=== PATIENT | female | born 1940 | race Caucasian/White ===

== ENCOUNTER 2017-03-04 21:58 | Inpatient (IN) ==
[2017-03-04] MEDS ORDERED: CIPROFLOXACIN INJ 400 MG in PREMIX 1 EACH IV STA (23:11)
[2017-03-04] MEDS ORDERED: ONDANSETRON 4 MG/2 ML VIAL IV STA (23:11)
[2017-03-04] MEDS ORDERED: PANTOPRAZOLE 40 MG VIAL IV STA (23:11)
[2017-03-04] MEDS ORDERED: HYDROmorphone 2 MG/1 ML VIAL IV STA (23:11)
[2017-03-04] MEDS ORDERED: SODIUM CHLORIDE 0.9% 1,000 ML IV STA (23:11)
[2017-03-04] MEDS ORDERED: metroNIDAZOLE INJ 500 MG in PREMIX 1 EACH IV STA (23:11)
--- NOTE | 2017-03-04 23:35 | Emergency Department Note ---
Merle Downey Kasabria, am scribing for, and in the presence of, Saji Daniels MD 23:17. Frances Downey Charles R, MD, personally performed the services described in this documentation, ascribed by Ciara Bloom in my presence, and it is both accurate and complete 335 . Arrival - Arrival Chief Complaint: Abdominal / Flank Pain Stated Complaint: STOMACH SWOLLEN/BURNING/THROWING UP/CANT DRINK/EAT ED Nursing Triage Note: C/O Generalized abd pain/nausea/vomiting/generalized weakness/dizziness. Onset Thursday night. Pt was seen by Dr. Jarrell earlier today and she was given cipro to possibly treat diverticulitis/gastritis until she can get a CT scan on Thursday. Pt states that she feels like she is very dehydrated and needs an IV. No active vomiting noted. Mode of Arrival: Wheelchair Limitations: No Limitations Source: Patient Time Seen by Provider: 03/04/17 22:54 - History of Present Illness HPI Narrative: This is a 76 y/o white female presenting to the ED with c/o generalized abdominal pain, weakness, nausea, vomiting, diarrhea, and vertigo that onset Thursday. Pt saw Dr. Jarrell earlier today and had labs drawn and kidney checked with culture due to dark urine and low back pain. She was given Cipro in an attempt to treat her diverticulitis and gastritis until she was able to get a CT scan on Thursday. Pt states she feel extremely weak and has had five to six episodes of emesis. She has had a low grade fever but has not taken any OTC medications. Pt states she has been drinking liquids and not eating solid meals. 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 Pt also c/ o pain behind her ears and down her neck. She denies chills, back pain, FINCH, vision change, chest pain, and dysuria. Her PMHx is consistent with HTN and MT x2. There is no active vomiting. Consistency: constant Severity: moderate Date of Last Menstrual Period: Hysterectomy Allergies/Adverse Reactions: Allergies Allergy/AdvReac Type Severity Reaction Status Date / Time Sulfa (Sulfonamide Allergy RASH Verified 08/30/15 18:33 Antibiotics) codeine AdvReac Nausea Verified 08/30/15 18:33 Home Medications: Home Medications Medication Instructions Recorded Confirmed Type Aspirin [Ecotrin] 162 mg PO DAILY 08/30/15 03/04/17 History Carvedilol [Carvedilol] 12.5 mg PO BID 08/30/15 03/04/17 History Clopidogrel Bisulfate [Clopidogrel] 75 mg PO DAILY 08/30/15 03/04/17 History NIFEdipine [Nifedipine ER] 30 mg PO BEDTIME 08/30/15 03/04/17 History Ondansetron HCl [Ondansetron HCl] 4 mg PO Q4-6H PRN 08/30/15 03/04/17 History Rosuvastatin [Crestor] 20 mg PO DAILY 08/30/15 03/04/17 History Ergocalciferol (Vitamin D2) 2,000 unit PO DAILY 09/21/16 03/04/17 History [Vitamin D2] Famotidine Tab [Pepcid Tab] 40 mg PO BID PRN 09/21/16 03/04/17 History Pantoprazole Tab [Protonix Tab] 40 mg PO DAILY #14 tablet 09/21/16 03/04/17 Rx cloNIDine TAB [Catapres Tab] 0.1 mg PO DAILY #10 tablet 09/21/16 03/04/17 Rx Ciprofloxacin Tab [Cipro Tab] 500 mg PO BID 03/04/17 03/04/17 History Review of System - Review of System 12 point system: reviewed and no additional remarkable complaints except as stated - Review of System Constitutional: Present: weakness. Absent: chills, fever Eyes: Absent: vision change Head/Ears/Nose/Throat: Present: other (pain behind ears bilaterally that extend down her neck). Absent: earache, nasal drainage Respiratory: Absent: cough, wheezing Cardiovascular: Absent: chest pain, dyspnea on exertion Gastrointestinal: Present: abdominal pain (generalized ), nausea, vomiting (x5-6 ), diarrhea. Absent: hematemesis, hematochezia Genitourinary female: Absent: dysuria Musculoskeletal: Absent: arm pain, back pain, leg pain, neck pain Skin: Absent: rash Neurological: Absent: headache, weakness, numbness, confusion, vertigo Psychiatric: Absent: anxiety Endocrine: Absent: fatigue Hematological/Lymphatic: Absent: easy bleeding Allergic/Immunologic: Absent: facial swelling Medical,Surgical,& Family Hx - Medical History Cardio: History of: Hypertension, MT (MT X 2) Endocrine: History of: Dyslipidemia - Surgical History Cardiac Surgeries: Sugical HX of: Cardiac Catheterization (3 HEART CATHS 4 STENTS) - Social History Smoking Status: Unknown if ever smoked Frequency of Alcohol Use: None Type of Drug Use: None Exam Vital Signs: Vital Signs Temperature 97.6 F 03/04/17 22:10 Pulse Rate 70 03/04/17 22:10 Respiratory Rate 16 03/04/17 22:10 Blood Pressure 164/104 03/04/17 22:10 O2 Sat by Pulse Oximetry 98 03/04/17 22:05 - General General appearance: alert, in no apparent distress - Head Head exam: Present: atraumatic, normocephalic, normal inspection - Eye Eye exam: Present: normal appearance, PERRL, EOMI - ENT ENT exam: Present: mucous membranes dry, TM's normal bilaterally. Absent: normal exam, normal oropharynx, mucous membranes moist, normal external ear exam - Expanded ENT Exam External ear exam: Present: other (reproducible pain behind ears bilaterally ) - Neck Neck exam: Present: normal inspection, full ROM, trachea midline. Absent: tenderness - Chest Chest inspection: Present: normal inspection, symmetric chest wall rise. Absent : tenderness - Respiratory Respiratory exam: Present: rhonchi (bilaterally ) - Cardiovascular Cardiovascular exam: Present: regular rate, normal rhythm, irregular rhythm, normal heart sounds - Abdominal Exam Abdominal exam: Present: soft, tenderness (LLQ tenderness ), diminished bowel sounds. Absent: distention - Extremities Exam Extremities exam: Present: normal inspection, full ROM, normal capillary refill. Absent: tenderness, pedal edema, calf tenderness - Back Exam Back exam: Present: normal inspection, full ROM. Absent: tenderness - Neurological Exam Neurological exam: Present: alert, oriented X3, CN II-XII intact, normal gait, reflexes normal - Psychiatric Psychiatric exam: Present: normal affect, normal mood - Skin Skin exam: Present: warm, dry, intact, pallor, other (poor skin turgor ). Absent: normal color, diaphoresis Course Course Narrative: Patient has a history of gallstones. On reexamination patient is not tender in the right upper quadrant negative Cowart sign patient is a exam shows tenderness in the mid abdomen and left lower quadrant - Reevaluation(s) Reevaluation #1: Patient's abdominal pain is better but she still having nausea and vomiting Time: 01:07 - Consultations Consultation #1: Dr. Preciado will admit patient Time: 01:07 Results - Labs CBC & BMP: 03/04/17 23:41 03/04/17 23:41 Lab Results: I have reviewed the patients labs - Diagnostic Findings Procedure: CT Abdomen and Pelvis: report reviewed by me (Small bowel diverticulitis without obstruction gallstones without obstruction and no gallbladder wall thickening) Disposition Clinical Impression: Abdominal pain, Diverticulitis, History of gallstones, Nausea & vomiting, Dehydration Case discussed with: patient, patient's family Disposition: Still a Patient Condition: Guarded Time of Disposition: 01:07
[2017-03-05] MEDS ORDERED: ONDANSETRON 4 MG/2 ML VIAL ONE (00:02)
[2017-03-05] MEDS ORDERED: HYDROmorphone 2 MG/1 ML VIAL ONE (00:02)
[2017-03-05] MEDS ORDERED: metroNIDAZOLE 500 MG/100 ML PREMIX IV ONE (00:02)
[2017-03-05] MEDS ORDERED: PANTOPRAZOLE 40 MG VIAL IV ONE (00:02)
[2017-03-05] MEDS ORDERED: CIPROFLOXACIN 400 MG/200 ML PREMIX IV ONE (00:02)
[2017-03-05 00:32] LABS: Basophils # 0.1 10*3/uL (0.0-0.2); Basophils % 0.5 % (0.0-0.8); Eosinophils # 0.2 10*3/uL (0.0-0.87); Eosinophils % 1.8 % (0.00-10.9); Hematocrit 38.4 VOL% (35.7-47.0); Hemoglobin 12.5 GM/DL (12.0-16.0); Immature Granulocytes % 0.5 %; Immature Granulocytes Absolute 0.05 #; Lymphocytes # 1.3 10*3/uL (1.4-4.0); Lymphocytes % 13.1 % (21.3-54.2); Mean Corpuscular HGB Conc 32.6 GM/DL (32-36); Mean Corpuscular Hemoglobin 31 PG (27-34); Mean Corpuscular Volume 95.5 FL (87-102); Mean Platelet Volume 10.6 FL (9.6-12.0); Monocytes # 0.6 10*3/uL (0.11-0.8); Monocytes % 6.1 % (1.7-12.7); Neutrophils # 7.9 10*3/uL (1.4-7.4); Platelet Count 204 T/CUMM (130-400); Red Blood Count 4.02 MC/CUMM (3.8-5.5); Red Cell Distribution Width 12.6 % (9.3-17.3); White Blood Count 10.1 T/CUMM (4-12)
[2017-03-05 00:47] LABS: Apearance,Urine CLEAR (Clear); Bilirubin,Urine Negative (Negative); Blood, Urine Negative (Negative); Glucose,Urine (UA) 150 mg/dL (Negative); Ketones,Urine 20 mg/dL (Negative); Mucus,Urine Occasional /LPF (Occasional); Nitrite,Urine Negative (Negative); Protein,Urine Negative; RBC,Urine 1 /HPF (0-4); Squamous Epithelial Cell,Urine Occasional /HPF (0-10); Urine Color Straw (Yellow); Urine Specific Gravity 1.019 (1.001-1.035); Urine Urobilinogen < 2.0 EU/DL (0.2-1.0); WBC,Urine <1 /HPF (0-6)
[2017-03-05 01:02] LABS: Lactic Acid 1.2 MMOL/L (0.4-2.0)
[2017-03-05 01:03] LABS: Alanine Aminotransferase 24 U/L (13-56); Albumin 3.8 G/DL (3.4-5.0); Alkaline Phosphatase 80 U/L (45-117); Amylase 39 U/L (25-115); Aspartate Amino Transferase 19 U/L (0-37); Blood Urea Nitrogen 16 MG/DL (7-18); Calcium 8.9 MG/DL (8.5-10.1); Glucose 162 MG/DL (74-106); Magnesium 2.2 MG/DL (1.8-2.4); Osmolality,Calculated 272.2 MOS/KG (273-304); Potassium 3.7 MMOL/L (3.5-5.1); Sodium 134 MMOL/L (136-145); Total Protein 7.2 G/DL (6.4-8.3); Troponin I Only < 0.015 NG/ML (0.00-0.045)
--- NOTE | 2017-03-05 01:14 | Hospitalist History & Physical ---
Assessment and Plan (1) Abdominal pain Status: Acute Assessment and plan: Start Cipro and Flagyl IV. Continue IV fluid hydration. Antiemetics and pain medications as needed. Consult Dr. Caraballo gastroenterology. Current Visit: Yes Qualifiers: Abdominal location: left lower quadrant Qualified Code(s): R10.32 - Left lower quadrant pain (2) Diverticulitis Status: Acute Current Visit: Yes Qualifiers: Diverticulitis site: large intestine Diverticulitis bleeding: without bleeding Diverticulitis complication: without perforation or abscess Qualified Code(s): K57.32 - Diverticulitis of large intestine without perforation or abscess without bleeding (3) Nausea & vomiting Status: Acute Assessment and plan: Zofran and Phenergan as needed Current Visit: Yes Qualifiers: Vomiting type: unspecified Vomiting Intractability: intractable Qualified Code(s): R11.2 - Nausea with vomiting, unspecified (4) Dehydration Status: Acute Assessment and plan: IV fluids and clear liquid diet Current Visit: Yes History of Present Illness Chief complaint: Nausea vomiting abdominal pain History of present illness: Ms. Caraballo is a 76 year old female presenting to the ED with c/o generalized abdominal pain, weakness, nausea, vomiting, diarrhea, and vertigo that onset Thursday. Pt saw Dr. Jarrell earlier today and had labs drawn and Urine checked with culture due to dark urine and low back pain. She was given Cipro in an attempt to treat her diverticulitis until she was able to get a CT scan on Thursday. Pt states she feel extremely weak and has had five to six episodes of emesis. She has had a low grade fever but has not taken any OTC medications. Pt states she has been drinking liquids and not eating solid meals. 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 She denies chills, back pain, FINCH, vision change, chest pain, and dysuria. Her PMHx is consistent with HTN and SC x2. There is no active vomiting. Consistency: constant Severity: moderate Home Medications Medication Instructions Recorded Confirmed Type Aspirin [Ecotrin] 162 mg PO DAILY 08/30/15 03/04/17 History Carvedilol [Carvedilol] 12.5 mg PO BID 08/30/15 03/04/17 History Clopidogrel Bisulfate [Clopidogrel] 75 mg PO DAILY 08/30/15 03/04/17 History NIFEdipine [Nifedipine ER] 30 mg PO BEDTIME 08/30/15 03/04/17 History Ondansetron HCl [Ondansetron HCl] 4 mg PO Q4-6H PRN 08/30/15 03/04/17 History Rosuvastatin [Crestor] 20 mg PO DAILY 08/30/15 03/04/17 History Ergocalciferol (Vitamin D2) 2,000 unit PO DAILY 09/21/16 03/04/17 History [Vitamin D2] Famotidine Tab [Pepcid Tab] 40 mg PO BID PRN 09/21/16 03/04/17 History Pantoprazole Tab [Protonix Tab] 40 mg PO DAILY #14 tablet 09/21/16 03/04/17 Rx cloNIDine TAB [Catapres Tab] 0.1 mg PO DAILY #10 tablet 09/21/16 03/04/17 Rx Ciprofloxacin Tab [Cipro Tab] 500 mg PO BID 03/04/17 03/04/17 History Allergies Allergy/AdvReac Type Severity Reaction Status Date / Time Sulfa (Sulfonamide Allergy RASH Verified 08/30/15 18:33 Antibiotics) codeine AdvReac Nausea Verified 08/30/15 18:33 Medical,Surgical,& Family Hx - Medical History Cardio: History of: Hypertension, SC (SC X 2) Endocrine: History of: Dyslipidemia Gastrointestinal: History of: Diverticulitis/ Diverticulosis - Surgical History Cardiac Surgeries: Sugical HX of: Cardiac Catheterization (3 HEART CATHS 4 STENTS) - Family History Family History: Reports;: Family Hypertension - Social History Smoking Status: Unknown if ever smoked Frequency of Alcohol Use: None Type of Drug Use: None Marital Status: Single Lives With:: Alone Functional capacity: independent ambulation 12 point system: reviewed and no additional remarkable complaints except as stated - Gastrointestinal Gastrointestinal: Present: as per HPI, abdominal pain, diarrhea, nausea, vomiting Exam - Constitutional Vitals: Period Temp Pulse Resp BP Sys/Velazco Pulse Ox Last 24 Hr 97.6 F-97.6 F 70-70 16-16 164-164/104-104 98 Exam: Constitutional System: Moderate distress. No tremulousness. Head: Normocephalic, atraumatic. Ears, Nose and Throat System: No pain or tenderness. No epistaxis or discharge. mucous membranes dry Eyes System: Pupils equal, round, and reactive. Extraocular muscles intact. Neck: Supple, without adenopathy, No jugular venous distention. No thyromegaly, neck mass, or prior surgery apparent. Respiratory System: Chest clear to auscultation. Cardiovascular System: Heart with regular rate and rhythm. No murmur. GI System: Abdomen soft, tender to palpation in the left lower quadrant. Normo active bowel sounds present. Musculoskeletal System: limbs with no pedal edema. Full distal pulses. Neurological System: No discernable sensory deficit. No aphasia Psychiatric System: Conversation is rational Results - Labs CBC & BMP: 03/04/17 23:41 03/04/17 23:41 Lab Results: I have reviewed the past 24 hour labs - Diagnostic Findings Procedure: CT Abdomen and Pelvis: image reviewed by me, report reviewed by me
[2017-03-05] MEDS ORDERED: MORPHINE 2 MG/1 ML SYRINGE IV PRN (01:20)
[2017-03-05] MEDS ORDERED: PROMETHAZINE 25 MG/1 ML VIAL IM PRN (01:20)
[2017-03-05] MEDS ORDERED: FAMOTIDINE 20 MG TABLET PO PRN (01:22)
[2017-03-05] MEDS ORDERED: ONDANSETRON 4 MG TABLET PO PRN (01:22)
[2017-03-05] MEDS: SODIUM CHLORIDE 0.9% 1,000 ML IV SCH ×3 (03:16→17:44)
[2017-03-05] MEDS: ONDANSETRON 4 MG/2 ML VIAL IV PRN (03:37)
[2017-03-05 04:10] LABS: Basophils % 0.4 % (0.0-0.8); Eosinophils % 0.4 % (0.00-10.9); Hematocrit 41.4 VOL% (35.7-47.0); Hemoglobin 13.2 GM/DL (12.0-16.0); Immature Granulocytes % 0.3 %; Immature Granulocytes Absolute 0.03 #; Lymphocytes # 1.1 10*3/uL (1.4-4.0); Lymphocytes % 12.1 % (21.3-54.2); Mean Corpuscular HGB Conc 31.9 GM/DL (32-36); Mean Corpuscular Hemoglobin 31 PG (27-34); Mean Corpuscular Volume 95.8 FL (87-102); Mean Platelet Volume 10.6 FL (9.6-12.0); Monocytes # 0.3 10*3/uL (0.11-0.8); Monocytes % 3.7 % (1.7-12.7); Neutrophils # 7.7 10*3/uL (1.4-7.4); Neutrophils % 83.1 % (38.7-73.9); Platelet Count 226 T/CUMM (130-400); Red Blood Count 4.32 MC/CUMM (3.8-5.5); Red Cell Distribution Width 12.5 % (9.3-17.3); White Blood Count 9.3 T/CUMM (4-12)
[2017-03-05 04:46] LABS: Albumin 3.8 G/DL (3.4-5.0); Bilirubin,Total 1.2 MG/DL (0.2-1.0); Calcium 8.6 MG/DL (8.5-10.1); Magnesium 2.2 MG/DL (1.8-2.4); Osmolality,Calculated 275.1 MOS/KG (273-304); Potassium 3.7 MMOL/L (3.5-5.1); Total Protein 7.7 G/DL (6.4-8.3)
[2017-03-05 05:32] LABS: Apearance,Urine CLEAR (Clear); Bilirubin,Urine Negative (Negative); Blood, Urine Negative (Negative); Glucose,Urine (UA) >=500 mg/dL (Negative); Ketones,Urine 20 mg/dL (Negative); Nitrite,Urine Negative (Negative); Protein,Urine Negative; RBC,Urine 1 /HPF (0-4); Urine Color Straw (Yellow); Urine Specific Gravity 1.015 (1.001-1.035); Urine Urobilinogen < 2.0 EU/DL (0.2-1.0); WBC,Urine <1 /HPF (0-6)
--- NOTE | 2017-03-05 08:05 | XRay Report ---
XR chest 1V portable Indication: Abdominal pain Comparison: 21 September 2016 Findings: The heart and mediastinum are stable in size and configuration. The pulmonary vascularity is slightly increased with bilateral increased interstitial lung density. No other lung infiltrates, effusions, pneumothorax or other abnormality is demonstrated. Impression: Findings suggest mild cardiac decompensation. PROCEDURE INTERPRETED AT [facility] DEPARTMENT OF RADIOLOGY Final Report Signed by: Dr. Tarun Cook
--- NOTE | 2017-03-05 08:06 | XRay Report ---
XR abdomen 2V Indication: Abdominal pain Comparison: One March 2014 Findings: No free fluid or free air seen. Increased stool volume is seen in the colon. The bowel gas pattern otherwise appears within normal limits. No abnormal calcifications are present. No other abnormality is identified. Impression: Increased stool volume in the colon, may indicate constipation. PROCEDURE INTERPRETED AT [facility] DEPARTMENT OF RADIOLOGY Final Report Signed by: Dr. Tarun Cook
--- NOTE | 2017-03-05 08:14 | CT Report ---
CT abdomen pelvis Indication: Abdominal, pelvic pain Comparison: 21 September 2013 Technique: Axial CT imaging of the abdomen and pelvis is performed with intravenous and oral contrast. Contrast dose is 100 cc of Omnipaque 350. Findings: Cardiac and lung bases are within normal limits CT abdomen: Calculus is seen in the gallbladder neck area. Diverticula is present in the head of the pancreas likely duodenal, similar finding was present on previous exam. The liver spleen and adrenal glands are normal in size and enhancement. No evidence of focal lesion is demonstrated in these solid organs. Kidneys are normal in size and enhancement. No evidence of hydronephrosis or nephrolithiasis is seen. Multiple diverticula are present in the colon without evidence of diverticulitis. Multiple diverticula are also seen in areas of the small bowel more prominent on the left side of the abdomen. One diverticula in the left mid abdomen appears enlarged with adjacent stranding.. No evidence of free fluid or free air is present. CT pelvis: Large amount of diverticular single sigmoid colon without evidence of diverticulitis. Remaining pelvic bowel appears within normal limits. Bladder shows no evidence of abnormality. The pelvic organs show no evidence of abnormality Impression: Suggestion of small bowel diverticulitis in the left mid abdomen. Cholelithiasis. This CT exam was performed using one or more the following dose reduction techniques: Automated exposure control, adjustment of the MA and/or KV according to patient size, or use of iterative reconstruction technique. PROCEDURE INTERPRETED AT [facility] DEPARTMENT OF RADIOLOGY Final Report Signed by: Dr. Tarun Cook
--- NOTE | 2017-03-05 08:17 | EKG Report ---
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
[2017-03-05] MEDS ORDERED: PANTOPRAZOLE 40 MG TABLET PO SCH (09:00)
[2017-03-05] MEDS: CLOPIDOGREL 75 MG TABLET PO SCH (10:14)
[2017-03-05] MEDS: ENOXAPARIN 40 MG/0.4 ML SYRINGE SUBCUT SCH (10:14)
[2017-03-05] MEDS: PANTOPRAZOLE 40 MG TABLET PO SCH (10:14)
[2017-03-05] MEDS: ROSUVASTATIN 20 MG TABLET PO SCH (10:15)
[2017-03-05] MEDS: metroNIDAZOLE INJ 500 MG in PREMIX 1 EACH IV SCH ×2 (10:15→16:18)
[2017-03-05] MEDS: CARVEDILOL 12.5 MG TABLET PO SCH ×2 (10:15→20:40)
[2017-03-05] MEDS: CHOLECALCIFEROL 1,000 UNIT TABLET PO SCH (10:15)
[2017-03-05] MEDS: ASPIRIN EC 81 MG TABLET PO SCH (10:15)
[2017-03-05] MEDS: cloNIDine 0.1 MG TABLET PO SCH (10:15)
--- NOTE | 2017-03-05 10:45 | Gastrointestinal Consult Note ---
<DavidKarmen Miranda - Last Filed: 03/05/17 10:38> Assessment and Plan (1) Diverticulitis Status: Acute Assessment and plan: 03/05-sudden onset of generalized abdominal pain 5 days with associated nausea, vomiting and couple episodes of diarrhea. Prior history of diverticulitis in the past. CT findings noted below. Currently on Plavix. IV Cipro and Flagyl have been initiated. Continue to monitor. Plan an addendum to follow by Dr. Caraballo. Current Visit: Yes Qualifiers: Diverticulitis site: large intestine Diverticulitis bleeding: without bleeding Diverticulitis complication: without perforation or abscess Qualified Code(s): K57.32 - Diverticulitis of large intestine without perforation or abscess without bleeding History of Present Illness Chief complaint: Abdominal pain History of present illness: Ms. Caraballo is a 76 year old female who was admitted to the hospital with 5 day history of nausea, vomiting, and abdominal pain. Patient states that last Thursday she had a rather sudden onset of generalized abdominal pain. She states the pain was severe in nature and was associated with the onset of nausea and vomiting shortly after. She also reports some associated dizziness with no prior history of vertigo to her knowledge. Patient states that she did run a low-grade fever initially but it resolved shortly after onset. She presented to the clinic this week to see Dr. Jarrell due to the abdominal pain. She was given oral Cipro and scheduled for a CT scan as an outpatient tomorrow. Patient states that the pain continued and she presented to the hospital for further evaluation last night. She states that she has not been up to eat or drink very much since the pain began. She she has had initially episodes of diarrhea at onset but states she has not had a bowel movement in 2 days. Denies any melena or hematochezia. On admission she had a CT of the abdomen which showed a large amount of diverticulae of the sigmoid colon without diverticulitis however findings of small bowel diverticulitis in the left mid abdomen. Also noted findings of cholelithiasis. LFTs are unremarkable. Noted calculus seen in the neck of the gallbladder is well. She is afebrile since admission. 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 Findings noted showed no ulcerations or malignancies at that time. Facility records show last complete colonoscopy in 1999 with findings of colon polyps and diverticula of the colon with significant diverticular scarring in the pelvic colon done by Dr. Mckeon. She continues on Plavix at this time with a history of cardiac stents in the past with last known stenting in [address] Dahl. Home Medications Medication Instructions Recorded Confirmed Type Aspirin [Ecotrin] 162 mg PO DAILY 08/30/15 03/04/17 History Carvedilol [Carvedilol] 12.5 mg PO BID 08/30/15 03/04/17 History Clopidogrel Bisulfate [Clopidogrel] 75 mg PO DAILY 08/30/15 03/04/17 History NIFEdipine [Nifedipine ER] 30 mg PO BEDTIME 08/30/15 03/04/17 History Ondansetron HCl [Ondansetron HCl] 4 mg PO Q4-6H PRN 08/30/15 03/04/17 History Rosuvastatin [Crestor] 20 mg PO DAILY 08/30/15 03/04/17 History Ergocalciferol (Vitamin D2) 2,000 unit PO DAILY 09/21/16 03/04/17 History [Vitamin D2] Famotidine Tab [Pepcid Tab] 40 mg PO BID PRN 09/21/16 03/04/17 History Pantoprazole Tab [Protonix Tab] 40 mg PO DAILY #14 tablet 09/21/16 03/04/17 Rx cloNIDine TAB [Catapres Tab] 0.1 mg PO DAILY #10 tablet 09/21/16 03/04/17 Rx Ciprofloxacin Tab [Cipro Tab] 500 mg PO BID 03/04/17 03/04/17 History Allergies Allergy/AdvReac Type Severity Reaction Status Date / Time Sulfa (Sulfonamide Allergy RASH Verified 08/30/15 18:33 Antibiotics) codeine AdvReac Nausea Verified 08/30/15 18:33 Medical,Surgical,& Family Hx - Medical History Cardio: History of: Hypertension, ND (ND X 2) Endocrine: History of: Dyslipidemia Gastrointestinal: History of: Diverticulitis/ Diverticulosis - Surgical History Cardiac Surgeries: Sugical HX of: Cardiac Catheterization (3 HEART CATHS 4 STENTS) Reproductive Surgeries: Surgical HX of;: Breast Surgery, Hysterectomy - Family History Family History: Reports;: Family Hypertension - Social History Smoking Status: Unknown if ever smoked Frequency of Alcohol Use: None Type of Drug Use: None 12 point system: reviewed and no additional remarkable complaints except as stated - Constitutional Constitutional: Present: as per HPI, fever(s) - EENT Eyes: Present: as per HPI Ears: Present: as per HPI Nose, mouth and throat: Present: as per HPI - Cardiovascular Cardiovascular: Present: as per HPI - Respiratory Respiratory: Present: as per HPI - Gastrointestinal Gastrointestinal: Present: as per HPI, abdominal pain, diarrhea, nausea, vomiting - Genitourinary Genitourinary: Present: as per HPI - Musculoskeletal Musculoskeletal: Present: as per HPI - Neurological Neurological: Present: as per HPI - Psychiatric Psychiatric: Present: as per HPI - Endocrine Endocrine: Present: as per HPI - Hematologic/Lymphatic Hematologic/Lymphatic: Present: as per HPI Exam - Constitutional Vitals: Period Temp Pulse Resp BP Sys/Velazco Pulse Ox Last 24 Hr 96.3 F-96.4 F 70-84 16-18 162-168/88-94 97-98 General appearance: normal weight, no acute distress - Head Head exam: Present: normal inspection, normocephalic - Eye Eye exam: Present: other (Lids and conjunctive are unremarkable). Absent: scleral icterus - ENT ENT exam: Present: normal exam, normal oropharynx - Neck Neck exam: Present: normal inspection - Respiratory Respiratory exam: Present: clear to auscultation bilaterally. Absent: rales, rhonchi, wheezes - Cardiovascular Cardiovascular exam: Present: regular rate and rhythm. Absent: diastolic murmur , JVD, systolic murmur - GI/Abdominal GI/Abdominal exam: Present: normal bowel sounds, tenderness (Generalized), soft. Absent: ascites, distended, mass, organomegaly - Extremities Exam Extremities exam: Present: normal inspection, full ROM - Back Exam Back exam: Present: normal inspection - Neurological Exam Neurological exam: Present: alert, oriented X3 - Psychiatric Psychiatric exam: Present: normal affect, normal mood - Skin Skin exam: Present: normal color, warm, dry Results - Labs CBC & BMP: 03/05/17 03:31 03/05/17 03:31 Lab Results: I have reviewed the past 24 hour labs - Diagnostic Findings Procedure: CT Abdomen and Pelvis: report reviewed by me <Flynn Caraballoyolanda Kraft - Last Filed: 03/05/17 18:30> History of Present Illness History of present illness: Ms. Caraballo is a 76 year old female Exam - Constitutional Vitals: Period Temp Pulse Resp BP Sys/Velazco Pulse Ox Last 24 Hr 96.3 F-99.0 F 70-84 16-20 162-189/88-99 97-100 Results - Labs CBC & BMP: 03/05/17 03:31 03/05/17 03:31
--- NOTE | 2017-03-05 12:36 | CT Report ---
CT brain Indication: Vertigo Comparison: None available Technique: Axial CT imaging of the brain is performed without contrast with 3 mm increments. Findings: No evidence of hemorrhage, mass mass effect midline shift or acute infarct seen. There is moderate diffuse cerebral atrophy. There are areas of decreased density seen within the white matter likely related to chronic microvascular changes. More focal decreased density seen in the right anterior basal ganglia, likely previous lacunar infarct. Otherwise the brain parenchyma attenuation and differentiation appears within normal limits. The ventricles and cisterns are normal in caliber. No cranial or skull base abnormality is identified. Impression: No evidence of acute process or acute infarct. This CT exam was performed using one or more the following dose reduction techniques: Automated exposure control, adjustment of the MA and/or KV according to patient size, or use of iterative reconstruction technique. PROCEDURE INTERPRETED AT [facility] DEPARTMENT OF RADIOLOGY Final Report Signed by: Dr. Tarun Cook
[2017-03-05] MEDS: CIPROFLOXACIN INJ 400 MG in PREMIX 1 EACH IV SCH ×3 (13:29→23:38)
[2017-03-05] MEDS: PROMETHAZINE 25 MG TABLET PO PRN (16:18)
[2017-03-05] MEDS: ACETAMINOPHEN 325 MG TABLET PO PRN (16:47)
[2017-03-06] MEDS: metroNIDAZOLE INJ 500 MG in PREMIX 1 EACH IV SCH ×3 (01:49→15:55)
[2017-03-06 02:18] LABS: Basophils % 0.2 % (0.0-0.8); Eosinophils # 0.1 10*3/uL (0.0-0.87); Eosinophils % 0.9 % (0.00-10.9); Hematocrit 38.5 VOL% (35.7-47.0); Hemoglobin 12.8 GM/DL (12.0-16.0); Immature Granulocytes % 0.5 %; Immature Granulocytes Absolute 0.06 #; Lymphocytes # 1.4 10*3/uL (1.4-4.0); Lymphocytes % 11.8 % (21.3-54.2); Mean Corpuscular HGB Conc 33.2 GM/DL (32-36); Mean Corpuscular Hemoglobin 31 PG (27-34); Mean Corpuscular Volume 92.3 FL (87-102); Mean Platelet Volume 10.3 FL (9.6-12.0); Monocytes # 1.1 10*3/uL (0.11-0.8); Monocytes % 9.1 % (1.7-12.7); Neutrophils % 77.5 % (38.7-73.9); Platelet Count 230 T/CUMM (130-400); Red Blood Count 4.17 MC/CUMM (3.8-5.5); Red Cell Distribution Width 12.2 % (9.3-17.3); White Blood Count 11.6 T/CUMM (4-12)
[2017-03-06 02:42] LABS: Calcium 8.3 MG/DL (8.5-10.1); Magnesium 1.7 MG/DL (1.8-2.4); Osmolality,Calculated 265.5 MOS/KG (273-304); Potassium 3.2 MMOL/L (3.5-5.1)
[2017-03-06] MEDS: SODIUM CHLORIDE 0.9% 1,000 ML IV SCH ×4 (06:25→21:41)
--- NOTE | 2017-03-06 08:46 | Gastrointestinal Progress Note ---
<FernandoelidiaKarmen Miranda - Last Filed: 03/06/17 08:43> Assessment and Plan (1) Diverticulitis Status: Acute Assessment and plan: 03/06-Abd pain improved slightly. Afebrile at present. WBC 11. Continue with IV antibiotics and monitor. Plan and addendum to follow by Dr Caraballo. 03/05-sudden onset of generalized abdominal pain 5 days with associated nausea, vomiting and couple episodes of diarrhea. Prior history of diverticulitis in the past. CT findings noted below. Currently on Plavix. IV Cipro and Flagyl have been initiated. Continue to monitor. Plan an addendum to follow by Dr. Caraballo. Current Visit: Yes Qualifiers: Diverticulitis site: large intestine Diverticulitis bleeding: without bleeding Diverticulitis complication: without perforation or abscess Qualified Code(s): K57.32 - Diverticulitis of large intestine without perforation or abscess without bleeding Gastroenterology - PN: Subj Interval history: CC: Diverticulitis Patient is seen lying in bed awake, alert. She states that she is having continued dizziness with nausea at this time but it is slightly improved. She states her abdominal pain is slightly improved as well however she has a poor appetite. She is taking very small amounts of clear liquid diet. Abdomen is soft, mild tenderness with palpation. She is for an MRI of the brain this morning due to negative CT findings and for further workup of her vertigo symptoms. She is afebrile, no leukocytosis noted. ROS: Denies shortness of breath or chest Exam (Progress Note) - Constitutional Vitals: Period Temp Pulse Resp BP Sys/Velazco Pulse Ox Last 24 Hr 96.4 F-99.2 F 72-86 16-20 157-189/77-99 93-100 General appearance: normal weight, no acute distress - Head Head exam: Present: normal inspection, normocephalic - Eye Eye exam: Present: other (Lids and conjunctive are unremarkable). Absent: scleral icterus - ENT ENT exam: Present: normal exam, normal oropharynx - Neck Neck exam: Present: normal inspection - Respiratory Respiratory exam: Present: clear to auscultation bilaterally. Absent: rales, rhonchi, wheezes - Cardiovascular Cardiovascular exam: Present: regular rate and rhythm. Absent: diastolic murmur , JVD, systolic murmur - GI/Abdominal GI/Abdominal exam: Present: normal bowel sounds, tenderness, soft. Absent: ascites, distended, mass, organomegaly - Extremities Exam Extremities exam: Present: normal inspection, full ROM - Back Exam Back exam: Present: normal inspection - Neurological Exam Neurological exam: Present: alert, oriented X3 - Psychiatric Psychiatric exam: Present: normal affect, normal mood - Skin Skin exam: Present: normal color, warm, dry Results - Labs CBC & BMP: 03/06/17 01:43 03/06/17 01:43 Lab Results: I have reviewed the past 24 hour labs <Torsten Caraballo - Last Filed: 03/06/17 13:09> Exam (Progress Note) - Constitutional Vitals: Period Temp Pulse Resp BP Sys/Velazco Pulse Ox Last 24 Hr 97.6 F-99.2 F 72-86 16-20 157-189/77-99 93-100 Results - Labs CBC & BMP: 03/06/17 01:43 03/06/17 01:43
[2017-03-06] MEDS: ONDANSETRON 4 MG/2 ML VIAL IV PRN (10:12)
[2017-03-06] MEDS: CARVEDILOL 12.5 MG TABLET PO SCH ×2 (10:15→21:21)
[2017-03-06] MEDS: ASPIRIN EC 81 MG TABLET PO SCH (10:15)
[2017-03-06] MEDS: ENOXAPARIN 40 MG/0.4 ML SYRINGE SUBCUT SCH (10:16)
[2017-03-06] MEDS: ROSUVASTATIN 20 MG TABLET PO SCH (10:16)
[2017-03-06] MEDS: CHOLECALCIFEROL 1,000 UNIT TABLET PO SCH (10:17)
[2017-03-06] MEDS: PANTOPRAZOLE 40 MG TABLET PO SCH (10:17)
[2017-03-06] MEDS: CLOPIDOGREL 75 MG TABLET PO SCH (10:17)
[2017-03-06] MEDS: cloNIDine 0.1 MG TABLET PO SCH (10:20)
--- NOTE | 2017-03-06 12:17 | Magnetic Resonance Report ---
MRI brain without contrast Indication: Slurred speech, blurred vision, vertigo Comparison: None available Technique: Axial sagittal and coronal imaging of the brain is performed without contrast. T1, T2, FLAIR and diffusion weighted sequences are performed. Findings: Multiple areas of restricted diffusion are present in the inferior medial right cerebellar hemisphere and right posterior medulla oblongata. These areas have T2 signal hyperintensity. No other evidence of restricted diffusion seen. No evidence of intracranial hemorrhage, mass, mass effect or midline shift is seen. There is moderate diffuse cerebral volume loss. There are areas of white matter T2 signal hyperintensity in both cerebral hemispheres, periventricular and subcortical location. Focal lacunar infarct is seen in the right basal ganglia. Remaining brain parenchyma has normal signal and differentiation. The ventricles and cisterns are appropriate in caliber. Posterior fossa, mid brain and pituitary gland appear within normal limits. No evidence of cranial or skull base abnormality seen. Impression: Focal areas of restricted diffusion in the inferior medial right cerebellar hemisphere and right posterior medulla oblongata consistent with infarcts, likely greater than 8 hours age. No other acute process seen. PROCEDURE INTERPRETED AT [facility] DEPARTMENT OF RADIOLOGY Final Report Signed by: Dr. Tarun Cook
[2017-03-06] MEDS: ACETAMINOPHEN 325 MG TABLET PO PRN (13:06)
[2017-03-06] MEDS: CIPROFLOXACIN INJ 400 MG in PREMIX 1 EACH IV SCH (13:08)
[2017-03-06] MEDS: PROMETHAZINE 25 MG TABLET PO PRN (13:39)
--- NOTE | 2017-03-06 16:11 | Hospitalist Progress Note ---
Assessment and Plan - Time spent with patient Time spent with patient: Greater than 30 minutes (1) Stroke Status: Acute Current Visit: Yes (2) Atrial fibrillation Status: Acute Current Visit: Yes (3) Abdominal pain Status: Acute Current Visit: Yes Qualifiers: Abdominal location: left lower quadrant Qualified Code(s): R10.32 - Left lower quadrant pain (4) Diverticulitis Status: Acute Current Visit: Yes Qualifiers: Diverticulitis site: large intestine Diverticulitis bleeding: without bleeding Diverticulitis complication: without perforation or abscess Qualified Code(s): K57.32 - Diverticulitis of large intestine without perforation or abscess without bleeding (5) History of gallstones Status: Acute Current Visit: Yes (6) Nausea & vomiting Status: Acute Current Visit: Yes Qualifiers: Vomiting type: unspecified Vomiting Intractability: intractable Qualified Code(s): R11.2 - Nausea with vomiting, unspecified (7) Dehydration Status: Acute Assessment and plan: Obtain echocardiogram Lipid profile, A1c, B12. She is already on aspirin and Plavix Allow permissive hypertension, IV hydralazine only for systolic blood pressure greater than 220/110 Consult neurology Will need cardiology consult in the morning after echocardiogram, she will probably need prolonged anticoagulation. Physical and Occupational Therapy consult. DVT prophylaxis Continue on antibiotics, discontinue Zosyn in the morning. Current Visit: Yes Hospitalist: Subjective Interval history: 76-year-old lady was admitted acute diverticulitis, she had continued to complain of dizziness, vertigo and so a CT scan was done initially which was negative. Symptoms persisted also on MRI was done. MRI reported as areas of restricted diffusion in the inferior medial right cerebellar hemisphere and medulla consistent with infarct. She is already on aspirin and Plavix. She continues complaining of dizziness, unable to ambulate because of it. No fever, no chest pain, no palpitation. I reviewed the EKG, shows atrial fibrillation but with normal heart rate. Blood pressure is uncontrolled but we will allow permissive hypertension for now and adjust blood pressure medication tomorrow. Exam - Constitutional Vitals: Period Temp Pulse Resp BP Sys/Velazco Pulse Ox Last 24 Hr 97.6 F-99.2 F 72-91 16-18 157-177/77-97 93-99 Exam: Constitutional System: Moderate distress. No tremulousness. Head: Normocephalic, atraumatic. Ears, Nose and Throat System: No pain or tenderness. No epistaxis or discharge. mucous membranes dry Eyes System: Pupils equal, round, and reactive. Extraocular muscles intact. Neck: Supple, without adenopathy, No jugular venous distention. No thyromegaly, neck mass, or prior surgery apparent. Respiratory System: Chest clear to auscultation. Cardiovascular System: Heart with regular rate and rhythm. No murmur. GI System: Abdomen soft, tender to palpation in the left lower quadrant. Normo active bowel sounds present. Musculoskeletal System: limbs with no pedal edema. Full distal pulses. Neurological System: Unable to assess gait because of her dizziness and instability. No aphasia Psychiatric System: Conversation is rational Results - Labs CBC & BMP: 03/06/17 01:43 03/06/17 01:43 Lab Results: I have reviewed the past 24 hour labs - EKG EKG shows: atrial fibrillation - Diagnostic Findings Procedure: MRI: report reviewed by me
[2017-03-06] MEDS: PIPERACILLIN/TAZOBACTAM 3,375 MG in SODIUM CHLORIDE 0.9% 100 ML IV SCH (17:09)
[2017-03-07] MEDS: PIPERACILLIN/TAZOBACTAM 3,375 MG in SODIUM CHLORIDE 0.9% 100 ML IV SCH ×2 (01:00→09:20)
[2017-03-07 03:15] LABS: Risk Ratio 2.55; VLDL CHOLESTEROL 15.6 MG/DL
[2017-03-07] MEDS: ONDANSETRON 4 MG/2 ML VIAL IV PRN (09:18)
[2017-03-07] MEDS: ENOXAPARIN 40 MG/0.4 ML SYRINGE SUBCUT SCH (09:23)
[2017-03-07] MEDS: ROSUVASTATIN 20 MG TABLET PO SCH (09:24)
[2017-03-07] MEDS: CARVEDILOL 12.5 MG TABLET PO SCH ×2 (09:24→21:01)
[2017-03-07] MEDS: ASPIRIN EC 81 MG TABLET PO SCH (09:24)
[2017-03-07] MEDS: CHOLECALCIFEROL 1,000 UNIT TABLET PO SCH (09:25)
[2017-03-07] MEDS: CLOPIDOGREL 75 MG TABLET PO SCH (09:25)
[2017-03-07] MEDS: PANTOPRAZOLE 40 MG TABLET PO SCH (09:25)
[2017-03-07] MEDS: SODIUM CHLORIDE 0.9% 1,000 ML IV SCH ×4 (09:30→21:56)
[2017-03-07] MEDS: cloNIDine 0.1 MG TABLET PO SCH (09:31)
--- NOTE | 2017-03-07 11:44 | Hospitalist Progress Note ---
Assessment and Plan - Time spent with patient Time spent with patient: Greater than 30 minutes (1) Stroke Status: Acute Current Visit: Yes (2) Atrial fibrillation Status: Acute Current Visit: Yes (3) Abdominal pain Status: Acute Current Visit: Yes Qualifiers: Abdominal location: left lower quadrant Qualified Code(s): R10.32 - Left lower quadrant pain (4) Diverticulitis Status: Acute Current Visit: Yes Qualifiers: Diverticulitis site: large intestine Diverticulitis bleeding: without bleeding Diverticulitis complication: without perforation or abscess Qualified Code(s): K57.32 - Diverticulitis of large intestine without perforation or abscess without bleeding (5) History of gallstones Status: Acute Current Visit: Yes (6) Nausea & vomiting Status: Acute Current Visit: Yes Qualifiers: Vomiting type: unspecified Vomiting Intractability: intractable Qualified Code(s): R11.2 - Nausea with vomiting, unspecified (7) Dehydration Status: Acute Assessment and plan: Obtain echocardiogram and follow reports. Start her on intensive statin therapy since her LDL is above target range She is already on aspirin and Plavix, but may require oral anticoagulation long- term after cardiology evaluation. Control her blood pressure Neurology has been consulted. Will consult cardiology to see today. Physical and Occupational Therapy follow-up. He gait is still a stable, may need rehab placement on discharge DVT prophylaxis Discussed with patient's family and update them Current Visit: Yes Hospitalist: Subjective Interval history: She still complains of significant dizziness affecting her gait and mobility though slightly improved since I last saw her yesterday. She denies any chest pain or palpitation, however during evaluation yesterday or so that she has persistent atrial fibrillation on 2 EKGs. Never been diagnosed with atrial fibrillation. Echocardiogram, carotid Doppler still pending. Neurology is yet to see her as well. Blood cultures have been negative, I agree with discontinuing any antibiotics. Urinalysis is not suggestive of any urinary source of her current illness. Exam - Constitutional Vitals: Period Temp Pulse Resp BP Sys/Velazco Pulse Ox Last 24 Hr 97 F-98.3 F 76-91 18-20 138-177/78-97 97-99 Exam: Constitutional System: Moderate distress. No tremulousness. Head: Normocephalic, atraumatic. Ears, Nose and Throat System: No pain or tenderness. No epistaxis or discharge. mucous membranes dry Eyes System: Pupils equal, round, and reactive. Extraocular muscles intact. Neck: Supple, without adenopathy, No jugular venous distention. No thyromegaly, neck mass, or prior surgery apparent. Respiratory System: Chest clear to auscultation. Cardiovascular System: Heart with regular rate and rhythm. No murmur. GI System: Abdomen soft, tender to palpation in the left lower quadrant. Normo active bowel sounds present. Musculoskeletal System: limbs with no pedal edema. Full distal pulses. Neurological System: Unable to assess gait because of her dizziness and instability. No aphasia Psychiatric System: Conversation is rational Results - Labs CBC & BMP: 03/06/17 01:43 03/06/17 01:43 Lab Results: I have reviewed the past 24 hour labs
--- NOTE | 2017-03-07 12:43 | Neurology Consult Note ---
History of Present Illness History of present illness: Ms. Caraballo is a 76 year old right-handed white lady admitted to the hospital with generalized abdominal pain, weakness, nausea vomiting diarrhea and vertigo with the onset this past Thursday. She had a workup done as an outpatient and diagnosed diverticulitis and started on antibiotic treatment. She did not respond to the medication/treatment. She was brought into the hospital and underwent MRI of the brain along with GI workup. MRI of the brain revealed acute infarct in the right cerebellum and right posterior medulla suggestive of embolic event. Patient is quite ataxic when she tried to walk. Her swallowing is okay. Carotid ultrasound is unremarkable. Echocardiogram is not performed. Home Medications Medication Instructions Recorded Confirmed Type Aspirin [Ecotrin] 162 mg PO DAILY 08/30/15 03/04/17 History Carvedilol [Carvedilol] 12.5 mg PO BID 08/30/15 03/04/17 History Clopidogrel Bisulfate [Clopidogrel] 75 mg PO DAILY 08/30/15 03/04/17 History NIFEdipine [Nifedipine ER] 30 mg PO BEDTIME 08/30/15 03/04/17 History Ondansetron HCl [Ondansetron HCl] 4 mg PO Q4-6H PRN 08/30/15 03/04/17 History Rosuvastatin [Crestor] 20 mg PO DAILY 08/30/15 03/04/17 History Ergocalciferol (Vitamin D2) 2,000 unit PO DAILY 09/21/16 03/04/17 History [Vitamin D2] Famotidine Tab [Pepcid Tab] 40 mg PO BID PRN 09/21/16 03/04/17 History Pantoprazole Tab [Protonix Tab] 40 mg PO DAILY #14 tablet 09/21/16 03/04/17 Rx cloNIDine TAB [Catapres Tab] 0.1 mg PO DAILY #10 tablet 09/21/16 03/04/17 Rx Ciprofloxacin Tab [Cipro Tab] 500 mg PO BID 03/04/17 03/04/17 History Allergies Allergy/AdvReac Type Severity Reaction Status Date / Time Sulfa (Sulfonamide Allergy RASH Verified 08/30/15 18:33 Antibiotics) codeine AdvReac Nausea Verified 08/30/15 18:33 12 point system: reviewed and no additional remarkable complaints except as stated Medical,Surgical,& Family Hx - Medical History Cardio: History of: Hypertension, IL (IL X 2) Endocrine: History of: Dyslipidemia Gastrointestinal: History of: Diverticulitis/ Diverticulosis - Surgical History Cardiac Surgeries: Sugical HX of: Cardiac Catheterization (3 HEART CATHS 4 STENTS) Reproductive Surgeries: Surgical HX of;: Breast Surgery, Hysterectomy - Family History Family History: Reports;: Family Hypertension - Social History Smoking Status: Unknown if ever smoked Frequency of Alcohol Use: None Type of Drug Use: None Exam - Constitutional Vitals: Period Temp Pulse Resp BP Sys/Velazco Pulse Ox Last 24 Hr 97 F-98 F 76-85 18-20 138-167/78-97 97-99 Exam: GENERAL: Patient is in no acute distress. NECK: Neck is supple. There is no JVD. No carotid bruits present. No thyroid masses. CVS: First and second heart sounds are normal. There is no S3 present. Regular rate and rhythm. RESPIRATORY: Lungs are clear to auscultation without any rales or rhonchi. ABDOMEN: Soft and non-tender. Bowel sounds are present. There is no hepatosplenomegaly. EXT: There is no palpable edema. Peripheral pulses are present. Skin: No rashes Central Nervous system: General: Alert, awake and Oriented x 3 Speech: Fluent Comprehension: Intact and normal Facial expressions: Normal Cranial Nerves: CN1/Olfactory: Normal CN II/ Optic: Normal, Visual Bloom unreliable CN III, and : SHEILA & EOMI CN V: Normal & intact CN VII: face is symmetric CNVIII: Normal CN XI/X/XI/XII: Intact and Normal Motor: Bulk and Tone is normal. Strength in the right 5/5 Strength in the left 3/5 Sensory: Grossly intact for all the modalities of PP, LT and temp sense Reflexes: 1+ and symmetrical Cerebellar function: Normal finger to nose and heel to cruz testing. Toes: Equivocal Gait: Ataxic gait requiring moderate assist Results - Labs CBC & BMP: 03/06/17 01:43 03/06/17 01:43 Assessment and Plan (1) Acute CVA (cerebrovascular accident) Status: Acute Assessment and plan: Continue aspirin a day Stop Plavix Start Eliquis 5 mg. Twice daily We will transfer her to [facility] once cleared from GI standpoint Continue rest of the treatment same Thank you for the consult Current Visit: Yes
--- NOTE | 2017-03-07 12:46 | EKG Report ---
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
[2017-03-07] MEDS: PROMETHAZINE 25 MG TABLET PO PRN (13:46)
--- NOTE | 2017-03-07 16:24 | ECHO Report ---
Alona Caraballo Exam Date: 03/07/2017 11:56 Referring Physician: Technologist: Caryn Guillermo SANDEEP Age: 76 Ht (in): 67 Wt (lb): 145 Gender: F Exam Location: [facility] Echo Indications: Stroke, Abdominal pain, Diverticulitis, Gall stones, Weakness, Dizziness and giddiness, Essential (primary) hypertension, Atrial fibrillation BP: 159 / 91 HR: 92 Rhythm: Atrial fibrillation Technical Quality: IMPRESSIONS 1+ left atrial enlargement Normal LV systolic function with ejection fraction estimate is 65% without segmental wall motion normality 2-3+ aortic stenosis (mean and peak gradients of only 13/24 mmHg, but appears somewhat worse on short axis visualization) 1+ mitral regurgitation 3-4+ tricuspid regurgitation with RVSP 42 mmHg plus RAP (suggests at least moderate pulmonary hypertension) MEASUREMENTS (Male / Female) Normal Values 2D ECHO LV Diastolic Diameter PLAX 4.3 cm 4.2 - 5.9 / 3.9 - 5.3 cm LV Systolic Diameter PLAX 2.5 cm LV Fractional Shortening PLAX 41.4 % IVS Diastolic Thickness 0.9 cm 0.6 - 1.0 / 0.6 - 0.9 cm LVPW Diastolic Thickness 1.0 cm 0.6 - 1.0 / 0.6 - 0.9 cm RV Internal Dim ED PLAX 2.5 cm Aortic Root Diameter 3.3 cm LA Systolic Diameter LX 4.0 cm 3.0 - 4.0 / 2.7 - 3.8 cm DOPPLER TR Peak Velocity 324.0 cm/s TR Peak Gradient 42.0 mmHg FINDINGS Left Ventricle Normal left ventricular cavity size. Normal left ventricular wall thickness. Left ventricular ejection fraction is estimat Right Ventricle Mildly increased right ventricular size. Right Atrium Mild atrial enlargement in apical view (elongated RA). Left Atrium Mild atrial enlargement in apical view (elongated LA). Mitral Valve Morphologically normal mitral valve. Mild mitral valve regurgitation. Aortic Valve Moderate aortic valve calcification. Mean gradient 13 mmHg, MENG 0.89 cm. No aortic valve regurgitation. Tricuspid Valve Morphologically normal tricuspid valve. [id number] tricuspid valve regurgitation. Tricuspid regurgitation velocities suggest a PAP of 52 mmHg. Pulmonic Valve Morphologically normal pulmonic valve. [id number] pulmonary valve regurgitation. Pericardium Normal pericardium without effusion. Aorta Normal ascending aorta dimension. Luis Manuel Brothers (Electronically Signed) Final Date: 07 March 2017 16:23
--- NOTE | 2017-03-07 19:57 | Ultrasound Report ---
History: CVA Date: 03/07/2017 Study: Carotid duplex ultrasound Comparison exam: March 17, 2014 Color Doppler, wave form analysis, and grayscale analysis of the cervical carotid arteries was performed. There is mild partially calcified plaque in either carotid bulb. Waveform analysis shows proper directional flow of the cervical carotid arteries. There is antegrade flow in either vertebral artery. The distal right ICA measures 3.7 mm diameter; the left measures 4.0 mm diameter. Peak systolic velocities are as follows: Right CCA 36 cm/s Right ICA 55 cm/s Right ECA 123 cm/s Right vertebral 25 cm/s Right IC/CC ratio 1.5 Left CCA 45 cm/s Left ICA 65 cm/s Left ECA 110 cm/s Left vertebral 82 cm/s Left IC/CC ratio 1.4 There is 0-15% diameter reduction narrowing of either internal carotid artery using indirect NASCET criteria. Ultrasound images were captured and archived. Impression: No hemodynamically significant internal carotid artery stenosis PROCEDURE INTERPRETED AT [facility] DEPARTMENT OF RADIOLOGY Final Report Signed by: Dr. Cheri Dupree
[2017-03-07] MEDS: APIXABAN 5 MG TABLET PO SCH (21:01)
[2017-03-07] MEDS: ZALEPLON 5 MG CAPSULE PO PRN (21:01)
[2017-03-08] MEDS: PROMETHAZINE 25 MG TABLET PO PRN (03:38)
[2017-03-08 04:37] LABS: Basophils # 0.1 10*3/uL (0.0-0.2); Basophils % 0.4 % (0.0-0.8); Eosinophils # 0.1 10*3/uL (0.0-0.87); Eosinophils % 1.1 % (0.00-10.9); Hematocrit 39.6 VOL% (35.7-47.0); Immature Granulocytes % 0.4 %; Immature Granulocytes Absolute 0.05 #; Lymphocytes # 1.3 10*3/uL (1.4-4.0); Lymphocytes % 10.9 % (21.3-54.2); Mean Corpuscular HGB Conc 32.8 GM/DL (32-36); Mean Corpuscular Hemoglobin 30 PG (27-34); Mean Corpuscular Volume 92.5 FL (87-102); Mean Platelet Volume 10.1 FL (9.6-12.0); Monocytes # 1.4 10*3/uL (0.11-0.8); Monocytes % 11.7 % (1.7-12.7); Neutrophils # 9.1 10*3/uL (1.4-7.4); Neutrophils % 75.5 % (38.7-73.9); Platelet Count 234 T/CUMM (130-400); Red Blood Count 4.28 MC/CUMM (3.8-5.5); Red Cell Distribution Width 12.1 % (9.3-17.3); White Blood Count 12.1 T/CUMM (4-12)
[2017-03-08] MEDS: SODIUM CHLORIDE 0.9% 1,000 ML IV SCH ×3 (05:20→18:48)
[2017-03-08 05:25] LABS: Albumin 2.9 G/DL (3.4-5.0); Bilirubin,Total 1.1 MG/DL (0.2-1.0); Calcium 8.2 MG/DL (8.5-10.1); Osmolality,Calculated 271.7 MOS/KG (273-304); Potassium 2.9 MMOL/L (3.5-5.1); Total Protein 6.1 G/DL (6.4-8.3)
[2017-03-08] MEDS: CARVEDILOL 12.5 MG TABLET PO SCH ×2 (09:43→21:06)
[2017-03-08] MEDS: ASPIRIN EC 81 MG TABLET PO SCH (09:43)
[2017-03-08] MEDS: PANTOPRAZOLE 40 MG TABLET PO SCH (09:44)
[2017-03-08] MEDS: ROSUVASTATIN 20 MG TABLET PO SCH (09:44)
[2017-03-08] MEDS: APIXABAN 5 MG TABLET PO SCH ×2 (09:44→21:00)
[2017-03-08] MEDS: CHOLECALCIFEROL 1,000 UNIT TABLET PO SCH (09:45)
[2017-03-08] MEDS: cloNIDine 0.1 MG TABLET PO SCH (09:50)
[2017-03-08] MEDS: POTASSIUM CHLORIDE RIDER 10 MEQ in PREMIX 1 EACH IV PRN ×5 (10:29→18:52)
--- NOTE | 2017-03-08 11:38 | Hospitalist Progress Note ---
Assessment and Plan - Time spent with patient Time spent with patient: Greater than 30 minutes (1) Stroke Status: Acute Current Visit: Yes (2) Atrial fibrillation Status: Acute Current Visit: Yes (3) Abdominal pain Status: Acute Current Visit: Yes Qualifiers: Abdominal location: left lower quadrant Qualified Code(s): R10.32 - Left lower quadrant pain (4) Diverticulitis Status: Acute Current Visit: Yes Qualifiers: Diverticulitis site: large intestine Diverticulitis bleeding: without bleeding Diverticulitis complication: without perforation or abscess Qualified Code(s): K57.32 - Diverticulitis of large intestine without perforation or abscess without bleeding (5) History of gallstones Status: Acute Current Visit: Yes (6) Nausea & vomiting Status: Acute Current Visit: Yes Qualifiers: Vomiting type: unspecified Vomiting Intractability: intractable Qualified Code(s): R11.2 - Nausea with vomiting, unspecified (7) Dehydration Status: Acute Assessment and plan: Cardiology to see further determine if she is a candidate for aortic valve repair/replacement. Possible CV surgery consult for cardiology evaluation. Continue on intensive statin therapy. Blood pressure is better today, target BP is 130/80 for this patient. Continue current regimen, recommend gradual decrease in BP. Continue on aspirin and Plavix continue further cardiology evaluation. Neurology follow-up. Supplemental magnesium and potassium Physical and Occupational Therapy follow-up. may need rehab placement on discharge DVT prophylaxis Current Visit: Yes Hospitalist: Subjective Interval history: She is still in atrial fibrillation, I see that neurology has started on anticoagulation and discontinued plavix, will have to confirm when her last stent was placed and then decide whether it is appropriate to continue to hold Plavix. Echocardiogram does show LVH and aortic stenosis, I am unable to make out the aortic root diameter. We had consulted cardiology, awaiting their evaluation. She has not developed any new focal deficit. Gait is still unsteady, will probably end up with rehabilitation on discharge. Exam - Constitutional Vitals: Period Temp Pulse Resp BP Sys/Velazco Pulse Ox Last 24 Hr 97.0 F-97.7 F 69-89 17-20 139-162/73-93 93-100 Exam: Constitutional System: Moderate distress. No tremulousness. Head: Normocephalic, atraumatic. Ears, Nose and Throat System: No pain or tenderness. No epistaxis or discharge. mucous membranes dry Eyes System: Pupils equal, round, and reactive. Extraocular muscles intact. Neck: Supple, without adenopathy, No jugular venous distention. No thyromegaly, neck mass, or prior surgery apparent. Respiratory System: Chest clear to auscultation. Cardiovascular System: Heart with regular rate and rhythm. No murmur. GI System: Abdomen soft, tender to palpation in the left lower quadrant. Normo active bowel sounds present. Musculoskeletal System: limbs with no pedal edema. Full distal pulses. Neurological System: Ataxic gait. No aphasia Psychiatric System: Conversation is rational Results - Labs CBC & BMP: 03/08/17 03:49 03/08/17 03:49 Lab Results: I have reviewed the past 24 hour labs
[2017-03-08] MEDS: ZALEPLON 5 MG CAPSULE PO PRN (21:00)
[2017-03-09] MEDS: MAGNESIUM SULF RIDER 1 GM in PREMIX 1 EACH IV PRN ×4 (00:22→05:21)
[2017-03-09] MEDS: SODIUM CHLORIDE 0.9% 1,000 ML IV SCH ×4 (09:09→18:58)
[2017-03-09 09:39] LABS: Calcium 7.9 MG/DL (8.5-10.1); Osmolality,Calculated 268.1 MOS/KG (273-304); Potassium 3.2 MMOL/L (3.5-5.1)
[2017-03-09] MEDS: APIXABAN 5 MG TABLET PO SCH ×2 (10:04→20:40)
[2017-03-09] MEDS: cloNIDine 0.1 MG TABLET PO SCH (10:05)
[2017-03-09] MEDS: CHOLECALCIFEROL 1,000 UNIT TABLET PO SCH (10:06)
[2017-03-09] MEDS: ROSUVASTATIN 20 MG TABLET PO SCH (10:06)
[2017-03-09] MEDS: CARVEDILOL 12.5 MG TABLET PO SCH ×2 (10:06→20:40)
[2017-03-09] MEDS: ASPIRIN EC 81 MG TABLET PO SCH (10:06)
[2017-03-09] MEDS: PANTOPRAZOLE 40 MG TABLET PO SCH (10:06)
[2017-03-09] MEDS: POTASSIUM CHLORIDE RIDER 10 MEQ in PREMIX 1 EACH IV PRN ×4 (10:51→16:59)
--- NOTE | 2017-03-09 11:25 | Gastrointestinal Progress Note ---
<Karmen Hernandez Miranda - Last Filed: 03/09/17 11:22> Assessment and Plan (1) Diverticulitis Status: Acute Assessment and plan: 03/09-abdominal pain improved, no further nausea or vomiting. Dizziness improved. Afebrile. Tolerating soft diet at present time. Plan an addendum to followed by Dr. Caraballo. 03/06-Abd pain improved slightly. Afebrile at present. WBC 11. Continue with IV antibiotics and monitor. Plan and addendum to follow by Dr Caraballo. 03/05-sudden onset of generalized abdominal pain 5 days with associated nausea, vomiting and couple episodes of diarrhea. Prior history of diverticulitis in the past. CT findings noted below. Currently on Plavix. IV Cipro and Flagyl have been initiated. Continue to monitor. Plan an addendum to follow by Dr. Caraballo. Current Visit: Yes Qualifiers: Diverticulitis site: large intestine Diverticulitis bleeding: without bleeding Diverticulitis complication: without perforation or abscess Qualified Code(s): K57.32 - Diverticulitis of large intestine without perforation or abscess without bleeding Gastroenterology - PN: Subj Interval history: CC: Diverticulitis Patient is seen lying in bed awake and alert with son at side. States that she is feeling better at this time. Abdominal pain is improved over the weekend. She is having no further nausea and vomiting. She is tolerating soft diet as well. She is noted to have had her Plavix stopped and placed on Eliquis due to findings on the MRI of an acute infarct in the right cerebellum and right posterior medulla. Patient is noted to have had her antibiotics discontinued over the weekend and not restarted. Abdomen is soft, nontender. Her dizziness is improved as well. ROS: Denies shortness of breath or chest pain Exam (Progress Note) - Constitutional Vitals: Period Temp Pulse Resp BP Sys/Velazco Pulse Ox Last 24 Hr 97.1 F-98.8 F 73-87 16-20 136-167/75-105 94-98 General appearance: normal weight, no acute distress - Head Head exam: Present: normal inspection, normocephalic - Eye Eye exam: Present: other (Lids and conjunctive are unremarkable). Absent: scleral icterus - ENT ENT exam: Present: normal exam, normal oropharynx - Neck Neck exam: Present: normal inspection - Respiratory Respiratory exam: Present: clear to auscultation bilaterally. Absent: rales, rhonchi, wheezes - Cardiovascular Cardiovascular exam: Present: regular rate and rhythm. Absent: diastolic murmur , JVD, systolic murmur - GI/Abdominal GI/Abdominal exam: Present: normal bowel sounds, soft. Absent: ascites, distended, mass, organomegaly, tenderness - Extremities Exam Extremities exam: Present: normal inspection, full ROM - Back Exam Back exam: Present: normal inspection - Neurological Exam Neurological exam: Present: alert, oriented X3 - Psychiatric Psychiatric exam: Present: normal affect, normal mood - Skin Skin exam: Present: normal color, warm, dry Results - Labs CBC & BMP: 03/08/17 03:49 03/09/17 06:53 Lab Results: I have reviewed the past 24 hour labs <Torsten Caraballo - Last Filed: 03/09/17 20:37> Exam (Progress Note) - Constitutional Vitals: Period Temp Pulse Resp BP Sys/Velazco Pulse Ox Last 24 Hr 97.2 F-98.8 F 73-85 16-20 136-159/78-96 94-98 Results - Labs CBC & BMP: 03/08/17 03:49 03/09/17 06:53
--- NOTE | 2017-03-09 17:17 | Neurology Progress Note ---
Neurology - PN : Subjective Interval history: Patient seems to be doing better. No new problems reported. Participating well in therapy. Walking some with the help of a rolling walker. Exam (Progress Note) - Constitutional Vitals: Period Temp Pulse Resp BP Sys/Velazco Pulse Ox Last 24 Hr 97.2 F-98.8 F 73-85 16-20 136-159/78-96 94-98 Exam: GENERAL: Patient is in no acute distress. NECK: Neck is supple. There is no JVD. No carotid bruits present. No thyroid masses. CVS: First and second heart sounds are normal. There is no S3 present. Regular rate and rhythm. RESPIRATORY: Lungs are clear to auscultation without any rales or rhonchi. ABDOMEN: Soft and non-tender. Bowel sounds are present. There is no hepatosplenomegaly. EXT: There is no palpable edema. Peripheral pulses are present. Skin: No rashes Central Nervous system: General: Alert, awake and Oriented x 3 Speech: Fluent Comprehension: Intact and normal Facial expressions: Normal Cranial Nerves: CN1/Olfactory: Normal CN II/ Optic: Normal, Visual Bloom unreliable CN III, and : SHEILA & EOMI CN V: Normal & intact CN VII: face is symmetric CNVIII: Normal CN XI/X/XI/XII: Intact and Normal Motor: Bulk and Tone is normal. Strength in the right 5/5 Strength in the left 3/5 Sensory: Grossly intact for all the modalities of PP, LT and temp sense Reflexes: 1+ and symmetrical Cerebellar function: Normal finger to nose and heel to cruz testing. Toes: Equivocal Gait: Ataxic gait requiring moderate assist Results - Labs CBC & BMP: 03/08/17 03:49 03/09/17 06:53 Assessment and Plan (1) Acute CVA (cerebrovascular accident) Status: Acute Assessment and plan: Continue aspirin a day Continue Eliquis 5 mg. Twice daily We will transfer her to [facility] once cleared from GI standpoint Continue rest of the treatment same Sign off Current Visit: Yes
--- NOTE | 2017-03-09 17:51 | Hospitalist Progress Note ---
Assessment and Plan (1) Abdominal pain Status: Acute Assessment and plan: Abdominal pain improved. Soft stool today. WBC trending upwards. Cipro/Flagyl held due to N/V. Therefore, will resume Pip/Manoj which was previously administered. Awaiting dispo from GI. Appreciate their assistance. Remains AF. Current Visit: Yes Qualifiers: Abdominal location: left lower quadrant Qualified Code(s): R10.32 - Left lower quadrant pain (2) Diverticulitis Status: Acute Assessment and plan: See #1. 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 Unclear. Continue Zofran prn. Current Visit: Yes Qualifiers: Vomiting type: unspecified Vomiting Intractability: intractable Qualified Code(s): R11.2 - Nausea with vomiting, unspecified (4) Stroke Status: Acute Assessment and plan: Doing well. Continue ASA and Eliquis. To R for rehab at discharge. Current Visit: Yes (5) Atrial fibrillation Status: Acute Assessment and plan: Continue Eliquis Current Visit: Yes Hospitalist: Subjective Interval history: Patient seen and appeared to be doing well. Abdominal pain improved. Cipro/ Flagyl discontinued as it was thought that theses may be contributing to GI symptoms of nausea and vomiting. Symptoms have resolved. However, WBC count is trending upwards. Will resume Pip/Manoj and await guidance from GI. Exam - Constitutional Vitals: Period Temp Pulse Resp BP Sys/Velazco Pulse Ox Last 24 Hr 97.2 F-98.8 F 73-85 16-20 136-159/78-96 94-98 General appearance: normal weight, no acute distress - Head Head exam: Present: normal inspection, normocephalic, atraumatic - Eye Eye exam: Present: EOMI - Respiratory Respiratory exam: Present: clear to auscultation bilaterally. Absent: rales, rhonchi, wheezes - Cardiovascular Cardiovascular exam: Present: irregular rhythm. Absent: gallop, rubs - GI/Abdominal GI/Abdominal exam: Present: hypoactive bowel sounds, soft. Absent: tenderness - Neurological Exam Neurological exam: Present: alert, oriented X3, CN II-XII intact - Psychiatric Psychiatric exam: Present: normal affect, normal mood - Skin Skin exam: Present: normal color, warm, dry Results - Labs CBC & BMP: 03/08/17 03:49 03/09/17 06:53
--- NOTE | 2017-03-09 17:52 | Cardiology Consult Note ---
I, Dasia Correa RN, am scribing for, and in the presence of, Rafiq Lynn MD 17:52. Assessment and Plan - Time spent with patient Time spent with patient: Greater than 30 minutes (Due to assessment, planning, documentation, medication review) (1) Atrial fibrillation Status: Acute Assessment and plan: Her atrial fibrillation has not been noted before. 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 She has had decreased energy and exertional fatigue for the last 6 months. She was seen by Dr. Ronquillo in November 17, 2000 7 and he did not notice an irregular heart rate, sublimate atrial fib may have occurred since that time. Her echo was done the . There is no thrombus. However there is mild to moderate valvular heart disease. Plan/recommendations: I agree with her being on anticoagulant, Eliquis 5 mg p.o. twice daily. #2 agree with being off the Plavix No. 3 continue aspirin 81 mg daily 4. Okay with me to move to [facility] re[facility] when you say so We will have her use a walker . We will encourage her to prevent falls We will recheck potassium to make sure it is a good level. If not we will replete. I would favor being on anticoagulant for about 4 weeks prior to considering electrical cardioversion. It can be done by Dr. Ronquillo outpatient. Currently her rate is controlled and she is on anticoagulation so that his "best we can do." Thank you for allowing me to participate in this patient's care Current Visit: Yes (2) Nausea & vomiting Status: Acute Current Visit: Yes Qualifiers: Qualified Code(s): R11.2 - Nausea with vomiting, unspecified (3) Stroke Status: Acute Current Visit: Yes History of Present Illness - Data of Consult Patient: known to practice within the last 3 years Consult date: 03/07/17 Requesting Physician: Kenneth Carter - Consult Narrative Reason for consult: New A. 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 Ronquillo Ms. Caraballo is a 76 year old female who is routinely followed by Dr. Ronquillo with a history of hypertension, CAD, dyslipidemia, diverticulosis, gallstones, and history of breast cancer. She had a heart cath August 2012 with PCI to the first diagonal branch with drug-eluting stent and PCI to the side branch of the first diagonal with sprinter angioplasty balloon. Heart cath done in March 2014 with drug-eluting stents to the mid LAD and mid RCA. Her most recent heart cath was June 2014. She received a drug-eluting stent to the distal RCA. At that time all other stents appear to be patent, there was some mild in-stent restenosis in the diagonal branch stent but did not appear to be flow-limiting at that time. There was mild nonobstructive disease in other areas. Her coronary arteries, which would be managed medically. Other surgical history includes appendectomy, hysterectomy, bilateral cataract, and surgery for breast cancer. Family history includes sister with heart disease, father with cancer, mother with hypertension. She reports she is no longer a smoker, stating she quit 30-40 years ago. She tells me she was admitted to the hospital last week with dizziness, nausea, and vomiting that began Thursday. She also tells me prior to that she was having some abdominal swelling and pain which she saw Dr. Jarrell for. She is continued to be dizzy and has bouts of nausea vomiting as well as blurred vision. MRI of the brain revealed acute infarct in the right cerebellum and right posterior medulla suggestive of embolic event. Her Plavix has been stopped and Eliquis 5 mg p.o. twice daily was started. Carotid ultrasound was not hemodynamically significant internal carotid artery stenosis. EKG done on day of admission showed atrial fibrillation with heart rate of 81, EKG done on the showed atrial fibrillation with heart rate 78. She denies having any known history of atrial fibrillation. She denies having any palpitations. She does tell me her blood pressure machine appears to have been "skipping some beats" for the last 2-3 weeks. Echo done on the with ejection fraction of 65%, 2-3+ aortic stenosis, 1+ mitral regurgitation, and 3-4+ tricuspid regurgitation. Currently patient is resting in bed in no acute distress. She says she is diabetic of the bed without assistance because she is so unsteady on her feet and dizzy. She denies any chest pain, shortness of breath, or palpitations. Her pressures been elevated since on this admission, but her current blood pressure is 136/78. Potassium yesterday was 2.9 and magnesium is 1.1. These were both been replaced intravenously yesterday. Magnesium today was 3.0. Potassium today was 3.2, it has been replaced intravenously. We will recheck in a.m. CC: Arlin Conteh MD - Home Medications and Allergies Home Medications: Home Medications Medication Instructions Recorded Confirmed Type Aspirin [Ecotrin] 162 mg PO DAILY 08/30/15 03/04/17 History Carvedilol [Carvedilol] 12.5 mg PO BID 08/30/15 03/04/17 History Clopidogrel Bisulfate [Clopidogrel] 75 mg PO DAILY 08/30/15 03/04/17 History NIFEdipine [Nifedipine ER] 30 mg PO BEDTIME 08/30/15 03/04/17 History Ondansetron HCl [Ondansetron HCl] 4 mg PO Q4-6H PRN 08/30/15 03/04/17 History Rosuvastatin [Crestor] 20 mg PO DAILY 08/30/15 03/04/17 History Ergocalciferol (Vitamin D2) 2,000 unit PO DAILY 09/21/16 03/04/17 History [Vitamin D2] Famotidine Tab [Pepcid Tab] 40 mg PO BID PRN 09/21/16 03/04/17 History Pantoprazole Tab [Protonix Tab] 40 mg PO DAILY #14 tablet 09/21/16 03/04/17 Rx cloNIDine TAB [Catapres Tab] 0.1 mg PO DAILY #10 tablet 09/21/16 03/04/17 Rx Ciprofloxacin Tab [Cipro Tab] 500 mg PO BID 03/04/17 03/04/17 History Allergies/Adverse Reactions: Allergies Allergy/AdvReac Type Severity Reaction Status Date / Time Sulfa (Sulfonamide Allergy RASH Verified 08/30/15 18:33 Antibiotics) codeine AdvReac Nausea Verified 08/30/15 18:33 - Constitutional Constitutional: Present: as per HPI - EENT Eyes: Present: blurry vision, requires corrective lense Ears: Present: decreased hearing. Absent: ear pain, tinnitus Nose, mouth and throat: Present: headache(s), neck pain. Absent: epistaxis, sore throat - Cardiovascular Cardiovascular: Present: dyspnea on exertion, lightheadedness. Absent: chest pain at rest, chest pain with activity, diaphoresis, dyspnea, edema, radiating jaw, neck or arm pain, orthopnea, palpitations - Respiratory Respiratory: Present: dyspnea on exertion. Absent: cough, dyspnea, hemoptysis, wheezing - Gastrointestinal Gastrointestinal: Present: abdominal pain, nausea, vomiting. Absent: constipation, diarrhea, hematemesis, hematochezia, melena - Genitourinary Genitourinary: Absent: dysuria, hematuria - Musculoskeletal Musculoskeletal: Present: limited range of motion, muscle weakness - Neurological Neurological: Present: abnormal gait, dizziness. Absent: abnormal speech, confusion, frequent falls, syncope - Psychiatric Psychiatric: Absent: anxiety, depression - Endocrine Endocrine: Present: fatigue - Hematologic/Lymphatic Hematologic/Lymphatic: Present: easy bruising. Absent: easy bleeding Medical,Surgical,& Family Hx - Medical History Cardio: History of: Hypertension, NH (NH X 2) Endocrine: History of: Dyslipidemia Gastrointestinal: History of: Diverticulitis/ Diverticulosis - Surgical History Cardiac Surgeries: Sugical HX of: Cardiac Catheterization (3 HEART CATHS 4 STENTS, most recent 2013) Abdominal Surgeries: Surgical HX of: Appendectomy Reproductive Surgeries: Surgical HX of;: Breast Surgery (For breast cancer), Hysterectomy - Family History Family History: Reports;: Family Cancer (Father), Family Heart Disease (Sister) , Family Hypertension (Mother) - Social History Smoking Status: Former smoker (Reported she quit 30-40 years ago) Frequency of Alcohol Use: Rarely Type of Drug Use: None Lives With:: Alone Functional capacity: independent ambulation Physical Examination Vital Signs Temp Pulse Resp BP Pulse Ox 97.6 F 70 16 164/104 98 03/04/17 22:05 03/04/17 22:05 03/04/17 22:05 03/04/17 22:05 03/04/17 22:05 General: Present: Appears Well, No Apparent Distress HEENT: Present: PERRL, Mucus Membranes Dry Neck: Present: Supple Neck, Midline Trachea, No Bruit Cardiac: Present: Irregularly Regular, No Murmur Lungs: Present: Normal Breath Sounds, No Wheeze, Rales, Rhonchi. Absent: Oxygen Neuro: Absent: Resting Tremor, Essential Tremor Abdomen: Present: Soft, Active Bowel Sounds, Tender. Absent: Distended Skin: Present: Clear Musculoskeletal: Present: Decreased Range of Motion Gait: Present: Poor Gait Extremities: Present: No Edema, Normal Upper Extr. Pulses, Normal Lower Extr. Pulses. Absent: Normal Gait Result/EKG - Labs CBC & BMP: 03/08/17 03:49 03/09/17 06:53 Lab Results: I have reviewed the past 24 hour labs Labs: Laboratory Results - last 24 hr 03/08/17 03/09/17 08:42 06:53 Magnesium 1.1 L 3.0 H - EKG EKG results: interpreted by me EKG shows: atrial fibrillation IShane Dale, MD, personally performed the services described in this documentation, ascribed by Dasia Correa RN in my presence, and it is both accurate and complete 752 .
[2017-03-09] MEDS ORDERED: POLYETHYLENE GLYCOL POWDER 17 GM PACK PO PRN (17:58)
[2017-03-09] MEDS: PIPERACILLIN/TAZOBACTAM 3,375 MG in SODIUM CHLORIDE 0.9% 100 ML IV SCH ×2 (18:35→22:40)
[2017-03-09] MEDS: ZALEPLON 5 MG CAPSULE PO PRN (20:40)
[2017-03-10 04:59] LABS: Calcium 8.2 MG/DL (8.5-10.1); Magnesium 2.2 MG/DL (1.8-2.4); Osmolality,Calculated 271.8 MOS/KG (273-304); Potassium 3.7 MMOL/L (3.5-5.1)
[2017-03-10] MEDS: PIPERACILLIN/TAZOBACTAM 3,375 MG in SODIUM CHLORIDE 0.9% 100 ML IV SCH ×2 (06:12→18:01)
[2017-03-10] MEDS: SODIUM CHLORIDE 0.9% 1,000 ML IV SCH ×3 (08:14→17:54)
--- NOTE | 2017-03-10 08:16 | EKG Report ---
Stationary ECG Study [facility] Test Date: 03/10/2017 7:45:26 AM Pat Name: GREGG GODFREY Department: Room: 327 Gender: F [place] Worker: GEORGE : 1940 Requested by: Rafiq Lynn Order Number: [id number] Reading MD: LINDA BLACKMAN Intervals [place] Rate: 73 P: 999 TX: 0 QRS: 39 QRSD: 87 T: 63 QT: 394 QTc: 419 Interpretive Statements ATRIAL FIBRILLATION POSSIBLE ANTERIOR MYOCARDIAL INFARCTION, OF INDETERMINATE AGEIF PRESENT Electronically Signed On 03-12-17 11:21:07 CDT by LINDA BLACKMAN [email or web address]
--- NOTE | 2017-03-10 09:48 | Gastrointestinal Progress Note ---
<FernandoelidiaKarmen Miranda - Last Filed: 03/10/17 09:46> Assessment and Plan (1) Diverticulitis Status: Acute Assessment and plan: 03/10-abdominal pain continues to improve. No nausea vomiting. Tolerating soft diet. Afebrile. [facility] upon discharge for continued therapy. Plan an addendum to followed by Dr. Caraballo. 03/09-abdominal pain improved, no further nausea or vomiting. Dizziness improved. Afebrile. Tolerating soft diet at present time. Plan an addendum to followed by Dr. Caraballo. 03/06-Abd pain improved slightly. Afebrile at present. WBC 11. Continue with IV antibiotics and monitor. Plan and addendum to follow by Dr Caraballo. 03/05-sudden onset of generalized abdominal pain 5 days with associated nausea, vomiting and couple episodes of diarrhea. Prior history of diverticulitis in the past. CT findings noted below. Currently on Plavix. IV Cipro and Flagyl have been initiated. Continue to monitor. Plan an addendum to follow by Dr. Caraballo. Current Visit: Yes Qualifiers: Diverticulitis site: large intestine Diverticulitis bleeding: without bleeding Diverticulitis complication: without perforation or abscess Qualified Code(s): K57.32 - Diverticulitis of large intestine without perforation or abscess without bleeding Gastroenterology - PN: Subj Interval history: CC: Diverticulitis Patient is seen awake and alert finishing up her physical therapy this morning. States she is feeling better today. She denies any abdominal pain other than some mild soreness. Her bowels have not moved at this time. Denies any nausea or vomiting. Her IV antibiotics were restarted on yesterday she is tolerating this well. She states that she is to go to inpatient rehab therapy following discharge. She states this was slated to be done today however she feels like she needs 1 more day at our facility to ensure she is ready for discharge and her therapy regimen. Abdomen is soft, nontender. She is afebrile. ROS: Denies shortness of breath or chest pain Exam (Progress Note) - Constitutional Vitals: Period Temp Pulse Resp BP Sys/Velazco Pulse Ox Last 24 Hr 96.4 F-97.8 F 70-85 17-20 138-157/74-96 94-98 General appearance: normal weight, no acute distress - Head Head exam: Present: normal inspection, normocephalic - Eye Eye exam: Present: other (Lids and conjunctive are unremarkable). Absent: scleral icterus - ENT ENT exam: Present: normal exam, normal oropharynx - Neck Neck exam: Present: normal inspection - Respiratory Respiratory exam: Present: clear to auscultation bilaterally. Absent: rales, rhonchi, wheezes - Cardiovascular Cardiovascular exam: Present: regular rate and rhythm. Absent: diastolic murmur , JVD, systolic murmur - GI/Abdominal GI/Abdominal exam: Present: normal bowel sounds, tenderness, soft. Absent: ascites, distended, mass, organomegaly - Extremities Exam Extremities exam: Present: normal inspection, full ROM - Back Exam Back exam: Present: normal inspection - Neurological Exam Neurological exam: Present: alert, oriented X3 - Psychiatric Psychiatric exam: Present: normal affect, normal mood - Skin Skin exam: Present: normal color, warm, dry Results - Labs CBC & BMP: 03/08/17 03:49 03/10/17 03:47 Lab Results: I have reviewed the past 24 hour labs <Torsten Caraballo - Last Filed: 03/10/17 11:02> Exam (Progress Note) - Constitutional Vitals: Period Temp Pulse Resp BP Sys/Velazco Pulse Ox Last 24 Hr 96.4 F-97.8 F 70-85 17-20 138-157/74-96 94-98 Results - Labs CBC & BMP: 03/08/17 03:49 03/10/17 03:47
[2017-03-10] MEDS: ROSUVASTATIN 20 MG TABLET PO SCH (09:50)
[2017-03-10] MEDS: CHOLECALCIFEROL 1,000 UNIT TABLET PO SCH (09:50)
[2017-03-10] MEDS: ASPIRIN EC 81 MG TABLET PO SCH (09:50)
[2017-03-10] MEDS: CARVEDILOL 12.5 MG TABLET PO SCH ×2 (09:51→21:06)
[2017-03-10] MEDS: APIXABAN 5 MG TABLET PO SCH ×2 (09:51→21:06)
[2017-03-10] MEDS: PANTOPRAZOLE 40 MG TABLET PO SCH (09:51)
[2017-03-10] MEDS: cloNIDine 0.1 MG TABLET PO SCH (09:51)
--- NOTE | 2017-03-10 10:39 | Discharge Summary ---
<Nathan Hopson - Last Filed: 03/10/17 10:33> Hospital Course - Hospital Course Hospital Course: This patient is a 76-year-old female who was admitted to the [facility] ED with complaints of abdominal pain. Prior abdominal CT on admission patient was found to have recurrent diverticulitis. Chest x-ray showed mild cardiac decompensation. Patient was admitted and started on IV antibiotics to include Cipro and Flagyl. Patient did complain of blurry/double vision and slurred speech. MRI was ordered and revealed focal areas of restricted diffusion in the inferior medial right cerebellar hemisphere and right posterior medulla oblongata consistent with infarcts. Neurology was consulted. 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 Patient was started on anticoagulation. She was found to have new onset atrial fibrillation. Echocardiogram revealed moderate aortic valve calcification. Cardiology was consulted and agreed with anticoagulation with Eliquis 5 mg twice daily, DC Plavix, and aspirin 81 mg daily. Upon discharge patient, should follow-up as an outpatient with Dr. Ronquillo for electrical cardioversion after rehab. Per GI, patient will need a 10 day course of antibiotics outpatient for diverticulitis. The remainder of her hospital course was relatively uncomplicated, and the patient is stable for discharge at this time. It is agreed with that she should be discharged to swing bed facility for further rehab with walker for assistance. Appropriate discharge instructions to follow in discharge orders and addendum per Dr. Davis. - Time spent with patient Time with patient DS: Greater than 30 minutes Specialty Discharge - Follow Up or Referrals Follow up with: Jose Daniel Ronquillo MD [Physician] - 1 Month (for cardioversion for afib. Recent CVA ) , pcp [Other] - 2 Weeks Discharge Plan - Discharge Data Disposition: Disch/Xfer-Ip Rehab Fac - Discharge Medications New Acetaminophen Tab [Tylenol Tab] 325 mg PO Q4H PRN #0 tablet PRN Reason: fever, headache/body aches Amoxicillin/Clav Tab [Augmentin Tab] 875 mg PO Q12H #10 tablet Apixaban [Eliquis] 5 mg PO BID tablet Polyethylene Glycol Powder [Miralax] 17 gm PO DAILY PRN #0 PRN Reason: Constipation Rosuvastatin [Crestor] 40 mg PO DAILY tablet Continue Ondansetron HCl 4 mg PO Q4-6H PRN PRN Reason: Nausea NIFEdipine [Nifedipine ER] 30 mg PO BEDTIME Carvedilol 12.5 mg PO BID Aspirin [Ecotrin] 162 mg PO DAILY Ergocalciferol (Vitamin D2) [Vitamin D2] 2,000 unit PO DAILY Famotidine Tab [Pepcid Tab] 40 mg PO BID PRN PRN Reason: Indigestion Pantoprazole Tab [Protonix Tab] 40 mg PO DAILY #14 tablet cloNIDine TAB [Catapres Tab] 0.1 mg PO DAILY #10 tablet Discontinued Rosuvastatin [Crestor] 20 mg PO DAILY Clopidogrel Bisulfate [Clopidogrel] 75 mg PO DAILY Ciprofloxacin Tab [Cipro Tab] 500 mg PO BID - Follow Up or Referral Follow Up: , pcp [Other] - 2 Weeks Jose Daniel Ronquillo MD [Physician] - 1 Month (for cardioversion for afib. Recent CVA ) - Forms/Instructions Instructions: Right Hemispheric Stroke (DC), Self Care Measures After a Stroke (DC), Right Hemispheric Stroke, Back Tufter (GEN) Exam - Constitutional Vitals: Period Temp Pulse Resp BP Sys/Velazco Pulse Ox Last 24 Hr 96.4 F-97.8 F 70-85 17-20 138-161/74-98 98-98 Discharge Results Procedures and tests throughout hospitalization: Pending Orders 03/11/17 04:00 BMP w/ Mg [Basic Metabolic Panel w/Mg] IN AM Labs on day of discharge: Labs from last 24 hours 03/10/17 03/09/17 03:47 21:51 Sodium 137 Potassium 3.7 3.8 Chloride 103 Carbon Dioxide 25 Anion Gap 12.7 BUN 6 L Creatinine 0.90 GFR Calculation 62 BUN/Creatinine Ratio 6.00 Glucose 111 H Calculated Osmolality 271.8 L Calcium 8.2 L Magnesium 2.2 DS: Provider Date of admission: 03/05/17 01:20 Primary care physician: Emmanuel Jarrell DO Attending physician on admission: Светлана Barragan MD Consults: 03/05/17 02:51 Consult to Physician [CONS] Routine Comment: Consulting Provider: Torsten Caraballo Consulting Provider Notified: Yes When should Consulting Provider be notified: Now Person Notified: chan juana Date Notified: 03/05/17 Time Notified: 08:15 03/06/17 16:03 Consult to Physician [CONS] Routine Comment: cva Consulting Provider: Sergio Scott Consulting Provider Notified: Yes When should Consulting Provider be notified: Now Person Notified: santino called with room number Date Notified: 03/09/17 Time Notified: 10:00 03/06/17 16:04 Consult to Occupational Therapy [CONS] Routine Reason for Occupational Therapy: Weakness Consult Comment: new CVA w gait instability Consult to Physical Therapy [CONS] Routine Reason for Physical Therapy: Weakness Consult Comment: new CVA w gait instability 03/07/17 11:35 Consult to Physician [CONS] Routine Comment: New A. fib and CVA Consulting Provider: Jose Daniel Ronquillo Consulting Provider Notified: Yes When should Consulting Provider be notified: Now Person Notified: lidia called Date Notified: 03/09/17 Time Notified: 08:08 03/07/17 12:46 Consult to Case Mgmt/Social Srvs [CONS] Routine Reason for Case Mgmt/Social Srvs: Rehab Discharging clinician: Nathan FARIA Expected date of discharge: 03/10/17 <Chirstina Davis - Last Filed: 03/10/17 14:37> Hospital Course - Hospital Course Hospital Course: Pt seen and examined. Agree with above. No BM per pt but has received Miralax this am. - Time spent with patient Time with patient DS: Greater than 30 minutes (42 minutes to arrange this discharge.) Diagnosis - Discharge Diagnosis (1) Acute CVA (cerebrovascular accident) Status: Acute (2) Atrial fibrillation Status: Acute (3) Dehydration Status: Acute (4) Diverticulitis Status: Acute Discharge Plan - Discharge Data Condition at Discharge: Stable Discharge Diet: other (Soft low residue diet) Activity: ambulate only with your walker, as per physical therapy Hygiene: no restrictions Contact your physician if you experience:: fever over 101, Nausea/Vomiting, Shortness of breath, Bleeding Exam - Constitutional Exam: GEN: Awake alert and oriented 3 sitting in a chair in no acute distress CV: Irregularly irregular rate and rhythm normal S1-S2 with a 2/6 systolic ejection murmur heard best along the right sternal border Lungs: clear to auscultation bilaterally. Good aeration. Nonlabored breathing noted. Abdomen: Soft, nontender, nondistended, positive bowel sounds. No organomegaly or masses appreciated. Extremities: Warm and well-perfused without clubbing cyanosis or edema.
[2017-03-10] MEDS: ZALEPLON 5 MG CAPSULE PO PRN (21:06)
[2017-03-10] MEDS: PROMETHAZINE 25 MG TABLET PO PRN (21:08)
--- NOTE | 2017-03-10 21:56 | Cardiology Progress Note ---
I, Dasia Correa RN, am scribing for, and in the presence of, Rafiq Lynn MD 21:54. Assessment and Plan (1) Atrial fibrillation Status: Acute Assessment and plan: Initial assessment and plan 03/09/2017: Her atrial fibrillation has not been noted before. 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 She has had decreased energy and exertional fatigue for the last 6 months. She was seen by Dr. Ronquillo in November 17, 2000 7 and he did not notice an irregular heart rate, sublimate atrial fib may have occurred since that time. Her echo was done the . There is no thrombus. However there is mild to moderate valvular heart disease. Plan/recommendations: I agree with her being on anticoagulant, Eliquis 5 mg p.o. twice daily. 2. agree with being off the Plavix 3. continue aspirin 81 mg daily 4. Okay with me to move to [facility] rehab when you say so We will have her use a walker . We will encourage her to prevent falls We will recheck potassium to make sure it is a good level. If not we will replete. I would favor being on anticoagulant for about 4 weeks prior to considering electrical cardioversion. It can be done by Dr. Ronquillo outpatient. Currently her rate is controlled and she is on anticoagulation so that his "best we can do." Assessment and plan 03/10/2017: No angina. Heart rate is controlled with atrial fibrillation. On anticoagulation. Okay with me to go to [facility] rehab. Current Visit: Yes (2) Nausea & vomiting Status: Acute Current Visit: Yes Qualifiers: Vomiting type: unspecified Vomiting Intractability: intractable Qualified Code(s): R11.2 - Nausea with vomiting, unspecified (3) Stroke Status: Acute Current Visit: Yes Cardiology - PN: Subj Interval history: Engraver Seals: Dr. Ronquillo Ms. Caraballo is resting in bed in no acute distress. She denies chest pain, shortness of breath, or palpitations. She tells me she continues to have the blurred vision, but that her dizziness and nausea has improved. Potassium was repleted yesterday intravenously, today it is 3.7. Magnesium is normal today at 2.2. She is able to be going to rehab so that she can prepare herself to be home to take care of herself. Exam (Progress Note) - Constitutional Vitals: Period Temp Pulse Resp BP Sys/Velazco Pulse Ox Last 24 Hr 96.4 F-97.8 F 70-85 17-20 138-157/74-96 94-98 General appearance: normal weight, no acute distress - Head Head exam: Absent: abrasion, hematoma - Eye Eye exam: Absent: periorbital swelling, laceration to eyelids - Respiratory Respiratory exam: Present: clear to auscultation bilaterally. Absent: accessory muscle use, chest wall tenderness - Cardiovascular Cardiovascular exam: Present: irregular rhythm, systolic murmur (2/6 systolic ejection murmur along the right upper sternal border.). Absent: rubs - GI/Abdominal GI/Abdominal exam: Present: normal bowel sounds, soft. Absent: distended, tenderness - Extremities Exam Extremities exam: Absent: edema - Neurological Exam Neurological exam: Present: alert, oriented X3 - Psychiatric Psychiatric exam: Present: normal affect, normal mood - Skin Skin exam: Present: warm, dry Result/EKG - Labs CBC & BMP: 03/08/17 03:49 03/10/17 03:47 Lab Results: I have reviewed the past 24 hour labs Labs: Laboratory Results - last 24 hr 03/09/17 03/09/17 03/10/17 06:53 21:51 03:47 Sodium 135 L 137 Potassium 3.2 L 3.8 3.7 Chloride 101 103 Carbon Dioxide 25 25 Anion Gap 12.2 12.7 BUN 5 L 6 L Creatinine 0.90 0.90 GFR Calculation 62 62 BUN/Creatinine Ratio 5.00 L 6.00 Glucose 136 H 111 H Calculated Osmolality 268.1 L 271.8 L Calcium 7.9 L 8.2 L Magnesium 2.2 - EKG EKG results: interpreted by me EKG shows: atrial fibrillation Specialty Discharge - Follow Up or Referrals Follow up with: md, pcp [Other] - 2 Weeks Jose Daniel Ronquillo MD [Physician] - 1 Month (for cardioversion for afib. Recent CVA ) Shane Downey Dale, MD, personally performed the services described in this documentation, ascribed by Dasia Correa RN in my presence, and it is both accurate and complete .
[2017-03-11] MEDS: PIPERACILLIN/TAZOBACTAM 3,375 MG in SODIUM CHLORIDE 0.9% 100 ML IV SCH ×2 (02:22→10:00)
[2017-03-11] MEDS: SODIUM CHLORIDE 0.9% 1,000 ML IV SCH (02:24)
[2017-03-11 04:46] LABS: Calcium 8.5 MG/DL (8.5-10.1); Potassium 3.4 MMOL/L (3.5-5.1)
[2017-03-11] MEDS: POTASSIUM CHLORIDE RIDER 10 MEQ in PREMIX 1 EACH IV PRN ×3 (07:06→11:31)
--- NOTE | 2017-03-11 09:20 | Gastrointestinal Progress Note ---
<DavidKarmen Miranda - Last Filed: 03/11/17 09:18> Assessment and Plan (1) Diverticulitis Status: Acute Assessment and plan: 03/11-Pain improved, No N/V. Tolerating diet. For transfer to [facility] today. Discharge on po Ceftin 500mg po BID x 10 days. Plan and addendum to follow by Dr Caraballo. 03/10-abdominal pain continues to improve. No nausea vomiting. Tolerating soft diet. Afebrile. For transfer to [facility] rehab upon discharge for continued therapy. Plan an addendum to followed by Dr. Caraballo. 03/09-abdominal pain improved, no further nausea or vomiting. Dizziness improved. Afebrile. Tolerating soft diet at present time. Plan an addendum to followed by Dr. Caraballo. 03/06-Abd pain improved slightly. Afebrile at present. WBC 11. Continue with IV antibiotics and monitor. Plan and addendum to follow by Dr Caraballo. 03/05-sudden onset of generalized abdominal pain 5 days with associated nausea, vomiting and couple episodes of diarrhea. Prior history of diverticulitis in the past. CT findings noted below. Currently on Plavix. IV Cipro and Flagyl have been initiated. Continue to monitor. Plan an addendum to follow by Dr. Caraballo. Current Visit: Yes Qualifiers: Diverticulitis site: large intestine Diverticulitis bleeding: without bleeding Diverticulitis complication: without perforation or abscess Qualified Code(s): K57.32 - Diverticulitis of large intestine without perforation or abscess without bleeding Gastroenterology - PN: Subj Interval history: CC: Diverticulitis Pt is seen, awake and alert sitting up in bed. States her pain is improved at this time and she is feeling some better. Her main complaint is her vision is making her feel somewhat off balance at present time. She is to be transferred to [facility] later today following repletion of her potassium. She is tolerating her diet with mild appetite. She has not had a bowel movement in a week now however has only had one dose of Mirilax. Abdomen is soft, nontender. ROS: Denies SOB or chest pain Exam (Progress Note) - Constitutional Vitals: Period Temp Pulse Resp BP Sys/Velazco Pulse Ox Last 24 Hr 96.8 F-97.7 F 65-84 18-20 138-179/82-98 91-100 General appearance: normal weight, no acute distress - Head Head exam: Present: normal inspection, normocephalic - Eye Eye exam: Present: other (lids and conjunctiva unremarkable). Absent: scleral icterus - ENT ENT exam: Present: normal exam, normal oropharynx - Neck Neck exam: Present: normal inspection - Respiratory Respiratory exam: Present: clear to auscultation bilaterally. Absent: rales, rhonchi, wheezes - Cardiovascular Cardiovascular exam: Present: regular rate and rhythm. Absent: diastolic murmur , JVD, systolic murmur - GI/Abdominal GI/Abdominal exam: Present: normal bowel sounds, soft. Absent: ascites, distended, mass, organomegaly, tenderness - Extremities Exam Extremities exam: Present: normal inspection, full ROM - Back Exam Back exam: Present: normal inspection - Neurological Exam Neurological exam: Present: alert, oriented X3 - Psychiatric Psychiatric exam: Present: normal affect, normal mood - Skin Skin exam: Present: normal color, warm, dry Results - Labs CBC & BMP: 03/08/17 03:49 03/11/17 04:08 Lab Results: I have reviewed the past 24 hour labs Specialty Discharge - Follow Up or Referrals Follow up with: Emmanuel Jarrell DO [Primary Care Provider] - 03/25/17 10:45 am Jose Daniel Ronquillo MD [Physician] - 04/10/17 10:00 am (for cardioversion for afib. Recent CVA) <Torsten Caraballo - Last Filed: 03/11/17 11:21> Exam (Progress Note) - Constitutional Vitals: Period Temp Pulse Resp BP Sys/Velazco Pulse Ox Last 24 Hr 96.8 F-97.7 F 65-84 18-20 138-179/82-98 91-100 Results - Labs CBC & BMP: 03/08/17 03:49 03/11/17 04:08
[2017-03-11] MEDS ORDERED: BISACODYL 10 MG SUPP RECTAL PRN (09:34)
[2017-03-11] MEDS: ROSUVASTATIN 20 MG TABLET PO SCH (09:51)
[2017-03-11] MEDS: CARVEDILOL 12.5 MG TABLET PO SCH (09:51)
[2017-03-11] MEDS: ASPIRIN EC 81 MG TABLET PO SCH (09:51)
--- NOTE | 2017-03-11 09:51 | Hospitalist Progress Note ---
Assessment and Plan (1) Acute CVA (cerebrovascular accident) Status: Acute Current Visit: Yes (2) Atrial fibrillation Status: Acute Current Visit: Yes (3) Dehydration Status: Acute Current Visit: Yes (4) Diverticulitis Status: Acute Current Visit: Yes Qualifiers: Diverticulitis site: large intestine Diverticulitis bleeding: without bleeding Diverticulitis complication: without perforation or abscess Qualified Code(s): K57.32 - Diverticulitis of large intestine without perforation or abscess without bleeding Hospitalist: Subjective Interval history: Still no BM. Receiving K rider this am. Eating at least 50% of meals. No abd pain. No cp or SOB. Exam - Constitutional Vitals: Period Temp Pulse Resp BP Sys/Velazco Pulse Ox Last 24 Hr 96.8 F-97.7 F 65-84 18-20 138-179/82-98 91-100 Exam: GEN: Awake alert and oriented 3 sitting in the hospital bed in no acute distress CV: Irregularly irregular rate and rhythm normal S1-S2 with a 2/6 systolic ejection murmur heard best along the right sternal border Lungs: clear to auscultation bilaterally. Good aeration. Nonlabored breathing noted. Abdomen: Soft, nontender, slightly distended, positive bowel sounds. No organomegaly or masses appreciated. Extremities: Warm and well-perfused without clubbing cyanosis or edema. Results - Labs CBC & BMP: 03/08/17 03:49 03/11/17 04:08 - Impressions to rehab today after bowel movement. Dulcolax suppository of soap suds enema ordered. Receiving K replacement now. See dc summary 03/10. Specialty Discharge - Follow Up or Referrals Follow up with: , pcp [Other] - 2 Weeks Jose Daniel Ronquillo MD [Physician] - 04/10/17 10:00 am (for cardioversion for afib. Recent CVA)
[2017-03-11] MEDS: PANTOPRAZOLE 40 MG TABLET PO SCH (09:52)
[2017-03-11] MEDS: APIXABAN 5 MG TABLET PO SCH (09:52)
[2017-03-11] MEDS: CHOLECALCIFEROL 1,000 UNIT TABLET PO SCH (09:52)
[2017-03-11] MEDS: cloNIDine 0.1 MG TABLET PO SCH (09:56)
[2017-03-11 11:42] VITALS: BP 155/74
== END 2017-03-11 14:35 | DRG 391 ==
LOC: N.ED 21:58 → SUATTDRO 03-05 01:20 → N.EDINP 03-05 01:20 → N.3E 03-05 02:15
PROVIDERS: ADMIT Internal Medicine; ATTEND Pediatrics

== ENCOUNTER 2017-03-24 11:07 | Inpatient (IN) ==
[2017-03-24 11:59] LABS: Basophils # 0.1 10*3/uL (0.0-0.2); Basophils % 0.9 % (0.0-0.8); Eosinophils # 0.4 10*3/uL (0.0-0.87); Eosinophils % 3.7 % (0.00-10.9); Hematocrit 43.7 VOL% (35.7-47.0); Hemoglobin 14.2 GM/DL (12.0-16.0); Immature Granulocytes % 0.4 %; Immature Granulocytes Absolute 0.04 #; Mean Corpuscular HGB Conc 32.5 GM/DL (32-36); Mean Corpuscular Hemoglobin 30 PG (27-34); Mean Corpuscular Volume 92.2 FL (87-102); Mean Platelet Volume 10.5 FL (9.6-12.0); Monocytes # 1.1 10*3/uL (0.11-0.8); Monocytes % 10.1 % (1.7-12.7); Neutrophils # 7.3 10*3/uL (1.4-7.4); Neutrophils % 66.9 % (38.7-73.9); Platelet Count 251 T/CUMM (130-400); Red Blood Count 4.74 MC/CUMM (3.8-5.5); Red Cell Distribution Width 12.1 % (9.3-17.3); White Blood Count 10.8 T/CUMM (4-12)
[2017-03-24 12:23] LABS: Albumin 3.4 G/DL (3.4-5.0); Bilirubin,Total 0.7 MG/DL (0.2-1.0); Calcium 9.6 MG/DL (8.5-10.1); Magnesium 2.4 MG/DL (1.8-2.4); Osmolality,Calculated 269.2 MOS/KG (273-304); Total Protein 7.1 G/DL (6.4-8.3)
--- NOTE | 2017-03-24 12:47 | XRay Report ---
Exam: XR abdomen 2V Date: 03/24/2017 11:41 AM Comparison: 03/04/2017 Indication: Generalized abdominal pain Technique:[Supine and erect abdomen] Findings: Nonobstructed bowel gas pattern with no free air. Increased fecal material in the colon. Degenerative changes are noted with vascular calcifications. Impression: Nonobstructive bowel gas pattern. Increased fecal material in the colon consistent with constipation. PROCEDURE INTERPRETED AT [facility] DEPARTMENT OF RADIOLOGY Final Report Signed by: Dr. Shahla Diaz
--- NOTE | 2017-03-24 12:54 | Emergency Department Note ---
ICarroll Mantricia, am scribing for, and in the presence of, Wali Bradshaw MD 11:53. ILeeann Phillip K, MD, personally performed the services described in this documentation, ascribed by Sergio Hodges in my presence, and it is both accurate and complete 254 . Arrival - Arrival Chief Complaint: Abdominal / Flank Pain Stated Complaint: abd pain ED Nursing Triage Note: Abd pain with nausea and vomiting onset since admit to [facility] on March 11 - pt has gallbladder US done yesterday Mode of Arrival: Stretcher Limitations: No Limitations Source: Patient, Family Time Seen by Provider: 03/24/17 11:28 - History of Present Illness HPI Narrative: Pt is a 76 y/o white female arriving to ED by EMS with c/o N/V that onset since February. Family states that the pt has been ill and running back and forth to the hospital for about 3 weeks now. On March 04, 2017, pt was Dx with diverticulitis and it was discovered that pt had also had a CVA that night. Pt reports getting really dizzy and vomiting bowel the reason she went to the hospital. Family also reports finding pt at home the next morning, after her CVA , ''droopy and tired-looking." Due to pt's CVA, she now have an affected cerebellum and blurry eyesight. Pt reports having an US of her gallbladder done yesterday and stones were shown. Pt sadly states that her health started to go downhill after the of her in December. She is now taking Zofran and reports no other symptoms. Onset (ago): week(s) Consistency: constant Severity: mild Severity scale (1-10): 3 Date of Last Menstrual Period: hyster Allergies/Adverse Reactions: Allergies Allergy/AdvReac Type Severity Reaction Status Date / Time Sulfa (Sulfonamide Allergy RASH Verified 08/30/15 18:33 Antibiotics) codeine AdvReac Nausea Verified 08/30/15 18:33 Home Medications: Home Medications Medication Instructions Recorded Confirmed Type Ondansetron HCl 4 mg PO Q4-6H PRN 08/30/15 03/11/17 History Ergocalciferol (Vitamin D2) 2,000 unit PO DAILY 09/21/16 03/11/17 History [Vitamin D2] Pantoprazole Tab [Protonix Tab] 40 mg PO DAILY #14 tablet 09/21/16 03/11/17 Rx Acetaminophen Tab [Tylenol Tab] 325 mg PO Q4H PRN #0 tablet 03/10/17 03/11/17 Rx Apixaban [Eliquis] 5 mg PO BID tablet 03/10/17 03/11/17 Rx Polyethylene Glycol Powder 17 gm PO DAILY PRN #0 03/10/17 03/11/17 Rx [Miralax] Rosuvastatin [Crestor] 40 mg PO DAILY tablet 03/10/17 03/11/17 Rx Bisacodyl Supp [Dulcolax Supp] 10 mg RECTAL DAILY PRN #0 supp 03/11/17 03/11/17 Rx Carvedilol [Coreg] 6.25 mg PO BID tablet 03/24/17 Rx Ondansetron Inj [Zofran Inj] 4 mg IM Q6H PRN #0 vial 03/24/17 Rx Ursodiol [Actigall] 300 mg PO BID capsule 03/24/17 Rx Review of System - Review of System 12 point system: reviewed and no additional remarkable complaints except as stated - Review of System Constitutional: Absent: chills, diaphoresis, fever Eyes: Absent: discharge, pain Head/Ears/Nose/Throat: Absent: earache, epistaxis Respiratory: Absent: cough, respiratory distress, wheezing Cardiovascular: Absent: chest pain, palpitations, dyspnea on exertion Gastrointestinal: Present: abdominal pain, nausea, vomiting. Absent: diarrhea Genitourinary female: Absent: abnormal menses, dysuria Musculoskeletal: Absent: arm pain, back pain, leg pain, neck pain Skin: Absent: rash, lesions Neurological: Absent: headache, weakness Psychiatric: Absent: anxiety, depression Medical,Surgical,& Family Hx - Medical History Cardio: History of: Cardiac Dysrhythmia (RECENTALLY DX WITH AFIB FEBRUARY 2017), CAD, Hypertension, CO (CO X 2,) Neurology: History of: Cerebrovascular Accident HEENT: History of: Eye Problem (BLURRED VISION R/T STROKE FEBRUARY 2017) Endocrine: History of: Dyslipidemia Gastrointestinal: History of: Diverticulitis/ Diverticulosis, GERD, Polyps, GI Problems (HAS GALLSTONES) Musculoskeletal: History of: Back/Neck Problems (LOWER PART OF BACK) Reproductive: History of: Breast Cancer (1979 RIGHT MASECTOMY-LYMPH NODES REMOVED) - Surgical History Cardiac Surgeries: Sugical HX of: Cardiac Catheterization (3 HEART CATHS 4 STENTS, most recent 2013) Abdominal Surgeries: Surgical HX of: Abdominal Surgery, Appendectomy Reproductive Surgeries: Surgical HX of;: Breast Surgery (For breast cancer), Hysterectomy - Family History Family History: Reports;: Family Cancer (Father), Family Heart Disease (Sister) , Family Hypertension (Mother), Family Stroke (MOTHER AND FATHER) - Social History Smoking Status: Never smoker Frequency of Alcohol Use: None Type of Drug Use: None Exam Vital Signs: Vital Signs Temperature 96.8 F L 03/24/17 11:15 Pulse Rate 62 03/24/17 11:15 Respiratory Rate 20 03/24/17 11:15 Blood Pressure 171/91 03/24/17 11:15 O2 Sat by Pulse Oximetry 97 03/24/17 11:09 - General General appearance: alert, in no apparent distress - Head Head exam: Present: atraumatic, normocephalic, normal inspection - Eye Eye exam: Present: PERRL, EOMI, nystagmus (right eye) - ENT ENT exam: Present: normal exam, normal oropharynx, mucous membranes moist, TM's normal bilaterally, normal external ear exam - Neck Neck exam: Present: normal inspection, full ROM, trachea midline. Absent: tenderness - Chest Chest inspection: Present: normal inspection, symmetric chest wall rise. Absent : tenderness - Respiratory Respiratory exam: Present: normal lung sounds bilaterally - Cardiovascular Cardiovascular exam: Present: regular rate, normal heart sounds. Absent: normal rhythm (irregular) - Abdominal Exam Abdominal exam: Present: soft, distention, tenderness (LLQ; no RLQ tenderness), normal bowel sounds - Extremities Exam Extremities exam: Present: normal inspection, full ROM, normal capillary refill. Absent: tenderness, pedal edema - Back Exam Back exam: Present: normal inspection, full ROM. Absent: tenderness - Neurological Exam Neurological exam: Present: alert, oriented X3, CN II-XII intact, reflexes normal - Psychiatric Psychiatric exam: Present: normal affect, normal mood - Skin Skin exam: Present: warm, dry, intact, normal color Results - Labs CBC & BMP: 03/24/17 11:47 03/24/17 11:47 Lab Results: I have reviewed the patients labs Labs: Laboratory Tests 03/24/17 03/24/17 11:47 11:47 Lymph % (Auto) 18.0 L Baso % (Auto) 0.9 H [place] # (Auto) 1.1 H Sodium 134 L Chloride 95 L Creatinine 1.30 H Glucose 108 H Calculated Osmolality 269.2 L Globulin 3.7 H Albumin/Globulin Ratio 0.9 L - Diagnostic Findings Procedure: Abdominal x-ray: report reviewed by me (Nonobstructive bowel gas pattern. Increased fecal material in the colon consistent with constipation. ) Disposition Clinical Impression: Nausea and vomiting, History of cerebrovascular accident (CVA) involving cerebellum, Possible cholecystitis with cholelithias, History of diverticulitis Case discussed with: patient, patient's family Disposition: Still a Patient Additional Instructions: Admit to the hospitalist.
--- NOTE | 2017-03-24 13:28 | CT Report ---
CT abdomen pelvis wo con Indication: Abdominal pain, nausea/vomiting Comparison: CT abdomen pelvis dated March 04, 2017 Technique: Multiple axial tomographic images of the abdomen and pelvis were obtained without the use of intravenous contrast. Findings: Mild dependent change/scarring of the lung bases present. Occasional subcentimeter nodular densities demonstrated within the lung bases which measure 2 mm or less. These appear similar dating back to study September 01, 2012. No worrisome focal hepatic abnormality. Small-volume cholelithiasis. Gallbladder wall thickening suggested. Gallbladder size is upper limits of normal. Small stones are suggested within the distal aspect of the common bile duct with mild intrahepatic and extra hepatic ductal dilatation. Pancreas and spleen appear grossly unchanged. Bilateral adrenal glands and kidneys appear grossly unchanged. Urinary bladder incompletely distended. Status post hysterectomy. Colonic diverticulosis. No evidence of gastrointestinal obstruction. Atherosclerotic calcifications present. Osseous and surrounding soft tissue structures appear grossly unchanged. Degenerative change of the spine present, most significant at L4-5. IMPRESSION: Choledocholithiasis noted with mild intrahepatic and extrahepatic ductal dilatation. Cholelithiasis is also noted. Gallbladder size is upper limits of normal with suggestion of wall thickening. Findings are concerning for cholecystitis. Status post hysterectomy, colonic diverticulosis, and other detailed findings as above. The CT exam was performed using one or more of the following dose reduction techniques: Automated exposure control, adjustment of the mA and/or kV according to patient size, or use of iterative reconstruction technique. PROCEDURE INTERPRETED AT [facility] DEPARTMENT OF RADIOLOGY Final Report Signed by: Dr Mack Maddox
[2017-03-24] MEDS ORDERED: ONDANSETRON 4 MG/2 ML VIAL ONE (13:56)
--- NOTE | 2017-03-24 15:39 | Gastrointestinal Consult Note ---
<ErnestotrishKarmen brenner Miranda - Last Filed: 03/24/17 15:36> Assessment and Plan (1) Abdominal pain Status: Acute Assessment and plan: 03/24-Worsening abdominal pain, nausea and vomiting with recent episode of diverticulitus as well as CVA. Recent US also reported to find gallstones. LFTs unremarkable. Ct of abdomen findings noted below. HIDA scan pending at present time. Dr Doty has been consulted. Plan and addendum to follow by Dr Caraballo. Current Visit: No History of Present Illness Chief complaint: Abd pain, nausea, vomiting History of present illness: Ms. Caraballo is a 76 year old female who presented to the hospital with complaints of abd pain, nausea and vomiting. Pt was discharged from [facility] today following several days of rehabilitation due to a CVA. Pt was discharged from our facility on 03/10 following an inpatient stay for diverticulitis. 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 She also experienced a new onset of atrial fibrillation during this hospital stay. She was discharged to rehab on oral antibiotics x 10 days as well as Eliquis and aspirin. She states she did complete her antibiotic therapy for her diverticulitis however the pain did not seem to improve very much despite this. She is now complaining of pain in her RUQ that radiates to her back at times and began having nausea and vomiting of bile this morning. She is reported to have had an ultrasound ordered by Dr Doty on yesterday that showed gallstones however do not see a report for this. She did have CT of abdomen in ER and was noted to show choledocholithiasis with mild intrahepatic and extrahepatic ductal dilation with cholelithiasis with gallbladder at upper limits of normal as well as mention of colonic diverticulosis without mention of diverticulitis however this is noted to be a noncontrasted CT. HIDA scan is pending at this time. She denies any fever, chills or night sweats. Denies any diarrhea associated with this. Reports normal bowel movement on yesterday. LFTs are unremarkable. WBC [id number]. Home Medications Medication Instructions Recorded Confirmed Type Ondansetron HCl 4 mg PO Q4-6H PRN 08/30/15 03/11/17 History Ergocalciferol (Vitamin D2) 2,000 unit PO DAILY 09/21/16 03/11/17 History [Vitamin D2] Pantoprazole Tab [Protonix Tab] 40 mg PO DAILY #14 tablet 09/21/16 03/11/17 Rx Acetaminophen Tab [Tylenol Tab] 325 mg PO Q4H PRN #0 tablet 03/10/17 03/11/17 Rx Apixaban [Eliquis] 5 mg PO BID tablet 03/10/17 03/11/17 Rx Polyethylene Glycol Powder 17 gm PO DAILY PRN #0 03/10/17 03/11/17 Rx [Miralax] Rosuvastatin [Crestor] 40 mg PO DAILY tablet 03/10/17 03/11/17 Rx Bisacodyl Supp [Dulcolax Supp] 10 mg RECTAL DAILY PRN #0 supp 03/11/17 03/11/17 Rx Carvedilol [Coreg] 6.25 mg PO BID tablet 03/24/17 Rx Ondansetron Inj [Zofran Inj] 4 mg IM Q6H PRN #0 vial 03/24/17 Rx Ursodiol [Actigall] 300 mg PO BID capsule 03/24/17 Rx Allergies Allergy/AdvReac Type Severity Reaction Status Date / Time Sulfa (Sulfonamide Allergy RASH Verified 08/30/15 18:33 Antibiotics) codeine AdvReac Nausea Verified 08/30/15 18:33 Medical,Surgical,& Family Hx - Medical History Cardio: History of: Cardiac Dysrhythmia (RECENTALLY DX WITH AFIB FEBRUARY 2017), CAD, Hypertension, TX (TX X 2,), Valvular Heart Disease (Mild to moderate aortic stenosis, senescent) Neurology: History of: Cerebrovascular Accident HEENT: History of: Eye Problem (BLURRED VISION R/T STROKE FEBRUARY 2017) Endocrine: History of: Dyslipidemia Gastrointestinal: History of: Diverticulitis/ Diverticulosis, GERD, Polyps, GI Problems (HAS GALLSTONES) Musculoskeletal: History of: Back/Neck Problems (LOWER PART OF BACK) Reproductive: History of: Breast Cancer (1979 RIGHT MASECTOMY-LYMPH NODES REMOVED) - Surgical History Cardiac Surgeries: Sugical HX of: Cardiac Catheterization (3 HEART CATHS 4 STENTS, most recent 2013) Abdominal Surgeries: Surgical HX of: Abdominal Surgery, Appendectomy Reproductive Surgeries: Surgical HX of;: Breast Surgery (For breast cancer), Hysterectomy - Family History Family History: Reports;: Family Cancer (Father), Family Heart Disease (Sister) , Family Hypertension (Mother), Family Stroke (MOTHER AND FATHER) - Social History Smoking Status: Never smoker Frequency of Alcohol Use: None Type of Drug Use: None 12 point system: reviewed and no additional remarkable complaints except as stated - Constitutional Constitutional: Present: as per HPI - EENT Eyes: Present: as per HPI Ears: Present: as per HPI Nose, mouth and throat: Present: as per HPI - Cardiovascular Cardiovascular: Present: as per HPI - Respiratory Respiratory: Present: as per HPI - Gastrointestinal Gastrointestinal: Present: as per HPI, abdominal pain, cramping, nausea, vomiting - Genitourinary Genitourinary: Present: as per HPI - Musculoskeletal Musculoskeletal: Present: as per HPI - Neurological Neurological: Present: as per HPI - Psychiatric Psychiatric: Present: as per HPI - Endocrine Endocrine: Present: as per HPI - Hematologic/Lymphatic Hematologic/Lymphatic: Present: as per HPI Exam - Constitutional Vitals: Period Temp Pulse Resp BP Sys/Velazco Pulse Ox Last 24 Hr 98.8 F 78 20 156/95 99 General appearance: normal weight, no acute distress - Head Head exam: Present: normal inspection, normocephalic - Eye Eye exam: Present: other (lids and conjunctiva unremarakble). Absent: scleral icterus - ENT ENT exam: Present: normal exam, normal oropharynx - Neck Neck exam: Present: normal inspection - Respiratory Respiratory exam: Present: clear to auscultation bilaterally. Absent: rales, rhonchi, wheezes - Cardiovascular Cardiovascular exam: Present: regular rate and rhythm. Absent: diastolic murmur , JVD, systolic murmur - GI/Abdominal GI/Abdominal exam: Present: normal bowel sounds, tenderness, soft. Absent: ascites, distended, mass, organomegaly - Extremities Exam Extremities exam: Present: normal inspection, full ROM - Back Exam Back exam: Present: normal inspection - Neurological Exam Neurological exam: Present: alert, oriented X3 - Psychiatric Psychiatric exam: Present: normal affect, normal mood - Skin Skin exam: Present: normal color, warm, dry Results - Labs CBC & BMP: 03/24/17 11:47 03/24/17 11:47 Lab Results: I have reviewed the past 24 hour labs - Diagnostic Findings Procedure: CT Abdomen and Pelvis: report reviewed by me <Torsten Caraballo - Last Filed: 03/24/17 18:42> History of Present Illness Chief complaint: 3030 History of present illness: Ms. Caraballo is a 76 year old female Exam - Constitutional Vitals: Period Temp Pulse Resp BP Sys/Velazco Pulse Ox Last 24 Hr 97.6 F-98.8 F 72-78 19-20 135-172/80-95 97-99 Results - Labs CBC & BMP: 03/24/17 11:47 03/24/17 11:47
--- NOTE | 2017-03-24 15:42 | Hospitalist History & Physical ---
Assessment and Plan (1) History of cerebrovascular accident (CVA) involving cerebellum Status: Acute Assessment and plan: Recently discharged from rehab center. Pt. on blood thinner. PT/OT eval. Current Visit: Yes (2) History of diverticulitis Status: Acute Current Visit: Yes (3) Nausea and vomiting Status: Acute Assessment and plan: Monitored bed. PRN zofran. IVF. Monitor for electrolyte imbalance. Current Visit: Yes (4) Abdominal pain Status: Acute Assessment and plan: Monitored bed. IVF. Consult GI to evaluate. CT showed cholecystitis. Consult surgery. Current Visit: No Qualifiers: (5) Atrial fibrillation Status: Chronic Assessment and plan: Chronic. Patient will be placed on monitored bed. Pt. on blood thinner. Current Visit: No History of Present Illness Chief complaint: nausea and vomiting History of present illness: Ms. Caraballo is a 76 year old female with a hx of recent CVA, NH with stents, gallstones, diverticulitis, and htn that presented to the ED with reports of dizziness, nausea and vomiting. Pt. was recently seen on 03/04 and diagnosed with diverticulitis. It was also discovered that the patient had a CVA that night. As a result of the stroke which affected the patient's cerebellum, she was noted to have some blurry eyesight and intermittent n/v. The patient was discharged from the hospital after a stay and went to rehab center. She was discharged today and came over for further evaluation of the n/v. Family was apprehensive of pt. going home because she lives alone. Pt. reports an US performed yesterday where gall stones was noted. Pt. denies fever or chills but reports abdominal pain. The pain is "all over" her stomach according to the patient but on exam is greater to left lower quadrant area. Pt. will be admitted to the hospitalist service. Home Medications Medication Instructions Recorded Confirmed Type Ondansetron HCl 4 mg PO Q4-6H PRN 08/30/15 03/11/17 History Ergocalciferol (Vitamin D2) 2,000 unit PO DAILY 09/21/16 03/11/17 History [Vitamin D2] Pantoprazole Tab [Protonix Tab] 40 mg PO DAILY #14 tablet 09/21/16 03/11/17 Rx Acetaminophen Tab [Tylenol Tab] 325 mg PO Q4H PRN #0 tablet 03/10/17 03/11/17 Rx Apixaban [Eliquis] 5 mg PO BID tablet 03/10/17 03/11/17 Rx Polyethylene Glycol Powder 17 gm PO DAILY PRN #0 03/10/17 03/11/17 Rx [Miralax] Rosuvastatin [Crestor] 40 mg PO DAILY tablet 03/10/17 03/11/17 Rx Bisacodyl Supp [Dulcolax Supp] 10 mg RECTAL DAILY PRN #0 supp 03/11/17 03/11/17 Rx Carvedilol [Coreg] 6.25 mg PO BID tablet 03/24/17 Rx Ondansetron Inj [Zofran Inj] 4 mg IM Q6H PRN #0 vial 03/24/17 Rx Ursodiol [Actigall] 300 mg PO BID capsule 03/24/17 Rx Allergies Allergy/AdvReac Type Severity Reaction Status Date / Time Sulfa (Sulfonamide Allergy RASH Verified 08/30/15 18:33 Antibiotics) codeine AdvReac Nausea Verified 08/30/15 18:33 Medical,Surgical,& Family Hx - Medical History Cardio: History of: Cardiac Dysrhythmia (RECENTALLY DX WITH AFIB FEBRUARY 2017), CAD, Hypertension, NH (NH X 2,), Valvular Heart Disease (Mild to moderate aortic stenosis, senescent) Neurology: History of: Cerebrovascular Accident HEENT: History of: Eye Problem (BLURRED VISION R/T STROKE FEBRUARY 2017) Endocrine: History of: Dyslipidemia Gastrointestinal: History of: Diverticulitis/ Diverticulosis, GERD, Polyps, GI Problems (HAS GALLSTONES) Musculoskeletal: History of: Back/Neck Problems (LOWER PART OF BACK) Reproductive: History of: Breast Cancer (1979 RIGHT MASECTOMY-LYMPH NODES REMOVED) - Surgical History Cardiac Surgeries: Sugical HX of: Cardiac Catheterization (3 HEART CATHS 4 STENTS, most recent 2013) Abdominal Surgeries: Surgical HX of: Abdominal Surgery, Appendectomy Reproductive Surgeries: Surgical HX of;: Breast Surgery (For breast cancer), Hysterectomy - Family History Family History: Reports;: Family Cancer (Father), Family Heart Disease (Sister) , Family Hypertension (Mother), Family Stroke (MOTHER AND FATHER) - Social History Smoking Status: Never smoker Frequency of Alcohol Use: None Type of Drug Use: None - Constitutional Constitutional: Present: weakness. Absent: chills, fever(s) - EENT Eyes: Present: blurry vision Nose, mouth and throat: Absent: dysphagia, sore throat - Cardiovascular Cardiovascular: Present: lightheadedness. Absent: dyspnea, edema - Respiratory Respiratory: Absent: cough, dyspnea - Gastrointestinal Gastrointestinal: Present: abdominal pain, nausea, vomiting - Genitourinary Genitourinary: Absent: difficulty urinating - Musculoskeletal Musculoskeletal: Absent: limited range of motion - Neurological Neurological: Present: dizziness. Absent: paresthesias - Psychiatric Psychiatric: Absent: anxiety, confusion Exam - Constitutional Vitals: Period Temp Pulse Resp BP Sys/Velazco Pulse Ox Last 24 Hr 97.8 F-98.8 F 76-78 20-20 156-172/89-95 98-99 General appearance: normal weight, no acute distress - Head Head exam: Present: normal inspection, normocephalic - Eye Eye exam: Present: EOMI. Absent: scleral icterus Pupils: Present: SHEILA. Absent: dilated - Respiratory Respiratory exam: Present: clear to auscultation bilaterally. Absent: wheezes - Cardiovascular Cardiovascular exam: Present: regular rate and rhythm - GI/Abdominal GI/Abdominal exam: Present: normal bowel sounds, soft. Absent: tenderness - Extremities Exam Extremities exam: Present: normal capillary refill, full ROM, edema - Neurological Exam Neurological exam: Present: alert, oriented X3, normal gait - Psychiatric Psychiatric exam: Present: normal affect, normal mood - Skin Skin exam: Present: normal color, warm, dry Results - Labs CBC & BMP: 03/24/17 11:47 03/24/17 11:47 Lab Results: I have reviewed the past 24 hour labs
--- NOTE | 2017-03-24 15:55 | General Surgery Progress Note ---
Assessment and Plan (1) Abdominal pain Status: Acute Assessment and plan: Patient with cholelithiasis and suspected cholecystitis. Patient is a high risk surgical candidate as discussed by Dr. Doty yesterday. Will obtain HIDA scan and confer with the medical team and gastroenterology for further recommendations. Recommend continuing with IV abx and actigall in the interim. We will follow up on HIDA scan results in am. Current Visit: No Qualifiers: Subjective Patient reports: Present: no new complaints (Patient is a 76-year-old female status post recent CVA with rate controlled A. fib as of March 04, 2017. She is currently on anticoagulation for this recent stroke. She has also been recently treated for diverticulitis which was noted on the same admission as the stroke. She has recently developed right upper quadrant pain associated with postprandial nausea. Gallbladder ultrasound CT have demonstrated evidence of cholelithiasis and possible cholecystitis with gallbladder wall thickening. Dr. Doty saw the patient in consultation yesterday at [facility]. She has been placed on IV antibiotics and Actigall in the interim based on Dr. Doty 's recommendations. The patient has been admitted today for further evaluation and treatment. Patient reports her symptoms are unchanged. ) Exam - Constitutional Vitals: Period Temp Pulse Resp BP Sys/Velazco Pulse Ox Last 24 Hr 97.8 F-98.8 F 76-78 20-20 156-172/89-95 98-99 General appearance: no acute distress - Head Head exam: Present: normal inspection, normocephalic, atraumatic - Respiratory Respiratory exam: Present: clear to auscultation bilaterally - Cardiovascular Cardiovascular exam: Present: irregular rhythm - GI/Abdominal GI/Abdominal exam: Present: Cowart's sign, tenderness (RUQ - mild), soft. Absent: distended, firm, guarding, rebound - Extremities Exam Extremities exam: Absent: calf tenderness, edema - Neurological Exam Neurological exam: Present: alert, oriented X3 - Skin Skin exam: Present: normal color, warm Results - Labs CBC & BMP: 03/24/17 11:47 03/24/17 11:47 - Diagnostic Findings Procedure: CT Abdomen and Pelvis: image reviewed by me, report reviewed by me, Ultrasound: image reviewed by me, report reviewed by me
[2017-03-24 16:15] LABS: Albumin 3.4 G/DL (3.4-5.0); Bilirubin,Direct 0.2 MG/DL (0.0-0.20); Bilirubin,Indirect 0.5 MG/DL (0.0-1.0); Bilirubin,Total 0.7 MG/DL (0.2-1.0); Total Protein 7.1 G/DL (6.4-8.3)
[2017-03-24] MEDS: PIPERACILLIN/TAZOBACTAM 3,375 MG in SODIUM CHLORIDE 0.9% 100 ML IV SCH (19:00)
--- NOTE | 2017-03-24 20:22 | Nuclear Medicine Report ---
Referring physician: Sara Preciado Exam: Nuclear medicine hepatobiliary scan Date: March 24, 2017 Comparison: Abdominal ultrasound March 23, 2017 Reason: Evaluate for cholecystitis Technique: The patient was administered 5 mCi of technetium 99m Choletec IV. Images of the right upper quadrant were then acquired over 60 minutes. The patient was then administered orally administered 8 ounces of Ensure. Gallbladder ejection fraction was calculated. Findings: Normal hepatic uptake and excretion of radiotracer are observed. Radiotracer accumulation is seen within the gallbladder at 30 minutes, and radiotracer activity is seen within the bowel at 10 minutes. The patient denied symptoms with ingestion of Ensure. The gallbladder ejection fraction at 20 minutes is 10%, at 40 minutes is 9% and at 60 minutes is 15%. Impression: 1. Radiotracer accumulation is seen within the gallbladder, suggesting patency of the cystic duct. 2. The gallbladder ejection fraction is low. This can be seen in chronic cholecystitis/gallbladder dysfunction. PROCEDURE INTERPRETED AT [facility] DEPARTMENT OF RADIOLOGY Final Report Signed by: Dr. Jose Simons
[2017-03-24] MEDS: SODIUM CHLORIDE 0.9% 1,000 ML IV SCH (20:25)
[2017-03-24] MEDS: APIXABAN 5 MG TABLET PO SCH (20:52)
[2017-03-24] MEDS: ZALEPLON 5 MG CAPSULE PO PRN (20:53)
[2017-03-24] MEDS: traMADol 50 MG TABLET PO PRN (20:53)
[2017-03-24] MEDS: CARVEDILOL 6.25 MG TABLET PO SCH (20:53)
[2017-03-24 21:18] LABS: Apearance,Urine CLEAR (Clear); Bilirubin,Urine Negative (Negative); Blood, Urine Negative (Negative); Glucose,Urine (UA) Negative (Negative); Hyaline Casts,Urine 1 /LPF (0-3); Ketones,Urine Negative (Negative); Nitrite,Urine Negative (Negative); Protein,Urine Negative; RBC,Urine 1 /HPF (0-4); Squamous Epithelial Cell,Urine Occasional /HPF (0-10); Urine Color Yellow (Yellow); Urine Specific Gravity 1.004 (1.001-1.035); Urine Urobilinogen < 2.0 EU/DL (0.2-1.0); WBC,Urine 1 /HPF (0-6)
[2017-03-25] MEDS: PIPERACILLIN/TAZOBACTAM 3,375 MG in SODIUM CHLORIDE 0.9% 100 ML IV SCH ×3 (03:10→20:45)
[2017-03-25 04:38] LABS: Basophils # 0.1 10*3/uL (0.0-0.2); Eosinophils # 0.4 10*3/uL (0.0-0.87); Eosinophils % 4.6 % (0.00-10.9); Hematocrit 38.4 VOL% (35.7-47.0); Hemoglobin 12.6 GM/DL (12.0-16.0); Immature Granulocytes % 0.3 %; Immature Granulocytes Absolute 0.03 #; Lymphocytes % 22.5 % (21.3-54.2); Mean Corpuscular HGB Conc 32.8 GM/DL (32-36); Mean Corpuscular Hemoglobin 30 PG (27-34); Mean Corpuscular Volume 90.4 FL (87-102); Mean Platelet Volume 10.7 FL (9.6-12.0); Monocytes % 10.6 % (1.7-12.7); Neutrophils # 5.5 10*3/uL (1.4-7.4); Platelet Count 240 T/CUMM (130-400); Red Blood Count 4.25 MC/CUMM (3.8-5.5); Red Cell Distribution Width 12.2 % (9.3-17.3)
[2017-03-25 04:45] LABS: INR 1.2; PT Patient Result 12.3 SECS
[2017-03-25 05:21] LABS: Calcium 9.1 MG/DL (8.5-10.1); Potassium 4.1 MMOL/L (3.5-5.1); Risk Ratio 1.71; Thyroid Stimulating Hormone 3.59 uIU/ml (0.358-3.74); VLDL CHOLESTEROL 14.4 MG/DL
--- NOTE | 2017-03-25 08:15 | General Surgery Progress Note ---
Assessment and Plan (1) Abdominal pain Status: Acute Assessment and plan: This patient appears to have cholelithiasis and choledocholithiasis. Her LFTs are normal. She seems a little bit better today with Actigall and antibiotics. I have discussed cholecystostomy tube drainage with her but she would like to try the antibiotics for now. Dr. Caraballo feels more strongly about a tube and we can go ahead and push for it but we will see what how the patient does with this medical management for now. 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 If it is okay to stop this that would be preferable in case he needs a procedure. Current Visit: No Qualifiers: Subjective Patient reports: Present: no new complaints, feels better, pain is less, nausea , afebrile. Absent: vomiting Narrative: The patient states that overall she feels about the same. She does feel hungry today with improvement from yesterday. Exam - Constitutional Vitals: Period Temp Pulse Resp BP Sys/Velazco Pulse Ox Last 24 Hr 97.1 F-98.8 F 65-83 18-20 116-172/63-95 97-100 General appearance: normal weight, no acute distress - Head Head exam: Present: normal inspection, normocephalic - Eye Eye exam: Present: EOMI Pupils: Present: SHEILA - ENT ENT exam: Present: normal exam Mouth exam: Present: normal external inspection, normal voice - Neck Neck exam: Present: normal inspection, trachea midline - Respiratory Respiratory exam: Present: clear to auscultation bilaterally. Absent: accessory muscle use, chest wall tenderness - Cardiovascular Cardiovascular exam: Present: RRR. Absent: systolic murmur, tachycardia - GI/Abdominal GI/Abdominal exam: Present: normal bowel sounds, soft. Absent: tenderness, rebound - Extremities Exam Extremities exam: Present: normal inspection, normal capillary refill - Back Exam Back exam: Present: normal inspection - Neurological Exam Neurological exam: Present: alert, oriented X3 Speech: Present: normal - Skin Skin exam: Present: normal color, warm Results - Labs CBC & BMP: 03/25/17 03:44 03/25/17 03:44
[2017-03-25] MEDS: PANTOPRAZOLE 40 MG TABLET PO SCH (08:29)
[2017-03-25] MEDS: APIXABAN 5 MG TABLET PO SCH ×2 (08:29→20:50)
[2017-03-25] MEDS: CARVEDILOL 6.25 MG TABLET PO SCH ×2 (08:29→20:50)
[2017-03-25] MEDS: ROSUVASTATIN 20 MG TABLET PO SCH (08:29)
--- NOTE | 2017-03-25 10:28 | Gastrointestinal Progress Note ---
<Nikki Hernandezher Miranda - Last Filed: 03/25/17 10:23> Assessment and Plan (1) Abdominal pain Status: Acute Assessment and plan: 03/25-HIDA scan results noted. Zosyn/Actigall have been initiated. Plan and addendum to follow by Dr Caraballo. 03/24-Worsening abdominal pain, nausea and vomiting with recent episode of diverticulitus as well as CVA. Recent US also reported to find gallstones. LFTs unremarkable. Ct of abdomen findings noted below. HIDA scan pending at present time. Dr Doty has been consulted. Plan and addendum to follow by Dr Caraballo. Current Visit: No Gastroenterology - PN: Subj Interval history: CC: Abd pain Pt is seen awake and alert lying in bed with son at side. States that she is feeling a little better at this time. She has had no nausea or vomiting overnight. States her abdominal pain is a little better controlled. She had a HIDA scan done on yesterday with findings of patent cystic duct with low EF at 15%. She has been started on IV antibiotics at this time as well as Actigall. She is still on her Eliquis however discussion has been initiated with neurology regarding holding this at present time in case the need to proceed with percutaneous cholecystostomy tube is needed. Abdomen is soft, nontender. ROS: Denies SOB or chest pain Exam (Progress Note) - Constitutional Vitals: Period Temp Pulse Resp BP Sys/Velazco Pulse Ox Last 24 Hr 97.1 F-98.8 F 65-83 18-20 116-172/63-95 97-100 General appearance: normal weight, no acute distress - Head Head exam: Present: normal inspection, normocephalic - Eye Eye exam: Present: other (lids and conjunctiva unremarkable). Absent: scleral icterus - ENT ENT exam: Present: normal exam, normal oropharynx - Neck Neck exam: Present: normal inspection - Respiratory Respiratory exam: Present: clear to auscultation bilaterally. Absent: rales, rhonchi, wheezes - Cardiovascular Cardiovascular exam: Present: regular rate and rhythm. Absent: diastolic murmur , JVD, systolic murmur - GI/Abdominal GI/Abdominal exam: Present: normal bowel sounds, soft. Absent: ascites, distended, mass, organomegaly, tenderness - Extremities Exam Extremities exam: Present: normal inspection, full ROM - Back Exam Back exam: Present: normal inspection - Neurological Exam Neurological exam: Present: alert, oriented X3 - Psychiatric Psychiatric exam: Present: normal affect, normal mood - Skin Skin exam: Present: normal color, warm, dry Results - Labs CBC & BMP: 03/25/17 03:44 03/25/17 03:44 Lab Results: I have reviewed the past 24 hour labs <Torsten Caraballo - Last Filed: 03/25/17 17:50> Exam (Progress Note) - Constitutional Vitals: Period Temp Pulse Resp BP Sys/Velazco Pulse Ox Last 24 Hr 97.1 F-98.0 F 65-83 18-20 116-154/63-86 96-100 Results - Labs CBC & BMP: 03/25/17 03:44 03/25/17 03:44
--- NOTE | 2017-03-25 13:48 | Hospitalist Progress Note ---
Assessment and Plan - Time spent with patient Time spent with patient: Greater than 30 minutes (1) Cholecystitis Status: Acute Assessment and plan: Continue antibiotics. Current Visit: Yes (2) Choledocholithiasis Status: Acute Assessment and plan: Defer to GI and surgery. Current Visit: Yes (3) History of cerebrovascular accident (CVA) involving cerebellum Status: Acute Assessment and plan: Continue Eliquis. Current Visit: Yes Hospitalist: Subjective Interval history: Admitted overnight with nausea abdominal pain. Still has abdominal pain. Diffuse. Exam - Constitutional Vitals: Period Temp Pulse Resp BP Sys/Velazco Pulse Ox Last 24 Hr 97.1 F-98.8 F 65-83 18-20 116-172/63-95 96-100 General appearance: no acute distress - Head Head exam: Present: normocephalic, atraumatic - Eye Eye exam: Present: EOMI Pupils: Present: SHEILA - ENT ENT exam: Present: normal exam - Neck Neck exam: Present: normal inspection - Respiratory Respiratory exam: Present: clear to auscultation bilaterally. Absent: rhonchi, wheezes - Cardiovascular Cardiovascular exam: Present: regular rate and rhythm. Absent: gallop, rubs, systolic murmur - GI/Abdominal GI/Abdominal exam: Present: normal bowel sounds, tenderness, soft. Absent: distended, firm, guarding, rebound - Extremities Exam Extremities exam: Present: normal inspection. Absent: calf tenderness, edema Results - Labs CBC & BMP: 03/25/17 03:44 03/25/17 03:44 Lab Results: I have reviewed the past 24 hour labs
[2017-03-25] MEDS: SODIUM CHLORIDE 0.9% 1,000 ML IV SCH (17:05)
[2017-03-25] MEDS: ACETAMINOPHEN 325 MG TABLET PO PRN (18:13)
[2017-03-25] MEDS: traMADol 50 MG TABLET PO PRN (20:50)
[2017-03-25] MEDS: ZALEPLON 5 MG CAPSULE PO PRN (20:50)
[2017-03-26] MEDS: PIPERACILLIN/TAZOBACTAM 3,375 MG in SODIUM CHLORIDE 0.9% 100 ML IV SCH ×3 (06:15→20:57)
[2017-03-26 06:35] LABS: Basophils # 0.1 10*3/uL (0.0-0.2); Basophils % 1.3 % (0.0-0.8); Eosinophils # 0.5 10*3/uL (0.0-0.87); Eosinophils % 6.3 % (0.00-10.9); Hematocrit 38.7 VOL% (35.7-47.0); Hemoglobin 12.8 GM/DL (12.0-16.0); Immature Granulocytes % 0.3 %; Immature Granulocytes Absolute 0.02 #; Lymphocytes # 1.9 10*3/uL (1.4-4.0); Lymphocytes % 24.8 % (21.3-54.2); Mean Corpuscular HGB Conc 33.1 GM/DL (32-36); Mean Corpuscular Hemoglobin 30 PG (27-34); Mean Corpuscular Volume 90.8 FL (87-102); Mean Platelet Volume 10.7 FL (9.6-12.0); Monocytes # 0.8 10*3/uL (0.11-0.8); Monocytes % 10.3 % (1.7-12.7); Neutrophils # 4.3 10*3/uL (1.4-7.4); Platelet Count 229 T/CUMM (130-400); Red Blood Count 4.26 MC/CUMM (3.8-5.5); Red Cell Distribution Width 12.5 % (9.3-17.3); White Blood Count 7.5 T/CUMM (4-12)
[2017-03-26 07:03] LABS: Calcium 8.8 MG/DL (8.5-10.1); Osmolality,Calculated 277.4 MOS/KG (273-304)
--- NOTE | 2017-03-26 07:13 | General Surgery Progress Note ---
Assessment and Plan (1) Abdominal pain Status: Acute Assessment and plan: The patient appears to be responding to antibiotics and Actigall. We will continue this current treatment. I have placed her on a heparin drip and stopped her other oral blood thinners so the procedures can be done with relative ease by turning off the heparin temporarily. However, for now she would like to continue with her medical management and she does not want to proceed with a drain at this time. We will see how she is doing tomorrow in this regard. I will also repeat some LFTs and a CBC tomorrow. Current Visit: No Qualifiers: Subjective Patient reports: Present: no new complaints, feels better, still having pain, pain is less, afebrile. Absent: nausea, vomiting Narrative: The patient tolerated half of the burger last night with no nausea. Her pain is slowly improving. I did discuss her care with her pediatric cns and her neurologist. Her neurologist feels that with the embolic stroke that she had minimizing time off of anticoagulation is ideal so he recommended switching her to a heparin drip in case she needs procedure so that it can be turned on and off quickly. Exam - Constitutional Vitals: Period Temp Pulse Resp BP Sys/Velazco Pulse Ox Last 24 Hr 96.7 F-98.0 F 64-80 18-20 119-154/66-87 93-98 General appearance: normal weight, no acute distress - Head Head exam: Present: normal inspection, normocephalic - Eye Eye exam: Present: EOMI Pupils: Present: SHEILA - ENT ENT exam: Present: normal exam Mouth exam: Present: normal external inspection - Neck Neck exam: Present: normal inspection, trachea midline - Respiratory Respiratory exam: Present: clear to auscultation bilaterally. Absent: accessory muscle use, chest wall tenderness - Cardiovascular Cardiovascular exam: Present: RRR. Absent: systolic murmur, tachycardia - GI/Abdominal GI/Abdominal exam: Present: normal bowel sounds, tenderness (Minimal tenderness right upper quadrant), soft. Absent: ascites, distended, guarding, rebound - Extremities Exam Extremities exam: Present: normal inspection, normal capillary refill - Back Exam Back exam: Present: normal inspection - Neurological Exam Neurological exam: Present: alert, oriented X3 Speech: Present: normal - Skin Skin exam: Present: normal color, warm Results - Labs CBC & BMP: 03/26/17 06:16 03/25/17 03:44
[2017-03-26] MEDS: HEPARIN DRIP 25,000 UNITS/500 ML PREMIX IV SCH (08:02)
[2017-03-26] MEDS: ACETAMINOPHEN 325 MG TABLET PO PRN (08:54)
[2017-03-26] MEDS: PANTOPRAZOLE 40 MG TABLET PO SCH (08:54)
[2017-03-26] MEDS: ROSUVASTATIN 20 MG TABLET PO SCH (08:54)
[2017-03-26] MEDS: CARVEDILOL 6.25 MG TABLET PO SCH ×2 (08:54→20:57)
[2017-03-26] MEDS: SODIUM CHLORIDE 0.9% 1,000 ML IV SCH (09:01)
--- NOTE | 2017-03-26 10:33 | Gastrointestinal Progress Note ---
<DavidKarmen Miranda - Last Filed: 03/26/17 10:31> Assessment and Plan (1) Abdominal pain Status: Acute Assessment and plan: 03/26-afebrile, WBC 7.5. Mild abdominal pain and nausea at times. Tolerating small amounts of diet. Plan an addendum to follow by Dr. Caraballo. 03/25-HIDA scan results noted. Zosyn/Actigall have been initiated. Plan and addendum to follow by Dr Caraballo. 03/24-Worsening abdominal pain, nausea and vomiting with recent episode of diverticulitus as well as CVA. Recent US also reported to find gallstones. LFTs unremarkable. Ct of abdomen findings noted below. HIDA scan pending at present time. Dr Doty has been consulted. Plan and addendum to follow by Dr Caraballo. Current Visit: No Gastroenterology - PN: Subj Interval history: CC: Abdominal pain Patient is seen awake and alert sitting up in bed. She states she rested well last night. She denies any vomiting however has had some spells of nausea. States she had some right upper quadrant pain this morning prior to eating but she was able to tolerate her breakfast in small amounts. Patient is afebrile. Her Eliquis is on hold at this time and she has had a heparin drip started in case any invasive intervention becomes necessary. WBC 7.5, she is afebrile. Abdomen is soft, mild tenderness. ROS: Denies shortness of breath or chest pain Exam (Progress Note) - Constitutional Vitals: Period Temp Pulse Resp BP Sys/Velazco Pulse Ox Last 24 Hr 96.7 F-98.0 F 64-81 18-20 124-157/66-97 93-98 General appearance: normal weight, no acute distress - Head Head exam: Present: normal inspection, normocephalic - Eye Eye exam: Present: other (Lids and conjunctive are unremarkable). Absent: scleral icterus - ENT ENT exam: Present: normal exam, normal oropharynx - Neck Neck exam: Present: normal inspection - Respiratory Respiratory exam: Present: clear to auscultation bilaterally. Absent: rales, rhonchi, wheezes - Cardiovascular Cardiovascular exam: Present: regular rate and rhythm. Absent: diastolic murmur , JVD, systolic murmur - GI/Abdominal GI/Abdominal exam: Present: normal bowel sounds, tenderness, soft. Absent: ascites, distended, mass, organomegaly - Extremities Exam Extremities exam: Present: normal inspection, full ROM - Back Exam Back exam: Present: normal inspection - Neurological Exam Neurological exam: Present: alert, oriented X3 - Psychiatric Psychiatric exam: Present: normal affect, normal mood - Skin Skin exam: Present: normal color, warm, dry Results - Labs CBC & BMP: 03/26/17 06:16 03/26/17 06:16 Lab Results: I have reviewed the past 24 hour labs <Torsten Caraballo - Last Filed: 03/26/17 18:31> Exam (Progress Note) - Constitutional Vitals: Period Temp Pulse Resp BP Sys/Velazco Pulse Ox Last 24 Hr 96.7 F-97.9 F 64-81 18-20 140-157/77-97 93-99 Results - Labs CBC & BMP: 03/26/17 06:16 03/26/17 06:16
--- NOTE | 2017-03-26 15:34 | Hospitalist Progress Note ---
Assessment and Plan - Time spent with patient Time spent with patient: Greater than 30 minutes (1) Cholecystitis Status: Acute Assessment and plan: Continue antibiotics. Current Visit: Yes (2) Choledocholithiasis Status: Acute Assessment and plan: Defer to GI and surgery. Current Visit: Yes (3) History of cerebrovascular accident (CVA) involving cerebellum Status: Acute Assessment and plan: Continue Eliquis. Current Visit: Yes Hospitalist: Subjective Interval history: Patient states she is tolerating her diet with no nausea or abd pain. No complaints currently. Exam - Constitutional Vitals: Period Temp Pulse Resp BP Sys/Velazco Pulse Ox Last 24 Hr 96.7 F-97.9 F 64-81 18-20 140-157/77-97 93-99 General appearance: no acute distress - Head Head exam: Present: normocephalic, atraumatic - Eye Eye exam: Present: EOMI Pupils: Present: SHEILA - ENT ENT exam: Present: normal exam - Neck Neck exam: Present: normal inspection - Respiratory Respiratory exam: Present: clear to auscultation bilaterally. Absent: rhonchi, wheezes - Cardiovascular Cardiovascular exam: Present: regular rate and rhythm. Absent: gallop, rubs, systolic murmur - GI/Abdominal GI/Abdominal exam: Present: normal bowel sounds, soft. Absent: distended, firm , guarding, tenderness, rebound - Extremities Exam Extremities exam: Present: normal inspection. Absent: calf tenderness, edema Results - Labs CBC & BMP: 03/26/17 06:16 03/26/17 06:16 Lab Results: I have reviewed the past 24 hour labs
--- NOTE | 2017-03-26 17:45 | Cardiology Progress Note ---
Assessment and Plan (1) Diverticulitis Status: Acute Assessment and plan: 1. 76-year-old WF known to me (I was following her across the street), with improvement in her diffuse abdominal pain with reported diverticulitis and gallbladder disease, status post stroke, now change from Eliquis to heparin in case she needs intervention 2. If it becomes evident she is not any intervention, will change back to Eliquis 3. Heart rate is irregular, will check EKG to see if she is back in atrial fibrillation or simply has sinus with ectopy 4. We will continue to follow with you 5. Reports still having significant balance issues since her stroke, however she is having no visual problems. Current Visit: No Qualifiers: Diverticulitis site: large intestine Diverticulitis bleeding: without bleeding Diverticulitis complication: without perforation or abscess Qualified Code(s): K57.32 - Diverticulitis of large intestine without perforation or abscess without bleeding (2) Atrial fibrillation Status: Chronic Current Visit: No (3) Acute CVA (cerebrovascular accident) Status: Acute Current Visit: No Cardiology - PN: Subj Interval history: On following up Ms. Caraballo from seeing her across the street at . Her abdomen is clearly less tender but is [employer] diffusely. She is currently been changed to heparin infusion. She still has some decreased balance problems when she gets up to work with physical therapy. She does not have any chest pain shortness of breath palpitations presyncope or syncope. Exam (Progress Note) - Constitutional Vitals: Period Temp Pulse Resp BP Sys/Velazco Pulse Ox Last 24 Hr 96.7 F-97.9 F 64-81 18-20 140-157/77-97 93-99 General appearance: normal weight, no acute distress - Head Head exam: Present: normal inspection, normocephalic, atraumatic - Neck Neck exam: Present: normal inspection - Respiratory Respiratory exam: Present: clear to auscultation bilaterally - Cardiovascular Cardiovascular exam: Present: irregular rhythm, systolic murmur. Absent: JVD - GI/Abdominal GI/Abdominal exam: Present: soft. Absent: tenderness - Extremities Exam Extremities exam: Present: edema Result/EKG - Labs CBC & BMP: 03/26/17 06:16 03/26/17 06:16 Labs: Laboratory Results - last 24 hr 03/26/17 03/26/17 03/26/17 06:16 06:16 06:40 WBC 7.5 RBC 4.26 Hgb 12.8 Hct 38.7 MCV 90.8 MCH 30 MCHC 33.1 RDW 12.5 Plt Count 229 MPV 10.7 Neut % (Auto) 57.0 Lymph % (Auto) 24.8 Loup % (Auto) 10.3 Eos % (Auto) 6.3 Baso % (Auto) 1.3 H Neut # (Auto) 4.3 Lymph # (Auto) 1.9 Loup # (Auto) 0.8 Eos # (Auto) 0.5 Baso # (Auto) 0.1 Immature Gran % 0.3 Nucleated RBC % 0.0 Immature Gran # 0.02 Nucleated RBCs # 0.00 Circ Anticoag PTT 29.6 Sodium 140 Potassium 4.0 Chloride 105 Carbon Dioxide 26 Anion Gap 13.0 BUN 11 Creatinine 1.20 H GFR Calculation 44 BUN/Creatinine Ratio 9.00 Glucose 99 Calculated Osmolality 277.4 Calcium 8.8 03/26/17 13:57 WBC RBC Hgb Hct MCV MCH MCHC RDW Plt Count MPV Neut % (Auto) Lymph % (Auto) Loup % (Auto) Eos % (Auto) Baso % (Auto) Neut # (Auto) Lymph # (Auto) Loup # (Auto) Eos # (Auto) Baso # (Auto) Immature Gran % Nucleated RBC % Immature Gran # Nucleated RBCs # Circ Anticoag PTT 44.0 H D Sodium Potassium Chloride Carbon Dioxide Anion Gap BUN Creatinine GFR Calculation BUN/Creatinine Ratio Glucose Calculated Osmolality Calcium
[2017-03-26] MEDS: traMADol 50 MG TABLET PO PRN (20:57)
[2017-03-26] MEDS: ZALEPLON 5 MG CAPSULE PO PRN (20:57)
[2017-03-27] MEDS: traMADol 50 MG TABLET PO PRN ×2 (00:18→13:37)
[2017-03-27] MEDS: PIPERACILLIN/TAZOBACTAM 3,375 MG in SODIUM CHLORIDE 0.9% 100 ML IV SCH ×3 (05:08→22:35)
[2017-03-27 06:17] LABS: Basophils # 0.1 10*3/uL (0.0-0.2); Basophils % 1.2 % (0.0-0.8); Eosinophils # 0.6 10*3/uL (0.0-0.87); Eosinophils % 6.6 % (0.00-10.9); Hematocrit 37.2 VOL% (35.7-47.0); Hemoglobin 12.3 GM/DL (12.0-16.0); Immature Granulocytes % 0.2 %; Immature Granulocytes Absolute 0.02 #; Lymphocytes # 2.4 10*3/uL (1.4-4.0); Lymphocytes % 25.5 % (21.3-54.2); Mean Corpuscular HGB Conc 33.1 GM/DL (32-36); Mean Corpuscular Hemoglobin 30 PG (27-34); Monocytes # 0.8 10*3/uL (0.11-0.8); Monocytes % 8.4 % (1.7-12.7); Neutrophils # 5.5 10*3/uL (1.4-7.4); Neutrophils % 58.1 % (38.7-73.9); Platelet Count 230 T/CUMM (130-400); Red Blood Count 4.09 MC/CUMM (3.8-5.5); Red Cell Distribution Width 12.3 % (9.3-17.3); White Blood Count 9.5 T/CUMM (4-12)
--- NOTE | 2017-03-27 06:38 | General Surgery Progress Note ---
Assessment and Plan (1) Abdominal pain Status: Acute Assessment and plan: The patient continues to improve with medical management. She does not appear to require a cholecystostomy tube today. I have discussed the case with Dr. Caraballo and we will give her till Thursday to see how she is doing with antibiotics and Actigall. If she is tolerating her diet and not having any abdominal pain or nausea then we can discontinue antibiotics and Actigall and avoid a cholecystostomy tube. LFTs are still pending today. We will repeat these on Thursday as well. Current Visit: No Qualifiers: Subjective Patient reports: Present: no new complaints, feels better, pain is less, tolerating a regular diet, afebrile. Absent: nausea, vomiting Exam - Constitutional Vitals: Period Temp Pulse Resp BP Sys/Velazco Pulse Ox Last 24 Hr 97.0 F-97.9 F 67-81 18-20 146-192/73-97 97-99 General appearance: normal weight, no acute distress - Head Head exam: Present: normal inspection, normocephalic - Eye Eye exam: Present: EOMI. Absent: scleral icterus Pupils: Present: SHEILA - ENT ENT exam: Present: normal exam Mouth exam: Present: normal external inspection, normal voice - Neck Neck exam: Present: normal inspection, trachea midline - Respiratory Respiratory exam: Present: clear to auscultation bilaterally. Absent: accessory muscle use, chest wall tenderness - Cardiovascular Cardiovascular exam: Present: RRR. Absent: systolic murmur, tachycardia - GI/Abdominal GI/Abdominal exam: Present: normal bowel sounds, soft. Absent: Cowart's sign, tenderness, rebound - Extremities Exam Extremities exam: Present: normal inspection, normal capillary refill - Back Exam Back exam: Present: normal inspection - Neurological Exam Neurological exam: Present: alert, oriented X3 Speech: Present: normal - Skin Skin exam: Present: normal color, warm Results - Labs CBC & BMP: 03/27/17 04:50 03/26/17 06:16
[2017-03-27 07:16] LABS: Albumin 2.8 G/DL (3.4-5.0); Bilirubin,Direct 0.3 MG/DL (0.0-0.20); Bilirubin,Total 0.5 MG/DL (0.2-1.0); Calcium 8.8 MG/DL (8.5-10.1); Osmolality,Calculated 275.5 MOS/KG (273-304); Potassium 3.8 MMOL/L (3.5-5.1); Total Protein 6.1 G/DL (6.4-8.3)
--- NOTE | 2017-03-27 09:00 | EKG Report ---
Stationary ECG Study [facility] Test Date: 03/27/2017 7:34:18 AM Pat Name: GREGG GODFREY Department: Room: 237 Gender: F [employer] Advisor: : [id number] Requested by: Luis Manuel Leahy Order Number: [id number] Reading MD: ZULY JOY Intervals [place] Rate: 79 P: 999 VT: 0 QRS: 61 QRSD: 97 T: 64 QT: 404 QTc: 439 Interpretive Statements ATRIAL FIBRILLATION at 79 bpm SEPTAL MYOCARDIAL INFARCTION, OF INDETERMINATE AGE NST, consider ischemia Electronically Signed On 03-30-17 16:17:21 CDT by ZULY JOY [email or web address]
[2017-03-27] MEDS: CARVEDILOL 6.25 MG TABLET PO SCH (09:46)
[2017-03-27] MEDS: PANTOPRAZOLE 40 MG TABLET PO SCH (09:46)
[2017-03-27] MEDS: ROSUVASTATIN 20 MG TABLET PO SCH (09:46)
--- NOTE | 2017-03-27 10:58 | Gastrointestinal Progress Note ---
<FernandoelidiaKarmen Miranda - Last Filed: 03/27/17 10:56> Assessment and Plan (1) Abdominal pain Status: Acute Assessment and plan: 03/27-WBC 9.5, afebrile. Mild abd tenderness. Tolerating diet. LFTs unremarkable. Plan and addendum to follow by Dr Caraballo. 03/26-afebrile, WBC 7.5. Mild abdominal pain and nausea at times. Tolerating small amounts of diet. Plan an addendum to follow by Dr. Caraballo. 03/25-HIDA scan results noted. Zosyn/Actigall have been initiated. Plan and addendum to follow by Dr Caraballo. 03/24-Worsening abdominal pain, nausea and vomiting with recent episode of diverticulitus as well as CVA. Recent US also reported to find gallstones. LFTs unremarkable. Ct of abdomen findings noted below. HIDA scan pending at present time. Dr Doty has been consulted. Plan and addendum to follow by Dr Caraballo. Current Visit: No Gastroenterology - PN: Subj Interval history: CC: Abd pain Pt is seen awake and alert, states she is feeling about the same. She denies any abdominal pain other than some mild soreness in her upper abdomen. Denies any nausea or vomiting. SHe is afebrile and WBC 9.5. She states that she is tolerating small amounts of her diet at this time. Abdomen is soft, nontender. LFTs are unremarkable. ROS: Denies SOB or chest pain Exam (Progress Note) - Constitutional Vitals: Period Temp Pulse Resp BP Sys/Velazco Pulse Ox Last 24 Hr 97.0 F-97.9 F 67-81 18-20 146-192/73-106 96-99 General appearance: normal weight, no acute distress - Head Head exam: Present: normal inspection, normocephalic - Eye Eye exam: Present: other (lids and conjunctiva unremarkable). Absent: scleral icterus - ENT ENT exam: Present: normal exam, normal oropharynx - Neck Neck exam: Present: normal inspection - Respiratory Respiratory exam: Present: clear to auscultation bilaterally. Absent: rales, rhonchi, wheezes - Cardiovascular Cardiovascular exam: Present: regular rate and rhythm. Absent: diastolic murmur , JVD, systolic murmur - GI/Abdominal GI/Abdominal exam: Present: normal bowel sounds, tenderness, soft. Absent: ascites, distended, mass, organomegaly - Extremities Exam Extremities exam: Present: normal inspection, full ROM - Back Exam Back exam: Present: normal inspection - Neurological Exam Neurological exam: Present: alert, oriented X3 - Psychiatric Psychiatric exam: Present: normal affect, normal mood - Skin Skin exam: Present: normal color, warm, dry Results - Labs CBC & BMP: 03/27/17 04:50 03/27/17 04:50 Lab Results: I have reviewed the past 24 hour labs <Torsten Caraballo - Last Filed: 03/27/17 13:55> Exam (Progress Note) - Constitutional Vitals: Period Temp Pulse Resp BP Sys/Velazco Pulse Ox Last 24 Hr 97.0 F-97.9 F 69-81 18-20 149-192/73-106 96-98 Results - Labs CBC & BMP: 03/27/17 04:50 03/27/17 04:50
[2017-03-27] MEDS: SODIUM CHLORIDE 0.9% 1,000 ML IV SCH (13:39)
--- NOTE | 2017-03-27 14:16 | Hospitalist Progress Note ---
Assessment and Plan - Time spent with patient Time spent with patient: Greater than 30 minutes (1) Cholecystitis Status: Acute Assessment and plan: Continue antibiotics. Current Visit: Yes (2) Choledocholithiasis Status: Acute Assessment and plan: Defer to GI and surgery. Current Visit: Yes (3) History of cerebrovascular accident (CVA) involving cerebellum Status: Acute Assessment and plan: Continue Eliquis. Current Visit: Yes (4) Hypertension Status: Chronic Assessment and plan: Add hydralazine. Current Visit: No Qualifiers: Hypertension type: essential hypertension Qualified Code(s): I10 - Essential (primary) hypertension (5) Atrial fibrillation Status: Chronic Assessment and plan: Rate controlled, on heparin. Current Visit: No Hospitalist: Subjective Interval history: Reports some nausea this morning. BP has been elevated. Exam - Constitutional Vitals: Period Temp Pulse Resp BP Sys/Velazco Pulse Ox Last 24 Hr 97.0 F-97.9 F 69-81 18-20 149-192/73-106 96-98 General appearance: no acute distress - Head Head exam: Present: normocephalic, atraumatic - Eye Eye exam: Present: EOMI Pupils: Present: SHEILA - ENT ENT exam: Present: normal exam - Neck Neck exam: Present: normal inspection - Respiratory Respiratory exam: Present: clear to auscultation bilaterally. Absent: rhonchi, wheezes - Cardiovascular Cardiovascular exam: Present: irregular rhythm. Absent: gallop, rubs, systolic murmur - GI/Abdominal GI/Abdominal exam: Present: normal bowel sounds, soft. Absent: distended, firm , guarding, tenderness, rebound - Extremities Exam Extremities exam: Present: normal inspection. Absent: calf tenderness, edema Results - Labs CBC & BMP: 03/27/17 04:50 03/27/17 04:50 Lab Results: I have reviewed the past 24 hour labs
[2017-03-27] MEDS: hydrALAZINE 20 MG/1 ML VIAL IV PRN (14:58)
[2017-03-27] MEDS: HEPARIN DRIP 25,000 UNITS/500 ML PREMIX IV SCH (14:58)
[2017-03-27] MEDS: ONDANSETRON 4 MG/2 ML VIAL IV PRN (16:20)
[2017-03-27] MEDS: ACETAMINOPHEN 325 MG TABLET PO PRN (16:24)
--- NOTE | 2017-03-27 17:15 | Cardiology Progress Note ---
I, Natividad Cardoza RN, am scribing for, and in the presence of, Luis Manuel Brothers MD 17:15. Assessment and Plan - Time spent with patient Time spent with patient: Greater than 30 minutes (1) Abdominal pain Status: Acute Assessment and plan: INITIAL HOSPITAL ENCOUNTER MARCH 26, 2017: ASSESSMENT/PLAN: 1. 76-year-old WF known to me (I was following her across the street), with improvement in her diffuse abdominal pain with reported diverticulitis and gallbladder disease, status post stroke, now change from Eliquis to heparin in case she needs intervention 2. If it becomes evident she is not any intervention, will change back to Eliquis 3. Heart rate is irregular, will check EKG to see if she is back in atrial fibrillation or simply has sinus with ectopy 4. We will continue to follow with you 5. Reports still having significant balance issues since her stroke, however she is having no visual problems. UPDATE MARCH 27, 2017: ASSESSMENT/PLAN: 1. Ms. Caraballo had a setback with regard to some nausea and vomiting today, she feels as though she is having some anxiety with sporadic intermittent shortness of breath 2. She is in atrial fibrillation today but with controlled rate 3. Eliquis is held, on heparin infusion pending decision whether she intervention for her gallbladder disease 4. Increase Coreg to 12.5 mg twice daily to promote normal sinus rhythm and control her hypertension 5. Trial of Restoril 7.5 mg 3 times daily for anxiety Current Visit: No Qualifiers: (2) Cholecystitis Status: Acute Current Visit: Yes (3) Choledocholithiasis Status: Acute Current Visit: Yes (4) History of cerebrovascular accident (CVA) involving cerebellum Status: Acute Current Visit: Yes (5) Atrial fibrillation Status: Chronic Current Visit: No (6) Hypertension Status: Chronic Current Visit: No Qualifiers: Hypertension type: essential hypertension Qualified Code(s): I10 - Essential (primary) hypertension Cardiology - PN: Subj Interval history: Ms. Caraballo is resting quietly in bed this afternoon. She is awake and alert, and there is no acute distress noted. Today, she is not having any chest pain, shortness of breath, palpitation, presyncope, syncope, or other overt anginal complaint. EKG this morning showed atrial fibrillation controlled pulse rate. Continues to work with physical therapy. Today, she is not having any nausea and/or vomiting and is tolerating a diet appropriately. Patient does continue to have some mild abdominal discomfort. Clinically, at this time she appears to have improved medical management and may not need to have a cholecystectomy tube laced. She will continue to receive her IV heparin infusion over the weekend in case her clinical condition declines, and in fact drain placement is needed on Thursday. Lab work unremarkable. Patient is afebrile, but she has been hypertensive with a systolic BP ranging 165-190 mmHg. Diastolic BP is elevated 90-105 mmHg at times. Exam (Progress Note) - Constitutional Vitals: Period Temp Pulse Resp BP Sys/Velazco Pulse Ox Last 24 Hr 97.0 F-97.9 F 69-81 18-20 149-192/73-106 96-98 General appearance: normal weight, no acute distress - Head Head exam: Present: normal inspection. Absent: abrasion, contusion, hematoma, laceration - Eye Eye exam: Present: EOMI. Absent: periorbital swelling, laceration to eyelids Pupils: Present: SHEILA. Absent: dilated, fixed, irregular - ENT ENT exam: Present: normal external ear exam - Neck Neck exam: Present: normal inspection. Absent: tenderness - Respiratory Respiratory exam: Present: clear to auscultation bilaterally. Absent: rales, rhonchi, stridor, wheezes - Cardiovascular Cardiovascular exam: Present: irregular rhythm, systolic murmur. Absent: bradycardia, carotid bruit, JVD, tachycardia - GI/Abdominal GI/Abdominal exam: Present: normal bowel sounds, ascites, soft. Absent: distended, firm, mass, tenderness - Extremities Exam Extremities exam: Present: normal capillary refill. Absent: calf tenderness, edema - Neurological Exam Neurological exam: Present: alert, oriented X3 - Psychiatric Psychiatric exam: Present: normal affect, normal mood. Absent: agitated, anxious, depressed - Skin Skin exam: Present: normal color, warm, dry, intact. Absent: abrasion, cyanosis , diaphoretic Result/EKG - Labs CBC & BMP: 03/27/17 04:50 03/27/17 04:50 Lab Results: I have reviewed the past 24 hour labs Labs: Laboratory Results - last 24 hr 03/26/17 03/27/17 03/27/17 20:32 02:42 04:50 WBC 9.5 RBC 4.09 Hgb 12.3 Hct 37.2 MCV 91.0 MCH 30 MCHC 33.1 RDW 12.3 Plt Count 230 MPV 11.0 Neut % (Auto) 58.1 Lymph % (Auto) 25.5 [place] % (Auto) 8.4 Eos % (Auto) 6.6 Baso % (Auto) 1.2 H Neut # (Auto) 5.5 Lymph # (Auto) 2.4 [place] # (Auto) 0.8 Eos # (Auto) 0.6 Baso # (Auto) 0.1 Immature Gran % 0.2 Nucleated RBC % 0.0 Immature Gran # 0.02 Nucleated RBCs # 0.00 Circ Anticoag PTT 56.2 H D 63.2 H Sodium Potassium Chloride Carbon Dioxide Anion Gap BUN Creatinine GFR Calculation BUN/Creatinine Ratio Glucose Calculated Osmolality Calcium Total Bilirubin Direct Bilirubin AST ALT Alkaline Phosphatase Total Protein Albumin Globulin Albumin/Globulin Ratio 03/27/17 03/27/17 04:50 07:30 WBC RBC Hgb Hct MCV MCH MCHC RDW Plt Count MPV Neut % (Auto) Lymph % (Auto) [place] % (Auto) Eos % (Auto) Baso % (Auto) Neut # (Auto) Lymph # (Auto) [place] # (Auto) Eos # (Auto) Baso # (Auto) Immature Gran % Nucleated RBC % Immature Gran # Nucleated RBCs # Circ Anticoag PTT 63.4 H Sodium 139 Potassium 3.8 Chloride 105 Carbon Dioxide 25 Anion Gap 12.8 BUN 10 Creatinine 1.20 H GFR Calculation 44 BUN/Creatinine Ratio 8.00 Glucose 95 Calculated Osmolality 275.5 Calcium 8.8 Total Bilirubin 0.50 Direct Bilirubin 0.30 H AST 24 ALT 24 Alkaline Phosphatase 78 Total Protein 6.1 L Albumin 2.8 L Globulin 3.3 Albumin/Globulin Ratio 0.8 L - EKG EKG results: interpreted by me, no acute changes EKG shows: atrial fibrillation Deneen Downey Randall Scott, MD, personally performed the services described in this documentation, ascribed by Natividad Cardoza RN in my presence, and it is both accurate and complete 715 .
[2017-03-27] MEDS ORDERED: TEMAZEPAM 7.5 MG CAPSULE PO SCH (21:00)
[2017-03-27] MEDS: CARVEDILOL 12.5 MG TABLET PO SCH (22:33)
[2017-03-28] MEDS: PIPERACILLIN/TAZOBACTAM 3,375 MG in SODIUM CHLORIDE 0.9% 100 ML IV SCH ×3 (07:12→20:28)
[2017-03-28 07:28] LABS: Calcium 9.4 MG/DL (8.5-10.1); Magnesium 2.2 MG/DL (1.8-2.4); Osmolality,Calculated 272.7 MOS/KG (273-304); Potassium 3.6 MMOL/L (3.5-5.1)
[2017-03-28] MEDS: SODIUM CHLORIDE 0.9% 1,000 ML IV SCH ×3 (09:28→20:27)
[2017-03-28] MEDS: ROSUVASTATIN 20 MG TABLET PO SCH (09:32)
[2017-03-28] MEDS: CARVEDILOL 12.5 MG TABLET PO SCH ×2 (09:33→20:28)
[2017-03-28] MEDS: PANTOPRAZOLE 40 MG TABLET PO SCH (09:33)
[2017-03-28] MEDS: HEPARIN DRIP 25,000 UNITS/500 ML PREMIX IV SCH (09:34)
[2017-03-28] MEDS: traMADol 50 MG TABLET PO PRN ×2 (09:39→22:09)
--- NOTE | 2017-03-28 10:55 | Cardiology Progress Note ---
Assessment and Plan (1) Abdominal pain Status: Acute Assessment and plan: INITIAL HOSPITAL ENCOUNTER MARCH 26, 2017: ASSESSMENT/PLAN: 1. 76-year-old WF known to me (I was following her across the street), with improvement in her diffuse abdominal pain with reported diverticulitis and gallbladder disease, status post stroke, now change from Eliquis to heparin in case she needs intervention 2. If it becomes evident she is not any intervention, will change back to Eliquis 3. Heart rate is irregular, will check EKG to see if she is back in atrial fibrillation or simply has sinus with ectopy 4. We will continue to follow with you 5. Reports still having significant balance issues since her stroke, however she is having no visual problems. UPDATE MARCH 27, 2017: ASSESSMENT/PLAN: 1. Ms. Caraballo had a setback with regard to some nausea and vomiting today, she feels as though she is having some anxiety with sporadic intermittent shortness of breath 2. She is in atrial fibrillation today but with controlled rate 3. Eliquis is held, on heparin infusion pending decision whether she intervention for her gallbladder disease 4. Increase Coreg to 12.5 mg twice daily to promote normal sinus rhythm and control her hypertension 5. Trial of Restoril 7.5 mg Update March 28, 2017: 1. Ms. Caraballo is better today without nausea vomiting but still has her persistent abdominal tenderness 2. Still on heparin infusion rather than Eliquis in case she needs surgical/ invasive intervention 3. Change Restoril to 3.75 mg nightly ("worked great but I slept in") 4. Atrial fibrillation is controlled rate Current Visit: No Qualifiers: (2) Cholecystitis Status: Acute Current Visit: Yes (3) Choledocholithiasis Status: Acute Current Visit: Yes (4) History of cerebrovascular accident (CVA) involving cerebellum Status: Acute Current Visit: Yes (5) Atrial fibrillation Status: Chronic Current Visit: No (6) Hypertension Status: Chronic Current Visit: No Qualifiers: Hypertension type: essential hypertension Qualified Code(s): I10 - Essential (primary) hypertension Cardiology - PN: Subj Interval history: Ms. Caraballo had some vomiting yesterday afternoon, but is feeling much better today. She slept well with the Restoril "I slept in". She denied any chest discomfort or shortness of breath. She is eating and so far is having no difficulty. She does have abdominal discomfort diffusely still. Exam (Progress Note) - Constitutional Vitals: Period Temp Pulse Resp BP Sys/Velazco Pulse Ox Last 24 Hr 96.4 F-98.6 F 67-93 18-20 114-181/68-105 95-98 General appearance: normal weight, no acute distress - Head Head exam: Present: normal inspection, normocephalic, atraumatic - Neck Neck exam: Present: normal inspection - Respiratory Respiratory exam: Present: clear to auscultation bilaterally. Absent: stridor, wheezes - Cardiovascular Cardiovascular exam: Present: irregular rhythm, systolic murmur. Absent: diastolic murmur, rubs - GI/Abdominal GI/Abdominal exam: Present: soft. Absent: tenderness - Extremities Exam Extremities exam: Absent: edema Result/EKG - Labs CBC & BMP: 03/27/17 04:50 03/28/17 05:12 Labs: Laboratory Results - last 24 hr 03/27/17 03/28/17 03/28/17 19:15 05:12 05:12 Circ Anticoag PTT 62.9 H 65.7 H Sodium 138 Potassium 3.6 Chloride 103 Carbon Dioxide 24 Anion Gap 14.6 BUN 8 Creatinine 1.30 H GFR Calculation 40 BUN/Creatinine Ratio 6.00 Glucose 96 Calculated Osmolality 272.7 L Calcium 9.4 Magnesium 2.2
--- NOTE | 2017-03-28 14:01 | General Surgery Progress Note ---
Assessment and Plan (1) Abdominal pain Status: Acute Assessment and plan: Patient appears to be improving. Continue current management. Current Visit: No Qualifiers: Subjective Patient reports: Present: feels better Narrative: Patient says her pain is improving. She had one episode of vomiting yesterday but none since. She has been tolerating a diet since that time. She denies any nausea or vomiting currently. She is afebrile and her vital signs are stable. Exam - Constitutional Vitals: Period Temp Pulse Resp BP Sys/Velazco Pulse Ox Last 24 Hr 96.4 F-98.6 F 67-93 16-20 114-176/68-93 95-99 General appearance: no acute distress - Head Head exam: Present: normocephalic - ENT Mouth exam: Present: normal external inspection - Neck Neck exam: Present: normal inspection - Respiratory Respiratory exam: Present: clear to auscultation bilaterally - Cardiovascular Cardiovascular exam: Present: RRR - GI/Abdominal GI/Abdominal exam: Present: soft (No significant tenderness appreciated, nondistended) - Neurological Exam Neurological exam: Present: alert, oriented X3 Speech: Present: normal - Skin Skin exam: Present: normal color Results - Labs CBC & BMP: 03/27/17 04:50 03/28/17 05:12 Lab Results: I have reviewed the past 24 hour labs
--- NOTE | 2017-03-28 15:37 | Hospitalist Progress Note ---
Assessment and Plan - Time spent with patient Time spent with patient: Greater than 30 minutes (1) Cholecystitis Status: Acute Assessment and plan: Continue antibiotics. Current Visit: Yes (2) Choledocholithiasis Status: Acute Assessment and plan: Defer to GI and surgery. Current Visit: Yes (3) History of cerebrovascular accident (CVA) involving cerebellum Status: Acute Assessment and plan: Continue heparin. Current Visit: Yes (4) Hypertension Status: Chronic Assessment and plan: Add hydralazine. Current Visit: No Qualifiers: Hypertension type: essential hypertension Qualified Code(s): I10 - Essential (primary) hypertension (5) Atrial fibrillation Status: Chronic Assessment and plan: Rate controlled, on heparin. Current Visit: No Hospitalist: Subjective Interval history: No complaints. Exam - Constitutional Vitals: Period Temp Pulse Resp BP Sys/Velazco Pulse Ox Last 24 Hr 96.4 F-98.6 F 67-93 16-20 114-176/64-93 95-99 General appearance: no acute distress - Head Head exam: Present: normocephalic, atraumatic - Eye Eye exam: Present: EOMI Pupils: Present: SHEILA - ENT ENT exam: Present: normal exam - Neck Neck exam: Present: normal inspection - Respiratory Respiratory exam: Present: clear to auscultation bilaterally. Absent: rhonchi, wheezes - Cardiovascular Cardiovascular exam: Present: regular rate and rhythm. Absent: gallop, rubs, systolic murmur - GI/Abdominal GI/Abdominal exam: Present: normal bowel sounds, soft. Absent: distended, firm , guarding, tenderness, rebound - Extremities Exam Extremities exam: Present: normal inspection. Absent: calf tenderness, edema Results - Labs CBC & BMP: 03/27/17 04:50 03/28/17 05:12 Lab Results: I have reviewed the past 24 hour labs
[2017-03-28] MEDS ORDERED: TEMAZEPAM 7.5 MG CAPSULE PO SCH (21:00)
[2017-03-28] MEDS ORDERED: CLORAZEPATE 3.75 MG TABLET PO PRN (21:54)
[2017-03-29] MEDS: PIPERACILLIN/TAZOBACTAM 3,375 MG in SODIUM CHLORIDE 0.9% 100 ML IV SCH ×3 (06:48→21:19)
[2017-03-29 07:21] LABS: Calcium 8.7 MG/DL (8.5-10.1); Osmolality,Calculated 277.4 MOS/KG (273-304); Potassium 3.5 MMOL/L (3.5-5.1)
[2017-03-29] MEDS: CARVEDILOL 12.5 MG TABLET PO SCH ×2 (10:24→21:18)
[2017-03-29] MEDS: ROSUVASTATIN 20 MG TABLET PO SCH (10:24)
[2017-03-29] MEDS: PANTOPRAZOLE 40 MG TABLET PO SCH (10:24)
[2017-03-29] MEDS: HEPARIN DRIP 25,000 UNITS/500 ML PREMIX IV SCH (10:38)
--- NOTE | 2017-03-29 11:12 | Cardiology Progress Note ---
Assessment and Plan (1) Abdominal pain Status: Acute Assessment and plan: INITIAL HOSPITAL ENCOUNTER MARCH 26, 2017: ASSESSMENT/PLAN: 1. 76-year-old WF known to me (I was following her across the street), with improvement in her diffuse abdominal pain with reported diverticulitis and gallbladder disease, status post stroke, now change from Eliquis to heparin in case she needs intervention 2. If it becomes evident she is not any intervention, will change back to Eliquis 3. Heart rate is irregular, will check EKG to see if she is back in atrial fibrillation or simply has sinus with ectopy 4. We will continue to follow with you 5. Reports still having significant balance issues since her stroke, however she is having no visual problems. UPDATE MARCH 27, 2017: ASSESSMENT/PLAN: 1. Ms. Caraballo had a setback with regard to some nausea and vomiting today, she feels as though she is having some anxiety with sporadic intermittent shortness of breath 2. She is in atrial fibrillation today but with controlled rate 3. Eliquis is held, on heparin infusion pending decision whether she intervention for her gallbladder disease 4. Increase Coreg to 12.5 mg twice daily to promote normal sinus rhythm and control her hypertension 5. Trial of Restoril 7.5 mg Update March 28, 2017: 1. Ms. Caraballo is better today without nausea vomiting but still has her persistent abdominal tenderness 2. Still on heparin infusion rather than Eliquis in case she needs surgical/ invasive intervention 3. Change Restoril to 3.75 mg nightly ("worked great but I slept in") 4. Atrial fibrillation is controlled rate March 29, 2017 update: 1. Ms. Caraballo is little change the day but has no vomiting and her abdominal pain is a bit more in the right upper quadrant 2. Requesting Restoril 7.5 mg nightly; will restart. 3. Atrial fibrillation with controlled rate 4. Continue heparin infusion pending decision regarding invasive procedure for gallbladder disease; recommend changing back to Eliquis when safe postoperatively, or when decision is made not to intervene. Current Visit: No Qualifiers: (2) Cholecystitis Status: Acute Current Visit: Yes (3) Choledocholithiasis Status: Acute Current Visit: Yes (4) History of cerebrovascular accident (CVA) involving cerebellum Status: Acute Current Visit: Yes (5) Atrial fibrillation Status: Chronic Current Visit: No (6) Hypertension Status: Chronic Current Visit: No Qualifiers: Hypertension type: essential hypertension Qualified Code(s): I10 - Essential (primary) hypertension Cardiology - PN: Subj Interval history: Ms. Caraballo reports her abdominal discomfort is little change from yesterday. It does seem a little worse in the right upper quadrant. She has not had any nausea or vomiting this morning and had no vomiting yesterday. She did not have any chest pain or dizziness. She has mild episodes of shortness of breath intermittently. She prefers to take Restoril nightly as she felt good with that. Exam (Progress Note) - Constitutional Vitals: Period Temp Pulse Resp BP Sys/Velazco Pulse Ox Last 24 Hr 97.1 F-99.3 F 71-79 16-20 108-145/57-86 95-98 General appearance: normal weight, no acute distress - Head Head exam: Present: normal inspection, normocephalic, atraumatic - Respiratory Respiratory exam: Present: clear to auscultation bilaterally. Absent: stridor, wheezes - Cardiovascular Cardiovascular exam: Present: irregular rhythm. Absent: diastolic murmur, rubs - GI/Abdominal GI/Abdominal exam: Present: tenderness, soft - Extremities Exam Extremities exam: Absent: edema - Neurological Exam Neurological exam: Present: alert, oriented X3 Result/EKG - Labs CBC & BMP: 03/27/17 04:50 03/29/17 06:01 Labs: Laboratory Results - last 24 hr 03/29/17 03/29/17 06:01 06:01 Circ Anticoag PTT 54.4 H Sodium 140 Potassium 3.5 Chloride 106 Carbon Dioxide 24 Anion Gap 13.5 BUN 9 Creatinine 1.20 H GFR Calculation 44 BUN/Creatinine Ratio 7.00 Glucose 98 Calculated Osmolality 277.4 Calcium 8.7 Magnesium 2.0
--- NOTE | 2017-03-29 11:24 | Hospitalist Progress Note ---
Assessment and Plan - Time spent with patient Time spent with patient: Greater than 30 minutes (1) Cholecystitis Status: Acute Assessment and plan: Continue antibiotics. Current Visit: Yes (2) Choledocholithiasis Status: Acute Assessment and plan: Defer to GI and surgery. Current Visit: Yes (3) History of cerebrovascular accident (CVA) involving cerebellum Status: Acute Assessment and plan: Continue heparin. Current Visit: Yes (4) Hypertension Status: Chronic Assessment and plan: Continue current management. Current Visit: No Qualifiers: Hypertension type: essential hypertension Qualified Code(s): I10 - Essential (primary) hypertension (5) Atrial fibrillation Status: Chronic Assessment and plan: Rate controlled, on heparin. Current Visit: No Hospitalist: Subjective Interval history: Reports a bit of pain right upper quadrant. Otherwise feeling well. Exam - Constitutional Vitals: Period Temp Pulse Resp BP Sys/Velazco Pulse Ox Last 24 Hr 97.1 F-99.3 F 71-79 16-20 108-145/57-86 95-98 General appearance: no acute distress - Head Head exam: Present: normocephalic, atraumatic - Eye Eye exam: Present: EOMI Pupils: Present: SHEILA - ENT ENT exam: Present: normal exam - Neck Neck exam: Present: normal inspection - Respiratory Respiratory exam: Present: clear to auscultation bilaterally. Absent: rhonchi, wheezes - Cardiovascular Cardiovascular exam: Present: regular rate and rhythm. Absent: gallop, rubs, systolic murmur - GI/Abdominal GI/Abdominal exam: Present: normal bowel sounds, soft. Absent: distended, firm , guarding, tenderness, rebound - Extremities Exam Extremities exam: Present: normal inspection. Absent: calf tenderness, edema Results - Labs CBC & BMP: 03/27/17 04:50 03/29/17 06:01 Lab Results: I have reviewed the past 24 hour labs
--- NOTE | 2017-03-29 11:39 | General Surgery Progress Note ---
Assessment and Plan (1) Abdominal pain Status: Acute Assessment and plan: Continue current management. Monitor her right upper quadrant pain but her exam is unimpressive. Current Visit: No Qualifiers: Subjective Narrative: Patient complaints of right upper quadrant pain. She is tolerating diet. She has no nausea or vomiting. Exam - Constitutional Vitals: Period Temp Pulse Resp BP Sys/Velazco Pulse Ox Last 24 Hr 97.1 F-99.3 F 71-79 16-20 108-145/57-86 95-98 General appearance: no acute distress - Respiratory Respiratory exam: Present: clear to auscultation bilaterally - Cardiovascular Cardiovascular exam: Present: RRR - GI/Abdominal GI/Abdominal exam: Present: soft (Minimal tenderness if any in the right upper quadrant. Nondistended.) Results - Labs CBC & BMP: 03/27/17 04:50 03/29/17 06:01 Lab Results: I have reviewed the past 24 hour labs
[2017-03-29] MEDS: traMADol 50 MG TABLET PO PRN ×2 (12:19→21:18)
[2017-03-29] MEDS: SODIUM CHLORIDE 0.9% 1,000 ML IV SCH (12:48)
[2017-03-29] MEDS: ONDANSETRON 4 MG/2 ML VIAL IV PRN (13:49)
[2017-03-29] MEDS: TEMAZEPAM 7.5 MG CAPSULE PO SCH (21:18)
--- NOTE | 2017-03-30 07:00 | Cardiology Progress Note ---
Cardiology - PN: Subj Interval history: Cardiology note 76-year-old woman admitted with cholelithiasis and choledocholithiasis. Currently receiving antibiotics and after Actigall No nausea and 48 hours. Abdomen feels better. 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 No temperature O2 sat 95% on 2 L Blood pressure 150/82 Decreased breath sounds but clear Irregular rhythm no murmur Abdomen soft No leg edema She is still a little unsteady on her feet and walks with assistance Impression Recent CVA February 2017 Recent diverticulitis February 2017 Cholelithiasis and choledocholithiasis currently receiving IV antibiotics and Actigall New atrial fib with controlled rate on carvedilol Current anticoagulation is IV heparin. Plan Continue IV antibiotics and Actigall Follow abdominal exam Continue IV heparin. Will switch back to Eliquis if she continues to do well and no surgery needed Exam (Progress Note) - Constitutional Vitals: Period Temp Pulse Resp BP Sys/Velazco Pulse Ox Last 24 Hr 97.1 F-98.5 F 64-82 14-20 140-190/72-97 95-100 Result/EKG - Labs CBC & BMP: 03/27/17 04:50 03/29/17 06:01 Labs: Laboratory Results - last 24 hr 03/29/17 03/29/17 06:01 06:01 Circ Anticoag PTT 54.4 H Sodium 140 Potassium 3.5 Chloride 106 Carbon Dioxide 24 Anion Gap 13.5 BUN 9 Creatinine 1.20 H GFR Calculation 44 BUN/Creatinine Ratio 7.00 Glucose 98 Calculated Osmolality 277.4 Calcium 8.7 Magnesium 2.0
[2017-03-30] MEDS: PIPERACILLIN/TAZOBACTAM 3,375 MG in SODIUM CHLORIDE 0.9% 100 ML IV SCH (07:09)
[2017-03-30 07:24] LABS: Basophils # 0.1 10*3/uL (0.0-0.2); Basophils % 1.3 % (0.0-0.8); Eosinophils # 0.6 10*3/uL (0.0-0.87); Eosinophils % 7.3 % (0.00-10.9); Hematocrit 34.8 VOL% (35.7-47.0); Hemoglobin 11.5 GM/DL (12.0-16.0); Immature Granulocytes % 0.3 %; Immature Granulocytes Absolute 0.02 #; Lymphocytes % 26.4 % (21.3-54.2); Mean Corpuscular Hemoglobin 30 PG (27-34); Mean Corpuscular Volume 91.8 FL (87-102); Mean Platelet Volume 11.2 FL (9.6-12.0); Monocytes # 0.8 10*3/uL (0.11-0.8); Monocytes % 10.3 % (1.7-12.7); Neutrophils # 4.2 10*3/uL (1.4-7.4); Neutrophils % 54.4 % (38.7-73.9); Platelet Count 191 T/CUMM (130-400); Red Blood Count 3.79 MC/CUMM (3.8-5.5); Red Cell Distribution Width 12.6 % (9.3-17.3); White Blood Count 7.7 T/CUMM (4-12)
--- NOTE | 2017-03-30 07:37 | General Surgery Progress Note ---
Assessment and Plan (1) Abdominal pain Status: Acute Assessment and plan: The patient appears to have responded well to antibiotics and Actigall treatment. She would prefer not to have a cholecystostomy tube and I think this is reasonable since she has done so well with her current therapy. I will place her on p.o. antibiotics and place her back on her Eliquis. Current Visit: No Qualifiers: Subjective Patient reports: Present: no new complaints, feels better, pain is less, tolerating a regular diet, afebrile. Absent: nausea, vomiting Narrative: The patient reports some early satiety and decreased appetite but she says she has no nausea or vomiting. She has no right upper quadrant pain this morning. Exam - Constitutional Vitals: Period Temp Pulse Resp BP Sys/Velazco Pulse Ox Last 24 Hr 97.1 F-98.5 F 64-82 14-20 140-190/72-97 95-100 General appearance: normal weight, no acute distress - Head Head exam: Present: normal inspection, normocephalic - Eye Eye exam: Present: EOMI Pupils: Present: SHEILA - ENT ENT exam: Present: normal exam Mouth exam: Present: normal external inspection, normal voice - Neck Neck exam: Present: normal inspection, trachea midline - Respiratory Respiratory exam: Present: clear to auscultation bilaterally. Absent: accessory muscle use, chest wall tenderness - Cardiovascular Cardiovascular exam: Present: RRR. Absent: systolic murmur, tachycardia - GI/Abdominal GI/Abdominal exam: Present: normal bowel sounds, soft. Absent: Cowart's sign, tenderness, rebound - Extremities Exam Extremities exam: Present: normal inspection, normal capillary refill - Back Exam Back exam: Present: normal inspection - Neurological Exam Neurological exam: Present: alert, oriented X3 Speech: Present: normal - Skin Skin exam: Present: normal color, warm Results - Labs CBC & BMP: 03/30/17 06:08 03/29/17 06:01
[2017-03-30 07:53] LABS: Albumin 2.8 G/DL (3.4-5.0); Bilirubin,Total 0.9 MG/DL (0.2-1.0); Calcium 8.9 MG/DL (8.5-10.1); Osmolality,Calculated 278.3 MOS/KG (273-304); Potassium 3.6 MMOL/L (3.5-5.1); Total Protein 5.9 G/DL (6.4-8.3)
[2017-03-30 08:16] LABS: Calcium 8.8 MG/DL (8.5-10.1); Osmolality,Calculated 276.4 MOS/KG (273-304); Potassium 3.6 MMOL/L (3.5-5.1)
[2017-03-30] MEDS: PANTOPRAZOLE 40 MG TABLET PO SCH ×2 (09:00→13:17)
[2017-03-30] MEDS: SODIUM CHLORIDE 0.9% 1,000 ML IV SCH (09:00)
[2017-03-30] MEDS: CARVEDILOL 12.5 MG TABLET PO SCH ×3 (09:00→21:17)
[2017-03-30] MEDS: ROSUVASTATIN 20 MG TABLET PO SCH ×2 (09:00→13:16)
[2017-03-30] MEDS: HEPARIN DRIP 25,000 UNITS/500 ML PREMIX IV SCH (09:20)
--- NOTE | 2017-03-30 12:55 | Hospitalist Progress Note ---
Assessment and Plan - Time spent with patient Time spent with patient: Greater than 30 minutes (1) Cholecystitis Status: Acute Assessment and plan: Switch to p.o. with anticipated discharge tomorrow. Current Visit: Yes (2) Choledocholithiasis Status: Acute Assessment and plan: Stable and improving. Current Visit: Yes (3) History of cerebrovascular accident (CVA) involving cerebellum Status: Acute Assessment and plan: Continue heparin. Current Visit: Yes (4) Hypertension Status: Chronic Assessment and plan: We will add Norvasc to the patient's blood pressure regimen. Continue current management. Current Visit: No Qualifiers: Hypertension type: essential hypertension Qualified Code(s): I10 - Essential (primary) hypertension (5) Atrial fibrillation Status: Chronic Assessment and plan: Rate controlled, on heparin. Current Visit: No Hospitalist: Subjective Interval history: Patient's appears to be doing a lot better. She states she cannot walk because of her stroke will attempt to arrange swing bed placement if possible however the patient may have already used up her swing bed days this year. Exam - Constitutional Vitals: Period Temp Pulse Resp BP Sys/Velazco Pulse Ox Last 24 Hr 97.1 F-98.5 F 64-82 18-20 140-190/72-93 95-98 General appearance: no acute distress - Head Head exam: Present: normocephalic, atraumatic - Eye Eye exam: Present: EOMI Pupils: Present: SHEILA - ENT ENT exam: Present: normal exam - Neck Neck exam: Present: normal inspection - Respiratory Respiratory exam: Present: clear to auscultation bilaterally. Absent: rhonchi, wheezes - Cardiovascular Cardiovascular exam: Present: regular rate and rhythm. Absent: gallop, rubs, systolic murmur - GI/Abdominal GI/Abdominal exam: Present: normal bowel sounds, soft. Absent: distended, firm , guarding, tenderness, rebound - Extremities Exam Extremities exam: Present: normal inspection. Absent: calf tenderness, edema Results - Labs CBC & BMP: 03/30/17 06:08 03/30/17 06:08 Lab Results: I have reviewed the past 24 hour labs
[2017-03-30] MEDS: hydrALAZINE 20 MG/1 ML VIAL IV PRN (13:13)
--- NOTE | 2017-03-30 13:15 | Gastrointestinal Progress Note ---
<DavidKarmen Miranda - Last Filed: 03/30/17 13:13> Assessment and Plan (1) Abdominal pain Status: Acute Assessment and plan: 03/30-no complaints of pain, nausea or vomiting. Appetite slowly improving. LFTs unremarkable. Afebrile. Plan an addendum to follow by Dr. Caraballo. 03/27-WBC 9.5, afebrile. Mild abd tenderness. Tolerating diet. LFTs unremarkable. Plan and addendum to follow by Dr Caraballo. 03/26-afebrile, WBC 7.5. Mild abdominal pain and nausea at times. Tolerating small amounts of diet. Plan an addendum to follow by Dr. Caraballo. 03/25-HIDA scan results noted. Zosyn/Actigall have been initiated. Plan and addendum to follow by Dr Caraballo. 03/24-Worsening abdominal pain, nausea and vomiting with recent episode of diverticulitus as well as CVA. Recent US also reported to find gallstones. LFTs unremarkable. Ct of abdomen findings noted below. HIDA scan pending at present time. Dr Doty has been consulted. Plan and addendum to follow by Dr Caraballo. Current Visit: No Gastroenterology - PN: Subj Interval history: CC: Abdominal pain Patient is seen awake and alert lying in bed. States she is feeling about the same over the weekend. Denies abdominal pain, nausea or vomiting. She still has some complaints of some mild dizziness and a headache. She was being held n.p.o. tentatively for ERCP this morning however we will not proceed with this at this time. LFTs have normalized. Her Eliquis is to be restarted by Dr. Doty as well today. Abdomen is soft, nontender. Discussed possible discharge with patient and her plans at that time. Patient states she is ready to go home but she is afraid she is too weak to care for herself at this time. Social work is already following her at present time and discussion open with patient regarding possible swing bed placement. ROS: Denies shortness of breath or chest pain. Exam (Progress Note) - Constitutional Vitals: Period Temp Pulse Resp BP Sys/Velazco Pulse Ox Last 24 Hr 97.1 F-98.5 F 64-82 18-20 140-190/72-93 95-98 General appearance: normal weight, no acute distress - Head Head exam: Present: normal inspection, normocephalic - Eye Eye exam: Present: other (Lids objective unremarkable). Absent: scleral icterus - ENT ENT exam: Present: normal exam, normal oropharynx - Neck Neck exam: Present: normal inspection - Respiratory Respiratory exam: Present: clear to auscultation bilaterally. Absent: rales, rhonchi, wheezes - Cardiovascular Cardiovascular exam: Present: regular rate and rhythm. Absent: diastolic murmur , JVD, systolic murmur - GI/Abdominal GI/Abdominal exam: Present: normal bowel sounds, soft. Absent: ascites, distended, mass, organomegaly, tenderness - Extremities Exam Extremities exam: Present: normal inspection, full ROM - Back Exam Back exam: Present: normal inspection - Neurological Exam Neurological exam: Present: alert, oriented X3 - Psychiatric Psychiatric exam: Present: normal affect, normal mood - Skin Skin exam: Present: normal color, warm, dry Results - Labs CBC & BMP: 03/30/17 06:08 03/30/17 06:08 Lab Results: I have reviewed the past 24 hour labs <Torsten Caraballo - Last Filed: 03/30/17 18:20> Exam (Progress Note) - Constitutional Vitals: Period Temp Pulse Resp BP Sys/Velazco Pulse Ox Last 24 Hr 97.1 F-98.2 F 64-95 18-20 140-193/72-115 95-99 Results - Labs CBC & BMP: 03/30/17 06:08 03/30/17 06:08
[2017-03-30] MEDS: amLODIPine 5 MG TABLET PO SCH (13:17)
[2017-03-30] MEDS: traMADol 50 MG TABLET PO PRN (13:17)
[2017-03-30] MEDS: ACETAMINOPHEN 325 MG TABLET PO PRN (16:34)
[2017-03-30] MEDS: TEMAZEPAM 7.5 MG CAPSULE PO SCH (21:17)
[2017-03-30] MEDS: CIPROFLOXACIN 500 MG TABLET PO SCH (21:17)
[2017-03-30] MEDS: APIXABAN 5 MG TABLET PO SCH (21:17)
[2017-03-31] MEDS: ACETAMINOPHEN 325 MG TABLET PO PRN (03:44)
--- NOTE | 2017-03-31 07:29 | General Surgery Progress Note ---
Assessment and Plan (1) Abdominal pain Status: Acute Assessment and plan: The patient has responded to medical therapy. She will need a cholecystectomy once she has completely recovered from her stroke rehab but right now I think she is too weak to undergo any sort of invasive procedure if it can be delayed safely. We will continue antibiotics for 2 weeks keep her on Actigall for a couple months while we wait for her to recover. If she starts to get sicker or her gallbladder flares back up before she is ready for an operation, it will need to be handled with a cholecystostomy tube. I will see her back in one month. Current Visit: No Qualifiers: Subjective Patient reports: Present: no new complaints, feels better, tolerating a regular diet, afebrile. Absent: nausea, vomiting Narrative: Patient denies nausea or vomiting. She does not have a great appetite but she is able to keep down whenever she tries to eat. She is only complaining of headaches today but no right upper quadrant symptoms or nausea. Exam - Constitutional Vitals: Period Temp Pulse Resp BP Sys/Velazco Pulse Ox Last 24 Hr 97.4 F-97.7 F 77-95 16-20 140-193/77-115 95-99 General appearance: normal weight, no acute distress - Head Head exam: Present: normal inspection, normocephalic - Eye Eye exam: Present: EOMI. Absent: scleral icterus Pupils: Present: SHEILA - ENT ENT exam: Present: normal exam Mouth exam: Present: normal external inspection, normal voice - Neck Neck exam: Present: normal inspection, trachea midline - Respiratory Respiratory exam: Present: clear to auscultation bilaterally. Absent: accessory muscle use, chest wall tenderness - Cardiovascular Cardiovascular exam: Present: RRR. Absent: systolic murmur, tachycardia - GI/Abdominal GI/Abdominal exam: Present: normal bowel sounds, soft. Absent: tenderness, rebound - Extremities Exam Extremities exam: Present: normal inspection, normal capillary refill - Back Exam Back exam: Present: normal inspection - Neurological Exam Neurological exam: Present: alert, oriented X3 Speech: Present: normal - Skin Skin exam: Present: normal color, warm Results - Labs CBC & BMP: 03/30/17 06:08 03/30/17 06:08 Specialty Discharge - Follow Up or Referrals Follow up with: Tee Doty MD [Physician] - 1 Month
[2017-03-31] MEDS: APIXABAN 5 MG TABLET PO SCH (08:40)
[2017-03-31] MEDS: ROSUVASTATIN 20 MG TABLET PO SCH (08:40)
[2017-03-31] MEDS: CARVEDILOL 12.5 MG TABLET PO SCH (08:40)
[2017-03-31] MEDS: PANTOPRAZOLE 40 MG TABLET PO SCH (08:40)
[2017-03-31] MEDS: CIPROFLOXACIN 500 MG TABLET PO SCH (08:40)
[2017-03-31] MEDS: amLODIPine 5 MG TABLET PO SCH (08:40)
--- NOTE | 2017-03-31 08:52 | Cardiology Progress Note ---
Cardiology - PN: Subj Interval history: Cardiology note No temperature Eating regular diet Abdomen soft Blood pressure 140/80 O2 sat 96% on room air Irregular rhythm no murmur Decreased breath sounds but clear No leg edema Lab data today White count 7.7 hemoglobin 11.5 hematocrit 34.8 PTT 54.1 Sodium 141 potassium 3.6 chloride 106 CO2 25 BUN 6 creatinine 1.20 Impression Cholelithiasis and choledocholithiasis responding to conservative therapy Recent CVA February 2017 Recent diverticulitis February 2017 New onset atrial fib with controlled rate on carvedilol Grief reaction. her 58-year-old son 2 weeks ago from pulmonary embolus Plan Continue IV antibiotics and Actigall Follow abdominal exam DC heparin and restart Eliquis 5 mg twice daily Awaiting transfer to swing bed Exam (Progress Note) - Constitutional Vitals: Period Temp Pulse Resp BP Sys/Velazoc Pulse Ox Last 24 Hr 97.2 F-97.7 F 73-95 16-20 140-193/77-115 95-99 Result/EKG - Labs CBC & BMP: 03/30/17 06:08 03/30/17 06:08 Specialty Discharge - Follow Up or Referrals Follow up with: Tee Doty MD [Physician] - 1 Month
--- NOTE | 2017-03-31 10:37 | Gastrointestinal Progress Note ---
<FernandoelidiaKarmen Miranda - Last Filed: 03/31/17 10:34> Assessment and Plan (1) Abdominal pain Status: Acute Assessment and plan: 03/31-No N/V or abd pain. Tolerating diet. No repeat lab noted. Plan and addendum to follow by Dr Caraballo. 03/30-no complaints of pain, nausea or vomiting. Appetite slowly improving. LFTs unremarkable. Afebrile. Plan an addendum to follow by Dr. Caraballo. 03/27-WBC 9.5, afebrile. Mild abd tenderness. Tolerating diet. LFTs unremarkable. Plan and addendum to follow by Dr Caraballo. 03/26-afebrile, WBC 7.5. Mild abdominal pain and nausea at times. Tolerating small amounts of diet. Plan an addendum to follow by Dr. Caraballo. 03/25-HIDA scan results noted. Zosyn/Actigall have been initiated. Plan and addendum to follow by Dr Caraballo. 03/24-Worsening abdominal pain, nausea and vomiting with recent episode of diverticulitus as well as CVA. Recent US also reported to find gallstones. LFTs unremarkable. Ct of abdomen findings noted below. HIDA scan pending at present time. Dr Doty has been consulted. Plan and addendum to follow by Dr Caraballo. Current Visit: No Gastroenterology - PN: Subj Interval history: CC: ABd pain Pt is seen awake and alert sitting up in chair. States she is feeling better today. She is still weak and having dizziness at times but states this is some better. She denies any nausea or vomiting. Denies any abdominal pain. No repeat labwork noted for today. She is tolerating her diet with moderate appetite. She is for possible swing bed placement. Abdomen is soft, nontender. ROS: Denies SOB or chest pain Exam (Progress Note) - Constitutional Vitals: Period Temp Pulse Resp BP Sys/Velazco Pulse Ox Last 24 Hr 97.2 F-98.4 F 68-95 16-20 140-193/77-115 95-99 General appearance: normal weight, no acute distress - Head Head exam: Present: normal inspection, normocephalic - Eye Eye exam: Present: other (lids and conjunctiva unremarakble). Absent: scleral icterus - ENT ENT exam: Present: normal exam, normal oropharynx - Neck Neck exam: Present: normal inspection - Respiratory Respiratory exam: Present: clear to auscultation bilaterally. Absent: rales, rhonchi, wheezes - Cardiovascular Cardiovascular exam: Present: regular rate and rhythm. Absent: diastolic murmur , JVD, systolic murmur - GI/Abdominal GI/Abdominal exam: Present: normal bowel sounds, soft. Absent: ascites, distended, mass, organomegaly, tenderness - Extremities Exam Extremities exam: Present: normal inspection, full ROM - Back Exam Back exam: Present: normal inspection - Neurological Exam Neurological exam: Present: alert, oriented X3 - Psychiatric Psychiatric exam: Present: normal affect, normal mood - Skin Skin exam: Present: normal color, warm, dry Results - Labs CBC & BMP: 03/30/17 06:08 03/30/17 06:08 Lab Results: I have reviewed the past 24 hour labs Specialty Discharge - Follow Up or Referrals Follow up with: Tee Doty MD [Physician] - 1 Month <Torsten Caraballo - Last Filed: 03/31/17 10:42> Exam (Progress Note) - Constitutional Vitals: Period Temp Pulse Resp BP Sys/Velazco Pulse Ox Last 24 Hr 97.2 F-98.4 F 68-95 16-20 140-193/77-115 95-99 Results - Labs CBC & BMP: 03/30/17 06:08 03/30/17 06:08
--- NOTE | 2017-03-31 10:46 | Discharge Summary ---
Hospital Course - Hospital Course Hospital Course: Ms. Caraballo is a 76-year-old female who presented with nausea and vomiting. CT of the abdomen and pelvis revealed findings concerning for cholecystitis and choledocholithiasis. Patient was initiated on antibiotic therapy and admitted to inpatient. She was seen in consultation by gastroenterology and surgery. HIDA scan was performed which revealed a reduced gallbladder ejection fraction. Her oral anticoagulation was switched to heparin and anticipation of possible percutaneous cholecystostomy however the patient's symptoms improved with conservative management and this was not necessary. Patient was also seen by cardiology given her history of atrial fibrillation. By discharge patient was switched back to oral medications and she had an additional medications for hypertension. She was hemodynamically stable and had met maximum benefit of hospitalization. She was accepted to inpatient rehab and will be discharged. I spent 42 minutes coordinating this discharge - Time spent with patient Time with patient DS: Greater than 30 minutes Diagnosis - Discharge Diagnosis (1) Cholecystitis Status: Acute (2) Choledocholithiasis Status: Acute (3) History of cerebrovascular accident (CVA) involving cerebellum Status: Acute (4) Hypertension Status: Chronic (5) Atrial fibrillation Status: Chronic Specialty Discharge - Follow Up or Referrals Follow up with: Tee Doty MD [Physician] - 05/06/17 1:00 pm Discharge Plan - Discharge Data Disposition: Disch/Xfer-Ip Rehab Fac Condition at Discharge: Stable Discharge Diet: advance to your usual diet Activity: resume usual activities as tolerated Hygiene: no restrictions - Discharge Medications New Ciprofloxacin Tab [Cipro Tab] 500 mg PO Q12HR #24 tablet amLODIPine [Norvasc] 5 mg PO DAILY tablet hydrALAZINE TAB [Apresoline Tab] 50 mg PO BID tablet Carvedilol [Coreg] 12.5 mg PO BID tablet Continue Ondansetron HCl 4 mg PO Q4-6H PRN PRN Reason: Nausea Ergocalciferol (Vitamin D2) [Vitamin D2] 2,000 unit PO DAILY Pantoprazole Tab [Protonix Tab] 40 mg PO DAILY #14 tablet Acetaminophen Tab [Tylenol Tab] 325 mg PO Q4H PRN #0 tablet PRN Reason: fever, headache/body aches Apixaban [Eliquis] 5 mg PO BID tablet Polyethylene Glycol Powder [Miralax] 17 gm PO DAILY PRN #0 PRN Reason: Constipation Rosuvastatin [Crestor] 40 mg PO DAILY tablet Zaleplon [Sonata] 5 mg PO BEDTIME PRN PRN Reason: Insomnia traMADol TAB [Ultram] 50 mg PO Q4H PRN PRN Reason: Pain Aspirin [Ecotrin] 162 mg PO DAILY Famotidine Tab [Pepcid Tab] 20 mg PO BID PRN PRN Reason: Heartburn Ursodiol [Actigall] 300 mg PO BID capsule Discontinued Carvedilol [Coreg] 6.25 mg PO BID tablet - Follow Up or Referral Follow Up: Tee Doty MD [Physician] - 05/06/17 1:00 pm - Forms/Instructions Exam - Constitutional Vitals: Period Temp Pulse Resp BP Sys/Velazco Pulse Ox Last 24 Hr 97.2 F-98.4 F 68-95 16-20 140-193/77-115 95-99 General appearance: normal weight, no no acute distress - Head Head exam: Present: normal inspection, normocephalic, atraumatic - Eye Eye exam: Present: EOMI Pupils: Present: SHEILA - ENT ENT exam: Present: normal exam - Neck Neck exam: Present: normal inspection - Respiratory Respiratory exam: Present: clear to auscultation bilaterally. Absent: accessory muscle use, prolonged expiratory phase, wheezes - Cardiovascular Cardiovascular exam: Present: regular rate and rhythm. Absent: bradycardia, irregular rhythm, systolic murmur - GI/Abdominal GI/Abdominal exam: Present: normal bowel sounds. Absent: ascites, distended, hypoactive bowel sounds, tenderness - Extremities Exam Extremities exam: Present: normal inspection DS: Provider Date of admission: 03/24/17 13:12 Primary care physician: Emmanuel Jarrell DO Attending physician on admission: Sara Preciado MD Consults: 03/24/17 15:22 Consult to Occupational Therapy [CONS] Routine Reason for Occupational Therapy: Evaluate and Treat Consult to Physical Therapy [CONS] Routine Reason for Physical Therapy: Evaluate and Treat Consult to Physician [CONS] Routine Comment: Consulting Provider: Torsten Caraballo Person Notified: babar Date Notified: 03/24/17 Time Notified: 15:39 Consult to Physician [CONS] Routine Comment: Consulting Provider: Tee Doty Person Notified: tory Date Notified: 03/24/17 Time Notified: 15:43 03/30/17 12:17 Consult to Case Mgmt/Social Srvs [CONS] Routine Reason for Case Mgmt/Social Srvs: Swingbed/SNF/Intermediate Consult Comment: If possible. Discharging clinician: Dawna Snow MD Expected date of discharge: 03/31/17
[2017-03-31] MEDS: traMADol 50 MG TABLET PO PRN (12:40)
[2017-03-31 12:42] VITALS: BP 182/79
== END 2017-03-31 13:40 | disposition swing bed (61) | DRG 446 ==
LOC: EDUNIT# → EDBD → N.ED 11:07 → SUATTDRO 13:12 → N.EDINP 13:12 → N.2E 14:55
PROVIDERS: ADMIT Family Medicine; ATTEND Internal Medicine

== ENCOUNTER 2017-07-23 12:45 | Inpatient (IN) ==
[2017-07-23] MEDS ORDERED: FUROSEMIDE 40 MG/4 ML VIAL IV STA (13:18)
--- NOTE | 2017-07-23 13:20 | Emergency Department Note ---
Lisa Downey Hilary, am scribing for, and in the presence of, Prosper Adams MD 13: 15. Angie Downey James D, MD, personally performed the services described in this documentation, ascribed by Marcelina Gonzalez in my presence, and it is both accurate and complete 319 . Arrival - Arrival Chief Complaint: Shortness of Breath Stated Complaint: low heart rate (40) per home nurse ED Nursing Triage Note: increased sob over the past few weeks. was seen by home health nurse this morning and told to come to er for dizziness and hr in 40s. pt takes digoxin and reports she was recently started on new med for a fib. Mode of Arrival: Wheelchair Limitations: No Limitations Source: Patient, RN Notes Reviewed - History of Present Illness HPI Narrative: Pt is a 77 y/o female presenting to the ED with c/o SOB which onset 2 weeks ago. Pt states that she gets SOB when she walks or if she is just sitting down. She also reports swollen face, swollen feet and abdomen and this morning she had a HR of 41 but denies chest pain, cough or fever. Pt has a PMHX of CAD, A.fib, HTN, SD, Aortic stenosis, Dyslipidemia and diverticulitis. No other complaints or problems stated in the ED. Onset (ago): week(s) Consistency: constant Severity: mild Severity scale (1-10): 1 Allergies/Adverse Reactions: Allergies Allergy/AdvReac Type Severity Reaction Status Date / Time Sulfa (Sulfonamide Allergy RASH Verified 08/30/15 18:33 Antibiotics) codeine AdvReac Nausea Verified 08/30/15 18:33 Home Medications: Home Medications Medication Instructions Recorded Confirmed Type Ondansetron HCl 4 mg PO Q4-6H PRN 08/30/15 07/23/17 History Apixaban [Eliquis] 5 mg PO BID tablet 03/10/17 07/23/17 Rx Famotidine Tab [Pepcid Tab] 20 mg PO QAM 03/24/17 07/23/17 History Ursodiol [Actigall] 300 mg PO BID capsule 03/24/17 07/23/17 Rx hydrALAZINE TAB [Apresoline Tab] 50 mg PO BID tablet 03/31/17 07/23/17 Rx Megestrol Liquid [Megace Liquid] 400 mg PO BID #0 04/17/17 07/23/17 Rx Carvedilol [Coreg] 25 mg PO BID 07/23/17 07/23/17 History Pantoprazole Tab [Protonix Tab] 40 mg PO QAM 07/23/17 07/23/17 History Polyethylene Glycol Powder 17 gm PO QAM 07/23/17 07/23/17 History [Miralax] Rosuvastatin [Crestor] 20 mg PO QAM 07/23/17 07/23/17 History Review of System - Review of System 12 point system: reviewed and no additional remarkable complaints except as stated - Review of System Constitutional: Absent: fever Respiratory: Present: respiratory distress (SOB). Absent: cough Cardiovascular: Absent: chest pain Medical,Surgical,& Family Hx - Medical History Cardio: History of: Cardiac Dysrhythmia (RECENTALLY DX WITH AFIB FEBRUARY 2017), CAD, Hypertension, SD (SD X 2,), Valvular Heart Disease (Mild to moderate aortic stenosis, senescent) HEENT: History of: Eye Problem (BLURRED VISION R/T STROKE FEBRUARY 2017) Endocrine: History of: Dyslipidemia Gastrointestinal: History of: Diverticulitis/ Diverticulosis, GERD, Polyps, GI Problems (HAS GALLSTONES) Musculoskeletal: History of: Back/Neck Problems (LOWER PART OF BACK) Reproductive: History of: Breast Cancer (1979 RIGHT MASECTOMY-LYMPH NODES REMOVED) - Surgical History Cardiac Surgeries: Sugical HX of: Cardiac Catheterization (3 HEART CATHS 4 STENTS, most recent 2013) Abdominal Surgeries: Surgical HX of: Abdominal Surgery, Appendectomy Reproductive Surgeries: Surgical HX of;: Breast Surgery (For breast cancer), Hysterectomy - Family History Family History: Reports;: Family Cancer (Father), Family Heart Disease (Sister) , Family Hypertension (Mother), Family Stroke (MOTHER AND FATHER) - Social History Smoking Status: Never smoker Exam Physical Examination: GENERAL: This is a well-nourished, well-developed white female in no apparent distress. VITAL SIGNS: Temperature: 97.9 Pulse: Respiratory: 20 Blood Pressure: 190/ 79 O2 Sat: 98 HEENT: Head is normocephalic and atraumatic. Pupils are equally round and reactive to light. Extraocular movement are intact. Oropharynx is benign with moist mucous membranes. NECK: Neck is soft and supple without tenderness. There are no masses. There is no lymphadenopathy. LUNGS: Lungs are clear to auscultation bilaterally. Chest rises symmetrically. There is no chest wall tenderness. CV: Heart is irregularly irregular with loud, harsh, 3/6 systolic ejection murmur at the left sternal border. ABDOMEN: Abdomen is soft, non-tender to palpation. There are no abnormal masses palpated. There is no organomegaly. Bowel sounds are present and active. SKIN: Skin is warm and dry. No rash. EXTREMITIES: Patient has full range of motion without tenderness. There is no pedal edema. NEUROLOGIC: Awake, alert, and oriented x4. Cranial nerves II through XII are grossly intact. There are no motorsensory deficits. PSYCHIATRIC: Normal affect. Normal mood. Vital Signs: Vital Signs Temperature 97.9 F 07/23/17 12:48 Pulse Rate 52 L 07/23/17 13:45 Respiratory Rate 18 07/23/17 13:45 Blood Pressure 184/84 07/23/17 13:45 O2 Sat by Pulse Oximetry 100 07/23/17 13:45 Course - Consultations Consultation #1: Discussed with hospitalist. Patient will be admitted to their service. Time: 14:51 Results - Labs CBC & BMP: 07/23/17 13:09 07/23/17 13:09 Lab Results: I have reviewed the patients labs Labs: Laboratory Tests 07/23/17 07/23/17 07/23/17 13:09 13:09 13:09 WBC 13.3 H RBC 4.73 Hgb 14.9 Hct 44.6 Neut # (Auto) 8.6 H Norton # (Auto) 1.0 H INR 1.0 Sodium 140 Potassium 4.5 Chloride 104 Carbon Dioxide 31 BUN 24 H Creatinine 1.40 H Troponin I 0.069 H Globulin 3.7 H Albumin/Globulin Ratio 1.0 L Laboratory Tests 07/23/17 07/23/17 13:09 13:09 Troponin I 0.069 H B-Natriuretic Peptide 756 H Echocardiogram preliminary report: Aortic valve area approximately 0.8 cm, EF normal. - EKG EKG results: interpreted by ERMD - Impressions Atrial fib with a rate of 51, ST segment depression inferiorly and laterally consistent with ischemia. Old septal SD. - Diagnostic Findings Procedure: Chest x-ray: image reviewed by me, report reviewed by me (Increased pulmonary markings bilaterally. 1. Mild cardiomegaly with low volume left effusion 2. Previous axillary dissection 3. Underlying component of mild COPD and fibrotic scarring present) Disposition Clinical Impression: Dyspnea, Aortic stenosis, Congestive heart failure, Atrial fibrillation with slow ventricular response Case discussed with: patient, patient's family Disposition: Still a Patient Condition: Stable Time of Disposition: 14:51
[2017-07-23 13:33] LABS: Basophils # 0.1 10*3/uL (0.0-0.2); Basophils % 0.7 % (0.0-0.8); Eosinophils # 0.2 10*3/uL (0.0-0.87); Eosinophils % 1.1 % (0.00-10.9); Hematocrit 44.6 VOL% (35.7-47.0); Hemoglobin 14.9 GM/DL (12.0-16.0); Immature Granulocytes % 0.8 %; Immature Granulocytes Absolute 0.11 #; Lymphocytes # 3.4 10*3/uL (1.4-4.0); Lymphocytes % 25.6 % (21.3-54.2); Mean Corpuscular HGB Conc 33.4 GM/DL (32-36); Mean Corpuscular Hemoglobin 32 PG (27-34); Mean Corpuscular Volume 94.3 FL (87-102); Mean Platelet Volume 9.7 FL (9.6-12.0); Monocytes % 7.4 % (1.7-12.7); Neutrophils # 8.6 10*3/uL (1.4-7.4); Neutrophils % 64.4 % (38.7-73.9); Platelet Count 241 T/CUMM (130-400); Red Blood Count 4.73 MC/CUMM (3.8-5.5); Red Cell Distribution Width 13.8 % (9.3-17.3); White Blood Count 13.3 T/CUMM (4-12)
[2017-07-23] MEDS ORDERED: FUROSEMIDE 40 MG/4 ML VIAL ONE (13:35)
[2017-07-23 13:50] LABS: PT Patient Result 10.9 SECS; Partial Thromboplastin Time 24.9 SECS (0-40)
[2017-07-23 14:02] LABS: Albumin 3.8 G/DL (3.4-5.0); Bilirubin,Total 0.6 MG/DL (0.2-1.0); Calcium 9.5 MG/DL (8.5-10.1); Osmolality,Calculated 281.4 MOS/KG (273-304); Potassium 4.5 MMOL/L (3.5-5.1); Total Protein 7.5 G/DL (6.4-8.3)
[2017-07-23 14:03] LABS: Troponin I Only 0.069 NG/ML (0.00-0.045)
--- NOTE | 2017-07-23 14:31 | XRay Report ---
Exam: XR chest 1V portable Date: 07/23/2017 1:14 PM Indication: Shortness of breath Comparison: 03/04/2017 Technical: AP Findings: Cardiomegaly present with low volume left effusion. External cardiac leads are present. Degenerative change present thoracic spine. Surgical clips present in the right axillary region. Subchondral cysts present over the humeral head on the left. Mediastinum is intact. There some calcification of the mitral annulus. Underlying scarring is present in the perihilar regions. Impression: 1. Mild cardiomegaly with low volume left effusion 2. Previous axillary dissection 3. Underlying component of mild COPD and fibrotic scarring present PROCEDURE INTERPRETED AT [facility] DEPARTMENT OF RADIOLOGY Final Report Signed by: Dr. Reginaldo Duran
[2017-07-23] MEDS ORDERED: ONDANSETRON 4 MG TABLET PO PRN (16:17)
--- NOTE | 2017-07-23 16:35 | Hospitalist History & Physical ---
Assessment and Plan (1) Atrial fibrillation with slow ventricular response Status: Acute Assessment and plan: Impression: 1. Progressive exertional dyspnea, etiology not certain at this time. Chest x- ray is not convincing for pulmonary vascular congestion. Cardiomegaly may be on the basis of the portable technique. EKG shows evidence of possible digitalis effect or toxicity with bradycardia. Echocardiogram from 4 months ago does not show any evidence of systolic or diastolic dysfunction. Aortic stenosis is noted, but I cannot tell if it is hemodynamically significant. There is no history to suggest significant pulmonary disease. 2. 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 3. Atrial fibrillation, possibly digitalis toxic Plan: Echocardiogram has already been performed; we will await results. Check digoxin level. Ask cardiology for their opinion if diagnosis is not forthcoming. This note was completed using [employer] voice recognition software. There may be senior mechanical engineer errors as a result. Current Visit: Yes History of Present Illness Chief complaint: I can't breathe History of present illness: Ms. Caraballo is a 77 year old female She reports a long history of cardiac disease. She says that she has had 2 myocardial infarctions, with the more recent being about 3 or 4 years ago. She has had 4 stents placed. She says that she had a stent placed a few years prior to her first infarct, 2 stents placed with the first infarct, and the fourth stent was placed with her second infarct. In February of this year, she had a cerebral infarction. At that time, she was found to be in atrial fibrillation. She was anticoagulated with Eliquis. She was found to have aortic stenosis at echocardiography, but her ejection fraction was noted to be normal, and there was no mention of any diastolic dysfunction on that report. For the past several weeks, she has had dyspnea with class III or IV exertion. She says that she cannot even walk 10 feet without becoming short of breath, and sometimes she is dyspneic even at rest. She wakes up at night short of breath, and just lies in bed until the feeling goes away. She does not have any significant chest discomfort. 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 She says that she has had some lab work done, but does not know any results yet. She did complain of some peripheral edema, and her Norvasc was discontinued. Her Coreg was titrated. She was also started on digoxin because her heart was apparently beating too fast. She never been told that she has congestive heart failure. There does not appear to be much in the way of any permanent damage from her stroke. She has no prior history of rheumatic fever. She quit smoking over 45 years ago. She has no prior history of any other lung disease. Home Medications Medication Instructions Recorded Confirmed Type Ondansetron HCl 4 mg PO Q4-6H PRN 08/30/15 07/23/17 History Apixaban [Eliquis] 5 mg PO BID tablet 03/10/17 07/23/17 Rx Famotidine Tab [Pepcid Tab] 20 mg PO QAM 03/24/17 07/23/17 History Ursodiol [Actigall] 300 mg PO BID capsule 03/24/17 07/23/17 Rx hydrALAZINE TAB [Apresoline Tab] 50 mg PO BID tablet 03/31/17 07/23/17 Rx Megestrol Liquid [Megace Liquid] 400 mg PO BID #0 04/17/17 07/23/17 Rx Carvedilol [Coreg] 25 mg PO BID 07/23/17 07/23/17 History Pantoprazole Tab [Protonix Tab] 40 mg PO QAM 07/23/17 07/23/17 History Polyethylene Glycol Powder 17 gm PO QAM 07/23/17 07/23/17 History [Miralax] Rosuvastatin [Crestor] 20 mg PO QAM 07/23/17 07/23/17 History Allergies Allergy/AdvReac Type Severity Reaction Status Date / Time Sulfa (Sulfonamide Allergy RASH Verified 08/30/15 18:33 Antibiotics) codeine AdvReac Nausea Verified 08/30/15 18:33 Medical,Surgical,& Family Hx - Medical History Cardio: History of: Cardiac Dysrhythmia (RECENTALLY DX WITH AFIB FEBRUARY 2017), CAD, Hypertension, WA (WA X 2,), Valvular Heart Disease (Mild to moderate aortic stenosis, senescent) Neurology: History of: Cerebrovascular Accident HEENT: History of: Eye Problem (BLURRED VISION R/T STROKE FEBRUARY 2017) Endocrine: History of: Dyslipidemia Gastrointestinal: History of: Diverticulitis/ Diverticulosis, GERD, Polyps, GI Problems (HAS GALLSTONES) Musculoskeletal: History of: Back/Neck Problems (LOWER PART OF BACK) Reproductive: History of: Breast Cancer (1979 RIGHT MASECTOMY-LYMPH NODES REMOVED) - Surgical History Cardiac Surgeries: Sugical HX of: Cardiac Catheterization (3 HEART CATHS 4 STENTS, most recent 2013) Abdominal Surgeries: Surgical HX of: Abdominal Surgery, Appendectomy Reproductive Surgeries: Surgical HX of;: Breast Surgery (For breast cancer), Hysterectomy - Family History Family History: Reports;: Family Cancer (Father), Family Heart Disease (Sister) , Family Hypertension (Mother), Family Stroke (MOTHER AND FATHER) - Social History Smoking Status: Former smoker Have you smoked in the last 12 months: No Review of systems: Gen.: No weight loss or gain over the past year. Eyes: No glaucoma or cataracts. No change in visual acuity. Ears nose and throat: No change in auditory acuity, sinus problems, nasal allergies, or sore throat. Lungs: No asthma, bronchitis, or pneumonia. Cardiac: See history of present illness. GI: No liver disease, nausea, vomiting, or diarrhea. She has been told that she needs to have her gallbladder removed. : No hematuria, UTI, or stones. Neurologic: No seizures. Endocrine: No thyroid disease. Hematologic: No anemia or blood dyscrasias. Skin: No rashes or lesions. Musculoskeletal: Only age-related arthritic complaints. Exam - Constitutional Vitals: Period Temp Pulse Resp BP Sys/Velazco Pulse Ox Last 24 Hr 97.9 F 52-78 16-20 182-209/79-107 98-100 General: She is a pleasant white lady in no distress. HEENT: Pupils are round and reactive. Extraocular muscles are normal. Gaze is conjugate. Fundi were not examined. There is no nasal discharge. Mucous membranes are moist. Neck: Supple, without mass, bruit, or venous distention. Cardiac: Rhythm is irregular. The carotids are normal. She has a 3/6 systolic ejection murmur at the right base audible over the entire precordium and radiating into the neck. She also has a 1/6 diastolic decrescendo murmur. Peripheral pulses are intact. Lungs: Clear without rales, wheezes, or rubs. Abdomen: Soft and nontender. Bowel sounds are present. No mass palpable. Rectal: Not done. Extremities: No cyanosis, clubbing, or edema. Skin: No significant rash or lesion. Neurologic: She is awake and alert. She moves all 4 extremities. Cranial nerves appear to be intact. No pathologic reflexes are elicited. Results - Labs CBC & BMP: 07/23/17 13:09 07/23/17 13:09 - EKG EKG shows: atrial fibrillation (EKG shows atrial fibrillation with ventricular rate of about [address] changes consistent with digitalis effect.) - Diagnostic Findings Procedure: Chest x-ray: image reviewed by me (Cardiomegaly with fairly clear lung simmons; portable film) Quality Measures - VTE Contraindication to Pharmacological VTE Prophylaxis: Already on Theraputic Agent , No Prophylaxis Needed
[2017-07-23] MEDS: hydrALAZINE 20 MG/1 ML VIAL IV PRN (18:31)
--- NOTE | 2017-07-23 20:10 | ECHO Report ---
Alona Caraballo Exam Date: 07/23/2017 13:33 Referring Physician: Technologist: kwame Casas ARDMS, RVT Age: 77 Ht (in): 67 Wt (lb): 150 Gender: F Exam Location: [facility] Echo Indications: Aortic stenosis, Low heart rate BP: 184 / 84 HR: 70 Rhythm: Sinus Technical Quality: Fair IMPRESSIONS Normal LV systolic and diastolic function, ejection fraction 60%. Mild concentric left ventricular hypertrophy. Right ventricle is at the upper limits of normal in size. Mild biatrial enlargement. Mild mitral, pulmonic and tricuspid regurgitation. Mitral sclerosis without stenosis. There is aortic stenosis that is at least moderate in severity. Please see discussion below. MEASUREMENTS (Male / Female) Normal Values 2D ECHO LV Diastolic Diameter PLAX 3.4 cm 4.2 - 5.9 / 3.9 - 5.3 cm LV Systolic Diameter PLAX 2.9 cm LV Fractional Shortening PLAX 14.3 % IVS Diastolic Thickness 1.4 cm 0.6 - 1.0 / 0.6 - 0.9 cm LVPW Diastolic Thickness 1.3 cm 0.6 - 1.0 / 0.6 - 0.9 cm RV Internal Dim ED PLAX 3.0 cm Aortic Root Diameter 3.2 cm LA Systolic Diameter LX 4.4 cm 3.0 - 4.0 / 2.7 - 3.8 cm DOPPLER TR Peak Velocity 288.0 cm/s TR Peak Gradient 33.2 mmHg FINDINGS Left Ventricle Normal left ventricular cavity size. Mild left ventricular hypertrophy. Left ventricular ejection fraction is estimated at 55-60%. Right Ventricle Mildly increased right ventricular size. Right Atrium The right atrium is mildly enlarged. Left Atrium The left atrium is mildly enlarged. Mitral Valve There is valvular calcification with mild leaflet restriction and very subtle hockey-stick appearance. Mild mitral annular calcification. There is mild regurgitation. Aortic Valve Aortic valve sclerosis. Mild aortic valve stenosis, mean gradient 14 mmHg. LVOT VTI is 14.2. AV VTI is 56.4 cm, with a ratio of 0.25. By continuity equation aortic valve area measures 0.79 cm. The mean gradients with preserved systolic function are incongruent with the valve area measured. Grossly there appears to be at least moderate stenosis if not more severe. DVI measurements in continuity equation are consistent with severe aortic stenosis, mean gradient is only consistent with mild stenosis. Tricuspid Valve Morphologically normal tricuspid valve. Mild tricuspid valve regurgitation. Tricuspid regurgitation velocities suggest a PAP of 43 mmHg. Pulmonic Valve Morphologically normal pulmonic valve. Mild pulmonary valve regurgitation. Pericardium Aorta Aubrie Dahl MD (Electronically Signed) Final Date: 23 July 2017 20:09
[2017-07-23] MEDS: APIXABAN 5 MG TABLET PO SCH (20:45)
[2017-07-23] MEDS: CARVEDILOL 25 MG TABLET PO SCH (20:45)
[2017-07-23] MEDS: URSODIOL 300 MG CAPSULE PO SCH (20:45)
[2017-07-23] MEDS: MEGESTROL 400 MG/10 ML UDCUP PO SCH (20:46)
--- NOTE | 2017-07-23 21:29 | EKG Report ---
Stationary ECG Study 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
[2017-07-24 05:44] LABS: Basophils # 0.1 10*3/uL (0.0-0.2); Basophils % 0.7 % (0.0-0.8); Eosinophils # 0.2 10*3/uL (0.0-0.87); Eosinophils % 1.4 % (0.00-10.9); Hematocrit 43.2 VOL% (35.7-47.0); Hemoglobin 14.4 GM/DL (12.0-16.0); Immature Granulocytes % 0.8 %; Immature Granulocytes Absolute 0.09 #; Lymphocytes # 3.2 10*3/uL (1.4-4.0); Lymphocytes % 27.1 % (21.3-54.2); Mean Corpuscular HGB Conc 33.3 GM/DL (32-36); Mean Corpuscular Hemoglobin 31 PG (27-34); Mean Corpuscular Volume 93.9 FL (87-102); Mean Platelet Volume 9.9 FL (9.6-12.0); Monocytes # 0.9 10*3/uL (0.11-0.8); Monocytes % 8.1 % (1.7-12.7); Neutrophils # 7.2 10*3/uL (1.4-7.4); Neutrophils % 61.9 % (38.7-73.9); Platelet Count 225 T/CUMM (130-400); Red Cell Distribution Width 13.9 % (9.3-17.3); White Blood Count 11.6 T/CUMM (4-12)
[2017-07-24 06:13] LABS: Calcium 9.5 MG/DL (8.5-10.1); Osmolality,Calculated 284.3 MOS/KG (273-304); Potassium 4.9 MMOL/L (3.5-5.1)
--- NOTE | 2017-07-24 06:27 | EKG Report ---
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
--- NOTE | 2017-07-24 07:55 | XRay Report ---
2 view chest 07/24/2017 4:00 AM Indication: Shortness of breath Comparison: Previous day at 2058 hours Findings: Cardiomediastinal contours are stable. PA and lateral projections demonstrate no consolidative or congestive process. No effusions. Chronic interstitial markings centrally. No acute osseous abnormalities. Visualized upper abdomen demonstrates no acute pathology. Impression: No acute cardiopulmonary findings PROCEDURE INTERPRETED AT [facility] DEPARTMENT OF RADIOLOGY Final Report Signed by: Ed Carreon
[2017-07-24] MEDS: FAMOTIDINE 20 MG TABLET PO SCH (09:16)
[2017-07-24] MEDS: APIXABAN 5 MG TABLET PO SCH ×2 (09:16→21:09)
[2017-07-24] MEDS: CARVEDILOL 25 MG TABLET PO SCH ×2 (09:16→21:10)
[2017-07-24] MEDS: URSODIOL 300 MG CAPSULE PO SCH ×2 (09:16→21:09)
[2017-07-24] MEDS: ROSUVASTATIN 20 MG TABLET PO SCH (09:16)
[2017-07-24] MEDS: MEGESTROL 400 MG/10 ML UDCUP PO SCH ×2 (09:17→21:10)
[2017-07-24] MEDS: POLYETHYLENE GLYCOL POWDER 17 GM PACK PO SCH (09:20)
--- NOTE | 2017-07-24 12:02 | Hospitalist Progress Note ---
Assessment and Plan (1) Atrial fibrillation with slow ventricular response Status: Acute Assessment and plan: Impression: 1. Progressive exertional dyspnea, etiology not certain at this time. 2. 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 3. Atrial fibrillation Plan: Continue to hold digitalis. Cardiology consultation; they are familiar with her case. This note was completed using [employer] voice recognition software. There may be supply teacher errors as a result. Current Visit: Yes Hospitalist: Subjective Interval history: Follow-up exertional dyspnea, atrial fibrillation, coronary disease The patient continues to complain of class III or IV dyspnea. A repeat chest x- ray this morning again fails to reveal any obvious cause of her dyspnea. Oxygen saturation is adequate on room air. A repeat echocardiogram yesterday was not significantly changed from the one 4 months ago. This showed aortic stenosis of a moderate degree and a normal pump. Digoxin level was slightly elevated. She is not anemic. Exam - Constitutional Vitals: Period Temp Pulse Resp BP Sys/Velazco Pulse Ox Last 24 Hr 97.1 F-98.5 F 52-90 16-20 125-209/61-113 95-100 Results - Labs CBC & BMP: 07/24/17 05:21 07/24/17 05:21 Lab Results: I have reviewed the past 24 hour labs Quality Measures - VTE Contraindication to Pharmacological VTE Prophylaxis: Already on Theraputic Agent , No Prophylaxis Needed
--- NOTE | 2017-07-24 15:22 | Cardiology Consult Note ---
Addendum entered and electronically signed by Lety Hendricks NP 07/24/17 17:46 : Will also check D-dimer to rule out PE as cause for dyspnea. Original Note: <Lety Hendricks - Last Filed: 07/24/17 17:06> Assessment and Plan - Time spent with patient Time spent with patient: Greater than 30 minutes (Due to assessment, plan, and documentation.) (1) Dyspnea Status: Acute Assessment and plan: See plan of care listed below. Current Visit: Yes (2) Atrial fibrillation with slow ventricular response Status: Acute Assessment and plan: See plan of care listed below. Current Visit: Yes (3) Aortic stenosis Status: Acute Assessment and plan: See plan of care listed below. Current Visit: Yes (4) Coronary artery disease Status: Chronic Assessment and plan: See plan of care listed below. Current Visit: Yes (5) Hypertension Status: Chronic Assessment and plan: See plan of care listed below. Current Visit: No Qualifiers: Hypertension type: essential hypertension Qualified Code(s): I10 - Essential (primary) hypertension (6) Dyslipidemia Status: Chronic Assessment and plan: See plan of care listed below. Current Visit: Yes (7) History of gallstones Status: Chronic Assessment and plan: See plan of care listed below. Current Visit: No (8) History of breast cancer Status: Resolved Assessment and plan: See plan of care listed below. Current Visit: No (9) Chronic anticoagulation Status: Chronic Assessment and plan: See plan of care listed below. Current Visit: Yes (10) History of CVA (cerebrovascular accident) Status: Chronic Assessment and plan: See plan of care listed below. Current Visit: No History of Present Illness - Data of Consult Patient: known to practice within the last 3 years Consult date: 07/24/17 Requesting Physician: Sven Hatfield Primary care physician: Emmanuel Jarrell - Consult Narrative Reason for consult: SOB History of present illness: Heavy Equipment Technician: Dr. Ronquillo PCP: Dr. Jarrell Ms. Caraballo is a 77 year old female with a history of coronary artery disease, hypertension, dyslipideamia, diverticulosis, gallstones, and history of breast cancer. She was in the hospital in February 2017 with an acute CVA and was diagnosed with new onset atrial fibrillation and started on chronic anticoagulation with Eliquis. She has had 3 heart catheterizations in the past with stent placement 4 and PTCA. 08/27/2012 she received stent to the first diagonal and PTCA to the side branch of the first diagonal. 03/17/14 she had an NSTEMI and had placement of drug-eluting stents to a mid LAD 95% stenosis and mid RCA 90% stenosis with patent first diagonal stent. 06/16/2014 she had stent placement to the distal RCA with 95% stenosis was noted to have mild in-stent restenosis in the diagonal branch which was not flow-limiting. Her other stents were patent and she was noted to have an ejection fraction of 45-50%. She presented to the hospital due to progressive exertional dyspnea. For the past several weeks she has had dyspnea with distances as short as 10 feet. Today she has noted to have some at rest conversational dyspnea. She says that she sometimes wakes up at night short of breath and was admitted to the feeling goes away. This has been progressively worse for several months. She has had progressive fatigue and states she has no energy. She denies chest pain. She was recently seen in the clinic by Dr. Ronquillo on 07/08/2017 with similar complaints and underwent testing with lab work, Holter monitor, and echocardiogram. Holter monitor revealed predominantly atrial fibrillation with minimum heart rate 57 beats a maximum heart rate 147 beats. She was noted to have frequent PVCs and persistent A. fib. Echocardiogram revealed EF 50%, mild LVH, mild aortic stenosis with transaortic mean gradient 9.5 mmHg, mild to moderate MR. Lab work at the clinic on 07/09/2017 was reviewed. Lipid panel showed cholesterol 144, triglycerides 58, HDL 78, LDL 43. Her creatinine was 1.4, sodium 141, potassium 4.2, GFR 36. Magnesium 2.0. H&H was 14.8 and 45.4. TSH and free T4 were normal at 2.33 and 1.06 respectively. Vitamin D level was normal at 68.7. Repeat echocardiogram during hospitalization revealed moderate aortic stenosis with conflicting parameters across the valve, mean gradient 14 mmHg. At our facility, her EKG shows atrial fibrillation with possible digitalis effect. Dig level was 2.2 and digoxin is currently on hold. Her chest x-ray has not been convincing for pulmonary vascular congestion. White blood cell count upon admission was 13.3 now normal today. Her creatinine is 1.4 with GFR 37. Initial troponin was 0.069. Potassium today 4.9. Magnesium 2.1. BNP on admission was 756. H&H is stable at 14.4 and 43.2. Will await further recommendations from Dr. Dahl. IMPRESSION/PLAN: 1. PROGRESSIVE DYSPNEA: Etiology unknown. Differential diagnosis includes: Aortic stenosis, worsening coronary artery disease, pulmonary process. I saw the patient in conjunction with Dr. Dahl this afternoon and repeat heart catheterization was discussed with the patient and her daughter who was present. They voiced understanding of the need to repeat LHC and agreed to proceed with this as early as next week. 2. ATRIAL FIBRILLATION: Continue anticoagulation with Eliquis. Continue carvedilol 25 mg p.o. twice daily. Digoxin is currently on hold. Rates are well controlled and have ranged from 50-90 since admission. We will continue to monitor. 3. AORTIC STENOSIS: Mild in severity according to echo done a couple weeks ago, now showing moderate aortic stenosis. She really needs repeat left heart catheterization to rule out progression of her coronary disease and to determine the severity of her aortic stenosis. Since this is a Thursday afternoon and she is currently hemodynamically and clinically stable, it is likely we can schedule this for Thursday morning if she remains in the hospital. We will continue to follow her throughout the weekend. If she happens to go home prior to Thursday, we can bring her back as an outpatient for further evaluation in the next week or so. 4. CORONARY ARTERY DISEASE: She is status post NSTEMI in March 2014. She has had stent placement 4 and PTCA as described above. 5. HYPERTENSION: Currently well controlled with occasional elevated reading. We will continue current therapy, monitor, and adjust as needed. 6. DYSLIPIDEMIA: Continue lipid-lowering agent. Recent lipid panel revealed cholesterol 144, triglycerides 58, HDL 78, LDL 43. 7. HISTORY OF GALLSTONES: She has a history of gallbladder disease but due to her stroke in February, she was not recommended for surgery at that time and was placed on Actigall. 8. HISTORY OF BREAST CANCER: S/p right mastectomy in 1979. 9. CHRONIC ANTICOAGULATION: Continue Eliquis. 10. HISTORY OF CVA: Has some residual blurry vision. Continue chronic anticoagulation with Eliquis. CC: Sven Hatfield MD - Home Medications and Allergies Home Medications: Home Medications Medication Instructions Recorded Confirmed Type Ondansetron HCl 4 mg PO Q4-6H PRN 08/30/15 07/23/17 History Apixaban [Eliquis] 5 mg PO BID tablet 03/10/17 07/23/17 Rx Famotidine Tab [Pepcid Tab] 20 mg PO QAM PRN 03/24/17 07/23/17 History Ursodiol [Actigall] 300 mg PO BID capsule 03/24/17 07/23/17 Rx Megestrol Liquid [Megace Liquid] 400 mg PO BID #0 04/17/17 07/23/17 Rx Carvedilol [Coreg] 25 mg PO BID 07/23/17 07/23/17 History Cholecalciferol (Vitamin D3) 5,000 unit PO DAILY 07/23/17 07/23/17 History [Vitamin D3] Digoxin [Lanoxin] 250 mcg PO DAILY 07/23/17 07/23/17 History Pantoprazole Tab [Protonix Tab] 40 mg PO DAILY 07/23/17 07/23/17 History Polyethylene Glycol Powder 17 gm PO QAM PRN 07/23/17 07/23/17 History [Miralax] Rosuvastatin [Crestor] 20 mg PO DAILY 07/23/17 07/23/17 History Allergies/Adverse Reactions: Allergies Allergy/AdvReac Type Severity Reaction Status Date / Time Sulfa (Sulfonamide Allergy RASH Verified 08/30/15 18:33 Antibiotics) codeine AdvReac Nausea Verified 08/30/15 18:33 Review of systems: - Constitutional: Present: fatigue, As per HPI. Absent: anorexia, chills, daytime sleepiness, excessive sweating, fever(s), frequent falls, headache(s), increased appetite, lethargy, malaise, night sweats, stops breathing during sleep, weakness, weight gain, weight loss. - EENT Eyes: Present: As per HPI. Absent: blurry vision, diplopia, loss of vision Ears: Present: As per HPI. Absent: decreased hearing, ear discharge, ear pain Nose, mouth and throat: Present: As per HPI. Absent: dysphagia, epistaxis, headache(s), hoarseness, lip swelling, nasal congestion, neck mass, neck pain, sinus pressure, sore throat, throat swelling, tongue swelling, vertigo - Cardiovascular: Present: dyspnea, dyspnea on exertion, as per HPI. Absent: chest pain at rest, chest pain with activity, edema, claudication, diaphoresis, radiating jaw, neck or arm pain, lightheadedness, orthopnea, palpitations, PND - Respiratory: Present: dyspnea, dyspnea on exertion, as per HPI. Absent: cough , hemoptysis, wheezing, snoring, pain on inspiration - Gastrointestinal: Present: As per HPI. Absent: abdominal pain, bloating, change in bowel habits, constipation, diarrhea, heartburn, hematemesis, hematochezia, loose stools, melena, nausea, vomiting - Genitourinary: Present: As per HPI. Absent: difficulty urinating, dysuria, flank pain, hematuria, nocturia, urinary frequency, urinary incontinence - Musculoskeletal: Present: As per HPI. Absent: arthralgias, back pain, joint swelling, limited range of motion, muscle cramps, muscle weakness, myalgias - Neurological: Present: As per HPI. Absent: abnormal gait, abnormal speech, behavioral changes, confusion, convulsions, disequilibrium, dizziness, focal weakness, frequent falls, headache(s), memory loss, numbness, paresthesias, radicular pain, syncope, tremor(s) - Psychiatric: Present: As per HPI. Absent: anxiety, confusion, depression, panic attacks - Endocrine: Present: fatigue, As per HPI. Absent: cold intolerance, heat intolerance, polydipsia, polyphagia - Hematologic/Lymphatic: Present: As per HPI. Absent: easy bleeding, easy bruising, lymphadenopathy Medical,Surgical,& Family Hx - Medical History Cardio: History of: Cardiac Dysrhythmia (RECENTALLY DX WITH AFIB FEBRUARY 2017), CAD, Hypertension, MD (MD X 2,), Valvular Heart Disease (Mild to moderate aortic stenosis, senescent) Neurology: History of: Cerebrovascular Accident HEENT: History of: Eye Problem (BLURRED VISION R/T STROKE FEBRUARY 2017) Endocrine: History of: Dyslipidemia Gastrointestinal: History of: Diverticulitis/ Diverticulosis, GERD, Polyps, GI Problems (HAS GALLSTONES) Musculoskeletal: History of: Back/Neck Problems (LOWER PART OF BACK) Reproductive: History of: Breast Cancer (1979 RIGHT MASECTOMY-LYMPH NODES REMOVED) - Surgical History Cardiac Surgeries: Sugical HX of: Cardiac Catheterization (3 HEART CATHS 4 STENTS, most recent 2013) Abdominal Surgeries: Surgical HX of: Abdominal Surgery, Appendectomy Reproductive Surgeries: Surgical HX of;: Breast Surgery (For breast cancer), Hysterectomy - Family History Family History: Reports;: Family Cancer (Father), Family Heart Disease (Sister) , Family Hypertension (Mother), Family Stroke (MOTHER AND FATHER) - Social History Smoking Status: Former smoker Physical Examination Vital Signs Temp Resp BP Pulse Ox 97.9 F 20 190/79 98 07/23/17 12:48 07/23/17 12:48 07/23/17 12:48 07/23/17 12:48 Exam: General appearance: Appears well. Pleasant and cooperative. Overweight, no acute distress. Mild conversational dyspnea noted. Head exam: Present: normal inspection, normocephalic, atraumatic. Absent: hematoma, laceration Eye exam: Present: EOMI. Absent: conjunctival injection, nystagmus, periorbital swelling, scleral icterus, laceration to eyelids, jaundice Pupils: Present: PERRL. Absent: constricted, dilated, fixed, irregular, unequal ENT exam: Present: normal exam, normal external ear exam, mucous membranes moist. Neck exam: Present: normal inspection, midline trachea. No significant carotid pulse delay absent: masses, lymphadenopathy, tenderness, thyromegaly, carotid bruit Respiratory exam: Present: clear to auscultation bilaterally. Absent: accessory muscle use, chest wall tenderness, rales, rhonchi, wheezing. Cardiovascular exam: Present: regular rate and rhythm. Systolic murmur consistent with aortic stenosis with radiation to neck. Absent: gallop, JVD, rubs GI/Abdominal exam: Present: normal bowel sounds, soft. Absent: distended, firm , hernia, mass, tenderness. Extremities exam: Present: Normal Gait, No Clubbing, No Cyanosis, Upper Extr. Pulses 2+, Lower Extr. Pulses diminished, No edema. Capillary refill less than 3 seconds. Musculoskeletal: Present: No Fluid Collection, No Pain, Normal Range of Motion Back exam: Present: normal inspection. Absent: muscle spasm, vertebral tenderness Neurological exam: Present: awake, alert, oriented X3, Moves all extremities well without hemiparesis or paralysis. Grossly intact without resting or essential tremor Psychiatric exam: Present: normal affect, normal mood Skin exam: Present: normal color, warm, dry, intact. Absent: cyanosis, diaphoretic, rash, urticaria Result/EKG - Labs CBC & BMP: 07/24/17 05:21 07/24/17 05:21 Lab Results: I have reviewed the past 24 hour labs Labs: Laboratory Results - last 24 hr 07/23/17 07/23/17 07/24/17 13:09 19:21 05:21 WBC 11.6 RBC 4.60 Hgb 14.4 Hct 43.2 MCV 93.9 MCH 31 MCHC 33.3 RDW 13.9 Plt Count 225 MPV 9.9 Neut % (Auto) 61.9 Lymph % (Auto) 27.1 Mcculloch % (Auto) 8.1 Eos % (Auto) 1.4 Baso % (Auto) 0.7 Neut # (Auto) 7.2 Lymph # (Auto) 3.2 Mcculloch # (Auto) 0.9 H Eos # (Auto) 0.2 Baso # (Auto) 0.1 Immature Gran % 0.8 Nucleated RBC % 0.0 Immature Gran # 0.09 Nucleated RBCs # 0.00 Immature Plt Fraction 0.0 Sodium Potassium Chloride Carbon Dioxide Anion Gap BUN Creatinine GFR Calculation BUN/Creatinine Ratio Glucose Calculated Osmolality Calcium Magnesium 2.1 Digoxin 2.20 H* 07/24/17 05:21 WBC RBC Hgb Hct MCV MCH MCHC RDW Plt Count MPV Neut % (Auto) Lymph % (Auto) Mcculloch % (Auto) Eos % (Auto) Baso % (Auto) Neut # (Auto) Lymph # (Auto) Mcculloch # (Auto) Eos # (Auto) Baso # (Auto) Immature Gran % Nucleated RBC % Immature Gran # Nucleated RBCs # Immature Plt Fraction Sodium 141 Potassium 4.9 Chloride 103 Carbon Dioxide 33 H Anion Gap 9.9 BUN 25 H Creatinine 1.40 H GFR Calculation 37 BUN/Creatinine Ratio 17.00 Glucose 96 Calculated Osmolality 284.3 Calcium 9.5 Magnesium Digoxin - EKG EKG results: interpreted by me EKG shows: atrial fibrillation Quality Measures - VTE Contraindication to Pharmacological VTE Prophylaxis: Already on Theraputic Agent , No Prophylaxis Needed <Aubrie Dahl - Last Filed: 07/24/17 17:59> History of Present Illness - Consult Narrative History of present illness: I have personally interviewed and evaluated the patient, reviewed the chart and discussed medical decision-making with practitioner Eladio. I have read this note and agree with her documentation here in with the following clarifications : Her aortic stenosis have some parameters that appear more severe, and there is conflicting information on the echocardiogram. I will need to pull her most recent clinic echo and reviewed those images as well. In general she has some degree of aortic stenosis, history of coronary artery disease, and has had some bradycardia all of which can contribute to her symptoms of dyspnea on exertion and fatigue. She will likely benefit from invasive study, probably on Thursday with left and right heart catheterization including aortic valve study. CC: Sven Hatfield MD Physical Examination Vital Signs Temp Resp BP Pulse Ox 97.9 F 20 190/79 98 07/23/17 12:48 07/23/17 12:48 07/23/17 12:48 07/23/17 12:48 Result/EKG - Labs CBC & BMP: 07/24/17 05:21 07/24/17 05:21 Labs: Laboratory Results - last 24 hr 07/23/17 07/23/17 07/24/17 13:09 19:21 05:21 WBC 11.6 RBC 4.60 Hgb 14.4 Hct 43.2 MCV 93.9 MCH 31 MCHC 33.3 RDW 13.9 Plt Count 225 MPV 9.9 Neut % (Auto) 61.9 Lymph % (Auto) 27.1 Mcculloch % (Auto) 8.1 Eos % (Auto) 1.4 Baso % (Auto) 0.7 Neut # (Auto) 7.2 Lymph # (Auto) 3.2 Mcculloch # (Auto) 0.9 H Eos # (Auto) 0.2 Baso # (Auto) 0.1 Immature Gran % 0.8 Nucleated RBC % 0.0 Immature Gran # 0.09 Nucleated RBCs # 0.00 Immature Plt Fraction 0.0 Sodium Potassium Chloride Carbon Dioxide Anion Gap BUN Creatinine GFR Calculation BUN/Creatinine Ratio Glucose Calculated Osmolality Calcium Magnesium 2.1 Digoxin 2.20 H* 07/24/17 05:21 WBC RBC Hgb Hct MCV MCH MCHC RDW Plt Count MPV Neut % (Auto) Lymph % (Auto) Mcculloch % (Auto) Eos % (Auto) Baso % (Auto) Neut # (Auto) Lymph # (Auto) Mcculloch # (Auto) Eos # (Auto) Baso # (Auto) Immature Gran % Nucleated RBC % Immature Gran # Nucleated RBCs # Immature Plt Fraction Sodium 141 Potassium 4.9 Chloride 103 Carbon Dioxide 33 H Anion Gap 9.9 BUN 25 H Creatinine 1.40 H GFR Calculation 37 BUN/Creatinine Ratio 17.00 Glucose 96 Calculated Osmolality 284.3 Calcium 9.5 Magnesium Digoxin
[2017-07-24] MEDS: ACETAMINOPHEN 325 MG TABLET PO PRN (15:35)
[2017-07-25] MEDS: hydrALAZINE 20 MG/1 ML VIAL IV PRN (05:02)
[2017-07-25 06:08] LABS: Calcium 9.6 MG/DL (8.5-10.1); Osmolality,Calculated 280.5 MOS/KG (273-304); Potassium 3.8 MMOL/L (3.5-5.1)
--- NOTE | 2017-07-25 08:12 | Hospitalist Progress Note ---
Assessment and Plan (1) Atrial fibrillation Status: Chronic Assessment and plan: Onset marked by the occurrence of cerebrovascular accident in February 2017. Current Visit: No (2) Coronary artery disease Status: Chronic Assessment and plan: Coronary stenting 2011, 03/2014 and most recently in June 2014 Current Visit: Yes Hospitalist: Subjective Interval history: 77-year-old female with history of coronary artery disease with multiple previous stent placements, hypertension with atrial fibrillation and cerebrovascular accident in February 2017. Patient presented to the hospital for increasing levels of shortness of breath with persistent atrial fibrillation. She has undergone echocardiographic evaluation which demonstrated a left ventricular ejection fraction of 55-60%, essentially normal pulmonary artery pressures with an accelerated left ventricular outflow tract velocity at 1.4 m/ s. This was associated with a dimensionless obstructive index of 0.25. She has been seen by cardiology and she reports to me that she is anticipated for cardiac catheterization. This morning she has no specific complaint. Her vital signs are stable. Rhythm strips show atrial fibrillation with controlled ventricular response. Exam - Constitutional Vitals: Period Temp Pulse Resp BP Sys/Velazco Pulse Ox Last 24 Hr 97.4 F-98.3 F 54-86 16-22 131-194/61-92 95-98 General appearance: normal weight - Respiratory Respiratory exam: Present: clear to auscultation bilaterally. Absent: rales, rhonchi, wheezes - Cardiovascular Cardiovascular exam: Present: irregular rhythm, systolic murmur (Short duration 2/6 systolic murmur at the base radiating to the carotids without substantial atypical carotid pulse lag) - GI/Abdominal GI/Abdominal exam: Present: normal bowel sounds. Absent: organomegaly, tenderness - Extremities Exam Extremities exam: Absent: edema - Neurological Exam Neurological exam: Present: alert, oriented X3 Results - Labs CBC & BMP: 07/24/17 05:21 07/25/17 05:24 Quality Measures - VTE Contraindication to Pharmacological VTE Prophylaxis: Already on Theraputic Agent , No Prophylaxis Needed
[2017-07-25] MEDS: ROSUVASTATIN 20 MG TABLET PO SCH (08:53)
[2017-07-25] MEDS: POLYETHYLENE GLYCOL POWDER 17 GM PACK PO SCH (08:53)
[2017-07-25] MEDS: URSODIOL 300 MG CAPSULE PO SCH ×2 (08:53→20:44)
[2017-07-25] MEDS: MEGESTROL 400 MG/10 ML UDCUP PO SCH ×2 (08:53→22:43)
[2017-07-25] MEDS: CARVEDILOL 25 MG TABLET PO SCH (08:53)
[2017-07-25] MEDS: FAMOTIDINE 20 MG TABLET PO SCH (08:53)
[2017-07-25] MEDS: ENOXAPARIN 80 MG/0.8 ML SYRINGE SUBCUT SCH ×2 (08:53→20:44)
--- NOTE | 2017-07-25 13:29 | Cardiology Progress Note ---
Assessment and Plan (1) Dyspnea Status: Acute Current Visit: Yes (2) Aortic stenosis Status: Acute Current Visit: Yes (3) Atrial fibrillation with slow ventricular response Status: Acute Current Visit: Yes (4) Chronic anticoagulation Status: Chronic Current Visit: Yes (5) Coronary artery disease Status: Chronic Current Visit: Yes (6) Dyslipidemia Status: Chronic Current Visit: Yes (7) History of CVA (cerebrovascular accident) Status: Chronic Current Visit: No Cardiology - PN: Subj Interval history: Band Edger: Dr. Ronquillo PCP: Dr. Jarrell Summary: Ms. Caraballo is a 77 year old female with a history of coronary artery disease, hypertension, dyslipideamia, diverticulosis, gallstones, and history of breast cancer. She was in the hospital in February 2017 with an acute CVA and was diagnosed with new onset atrial fibrillation and started on chronic anticoagulation with Eliquis. She has had 3 heart catheterizations in the past with stent placement 4 and PTCA. 08/27/2012 she received stent to the first diagonal and PTCA to the side branch of the first diagonal. 03/17/14 she had an NSTEMI and had placement of drug-eluting stents to a mid LAD 95% stenosis and mid RCA 90% stenosis with patent first diagonal stent. 06/16/2014 she had stent placement to the distal RCA with 95% stenosis was noted to have mild in-stent restenosis in the diagonal branch which was not flow-limiting. Her other stents were patent and she was noted to have an ejection fraction of 45-50%. She presented to the hospital due to progressive exertional dyspnea. She was recently seen in the clinic by Dr. Ronquillo on 07/08/2017 with similar complaints and underwent testing with lab work, Holter monitor, and echocardiogram. Holter monitor revealed predominantly atrial fibrillation with minimum heart rate 57 beats a maximum heart rate 147 beats. She was noted to have frequent PVCs and persistent A. fib. Echocardiogram revealed EF 50%, mild LVH, mild aortic stenosis with transaortic mean gradient 9.5 mmHg, mild to moderate MR. Lab work at the clinic on 07/09/2017 was reviewed. Lipid panel showed cholesterol 144, triglycerides 58, HDL 78, LDL 43. Her creatinine was 1.4, sodium 141, potassium 4.2, GFR 36. Magnesium 2.0. H&H was 14.8 and 45.4. TSH and free T4 were normal at 2.33 and 1.06 respectively. Vitamin D level was normal at 68.7. Repeat echocardiogram during hospitalization revealed more severe aortic stenosis with conflicting parameters across the valve, mean gradient 14 mmHg, aortic valve area less than 1. She also appears to have bradycardia with some dig toxicity. July 25, 2017: She feels terrible this morning. She still has significant dyspnea, shortness of breath. She is somewhat dizzy and lightheaded, when she is standing her blood pressure is in the 70s. On telemetry she is predominantly atrial fibrillation, there are some more profound bradycardic episodes and she appears to be in sinus bradycardia at those moments. Overall she has not had severe bradycardia other than those brief moments. She is not having any chest pain. IMPRESSION/PLAN: 1. PROGRESSIVE DYSPNEA: Differential diagnosis includes heart failure from severe aortic stenosis, bradycardia, progressive coronary artery disease. We will proceed with left and right heart catheterization probably on Thursday to definitively diagnose her. [facility] to see if this improves her symptoms. Also she has had some hypotension so we will need to monitor her closely. 2. ATRIAL FIBRILLATION: She is anticoagulated, generally well rate controlled. Digoxin has been stopped due to her toxicity and some bradycardia. 3. AORTIC STENOSIS: On my review of the echo here, in general the findings seem more consistent with severe aortic stenosis. I have also reviewed the echocardiogram from clinic in June, and by my interpretation the valve area is also more severely stenotic. I am calculating an aortic valve area of 0.87 cm last month as well. Again she has low transaortic gradients. On echocardiogram here her mitral regurgitation seems mild, and by my interpretation on the one in clinic it is more moderate to severe. Certainly this mitral regurgitation can offset her intraventricular pressures and to decrease the detected gradient. We will need to definitively diagnose her severity of stenosis with cardiac catheterization. 4. CORONARY ARTERY DISEASE: She is status post NSTEMI in March 2014. She has had stent placement 4 and PTCA as described above. 5. HYPERTENSION: Currently well controlled with occasional elevated reading. We will continue current therapy, monitor, and adjust as needed. I am going to need to decrease her parameters and she did have some hypotension. 6. DYSLIPIDEMIA: Continue lipid-lowering agent. Recent lipid panel revealed cholesterol 144, triglycerides 58, HDL 78, LDL 43. 7. CHRONIC ANTICOAGULATION: Continue Eliquis. 8. HISTORY OF CVA: Has some residual blurry vision. Continue chronic anticoagulation with Eliquis. Because of her transient hypotension I am going to check orthostatics, urinalysis and blood cultures. Exam (Progress Note) - Constitutional Vitals: Period Temp Pulse Resp BP Sys/Velazco Pulse Ox Last 24 Hr 97.4 F-98.3 F 54-100 16-22 79-194/55-92 95-98 Exam: Exam: General appearance: Alert and oriented 3, no acute distress. Mild conversational dyspnea noted. Head exam: Present: normal inspection, normocephalic, atraumatic. Absent: hematoma, laceration Eye exam: Present: EOMI. Absent: conjunctival injection, nystagmus, periorbital swelling, scleral icterus, laceration to eyelids, jaundice Pupils: Present: PERRL. Absent: constricted, dilated, fixed, irregular, unequal ENT exam: Present: normal exam, normal external ear exam, mucous membranes moist. Neck exam: Present: Bilateral carotid bruits consistent with aortic stenosis murmur, normal inspection, midline trachea. No significant carotid pulse delay absent: masses, lymphadenopathy, tenderness, thyromegaly Respiratory exam: Present: clear to auscultation bilaterally. Absent: accessory muscle use, chest wall tenderness, rales, rhonchi, wheezing. Cardiovascular exam: Present: Irregularly irregular rate and rhythm. Systolic murmur consistent with aortic stenosis with radiation to neck. Absent: gallop, JVD, rubs GI/Abdominal exam: Present: normal bowel sounds, soft. Absent: distended, firm , hernia, mass, tenderness. Extremities exam: Present: Normal Gait, No Clubbing, No Cyanosis, Upper Extr. Pulses 2+, Lower Extr. Pulses diminished, No edema. Capillary refill less than 3 seconds. Musculoskeletal: Present: No Fluid Collection, No Pain, Normal Range of Motion Back exam: Present: normal inspection. Absent: muscle spasm, vertebral tenderness Neurological exam: Present: awake, alert, oriented X3, Moves all extremities well without hemiparesis or paralysis. Grossly intact without resting or essential tremor Psychiatric exam: Present: normal affect, normal mood Skin exam: Present: normal color, warm, dry, intact. Absent: cyanosis, diaphoretic, rash, urticaria Result/EKG - Labs CBC & BMP: 07/24/17 05:21 07/25/17 05:24 Lab Results: I have reviewed the past 24 hour labs Labs: Laboratory Results - last 24 hr 07/24/17 07/25/17 18:37 05:24 D-Dimer, Quantitative <= 0.5 Sodium 139 Potassium 3.8 Chloride 104 Carbon Dioxide 25 Anion Gap 13.8 BUN 23 H Creatinine 1.10 H GFR Calculation 49 BUN/Creatinine Ratio 20.00 Glucose 101 Calculated Osmolality 280.5 Calcium 9.6 Quality Measures - VTE Contraindication to Pharmacological VTE Prophylaxis: Already on Theraputic Agent , No Prophylaxis Needed
[2017-07-26 05:20] LABS: Basophils # 0.1 10*3/uL (0.0-0.2); Basophils % 1.1 % (0.0-0.8); Eosinophils # 0.2 10*3/uL (0.0-0.87); Eosinophils % 1.5 % (0.00-10.9); Hematocrit 43.7 VOL% (35.7-47.0); Hemoglobin 14.9 GM/DL (12.0-16.0); Immature Granulocytes % 0.6 %; Immature Granulocytes Absolute 0.06 #; Lymphocytes % 28.4 % (21.3-54.2); Mean Corpuscular HGB Conc 34.1 GM/DL (32-36); Mean Corpuscular Hemoglobin 32 PG (27-34); Mean Corpuscular Volume 92.6 FL (87-102); Mean Platelet Volume 9.8 FL (9.6-12.0); Monocytes # 0.8 10*3/uL (0.11-0.8); Monocytes % 7.4 % (1.7-12.7); Neutrophils # 6.5 10*3/uL (1.4-7.4); Platelet Count 237 T/CUMM (130-400); Red Blood Count 4.72 MC/CUMM (3.8-5.5); Red Cell Distribution Width 13.9 % (9.3-17.3); White Blood Count 10.7 T/CUMM (4-12)
[2017-07-26 05:53] LABS: Calcium 9.1 MG/DL (8.5-10.1); Magnesium 2.1 MG/DL (1.8-2.4); Osmolality,Calculated 278.7 MOS/KG (273-304)
--- NOTE | 2017-07-26 07:56 | Hospitalist Progress Note ---
Assessment and Plan (1) Atrial fibrillation Status: Chronic Assessment and plan: Onset marked by the occurrence of cerebrovascular accident in February 2017. Wide variation in ventricular response with slightly elevated digoxin level at admission Current Visit: No (2) Coronary artery disease Status: Chronic Assessment and plan: Coronary stenting 2011, 03/2014 and most recently in June 2014. Aortic valve disease of undefined severity at this time. Current Visit: Yes Hospitalist: Subjective Interval history: 77-year-old female with history of coronary artery disease with multiple previous stent placements hypertension who presented with atrial fibrillation complicated by cerebrovascular accident in February 2017. Patient has had ongoing problems with shortness of breath was subsequently. She has had several echocardiograms in summary they demonstrate normal left ventricular systolic performance with minimal elevation of the pulmonary artery pressures. Her aortic valve is calcified. Her left ventricular outflow tract velocity is augmented and there is a transaortic valve gradient present. The severity is a question. Her dimensionless obstructive index is 0.25. Her digoxin level was elevated on admission but the patient is continued to have a widely varying ventricular response to atrial fibrillation. Strips last evening show a fairly substantial increase in R to R interval while at other times during the day rate control is adequate. The patient is anticipated for possible cardiac catheterization to further assess the severity of her aortic valve disease. Her vital signs are stable overnight. She has no complaint feels much better apparently than yesterday. Exam - Constitutional Vitals: Period Temp Pulse Resp BP Sys/Velazco Pulse Ox Last 24 Hr 96.7 F-98.1 F 61-100 16-20 79-181/51-83 95-99 General appearance: normal weight - Respiratory Respiratory exam: Absent: rales, rhonchi, wheezes - Cardiovascular Cardiovascular exam: Present: irregular rhythm, systolic murmur (Short duration harsh 2/6 systolic murmur at the base radiating to the carotids) - GI/Abdominal GI/Abdominal exam: Present: normal bowel sounds. Absent: organomegaly, tenderness - Extremities Exam Extremities exam: Absent: edema - Neurological Exam Neurological exam: Present: alert, oriented X3 Results - Labs CBC & BMP: 07/26/17 05:09 07/26/17 05:09 Labs: Magnesium level 2.1 Quality Measures - VTE Contraindication to Pharmacological VTE Prophylaxis: Already on Theraputic Agent , No Prophylaxis Needed
[2017-07-26 08:09] LABS: Apearance,Urine Slightly Hazy (Clear); Bacteria,Urine Occasional /HPF (Few); Bilirubin,Urine Negative (Negative); Blood, Urine Negative (Negative); Glucose,Urine (UA) Negative (Negative); Hyaline Casts,Urine 1 /LPF (0-3); Ketones,Urine Negative (Negative); Mucus,Urine Occasional /LPF (Occasional); Nitrite,Urine Negative (Negative); Protein,Urine Negative; RBC,Urine 2 /HPF (0-4); Squamous Epithelial Cell,Urine Occasional /HPF (0-10); Urine Color Yellow (Yellow); Urine Specific Gravity 1.013 (1.001-1.035); WBC,Urine 2 /HPF (0-6)
[2017-07-26] MEDS: FAMOTIDINE 20 MG TABLET PO SCH (08:53)
[2017-07-26] MEDS: URSODIOL 300 MG CAPSULE PO SCH ×2 (08:53→21:29)
[2017-07-26] MEDS: MEGESTROL 400 MG/10 ML UDCUP PO SCH ×2 (08:53→23:02)
[2017-07-26] MEDS: ROSUVASTATIN 20 MG TABLET PO SCH (08:54)
[2017-07-26] MEDS: POLYETHYLENE GLYCOL POWDER 17 GM PACK PO SCH (08:54)
[2017-07-26] MEDS: ENOXAPARIN 80 MG/0.8 ML SYRINGE SUBCUT SCH ×2 (08:54→21:30)
--- NOTE | 2017-07-26 11:02 | Cardiology Progress Note ---
Assessment and Plan (1) Dyspnea Status: Acute Current Visit: Yes (2) Aortic stenosis Status: Acute Current Visit: Yes (3) Atrial fibrillation with slow ventricular response Status: Acute Current Visit: Yes (4) Chronic anticoagulation Status: Chronic Current Visit: Yes (5) Coronary artery disease Status: Chronic Current Visit: Yes (6) Dyslipidemia Status: Chronic Current Visit: Yes (7) History of CVA (cerebrovascular accident) Status: Chronic Current Visit: No Cardiology - PN: Subj Interval history: Rn Clinical Trials: Dr. Ronquillo PCP: Dr. Jarrell Summary: Ms. Caraballo is a 77 year old female with a history of coronary artery disease, hypertension, dyslipideamia, diverticulosis, gallstones, and history of breast cancer. She was in the hospital in February 2017 with an acute CVA and was diagnosed with new onset atrial fibrillation and started on chronic anticoagulation with Eliquis. She has had 3 heart catheterizations in the past with stent placement 4 and PTCA. 08/27/2012 she received stent to the first diagonal and PTCA to the side branch of the first diagonal. 03/17/14 she had an NSTEMI and had placement of drug-eluting stents to a mid LAD 95% stenosis and mid RCA 90% stenosis with patent first diagonal stent. 06/16/2014 she had stent placement to the distal RCA with 95% stenosis was noted to have mild in-stent restenosis in the diagonal branch which was not flow-limiting. Her other stents were patent and she was noted to have an ejection fraction of 45-50%. She presented to the hospital due to progressive exertional dyspnea. She was recently seen in the clinic by Dr. Ronquillo on 07/08/2017 with similar complaints and underwent testing with lab work, Holter monitor, and echocardiogram. Holter monitor revealed predominantly atrial fibrillation with minimum heart rate 57 beats a maximum heart rate 147 beats. She was noted to have frequent PVCs and persistent A. fib. Echocardiogram revealed EF 50%, mild LVH, mild aortic stenosis with transaortic mean gradient 9.5 mmHg, mild to moderate MR. Lab work at the clinic on 07/09/2017 was reviewed. Lipid panel showed cholesterol 144, triglycerides 58, HDL 78, LDL 43. Her creatinine was 1.4, sodium 141, potassium 4.2, GFR 36. Magnesium 2.0. H&H was 14.8 and 45.4. TSH and free T4 were normal at 2.33 and 1.06 respectively. Vitamin D level was normal at 68.7. Repeat echocardiogram during hospitalization revealed more severe aortic stenosis with conflicting parameters across the valve, mean gradient 14 mmHg, aortic valve area less than 1. She also appears to have bradycardia with some dig toxicity. Digoxin has been withheld, beta-blockers decreased per July 26, 2017: She continues to feel poorly. She still has significant dyspnea. Blood pressures improved, but is somewhat variable. On telemetry she is predominantly atrial fibrillation, there are some more profound bradycardic episodes and she appears to be in sinus bradycardia at those moments. Overall she has not had severe bradycardia other than those brief moments. She is not having any chest pain. IMPRESSION/PLAN: 1. PROGRESSIVE DYSPNEA: Differential diagnosis includes heart failure from severe aortic stenosis, bradycardia, progressive coronary artery disease. We will proceed with left and right heart catheterization Thursday to definitively diagnose her. I have adjusted her beta-francisco, ultimately would be nice to switch her to Bystolic when her blood pressure is stabilized. 2. ATRIAL FIBRILLATION: She is anticoagulated, generally well rate controlled. Digoxin has been stopped due to her toxicity and some bradycardia. 3. AORTIC STENOSIS: On my review of the echo here, in general the findings seem more consistent with severe aortic stenosis. I have also reviewed the echocardiogram from clinic in June, and by my interpretation the valve area is also more severely stenotic. I am calculating an aortic valve area of 0.87 cm last month as well. Again she has low transaortic gradients. On echocardiogram here her mitral regurgitation seems mild, and by my interpretation on the one in clinic it is more moderate to severe. Certainly this mitral regurgitation can offset her intraventricular pressures and decrease the detected transaortic gradient. We will need to definitively diagnose her severity of stenosis with cardiac catheterization. 4. CORONARY ARTERY DISEASE: She is status post NSTEMI in March 2014. She has had stent placement 4 and PTCA as described above. 5. HYPERTENSION: Currently well controlled with occasional elevated reading. 6. DYSLIPIDEMIA: Continue lipid-lowering agent. Recent lipid panel revealed cholesterol 144, triglycerides 58, HDL 78, LDL 43. 7. CHRONIC ANTICOAGULATION: We are holding Eliquis in preparation for left heart catheterization. 8. HISTORY OF CVA: Has some residual blurry vision. Continue chronic anticoagulation. Exam (Progress Note) - Constitutional Vitals: Period Temp Pulse Resp BP Sys/Velazco Pulse Ox Last 24 Hr 96.7 F-98.3 F 71-93 16-18 122-171/51-83 95-99 Exam: Exam: General appearance: Alert and oriented 3, no acute distress. Mild conversational dyspnea noted. Head exam: Present: normal inspection, normocephalic, atraumatic. Absent: hematoma, laceration Eye exam: Present: EOMI. Absent: conjunctival injection, nystagmus, periorbital swelling, scleral icterus, laceration to eyelids, jaundice Pupils: Present: PERRL. Absent: constricted, dilated, fixed, irregular, unequal ENT exam: Present: normal exam, normal external ear exam, mucous membranes moist. Neck exam: Present: Bilateral carotid bruits consistent with aortic stenosis murmur, normal inspection, midline trachea. No significant carotid pulse delay absent: masses, lymphadenopathy, tenderness, thyromegaly Respiratory exam: Present: clear to auscultation bilaterally. Absent: accessory muscle use, chest wall tenderness, rales, rhonchi, wheezing. Cardiovascular exam: Present: Irregularly irregular rate and rhythm. Systolic murmur consistent with aortic stenosis with radiation to neck. Absent: gallop, JVD, rubs GI/Abdominal exam: Present: normal bowel sounds, soft. Absent: distended, firm , hernia, mass, tenderness. Extremities exam: Present: Normal Gait, No Clubbing, No Cyanosis, Upper Extr. Pulses 2+, Lower Extr. Pulses diminished, No edema. Capillary refill less than 3 seconds. Musculoskeletal: Present: No Fluid Collection, No Pain, Normal Range of Motion Back exam: Present: normal inspection. Absent: muscle spasm, vertebral tenderness Neurological exam: Present: awake, alert, oriented X3, Moves all extremities well without hemiparesis or paralysis. Grossly intact without resting or essential tremor Psychiatric exam: Present: normal affect, normal mood Skin exam: Present: normal color, warm, dry, intact. Absent: cyanosis, diaphoretic, rash, urticaria Result/EKG - Labs CBC & BMP: 07/26/17 05:09 07/26/17 05:09 Lab Results: I have reviewed the past 24 hour labs Labs: Laboratory Results - last 24 hr 07/26/17 07/26/17 07/26/17 05:09 05:09 05:09 WBC 10.7 RBC 4.72 Hgb 14.9 Hct 43.7 MCV 92.6 MCH 32 MCHC 34.1 RDW 13.9 Plt Count 237 MPV 9.8 Neut % (Auto) 61.0 Lymph % (Auto) 28.4 Casey % (Auto) 7.4 Eos % (Auto) 1.5 Baso % (Auto) 1.1 H Neut # (Auto) 6.5 Lymph # (Auto) 3.0 Casey # (Auto) 0.8 Eos # (Auto) 0.2 Baso # (Auto) 0.1 Immature Gran % 0.6 Nucleated RBC % 0.0 Immature Gran # 0.06 Nucleated RBCs # 0.00 Immature Plt Fraction 0.0 Sodium 138 Potassium 4.0 Chloride 104 Carbon Dioxide 26 Anion Gap 12.0 BUN 23 H Creatinine 1.20 H GFR Calculation 44 BUN/Creatinine Ratio 19.00 Glucose 96 Calculated Osmolality 278.7 Calcium 9.1 Magnesium 2.1 Urine Color Urine Appearance Urine pH Ur Specific Hay Urine Protein Urine Glucose (UA) Urine Ketones Urine Blood Urine Nitrate Urine Bilirubin Urine Urobilinogen Urine Leukocytes Urine RBC Urine WBC Ur Squamous Epith Cells Urine Bacteria Hyaline Casts Urine Mucus Ur Culture Indicated? Digoxin 1.10 07/26/17 07:21 WBC RBC Hgb Hct MCV MCH MCHC RDW Plt Count MPV Neut % (Auto) Lymph % (Auto) Casey % (Auto) Eos % (Auto) Baso % (Auto) Neut # (Auto) Lymph # (Auto) Casey # (Auto) Eos # (Auto) Baso # (Auto) Immature Gran % Nucleated RBC % Immature Gran # Nucleated RBCs # Immature Plt Fraction Sodium Potassium Chloride Carbon Dioxide Anion Gap BUN Creatinine GFR Calculation BUN/Creatinine Ratio Glucose Calculated Osmolality Calcium Magnesium Urine Color Yellow Urine Appearance Slightly hazy Urine pH 6.0 Ur Specific Hay 1.013 Urine Protein Negative Urine Glucose (UA) Negative Urine Ketones Negative Urine Blood Negative Urine Nitrate Negative Urine Bilirubin Negative Urine Urobilinogen 2.0 H Urine Leukocytes Negative Urine RBC 2 Urine WBC 2 Ur Squamous Epith Cells Occasional Urine Bacteria Occasional Hyaline Casts 1 Urine Mucus Occasional Ur Culture Indicated? Not indicated Digoxin Quality Measures - VTE Contraindication to Pharmacological VTE Prophylaxis: Already on Theraputic Agent , No Prophylaxis Needed
[2017-07-26] MEDS ORDERED: POTASSIUM CHLORIDE RIDER 10 MEQ in PREMIX 1 EACH IV PRN (11:51)
[2017-07-26] MEDS ORDERED: MAGNESIUM SULF RIDER 2 GM in PREMIX 1 EACH IV PRN (11:51)
[2017-07-26] MEDS ORDERED: diphenhydrAMINE CAP 25 MG CAPSULE PO ONE (11:51)
[2017-07-26] MEDS ORDERED: DIAZEPAM 5 MG TABLET PO ONE (11:51)
[2017-07-26] MEDS: ACETAMINOPHEN 325 MG TABLET PO PRN (14:47)
[2017-07-27] MEDS ORDERED: SODIUM CHLORIDE 0.45% 1,000 ML IV SCH (00:01)
[2017-07-27 05:33] LABS: Basophils # 0.1 10*3/uL (0.0-0.2); Basophils % 0.8 % (0.0-0.8); Eosinophils # 0.1 10*3/uL (0.0-0.87); Eosinophils % 1.2 % (0.00-10.9); Hematocrit 45.1 VOL% (35.7-47.0); Hemoglobin 15.2 GM/DL (12.0-16.0); Immature Granulocytes % 0.5 %; Immature Granulocytes Absolute 0.05 #; Lymphocytes # 3.5 10*3/uL (1.4-4.0); Lymphocytes % 32.2 % (21.3-54.2); Mean Corpuscular HGB Conc 33.7 GM/DL (32-36); Mean Corpuscular Hemoglobin 32 PG (27-34); Mean Corpuscular Volume 93.6 FL (87-102); Mean Platelet Volume 11.1 FL (9.6-12.0); Monocytes # 0.8 10*3/uL (0.11-0.8); Monocytes % 7.6 % (1.7-12.7); Neutrophils # 6.3 10*3/uL (1.4-7.4); Neutrophils % 57.7 % (38.7-73.9); Platelet Count 183 T/CUMM (130-400); Red Blood Count 4.82 MC/CUMM (3.8-5.5); Red Cell Distribution Width 13.8 % (9.3-17.3); White Blood Count 10.9 T/CUMM (4-12)
[2017-07-27 06:10] LABS: Calcium 9.2 MG/DL (8.5-10.1); Osmolality,Calculated 278.7 MOS/KG (273-304)
[2017-07-27] MEDS ORDERED: DIAZEPAM 5 MG TABLET ONE (08:41)
[2017-07-27] MEDS ORDERED: diphenhydrAMINE CAP 25 MG CAPSULE ONE (08:42)
[2017-07-27] MEDS: FAMOTIDINE 20 MG TABLET PO SCH (09:28)
[2017-07-27] MEDS: ROSUVASTATIN 20 MG TABLET PO SCH (09:28)
[2017-07-27] MEDS: POLYETHYLENE GLYCOL POWDER 17 GM PACK PO SCH (09:29)
[2017-07-27] MEDS: MEGESTROL 400 MG/10 ML UDCUP PO SCH (09:29)
[2017-07-27] MEDS: URSODIOL 300 MG CAPSULE PO SCH ×2 (09:35→22:12)
[2017-07-27] MEDS ORDERED: MIDAZOLAM 2 MG/2 ML VIAL ONE (10:01)
[2017-07-27] MEDS ORDERED: fentaNYL 100 MCG/2 ML VIAL ONE (10:06)
[2017-07-27] MEDS ORDERED: hydrALAZINE 20 MG/1 ML VIAL ONE (10:32)
--- NOTE | 2017-07-27 10:39 | History and Physical Update ---
Sedation H&P Update - Sedation Plan for Sedation: moderate Patient Consent: Procedure disscussed with patient and patinet has consented., Risks and benefits were discussed with patient,including infection,, bleeding, injury to surrounding structures, seizure, temporary nerve, Patient understands and accepts potential risks/benefits and agrees to, proceed. ASA Class: III Airway Assessment: Class III: Soft palate, base of uvula visible
[2017-07-27] MEDS ORDERED: cloNIDine 0.1 MG TABLET ONE (11:11)
[2017-07-27] MEDS ORDERED: HEPARIN/NACL 0.9% 2 UNITS/ML 1,000 ML IV ONE (11:15)
[2017-07-27] MEDS ORDERED: LIDOCAINE 1%/EPI INJ 20 ML VIAL ONE (11:15)
--- NOTE | 2017-07-27 11:24 | Cardiac Catheterization ---
Date of Procedure:: 07/27/17 Pre-op Diagnosis: CAD history aortic stenosis Post-op diagnosis: same Procedure: Procedures performed: Right heart catheterization Oxygen saturation measurements Cardiac output by thermodilution technique Left heart catheterization Coronary arteriography Left ventriculography Femoral sheath angiography After obtaining informed consent the patient was brought to the [facility] [employer] [facility] with a right groin was prepped and draped in the usual sterile manner. Using intravenous sedation and local anesthesia a needle was inserted into the right femoral artery and a 6 [place]ine[place] sheath was placed without difficulty. A separate needle stick was made to the right femoral vein and a 7 [place] sheath was placed without difficulty. A [place] catheter was advanced under fluoroscopy to the superior vena cava where oxygen saturation measurements were obtained. This catheter then was positioned using balloon flow to the main pulmonary artery. Oxygen saturations again were obtained with the catheter tip in the main pulmonary artery. This catheter then was connected to hemodynamic monitoring and pressures were measured in the pulmonary capillary wedge position and in the main pulmonary artery. Cardiac outputs were then obtained using the thermodilution technique. After completion of cardiac output measurements, the catheter was pulled back from the main pulmonary artery into the right ventricle where right ventricular pressures were measured. This catheter then was pulled back into the right atrium where pressures were measured and then this catheter was removed. A [place] left coronary catheter was advanced over a guidewire through the arterial sheath to the ascending aorta under fluoroscopy. The left main coronary artery was engaged and multiple angiograms of the left coronary was undertaken in multiple views. After adequate angiograms of the left coronary were obtained this catheter was withdrawn and an AMRM right coronary catheter was advanced over a guidewire under fluoroscopic control the ascending aorta where angiography of the right coronary artery was undertaken in multiple views. After adequate angiograms of the right coronary artery were obtained this catheter was withdrawn and a pigtail ventriculographic catheter was advanced over a guidewire to fluoroscopic control to the ascending aorta where it was then passed across the aortic valve where intraventricular hemodynamics were measured. A ventriculogram was undertaken at this point in the MEEKS projection. After completion of ventriculography this catheter was pulled back from the ventricle to the aorta under hemodynamic monitoring and removed. At this point patient underwent femoral sheath angiography which demonstrated anatomy appropriate for [Mynx closure]. Good hemostasis was obtained and the patient was transferred back to the [facility] having suffered no significant immediate complications. Hemodynamics: Please see accompanying data sheet PA pressures measured in the 44 /14 range. Wedge pressure is in the 12 mmHg range. LVEDP is 10. Aortic valve mean gradient is 21 mmHg. Cardiac output is 2.90 L/min. Aortic valve area measured 0.75 cm. Coronary arteriography: Left coronary artery: Left main coronary is well-developed and free of significant obstructing lesions. The circumflex coronary is a large nondominant vessel possesses no significant lesions through its course. The branches of the circumflex likewise are free of significant obstructing lesions. Left anterior descending coronary has 2 stents. In the proximal LAD at the bifurcation of a large first diagonal artery 2 stented segments. The diagonal stent appears to be widely patent without evidence of significant flow-limiting stenosis. The LAD beyond the bifurcation has a 90% area of stenosis noted. The remainder of the LAD and its branches are free of significant obstructing lesions. Right coronary artery: Right coronary is a large dominant vessel it possesses an area of 95% stenosis just proximal to the takeoff of the posterior descending coronary artery. The remainder of the right coronary appears to be free of significant obstructing lesions. Left ventriculography: After injection of contrast left ventricle is known to be of normal size with normal contractility. There is calcification with decreased excursion of the aortic valve noted. There is hyperdynamic LV function with an ejection fraction in the 75% range. There appears to be 2-3+ mitral insufficiency noted. Right femoral sheath angiography: After injection of contrast right femoral arterial sheath it appears to be fairly small caliber with entry site above the bifurcation. No significant disease of the distal iliac, common femoral or bifurcation be noted based on this limited angiographic study. Conclusions: 1: Critical aortic stenosis 2: Severe two-vessel coronary disease involving the proximal LAD and distal right coronary artery 3: Poorly controlled hypertension 4: Normal left ventricular function with 2+ mitral insufficiency and decreased aortic valve excursion as anticipated. 5: Minx closure right femoral arteriotomy site Our plans get to be to review with the family with the patient are options. Surgery should be considered although she is at increased risk related to comorbidities. I think a better option will be two-vessel percutaneous coronary intervention and then transcatheter aortic valve replacement. I will review options with the patient's family. We will allow this contrast clear and then proceed. We will push blood pressure medications and then pursue repeat evaluation pending our discussion. Surgeon / Physician: Leonard Crenshaw Estimated blood loss: minimal Specimens: none sent Condition: stable - Medications / Follow-up
[2017-07-27] MEDS: ACETAMINOPHEN 325 MG TABLET PO PRN (16:36)
--- NOTE | 2017-07-27 17:37 | Hospitalist Progress Note ---
Assessment and Plan (1) Coronary artery disease Status: Chronic Assessment and plan: severe proximal LAD and distal right coronary disease Current Visit: Yes (2) Aortic stenosis Status: Acute Assessment and plan: Dr Emmanuel parham [place], transcatheter aortic valve replacement, 2+ mitral regurg Current Visit: Yes (3) Atrial fibrillation with slow ventricular response Status: Acute Assessment and plan: kendal garay lorenaree on hold Current Visit: Yes (4) History of CVA (cerebrovascular accident) Status: Chronic Assessment and plan: hold eliquis Current Visit: No Hospitalist: Subjective Interval history: Patient has severe two-vessel disease. Dr. Crenshaw will discuss with the family surgery versus intervention. Patient also has a bad aortic valve and may benefit from a transcatheter aortic replacement which is not available at this hospital. Patient denies any chest pain when I have seen her this morning Exam - Constitutional Vitals: Period Temp Pulse Resp BP Sys/Velazco Pulse Ox Last 24 Hr 96.3 F-97.6 F 74-101 16-20 122-189/66-92 96-100 Exam: Heart Rate-[RRR] Lungs-[CTAB] GI-[+bs soft, NT] Ext-[no edema] Neuro [Motor 5/5], [alert and oriented times 3] psych [normal mood and affect] General [no acute distress] Results - Labs CBC & BMP: 07/27/17 05:02 07/27/17 05:02 Lab Results: I have reviewed the past 24 hour labs Labs: Blood cultures negative no growth Quality Measures - VTE Contraindication to Pharmacological VTE Prophylaxis: Already on Theraputic Agent , No Prophylaxis Needed
[2017-07-27] MEDS: ENOXAPARIN 40 MG/0.4 ML SYRINGE SUBCUT SCH (18:31)
--- NOTE | 2017-07-27 20:27 | XRay Report ---
History: Shortness of breath Date: 07/27/2017 Study: Chest x-ray single view portable Comparison exam: July 24, 2017 There is mild cardiomegaly. The mediastinal contour is unchanged. The pulmonary vasculature is not engorged. There is no gross pleural effusion. There is some mild platelike scarring in the left lower lung. There is no armand pneumonia. There are some scattered emphysematous changes in the lungs. There is osteopenia and mild to moderate thoracic spondylosis. Surgical clips overlie the right axilla. Impression: No acute cardiopulmonary process compared to the previous study PROCEDURE INTERPRETED AT [facility] DEPARTMENT OF RADIOLOGY Final Report Signed by: Dr. Cheri Dupree
[2017-07-27] MEDS: CARVEDILOL 6.25 MG TABLET PO SCH (22:12)
[2017-07-28 04:57] LABS: Basophils # 0.1 10*3/uL (0.0-0.2); Basophils % 0.9 % (0.0-0.8); Eosinophils # 0.2 10*3/uL (0.0-0.87); Eosinophils % 1.5 % (0.00-10.9); Hematocrit 43.6 VOL% (35.7-47.0); Hemoglobin 15.2 GM/DL (12.0-16.0); Immature Granulocytes % 0.7 %; Immature Granulocytes Absolute 0.08 #; Lymphocytes # 2.9 10*3/uL (1.4-4.0); Lymphocytes % 26.4 % (21.3-54.2); Mean Corpuscular HGB Conc 34.9 GM/DL (32-36); Mean Corpuscular Hemoglobin 32 PG (27-34); Mean Corpuscular Volume 92.4 FL (87-102); Mean Platelet Volume 10.1 FL (9.6-12.0); Monocytes % 9.3 % (1.7-12.7); Neutrophils # 6.7 10*3/uL (1.4-7.4); Neutrophils % 61.2 % (38.7-73.9); Platelet Count 243 T/CUMM (130-400); Red Blood Count 4.72 MC/CUMM (3.8-5.5); Red Cell Distribution Width 13.5 % (9.3-17.3)
[2017-07-28 05:18] LABS: Calcium 9.2 MG/DL (8.5-10.1); Magnesium 2.1 MG/DL (1.8-2.4); Osmolality,Calculated 278.5 MOS/KG (273-304); Potassium 4.1 MMOL/L (3.5-5.1)
[2017-07-28] MEDS: POLYETHYLENE GLYCOL POWDER 17 GM PACK PO SCH (09:13)
[2017-07-28] MEDS: FAMOTIDINE 20 MG TABLET PO SCH (09:14)
[2017-07-28] MEDS: ROSUVASTATIN 20 MG TABLET PO SCH (09:14)
[2017-07-28] MEDS: URSODIOL 300 MG CAPSULE PO SCH ×2 (09:14→21:54)
[2017-07-28] MEDS: CARVEDILOL 6.25 MG TABLET PO SCH ×2 (09:15→21:54)
[2017-07-28] MEDS: ACETAMINOPHEN 325 MG TABLET PO PRN (12:10)
[2017-07-28] MEDS ORDERED: CLOPIDOGREL 300 MG TABLET PO ONE (13:17)
[2017-07-28] MEDS: ASPIRIN CHEW 81 MG TABLET PO SCH (14:47)
--- NOTE | 2017-07-28 16:07 | Cardiology Progress Note ---
Sony Downey Vanessa, RN, am scribing for, and in the presence of, Leonard Crenshaw MD 16:07. Assessment and Plan - Time spent with patient Time spent with patient: Greater than 30 minutes (1) Aortic stenosis Status: Acute Assessment and plan: SEE PLAN OF CARE LISTED BELOW. Current Visit: Yes (2) Chronic anticoagulation Status: Chronic Assessment and plan: SEE PLAN OF CARE LISTED BELOW. Current Visit: Yes (3) Coronary artery disease Status: Chronic Assessment and plan: SEE PLAN OF CARE LISTED BELOW. Current Visit: Yes (4) Dyslipidemia Status: Chronic Assessment and plan: SEE PLAN OF CARE LISTED BELOW. Current Visit: Yes (5) History of cerebrovascular accident (CVA) involving cerebellum Status: Chronic Assessment and plan: SEE PLAN OF CARE LISTED BELOW. Current Visit: No (6) Paroxysmal atrial fibrillation Status: Chronic Assessment and plan: SEE PLAN OF CARE LISTED BELOW. Current Visit: No (7) Dyspnea Status: Acute Assessment and plan: SEE PLAN OF CARE LISTED BELOW. Current Visit: Yes (8) Hypertension Status: Chronic Assessment and plan: SEE PLAN OF CARE LISTED BELOW. Current Visit: No Qualifiers: Hypertension type: essential hypertension Qualified Code(s): I10 - Essential (primary) hypertension Cardiology - PN: Subj Interval history: INTERSTATE BUS DISPATCHER: DR. HEIN SUMMARY: 77-year-old WF, PMHx hypertension, dyslipidemia, and previous history of CAD including non-STEMI. She had an acute CVA in February 2017 with newly diagnosed atrial fibrillation. Now chronically anticoagulated with Eliquis. Multiple previous PCI with most recent in June 2014 with stent placement of RCA with patency of the previously placed stents. A recent echo prior to admission suggestive of moderate aortic stenosis. Admitted to telemetry unit on 07/23 with progressive exertional dyspnea over several weeks. Pulmonary embolus ruled out. Cardiac biomarkers have remained normal. No chest pain. Despite optimization include improvement of uncontrolled hypertension, she continued to feel poorly. Taken for elective left and right heart catheterization on 07/27 for definitive assessment. Cath finding revealed critical aortic stenosis with MENG 0.75 cm and mean gradient 21 mmHg with severe two-vessel CAD involving proximal LAD and distal RCA, preserved LV function with EF 75%, 2-3+ mitral insufficiency. Discussed with patient two vessel percutaneous coronary intervention vs surgery. Patient and family have elected for PCI at this time. Patient being optimized post contrast exposure prior to staged PCI tentatively on 07/29. Afterward, will be referred for transcatheter aortic valve replacement. 2016: Sitting up in chair this afternoon and appears comfortable. Dyspnea is stable, and she is not requiring supplemental oxygen. No chest discomfort SBP 140-170 mmHg. anesthesia tech is trace of atrial fib with pulse rate 80s-90s. Labs reviewed. Cell count stable. Electrolytes within acceptable range. Renal function stable post contrast exposure with creatinine 1.2, GFR 48 and unchanged from the last couple days. RFA cath site area is soft without bruise , hematoma, bruit. Distal pulses palpable. ASSESSMENT/PLAN: 1. EXERTIONAL DYSPNEA-stable currently. With findings of severe CAD and critical aortic stenosis, this is most likely etiology of symptoms. Proceeding with percutaneous coronary intervention. Refer for TAVR. 2. AORTIC STENOSIS-per RHC, critical with AV area 0.75 cm. Most certainly contributing factor of progressive dyspnea. Will be referred for transcatheter aortic valve replacement after discharge. 3. CAD-history of previous PCI. Now with severe two-vessel CAD. Plan for staged PCI of proximal LAD and distal RCA tentatively tomorrow. 4. ATRIAL FIB-persistent. Dig toxic with slow ventricular response on admission , now improved. Currently well controlled. Continue beta-francisco. Eliquis is on hold for further cardiac intervention. Lovenox 40 mg daily SubQ 5. HYPERTENSION-overall relatively well controlled with transient BP elevation 6. DYSLIPIDEMIA-statin continued 7. CHRONIC ANTICOAGULATION-Eliquis on hold. Receiving LMWH. 8. HISTORY OF CVA-stable. No neuro s/s. Residual blurred vision from previous CVA. --START ASA ?? Patient today this afternoon had some slurring of her speech and there was some question is whether she had a CVA this afternoon. We are starting her on aspirin and Plavix anticipating percutaneous coronary stenting of 2 vessel disease noted at catheterization several days ago. Neurology is going to see the patient and evaluate her. I will hold off on percutaneous coronary intervention until this is cleared. I have discussed in detail the particulars of this case and I have examined the patient and reviewed the patient's chart both current and old. I was directly involved in the patient's evaluation and management and I completely agree with Natividad Cardoza RN regarding this patient's evaluation and treatment plan. Exam (Progress Note) - Constitutional Vitals: Period Temp Pulse Resp BP Sys/Velazco Pulse Ox Last 24 Hr 97 F-98.8 F 74-98 16-20 119-187/66-97 98-100 Exam: General appearance: Alert and oriented 3, no acute distress. No significant tachypnea today Head exam: Present: normal inspection, normocephalic, atraumatic. Absent: hematoma, laceration Eye exam: Present: EOMI. Absent: conjunctival injection, nystagmus, periorbital swelling, scleral icterus, laceration to eyelids Pupils: Present: PERRL. Absent: constricted, dilated, fixed, irregular, unequal ENT exam: Present: normal exam, normal external ear exam, mucous membranes moist. Neck exam: Present: Carotid bruit-bilaterally, normal inspection, midline trachea. Absent: Masses, lymphadenopathy, tenderness, thyromegaly Respiratory exam: Present: clear to auscultation bilaterally. Absent: accessory muscle use, chest wall tenderness, rales, rhonchi, wheezing. Cardiovascular exam: Present: Irregularly irregular rate and rhythm. Systolic murmur. Absent: gallop, JVD, rubs, bradycardia GI/Abdominal exam: Present: normal bowel sounds, soft. Absent: distended, firm , hernia, mass, tenderness. Extremities exam: Present: Normal Gait, No Clubbing, No Cyanosis, Upper Extr. Pulses 2+, Lower Extr. Pulses diminished but palpable, No edema. Normal capillary refill. Other: RFA cath areas without bruise, hematoma, bruit. Musculoskeletal: Present: No Fluid Collection, No Pain, Normal Range of Motion Back exam: Present: normal inspection. Absent: muscle spasm, vertebral tenderness Neurological exam: Present: awake, alert, oriented X3, Moves all extremities well without hemiparesis or paralysis. Grossly intact. No tremor. Psychiatric exam: Present: normal affect, normal mood Skin exam: Present: normal color, warm, dry, intact. Absent: cyanosis, diaphoretic, rash, urticaria, suspicious lesion. Result/EKG - Labs CBC & BMP: 07/28/17 04:44 07/28/17 04:44 Lab Results: I have reviewed the past 24 hour labs Labs: Laboratory Results - last 24 hr 07/28/17 07/28/17 04:44 04:44 WBC 11.0 RBC 4.72 Hgb 15.2 Hct 43.6 MCV 92.4 MCH 32 MCHC 34.9 RDW 13.5 Plt Count 243 D MPV 10.1 Neut % (Auto) 61.2 Lymph % (Auto) 26.4 [place] % (Auto) 9.3 Eos % (Auto) 1.5 Baso % (Auto) 0.9 H Neut # (Auto) 6.7 Lymph # (Auto) 2.9 [place] # (Auto) 1.0 H Eos # (Auto) 0.2 Baso # (Auto) 0.1 Immature Gran % 0.7 Nucleated RBC % 0.0 Immature Gran # 0.08 Nucleated RBCs # 0.00 Immature Plt Fraction 0.0 Sodium 139 Potassium 4.1 Chloride 105 Carbon Dioxide 26 Anion Gap 12.1 BUN 19 H Creatinine 1.20 H GFR Calculation 480 BUN/Creatinine Ratio 15.00 Glucose 90 Calculated Osmolality 278.5 Calcium 9.2 Magnesium 2.1 - Diagnostic Findings Procedure: Chest x-ray: image reviewed by me, report reviewed by me - EKG EKG results: interpreted by me, no acute changes EKG shows: atrial fibrillation Quality Measures - VTE Contraindication to Pharmacological VTE Prophylaxis: Already on Theraputic Agent , No Prophylaxis Needed IDen Wesley, MD, personally performed the services described in this documentation, ascribed by Natividad Cardoza RN in my presence, and it is both accurate and complete 607 .
--- NOTE | 2017-07-28 16:16 | Neurology Consult Note ---
History of Present Illness History of present illness: 77 years old right-handed white lady with past medical history significant for hypertension, dyslipidemia, previous coronary artery disease history of CVA in February 2070, atrial fib relation chronically on Eliquis status post cardiac stent placement in 2013 admitted to the hospital on 07/23/2017 with progressive exertional dyspnea over several weeks. She underwent cardiac cath on 07/27/2017 which reveals ejection fraction of 75 per with preserved left ventricular function but has severe 2 vessel CAD involving proximal LAD and distal RCA. Apparently today she developed some slurred speech and confusion. There was a question she had some kind of neurological event. She was started back on aspirin and Plavix. Percutaneous coronary intervention has been placed on hold. Patient is somewhat confused during the interview as well. Home Medications Medication Instructions Recorded Confirmed Type Ondansetron HCl 4 mg PO Q4-6H PRN 08/30/15 07/23/17 History Apixaban [Eliquis] 5 mg PO BID tablet 03/10/17 07/23/17 Rx Famotidine Tab [Pepcid Tab] 20 mg PO QAM PRN 03/24/17 07/23/17 History Ursodiol [Actigall] 300 mg PO BID capsule 03/24/17 07/23/17 Rx Megestrol Liquid [Megace Liquid] 400 mg PO BID #0 04/17/17 07/23/17 Rx Carvedilol [Coreg] 25 mg PO BID 07/23/17 07/23/17 History Cholecalciferol (Vitamin D3) 5,000 unit PO DAILY 07/23/17 07/23/17 History [Vitamin D3] Digoxin [Lanoxin] 250 mcg PO DAILY 07/23/17 07/23/17 History Pantoprazole Tab [Protonix Tab] 40 mg PO DAILY 07/23/17 07/23/17 History Polyethylene Glycol Powder 17 gm PO QAM PRN 07/23/17 07/23/17 History [Miralax] Rosuvastatin [Crestor] 20 mg PO DAILY 07/23/17 07/23/17 History Allergies Allergy/AdvReac Type Severity Reaction Status Date / Time Sulfa (Sulfonamide Allergy RASH Verified 08/30/15 18:33 Antibiotics) codeine AdvReac Nausea Verified 08/30/15 18:33 ROS unobtainable: due to mental status Medical,Surgical,& Family Hx - Medical History Cardio: History of: Cardiac Dysrhythmia (RECENTALLY DX WITH AFIB FEBRUARY 2017), CAD, Hypertension, TX (TX X 2,), Valvular Heart Disease (Mild to moderate aortic stenosis, senescent) Neurology: History of: Cerebrovascular Accident No history of: Seizures HEENT: History of: Eye Problem (BLURRED VISION R/T STROKE FEBRUARY 2017) Endocrine: History of: Dyslipidemia Gastrointestinal: History of: Diverticulitis/ Diverticulosis, GERD, Polyps, GI Problems (HAS GALLSTONES) Musculoskeletal: History of: Back/Neck Problems (LOWER PART OF BACK) Reproductive: History of: Breast Cancer (1979 RIGHT MASECTOMY-LYMPH NODES REMOVED) - Surgical History Cardiac Surgeries: Sugical HX of: Cardiac Catheterization (3 HEART CATHS 4 STENTS, most recent 2013) Abdominal Surgeries: Surgical HX of: Abdominal Surgery, Appendectomy Reproductive Surgeries: Surgical HX of;: Breast Surgery (For breast cancer), Hysterectomy - Family History Family History: Reports;: Family Cancer (Father), Family Heart Disease (Sister) , Family Hypertension (Mother), Family Stroke (MOTHER AND FATHER) - Social History Smoking Status: Former smoker Exam - Constitutional Vitals: Period Temp Pulse Resp BP Sys/Velazco Pulse Ox Last 24 Hr 97 F-98.8 F 84-98 16-20 140-187/79-97 98-98 Exam: GENERAL: Patient is in no acute distress. NECK: Neck is supple. There is no JVD. No carotid bruits present. No thyroid masses. CVS: First and second heart sounds are normal. There is no S3 present. Regular rate and rhythm. RESPIRATORY: Lungs are clear to auscultation without any rales or rhonchi. ABDOMEN: Soft and non-tender. Bowel sounds are present. There is no hepatosplenomegaly. EXT: There is no palpable edema. Peripheral pulses are present. Skin: No rashes Central Nervous system: General: Alert, awake and Oriented Speech: Fluent Comprehension: Intact and normal Facial expressions: Normal Cranial Nerves: CN1/Olfactory: Normal CN II/ Optic: Normal, Visual Bloom unreliable CN III, and : SHEILA & EOMI CN V: Normal & intact CN VII: face is symmetric CNVIII: Normal CN XI/X/XI/XII: Intact and Normal Motor: Bulk and Tone is normal. Strength in the right 5/5 Strength in the left 5/5 Sensory: Grossly intact for all the modalities of PP, LT and temp sense Reflexes: 1+ and symmetrical Cerebellar function: Normal finger to nose and heel to cruz testing. Toes: Equivocal Gait: Not tested at this time Results - Labs CBC & BMP: 07/28/17 04:44 07/28/17 04:44 Assessment and Plan (1) Change in mental state Status: Acute Assessment and plan: Certainly acute CVA versus TIA needs to be ruled out We will perform MRI of the brain if there is no contraindication Continue aspirin and Plavix for now We will follow-up an MRI Thank you for the consult Current Visit: Yes
--- NOTE | 2017-07-28 16:29 | Hospitalist Progress Note ---
Assessment and Plan (1) Coronary artery disease Status: Chronic Assessment and plan: severe proximal LAD and distal right coronary disease, plan for stent in am by Dr Crenshaw Current Visit: No (2) Aortic stenosis Status: Acute Assessment and plan: Dr Benitez in [place], transcatheter aortic valve replacement, 2+ mitral regurg Current Visit: Yes (3) Atrial fibrillation with slow ventricular response Status: Acute Assessment and plan: cont coreg, eliquis on hold due to cath Current Visit: Yes (4) History of CVA (cerebrovascular accident) Status: Chronic Assessment and plan: hold eliquis, developed left sided weakness and slurring of speech, added aspirin and ordered stat MRI of brain Current Visit: No Hospitalist: Subjective Interval history: Patient this morning and she was doing well. We discussed her decision about wanting to do stents versus surgery. She was coherent and able to answer questions. Her grandson was there and was very frantic when at noon she began to slur her words and he was concerned that she had another stroke. I went in to examine her and she was more confused she was slurring her words and had some left-sided weakness. I am concerned that she has had an acute stroke being off her Eliquis. We need her to be on aspirin and Plavix and we are planning to stent her coronaries open tomorrow and therefore now cannot restart her on Eliquis at this time. Dr. Scott was apparently consulted most likely by Dr. Crenshaw. Exam - Constitutional Vitals: Period Temp Pulse Resp BP Sys/Velazco Pulse Ox Last 24 Hr 97 F-98.8 F 84-98 16-20 140-187/79-97 98-98 Exam: Heart Rate-[IRR] 0900 Lungs-[CTAB] GI-[+bs soft, NT] Ext-[no edema] Neuro [Motor 5/5], [alert and oriented times 3] psych [normal mood and affect] General [no acute distress] neuro exam repeated at 1402 slurring of words, left sided weakness with positive babinski on left Results - Labs CBC & BMP: 07/28/17 04:44 07/28/17 04:44 Lab Results: I have reviewed the past 24 hour labs - Diagnostic Findings Procedure: MRI: report reviewed by me (pending ) Quality Measures - VTE Contraindication to Pharmacological VTE Prophylaxis: Already on Theraputic Agent , No Prophylaxis Needed
--- NOTE | 2017-07-28 16:35 | Magnetic Resonance Report ---
MRI brain without contrast Indication: Left side hemiparesis Comparison: 06 March 2017 Technique: Axial sagittal and coronal imaging of the brain is performed without contrast. T1, T2, FLAIR and diffusion weighted sequences are performed. Findings: No evidence of restricted diffusion seen. No evidence of intracranial hemorrhage, mass, mass effect or midline shift is seen. There is moderate diffuse cerebral atrophy similar in appearance to previous study. There are areas of white matter T2 signal hyperintensity in both cerebral hemispheres and len similar to previous exam likely related to chronic microvascular changes. Remaining brain parenchyma has normal signal and differentiation. The ventricles and cisterns are appropriate in caliber. Posterior fossa, mid brain and pituitary gland appear within normal limits. No evidence of cranial or skull base abnormality seen. Impression: No evidence of acute process or significant change. PROCEDURE INTERPRETED AT [facility] DEPARTMENT OF RADIOLOGY Final Report Signed by: Dr. Tarun Cook
[2017-07-28] MEDS: ENOXAPARIN 40 MG/0.4 ML SYRINGE SUBCUT SCH (18:45)
[2017-07-29] MEDS ORDERED: CLOPIDOGREL 75 MG TABLET PO SCH (09:00)
[2017-07-29] MEDS ORDERED: CLOPIDOGREL 300 MG TABLET PO ONE (09:25)
[2017-07-29] MEDS ORDERED: MAGNESIUM SULF RIDER 2 GM in PREMIX 1 EACH IV PRN (09:35)
[2017-07-29] MEDS ORDERED: POTASSIUM CHLORIDE RIDER 10 MEQ in PREMIX 1 EACH IV PRN (09:35)
[2017-07-29] MEDS: ROSUVASTATIN 20 MG TABLET PO SCH (09:48)
[2017-07-29] MEDS: URSODIOL 300 MG CAPSULE PO SCH ×2 (09:49→22:17)
[2017-07-29] MEDS: ASPIRIN CHEW 81 MG TABLET PO SCH (09:49)
[2017-07-29] MEDS: FAMOTIDINE 20 MG TABLET PO SCH (09:50)
[2017-07-29] MEDS: CARVEDILOL 6.25 MG TABLET PO SCH ×2 (09:50→22:17)
[2017-07-29] MEDS: POLYETHYLENE GLYCOL POWDER 17 GM PACK PO SCH (09:51)
[2017-07-29] MEDS: ENOXAPARIN 80 MG/0.8 ML SYRINGE SUBCUT SCH ×3 (09:55→22:21)
[2017-07-29 10:16] LABS: Calcium 9.3 MG/DL (8.5-10.1); Magnesium 2.2 MG/DL (1.8-2.4); Osmolality,Calculated 280.7 MOS/KG (273-304); Potassium 4.1 MMOL/L (3.5-5.1)
--- NOTE | 2017-07-29 16:18 | Physician Query Form ---
CLICK EDIT DOCUMENT TO SELECT QUERY ANSWER --> OK --> SIGN Ivone Riley RN Clinical Bundle Helper W) [phone] (f) [phone] [email or web address] PROVIDERS: Make your selection(s) from the choices in EACH section by typing an "x" and enter comments in the comment section. Please use your independent medical judgment in providing your response. This request does not imply that any particular answer is desired or expected. CLINICAL INDICATORS: (Providers should not edit this section) Based on lab results of creatinine on admission of 1.40 with a GFR of 37 and decreased to 1.10. Pt. treated with IV fluids of 1/2 Normal Saline. Clarify which of the following most accurately represents the patient's renal status: ( ) Acute kidney injury (non-traumatic) ( ) Acute renal failure ( ) Acute renal failure with underlying Chronic Kidney Disease (CKD) - please provide stage below (x ) CKD - please provide stage below ( ) Other, please specify: ( ) Clinically unable to determine Chronic Kidney Disease Stages Source: National Kidney Disease Foundation ( ) Stage I (eGFR > or = 90) ( ) Stage II (eGFR 60 - 89) ( x) Stage III (eGFR 30 - 59) ( ) Stage IV (eGFR 15 - 29) ( ) Stage V (eGFR < 15 or dialysis) COMMENTS: PLEASE ALSO DOCUMENT RESPONSE IN PROGRESS NOTES AND/OR DISCHARGE SUMMARY Use of terms such as suspected, likely, or probable (associated with a specific diagnosis that is being evaluated, monitored, or treated as if it exists) are acceptable and can be restated in the discharge summary if not ruled out. MTDD
--- NOTE | 2017-07-29 16:33 | Hospitalist Progress Note ---
Assessment and Plan (1) Coronary artery disease Status: Chronic Assessment and plan: severe proximal LAD and distal right coronary disease, plan for stent in am by Dr Crenshaw Current Visit: No (2) Aortic stenosis Status: Acute Assessment and plan: Dr Benitez in [place], transcatheter aortic valve replacement, 2+ mitral regurg Current Visit: Yes (3) Atrial fibrillation with slow ventricular response Status: Acute Assessment and plan: cont coreg, eliquis on hold due to cath Current Visit: Yes (4) History of CVA (cerebrovascular accident) Status: Chronic Assessment and plan: hold eliquis, left-sided weakness completely resolved. MRI of her brain yesterday was negative for stroke. Patient must have had a TIA that has resolved. Current Visit: No Hospitalist: Subjective Interval history: Patient is back to her baseline dental status. Her left-sided weakness has completely resolved. MRI from yesterday showed no evidence of stroke. Exam - Constitutional Vitals: Period Temp Pulse Resp BP Sys/Velazco Pulse Ox Last 24 Hr 97 F-98.9 F 80-100 18-22 121-169/54-95 95-98 Exam: Heart Rate-[IRR Lungs-[CTAB] GI-[+bs soft, NT] Ext-[no edema] Neuro [Motor 5/5 left sided weakness and slurring of words completely resolved] , [alert and oriented times 3] psych [normal mood and affect] General [no acute distress] Results - Labs CBC & BMP: 07/28/17 04:44 07/29/17 09:40 Lab Results: I have reviewed the past 24 hour labs - Diagnostic Findings Procedure: MRI: report reviewed by me (No evidence of acute stroke) Quality Measures - VTE Contraindication to Pharmacological VTE Prophylaxis: Already on Theraputic Agent , No Prophylaxis Needed Specialty Discharge - Follow Up or Referrals
--- NOTE | 2017-07-29 17:09 | Neurology Progress Note ---
Neurology - PN : Subjective Interval history: Ms. Caraballo seems to be doing much better today. Alert awake oriented. Fluent speech and good comprehension. MRI of the brain is unremarkable Exam (Progress Note) - Constitutional Vitals: Period Temp Pulse Resp BP Sys/Velazco Pulse Ox Last 24 Hr 97 F-98.9 F 80-100 18-22 121-169/54-95 95-98 Exam: GENERAL: Patient is in no acute distress. NECK: Neck is supple. There is no JVD. No carotid bruits present. No thyroid masses. CVS: First and second heart sounds are normal. There is no S3 present. Regular rate and rhythm. RESPIRATORY: Lungs are clear to auscultation without any rales or rhonchi. ABDOMEN: Soft and non-tender. Bowel sounds are present. There is no hepatosplenomegaly. EXT: There is no palpable edema. Peripheral pulses are present. Skin: No rashes Central Nervous system: General: Alert, awake and Oriented Speech: Fluent Comprehension: Intact and normal Facial expressions: Normal Cranial Nerves: CN1/Olfactory: Normal CN II/ Optic: Normal, Visual Bloom unreliable CN III, and : SHEILA & EOMI CN V: Normal & intact CN VII: face is symmetric CNVIII: Normal CN XI/X/XI/XII: Intact and Normal Motor: Bulk and Tone is normal. Strength in the right 5/5 Strength in the left 5/5 Sensory: Grossly intact for all the modalities of PP, LT and temp sense Reflexes: 1+ and symmetrical Cerebellar function: Normal finger to nose and heel to cruz testing. Toes: Equivocal Gait: Not tested at this time Results - Labs CBC & BMP: 07/28/17 04:44 07/29/17 09:40 Assessment and Plan (1) Change in mental state Status: Acute Assessment and plan: This unlikely related to toxic metabolic encephalopathy. This has cleared up completely No further neurological intervention needed at this time Sign off please call as needed Current Visit: Yes Quality Measures - VTE Contraindication to Pharmacological VTE Prophylaxis: Already on Theraputic Agent , No Prophylaxis Needed Specialty Discharge - Follow Up or Referrals
[2017-07-30 06:32] LABS: Calcium 9.2 MG/DL (8.5-10.1); Magnesium 2.2 MG/DL (1.8-2.4); Osmolality,Calculated 281.5 MOS/KG (273-304); Potassium 4.7 MMOL/L (3.5-5.1)
[2017-07-30] MEDS ORDERED: DEXTROSE 5% NACL 0.45% 1,000 ML IV SCH (07:00)
[2017-07-30] MEDS ORDERED: DIAZEPAM 5 MG TABLET PO ONE (07:30)
[2017-07-30] MEDS ORDERED: diphenhydrAMINE CAP 25 MG CAPSULE PO ONE (07:30)
[2017-07-30] MEDS: ASPIRIN CHEW 81 MG TABLET PO SCH (08:01)
[2017-07-30] MEDS: CLOPIDOGREL 75 MG TABLET PO SCH (08:02)
[2017-07-30] MEDS: CARVEDILOL 6.25 MG TABLET PO SCH ×2 (08:02→22:06)
[2017-07-30] MEDS ORDERED: HEPARIN/NACL 0.9% 2 UNITS/ML 1,000 ML IV ONE (08:03)
[2017-07-30] MEDS ORDERED: LIDOCAINE 1%/EPI INJ 20 ML VIAL ONE (08:03)
[2017-07-30] MEDS ORDERED: fentaNYL 100 MCG/2 ML VIAL ONE (08:17)
[2017-07-30] MEDS ORDERED: MIDAZOLAM 2 MG/2 ML VIAL ONE (08:17)
[2017-07-30] MEDS ORDERED: TIROFIBAN 5,000 MCG/100 ML PREMIX IV ONE ×2 (08:29→08:35)
--- NOTE | 2017-07-30 08:29 | Cardiology Progress Note ---
Sony Downey Vanessa RN, am scribing for, and in the presence of, Leonard Crenshaw MD 08:28. Assessment and Plan - Time spent with patient Time spent with patient: Greater than 30 minutes (1) Aortic stenosis Status: Acute Assessment and plan: SEE PLAN OF CARE LISTED BELOW. Current Visit: Yes (2) Chronic anticoagulation Status: Chronic Assessment and plan: SEE PLAN OF CARE LISTED BELOW. Current Visit: Yes (3) Coronary artery disease Status: Chronic Assessment and plan: SEE PLAN OF CARE LISTED BELOW. Current Visit: No (4) Dyslipidemia Status: Chronic Assessment and plan: SEE PLAN OF CARE LISTED BELOW. Current Visit: Yes (5) History of cerebrovascular accident (CVA) involving cerebellum Status: Chronic Assessment and plan: SEE PLAN OF CARE LISTED BELOW. Current Visit: No (6) Paroxysmal atrial fibrillation Status: Chronic Assessment and plan: SEE PLAN OF CARE LISTED BELOW. Current Visit: No (7) Dyspnea Status: Acute Assessment and plan: SEE PLAN OF CARE LISTED BELOW. Current Visit: Yes (8) Hypertension Status: Chronic Assessment and plan: SEE PLAN OF CARE LISTED BELOW. Current Visit: No Qualifiers: Hypertension type: essential hypertension Qualified Code(s): I10 - Essential (primary) hypertension (9) History of breast cancer Status: Resolved Assessment and plan: SEE PLAN OF CARE LISTED BELOW. Current Visit: No Cardiology - PN: Subj Interval history: SERVICE NOW DEVELOPER: DR. HEIN SUMMARY: 77-year-old WF, PMHx hypertension, dyslipidemia, and previous history of CAD including non-STEMI. She had an acute CVA in February 2017 with newly diagnosed atrial fibrillation. Now chronically anticoagulated with Eliquis. Multiple previous PCI with most recent in June 2014 with stent placement of RCA with patency of the previously placed stents. A recent echo prior to admission suggestive of moderate aortic stenosis. Admitted to telemetry unit on 07/23 with progressive exertional dyspnea over several weeks. Pulmonary embolus ruled out. Cardiac biomarkers have remained normal. No chest pain. Despite optimization include improvement of uncontrolled hypertension, she continued to feel poorly. Taken for elective left and right heart catheterization on 07/27 for definitive assessment. Cath findings revealed critical aortic stenosis with MENG 0.75 cm and mean gradient 21 mmHg with severe two-vessel CAD involving proximal LAD and distal RCA, preserved LV function with EF 75%, 2-3+ mitral insufficiency. Discussed with patient two vessel percutaneous coronary intervention vs surgery. Patient and family have elected for PCI at this time. Patient being optimized post contrast exposure for staged PCI which was scheduled for 07/29. However, the afternoon of 07/28, patient had a neurological event, and after diagnostic workup, is felt to be a TIA, and has resolved completely. 2016: Ms. Caraballo is sitting up in chair this morning, grandson present. Patient is awake, alert. Speech is clear, coherent. Stable neuro exam. No chest discomfort. Remains easily fatigued and short of breath with minimal activity. SBP 140-170 mmHg. Atrial fib with controlled ventricular response. Labs for review this morning are pending. We will load with Plavix today, change Lovenox to therapeutic dose, and plan for PCI in the morning. This has been discussed with the patient and her grandson. Questions answered and both verbalized understanding. ASSESSMENT/PLAN: 1. EXERTIONAL DYSPNEA-stable currently. She has severe 2 vessel CAD and critical aortic stenosis, this is most likely etiology of symptoms. Will refer to Dr. Benitez at [facility] for TAVR after discharge home and recovery. 2. AORTIC STENOSIS-per [facility], critical with AV area 0.75 cm. Most certainly contributing factor of progressive dyspnea. Will be referred for transcatheter aortic valve replacement after discharge. 3. CAD-history of previous PCI. Now with severe two-vessel CAD. NPO after midnight. Plan for staged PCI tomorrow morning. This has been scheduled with cardiac chemical lab technician for 8:30 AM 07/30. Change Lovenox to therapeutic dose today. ( GFR > 30). Plavix 300 mg PO today. Continue ASA 324 mg PO daily. In the morning , start Plavix 75 mg PO daily. 4. ATRIAL FIB-persistent. Dig toxic with slow ventricular response on admission , now improved. Currently well controlled. Continue beta-francisco. Eliquis is on hold for further cardiac intervention. 5. HYPERTENSION-overall relatively well controlled with transient BP elevation 6. DYSLIPIDEMIA-statin continued 7. CHRONIC ANTICOAGULATION-Eliquis on hold. Receiving therapeutic Lovenox dose. 8. HISTORY OF CVA-stable. No neuro s/s. Residual blurred vision from previous CVA. 9. ACUTE TIA-slurred speech, left sided weakness, and confusion yesterday afternoon which completely resolved within a couple hours. MRI brain negative for acute CVA. Continue ASA. I have discussed in detail the particulars of this case and I have examined the patient and reviewed the patient's chart both current and old. I was directly involved in the patient's evaluation and management and I completely agree with Natividad Cardoza RN regarding this patient's evaluation and treatment plan. Exam (Progress Note) - Constitutional Vitals: Period Temp Pulse Resp BP Sys/Velazco Pulse Ox Last 24 Hr 97.2 F-98.9 F 80-100 18-20 139-169/64-95 95-98 Exam: General appearance: Pleasant, cooperative. No acute distress. No tachypnea Head exam: Present: normal inspection, normocephalic, atraumatic. Absent: hematoma, laceration Eye exam: Present: EOMI. Absent: conjunctival injection, nystagmus, periorbital swelling, scleral icterus, laceration to eyelids Pupils: Present: PERRL. Absent: constricted, dilated, fixed, irregular, unequal ENT exam: Present: normal exam, normal external ear exam, mucous membranes moist. Neck exam: Present: Carotid bruit-bilaterally, normal inspection, midline trachea. Absent: Masses, lymphadenopathy, tenderness, thyromegaly Respiratory exam: Present: clear to auscultation bilaterally. Absent: accessory muscle use, chest wall tenderness, rales, rhonchi, wheezing. Cardiovascular exam: Present: Irregularly irregular rate and rhythm. Systolic murmur. Absent: gallop, JVD, rubs, bradycardia GI/Abdominal exam: Present: normal bowel sounds, soft. Absent: distended, firm , hernia, mass, tenderness. Extremities exam: Present: Normal Gait, No Clubbing, No Cyanosis, Upper Extr. Pulses 2+, Lower Extr. Pulses diminished but palpable, No edema. Normal capillary refill. Other: RFA cath areas without bruise, hematoma, bruit. Musculoskeletal: Present: No Fluid Collection, No Pain, Normal Range of Motion Back exam: Present: normal inspection. Absent: muscle spasm, vertebral tenderness Neurological exam: Present: awake, alert. Slight confusion at times, reorients quickly. Moves all extremities well without hemiparesis or paralysis. Grossly intact. No tremor. Psychiatric exam: Present: normal affect, normal mood Skin exam: Present: normal color, warm, dry, intact. Absent: cyanosis, diaphoretic, rash, urticaria, suspicious lesion. Result/EKG - Labs CBC & BMP: 07/28/17 04:44 07/30/17 05:33 Lab Results: I have reviewed the past 24 hour labs Labs: Laboratory Results - last 24 hr 07/29/17 07/30/17 09:40 05:33 Sodium 138 139 Potassium 4.1 4.7 Chloride 105 104 Carbon Dioxide 25 28 Anion Gap 12.1 11.7 BUN 26 H 26 H Creatinine 1.20 H 1.20 H GFR Calculation 44 44 BUN/Creatinine Ratio 21.00 H 21.00 H Glucose 111 H 93 Calculated Osmolality 280.7 281.5 Calcium 9.3 9.2 Magnesium 2.2 2.2 - Diagnostic Findings Procedure: Chest x-ray: image reviewed by me, report reviewed by me - EKG EKG results: interpreted by me, no acute changes EKG shows: sinus rhythm Quality Measures - VTE Contraindication to Pharmacological VTE Prophylaxis: Already on Theraputic Agent , No Prophylaxis Needed Specialty Discharge - Follow Up or Referrals I, Leonard Crenshaw MD, personally performed the services described in this documentation, ascribed by Natividad Cardoza RN in my presence, and it is both accurate and complete 828 .
--- NOTE | 2017-07-30 08:29 | History and Physical Update ---
Sedation H&P Update - History and Physical H&P was reviewed, the patient examined and there: are no changes in the patients condition since last H&P was completed. - Dictation Physical: refer to scanned H&P - Sedation Plan for Sedation: moderate Patient Consent: Procedure disscussed with patient and patinet has consented., Risks and benefits were discussed with patient,including infection,, bleeding, injury to surrounding structures, seizure, temporary nerve, Patient understands and accepts potential risks/benefits and agrees to, proceed. ASA Class: IV Airway Assessment: Class III: Soft palate, base of uvula visible
[2017-07-30] MEDS ORDERED: ENOXAPARIN 30 MG/0.3 ML SYRINGE ONE (08:38)
[2017-07-30] MEDS ORDERED: TIROFIBAN 5,000 MCG/100 ML PREMIX IV SCH (08:47)
[2017-07-30] MEDS ORDERED: NITROGLYCERIN DRIP 50 MG/250 ML BOTTLE IV ONE (08:51)
--- NOTE | 2017-07-30 09:48 | Cardiac Catheterization ---
Date of Procedure:: 07/30/17 Pre-op Diagnosis: 2 vessel CAD with severe aortic stenosis and L4 percutaneous coronary intervention of the LAD/right coronary anticipating transcatheter aortic valve replacement sometime in the future. Post-op diagnosis: same Procedure: Procedures performed: #1 coronary angiography #2 percutaneous intervention to the distal right coronary artery with a 2.25 x 16 mm synergy drug-eluting stent with a good angiographic result #3 brief "no reflow" resolved with intracoronary nitroglycerin 200 mcg #4 percutaneous intervention to the mid LAD with a 3.0 x 16 mm Synergy drug- eluting stent #5 balloon angioplasty of the ostium of the diagonal arising from the stented LAD segment with a 2.0 x 12 mm mini trek balloon to 8 pradeep with resolution of the ostial stenosis #6 right femoral sheath angiography #7 Angio-Seal closure right femoral arteriotomy site After obtaining informed consent the patient brought to the Labour Market Economist where the right groin was prepped and draped in the usual sterile manner. After local anesthesia and intravenous sedation a needle stick was made to the right femoral artery and a 6 [place] sheath was positioned without difficulty. A Tracy right guide was advanced over a guidewire under fluoroscopic control to the ascending aorta where the right coronary artery was engaged. An 014 BMW wire was advanced to the distal right coronary artery and a 2.0 x 12 mm synergy apex balloon was advanced to the lesion and after adequate positioning was inflated to 10 pradeep. This balloon was then removed and a 2.25 x 16 mm Synergy drug-eluting stent was advanced to the area of stenosis and deployed to maximum 17 pradeep which corresponded to a balloon diameter 2.46 mm. At this point there was noted to be some decreased flow distally. There appeared to be "no reflow" . There was ST segment elevation noted and at this 0.200 mcg of intracoronary nitroglycerin were given. Prompt increasing flow was noted distally. after ascertaining a good angiographic result the delivery balloon and guidewire were removed from the guide. Repeat angiography confirmed a good result. The guide was then removed from the sheath. At this point JL 3.5 guide was used advanced over a guidewire under fluoroscopic control of the left main coronary was engaged. A BMW wire was placed both into the LAD and to the diagonal. At this point a 3.0 x 16 mm Synergy drug-eluting stent was advanced to the LAD stenosis and deployed to maximum 14 pradeep. The delivery balloon was then removed. The diagonal wire was removed at this point. Angiography confirmed a good resolution of the stenosis in the LAD. There was however a fairly significant "pinch" at the ostium of the diagonal which arose from the stented segment. At this point the wire was passed through the newly deployed stent into the diagonal and a 2.0 x 12 mm balloon was advanced to the area the ostium of the diagonal and single inflation name atmospheres was undertaken without difficulty. There is good resolution of the stenosis with SYED grade III flow down both the diagonal and the LAD at this point. Wires and balloons were then pulled from the guide. Repeat angiogram confirmed a good result. The patient underwent right femoral sheath angiography which demonstrated anatomy appropriate for Angio-Seal closure. This was performed without difficulty and good hemostasis was obtained. Hemodynamics: Please see the accompanying data sheet Coronary angiography: Left coronary artery: The LAD is known to have an area of 90% stenosis just beyond the takeoff of the diagonal. There is intracoronary stent just distal to the stenosis. He is also noted to be a diagonal stent just distal to the origin of the diagonal. Both stents appear to be free of significant obstructing lesions. Right coronary: Right coronary artery is a large dominant vessel and has an area of 99% stenosis just proximal to the takeoff of the PDA. The PDA shows moderate diffuse irregularities proximally. This is a fairly long diffuse segment of disease and a fairly small vessel. Percutaneous intervention: Right coronary intervention: After the above described procedure lesion went from 99% stenotic to less than 0 % stenotic post stent deployment. As noted there was no reflow early which responded to intracoronary nitroglycerin. There is SYED grade III flow down the vessel noted in procedure and resolution of the ST segment changes that had been brought about by no reflow. Left coronary intervention: After the above-described procedure lesion went from roughly 90% stenotic to roughly 0% stenotic post-stent appointment. There was SYED grade III flow down both the diagonal and the LAD. Conclusions: 1: Successful percutaneous coronary intervention of the right coronary of the LAD as described above with stenting of the distal right with a 2.25 x 16 mm Synergy drug-eluting stent 2: LAD PCI with a 3.0 x 16 mm Synergy drug-eluting stent with a good angiographic result 3: No reflow after the right coronary intervention resolved with intracoronary nitroglycerin 4: PTCA of the diagonal ostium through the new LAD stent with good angiographic result Discussion and recommendations: The patient presents with aortic stenosis two-vessel coronary disease and severe exercise intolerance. She has now undergone stenting of the right coronary and LAD both of which were successful with good angiographic result. I think a reasonable approach would be to wait several weeks and then have her undergo evaluation in [place] for transcatheter aortic valve replacement. She has tolerated stenting without any difficulty and we will watch closely for evidence of bleeding or recurrent ischemia. Findings have been reviewed with the patient with her family. Surgeon / Physician: Leonard Crenshaw Estimated blood loss: minimal Specimens: none sent Condition: stable - Medications / Follow-up
[2017-07-30] MEDS ORDERED: NITROGLYCERIN SL 0.4 MG TABLET SL PRN (09:49)
[2017-07-30] MEDS ORDERED: ONDANSETRON 4 MG/2 ML VIAL IV PRN (09:49)
--- NOTE | 2017-07-30 10:10 | EKG Report ---
Stationary ECG Study [facility] Test Date: 07/30/2017 10:07:13 AM Pat Name: GREGG GODFREY Department: Room: 294 Gender: F Structural Architect: Timothy : 1940 Requested by: Leonard Crenshaw Order Number: [id number] Reading MD: LEONARD CRENSHAW Intervals [place] Rate: 87 P: 999 MA: 0 QRS: 34 QRSD: 76 T: 75 QT: 339 QTc: 383 Interpretive Statements ATRIAL FIBRILLATION SEPTAL INFARCT, AGE UNDETERMINED MODERATE ST DEPRESSION, PROBABLY DIGITALIS EFFECT Electronically Signed On 07-30-17 10:40:56 CDT by LEONARD CRENSHAW [email or web address]
[2017-07-30] MEDS: URSODIOL 300 MG CAPSULE PO SCH ×2 (11:45→22:05)
[2017-07-30] MEDS: ROSUVASTATIN 20 MG TABLET PO SCH (11:46)
[2017-07-30] MEDS: POLYETHYLENE GLYCOL POWDER 17 GM PACK PO SCH (11:46)
[2017-07-30] MEDS: FAMOTIDINE 20 MG TABLET PO SCH (11:46)
--- NOTE | 2017-07-30 15:23 | Hospitalist Progress Note ---
Assessment and Plan (1) Coronary artery disease Status: Chronic Assessment and plan: s/p stent to LAD and right coronary disease, asa and plavix Current Visit: No (2) Aortic stenosis Status: Acute Assessment and plan: Dr Benitez in [place], transcatheter aortic valve replacement, 2+ mitral regurg Current Visit: Yes (3) Atrial fibrillation with slow ventricular response Status: Acute Assessment and plan: cont coreg, eliquis on hold Current Visit: Yes (4) History of CVA (cerebrovascular accident) Status: Chronic Assessment and plan: hold eliquis, left-sided weakness completely resolved. MRI of her brain yesterday was negative for stroke. Patient must have had a TIA that has resolved. Current Visit: No Hospitalist: Subjective Interval history: Patient still groggy from her procedure. But she says she feels good. She has to lay flat to late tonight. Patient was successfully stented her LAD and RCA. Patient reports no discomfort at this time. Exam - Constitutional Vitals: Period Temp Pulse Resp BP Sys/Velazco Pulse Ox Last 24 Hr 97 F-98.4 F 64-87 12-20 121-158/54-92 95-100 Exam: Heart Rate-[IRR Lungs-[CTAB] GI-[+bs soft, NT] Ext-[no edema] Neuro alert and oriented 3. A little groggy due to sedation. Cannot assess motor function at this time due to must lay flat after procedure. psych [normal mood and affect] General [no acute distress] Results - Labs CBC & BMP: 07/28/17 04:44 07/30/17 05:33 Lab Results: I have reviewed the past 24 hour labs Quality Measures - VTE Contraindication to Pharmacological VTE Prophylaxis: Already on Theraputic Agent , No Prophylaxis Needed Specialty Discharge - Follow Up or Referrals
[2017-07-30] MEDS: ACETAMINOPHEN 325 MG TABLET PO PRN (16:29)
[2017-07-31 05:07] LABS: Calcium 9.3 MG/DL (8.5-10.1); Magnesium 2.2 MG/DL (1.8-2.4); Osmolality,Calculated 276.7 MOS/KG (273-304); Potassium 4.3 MMOL/L (3.5-5.1)
[2017-07-31 05:08] LABS: Basophils # 0.1 10*3/uL (0.0-0.2); Basophils % 0.7 % (0.0-0.8); Eosinophils # 0.2 10*3/uL (0.0-0.87); Eosinophils % 1.8 % (0.00-10.9); Hematocrit 48.9 VOL% (35.7-47.0); Hemoglobin 16.2 GM/DL (12.0-16.0); Immature Granulocytes % 0.6 %; Immature Granulocytes Absolute 0.07 #; Lymphocytes # 2.8 10*3/uL (1.4-4.0); Lymphocytes % 24.2 % (21.3-54.2); Mean Corpuscular HGB Conc 33.1 GM/DL (32-36); Mean Corpuscular Hemoglobin 32 PG (27-34); Mean Corpuscular Volume 95.5 FL (87-102); Mean Platelet Volume 10.5 FL (9.6-12.0); Monocytes # 0.8 10*3/uL (0.11-0.8); Monocytes % 6.6 % (1.7-12.7); Neutrophils # 7.6 10*3/uL (1.4-7.4); Neutrophils % 66.1 % (38.7-73.9); Platelet Count 188 T/CUMM (130-400); Red Blood Count 5.12 MC/CUMM (3.8-5.5); Red Cell Distribution Width 13.2 % (9.3-17.3); White Blood Count 11.5 T/CUMM (4-12)
--- NOTE | 2017-07-31 08:37 | EKG Report ---
Stationary ECG Study [facility] Test Date: 07/31/2017 8:26:41 AM Pat Name: GREGG GODFREY Department: Room: 126 Gender: F Legal Coordinator: RYNE : 1940 Requested by: Leonard Crenshaw Order Number: [id number] Reading MD: LEONARD CRENSHAW Intervals [place] Rate: 83 P: 999 [place]: 0 QRS: 53 QRSD: 81 T: 258 QT: 341 QTc: 381 Interpretive Statements ATRIAL FIBRILLATION ST DEVIATION AND MODERATE T-WAVE ABNORMALITY, CONSIDER LATERAL ISCHEMIA ST DEVIATION AND MODERATE T-WAVE ABNORMALITY, CONSIDER INFERIOR ISCHEMIA Electronically Signed On 07-31-17 17:09:22 CDT by LEONARD CRENSHAW [email or web address]
[2017-07-31] MEDS ORDERED: ASPIRIN EC 81 MG TABLET PO SCH (09:00)
[2017-07-31] MEDS: ACETAMINOPHEN 325 MG TABLET PO PRN (09:03)
[2017-07-31] MEDS: CARVEDILOL 6.25 MG TABLET PO SCH ×2 (09:04→21:39)
[2017-07-31] MEDS: ROSUVASTATIN 20 MG TABLET PO SCH (09:04)
[2017-07-31] MEDS: CLOPIDOGREL 75 MG TABLET PO SCH (09:04)
[2017-07-31] MEDS: FAMOTIDINE 20 MG TABLET PO SCH (09:04)
[2017-07-31] MEDS: POLYETHYLENE GLYCOL POWDER 17 GM PACK PO SCH (09:04)
[2017-07-31] MEDS: URSODIOL 300 MG CAPSULE PO SCH ×2 (09:04→21:39)
--- NOTE | 2017-07-31 14:47 | Hospitalist Progress Note ---
Assessment and Plan (1) Coronary artery disease Status: Chronic Assessment and plan: s/p stent to LAD and right coronary disease, cont asa and plavix Current Visit: No (2) Aortic stenosis Status: Acute Assessment and plan: Dr Benitez in [place], transcatheter aortic valve replacement, 2+ mitral regurg as an outpatient Current Visit: Yes (3) Atrial fibrillation with slow ventricular response Status: Acute Assessment and plan: cont coreg, eliquis will restart in am Current Visit: Yes (4) History of CVA (cerebrovascular accident) Status: Chronic Assessment and plan: restart eliquis in am Current Visit: No (5) Generalized weakness Status: Acute Assessment and plan: pt, ot consult bobby arteaga Current Visit: Yes Hospitalist: Subjective Interval history: Patient is not too thrilled about going to rehab but realizes she is also too weak to go home. PT and OT have worked with her in do recommend rehab. We are asking Bobby Arteaga to review and possible for admittance on Thursday. I have spoke with her grandson and and support the decision for rehab. Exam - Constitutional Vitals: Period Temp Pulse Resp BP Sys/Velazco Pulse Ox Last 24 Hr 96.7 F-98.6 F 65-95 12-26 101-166/53-103 94-98 Exam: Heart Rate-[IRR Lungs-[CTAB] GI-[+bs soft, NT] Ext-[no edema] Neuro alert and oriented 3. Motor 5 out of 5 but weak psych [normal mood and affect] General [no acute distress] Results - Labs CBC & BMP: 07/31/17 04:25 07/31/17 04:25 Lab Results: I have reviewed the past 24 hour labs Quality Measures - VTE Contraindication to Pharmacological VTE Prophylaxis: Already on Theraputic Agent , No Prophylaxis Needed Specialty Discharge - Follow Up or Referrals
--- NOTE | 2017-07-31 16:35 | Cardiology Progress Note ---
Sony Downey Vanessa, RN, am scribing for, and in the presence of, Leonard Crenshaw MD 16:35. Assessment and Plan - Time spent with patient Time spent with patient: Greater than 30 minutes (1) Aortic stenosis Status: Acute Assessment and plan: SEE PLAN OF CARE LISTED BELOW. Current Visit: Yes (2) Chronic anticoagulation Status: Chronic Assessment and plan: SEE PLAN OF CARE LISTED BELOW. Current Visit: Yes (3) Coronary artery disease Status: Chronic Assessment and plan: SEE PLAN OF CARE LISTED BELOW. Current Visit: No (4) Dyslipidemia Status: Chronic Assessment and plan: SEE PLAN OF CARE LISTED BELOW. Current Visit: Yes (5) History of cerebrovascular accident (CVA) involving cerebellum Status: Chronic Assessment and plan: SEE PLAN OF CARE LISTED BELOW. Current Visit: No (6) Paroxysmal atrial fibrillation Status: Chronic Assessment and plan: SEE PLAN OF CARE LISTED BELOW. Current Visit: No (7) Dyspnea Status: Acute Assessment and plan: SEE PLAN OF CARE LISTED BELOW. Current Visit: Yes (8) Hypertension Status: Chronic Assessment and plan: SEE PLAN OF CARE LISTED BELOW. Current Visit: No Qualifiers: Hypertension type: essential hypertension Qualified Code(s): I10 - Essential (primary) hypertension Cardiology - PN: Subj Interval history: TRIAL COURT JUDGE: DR. HEIN SUMMARY: 77-year-old WF, PMHx hypertension, dyslipidemia, and previous history of CAD including non-STEMI. She had an acute CVA in February 2017 with newly diagnosed atrial fibrillation. Now chronically anticoagulated with Eliquis. Multiple previous PCI with most recent in June 2014 with stent placement of RCA with patency of the previously placed stents. A recent echo prior to admission suggestive of moderate aortic stenosis. Admitted to telemetry unit on 07/23 with progressive exertional dyspnea over several weeks. Pulmonary embolus ruled out. Cardiac biomarkers have remained normal. No chest pain. Despite optimization include improvement of uncontrolled hypertension, she continued to feel poorly. Taken for elective left and right heart catheterization on 07/27 for definitive assessment. Cath findings revealed critical aortic stenosis with MENG 0.75 cm and mean gradient 21 mmHg with severe two-vessel CAD involving proximal LAD and distal RCA, preserved LV function with EF 75%, 2-3+ mitral insufficiency. Discussed with patient two vessel percutaneous coronary intervention vs surgery. Patient and family have elected for PCI at this time. Patient being optimized post contrast exposure for staged PCI which was scheduled for 07/29. However, the afternoon of 07/28, patient had a neurological event, and after diagnostic workup, is felt to be a TIA, and has resolved completely. 2016: Patient observed closely in CCU overnight. Status post PCI of mid left anterior descending artery and distal right coronary artery using drug-eluting stent 2 with good angiographic result, PTCA of diagonal branch. She is awake and alert, and she feels well this morning. Slight confusion but is pleasant and coherent. No dyspnea at rest. She has not been out of bed post cath. RFA cath site without bruise, hematoma, or femoral bruit. Distal pulses palpable bilaterally. No significant troponin elevation post PCI, peaking at 0.792. Atrial fib with controlled response per director of cardiac rehabilitation. SBP 115-135 mmHg. Labs reviewed. Cell counts unremarkable. Electrolytes within acceptable range. Renal function stable post contrast exposure with creatinine 1.1. Overall, from a cardiac standpoint she is doing well. Would be okay for transfer back to telemetry today if bed becomes available. ASSESSMENT/PLAN: 1. EXERTIONAL DYSPNEA-stable currently. She has severe 2 vessel CAD and critical aortic stenosis, this is most likely etiology of symptoms. Will refer to Dr. Benitez at [facility], [place], operated by [facility] for TAVR after discharge home and recovery. 2. AORTIC STENOSIS-per R[facility], critical with AV area 0.75 cm. Most certainly contributing factor of progressive dyspnea. Will be referred for transcatheter aortic valve replacement after discharge. 3. CAD-history of previous PCI. Severe two-vessel CAD. Now status post drug- eluting stent 2 to mid LAD and distal RCA. today. Change to low-dose ASA 81 mg PO daily. Plavix 75 mg PO daily starting today. 4. ATRIAL FIB-persistent. Dig toxic with slow ventricular response on admission now resolved. Ventricular response well controlled. Continue beta- francisco. Eliquis is on hold for further cardiac intervention. 5. HYPERTENSION-overall relatively well controlled with transient BP elevation 6. DYSLIPIDEMIA-statin continued 7. CHRONIC ANTICOAGULATION-Eliquis on hold. Lovenox discontinued post cath. 8. HISTORY OF CVA-stable. No neuro s/s. Residual blurred vision from previous CVA. 9. ACUTE TIA-no further neurological changes. MRI of the brain was negative for acute CVA. I have discussed in detail the particulars of this case and I have examined the patient and reviewed the patient's chart both current and old. I was directly involved in the patient's evaluation and management and I completely agree with Natividad Cardoza RN regarding this patient's evaluation and treatment plan. Exam (Progress Note) - Constitutional Vitals: Period Temp Pulse Resp BP Sys/Velazco Pulse Ox Last 24 Hr 96.7 F-98.6 F 64-95 12-26 101-166/58-92 94-98 Exam: General appearance: Pleasant, cooperative. No acute distress. No tachypnea. Normal weight. Head exam: Present: normal inspection, normocephalic, atraumatic. Absent: hematoma, laceration Eye exam: Present: EOMI. Absent: conjunctival injection, nystagmus, periorbital swelling, scleral icterus, laceration to eyelids Pupils: Present: PERRL. Absent: constricted, dilated, fixed, irregular, unequal ENT exam: Present: normal exam, normal external ear exam, mucous membranes moist. Neck exam: Present: Carotid bruit-bilaterally, normal inspection, midline trachea. Absent: Masses, lymphadenopathy, tenderness, thyromegaly Respiratory exam: Present: clear to auscultation bilaterally. Absent: accessory muscle use, chest wall tenderness, rales, rhonchi, wheezing. Cardiovascular exam: Present: Irregularly irregular rate and rhythm. Systolic murmur. Absent: gallop, JVD, rubs, bradycardia. GI/Abdominal exam: Present: normal bowel sounds, soft. Absent: distended, firm , hernia, mass, tenderness. Extremities exam: Present: Normal Gait, No Clubbing, No Cyanosis, Upper Extr. Pulses 2+, Lower Extr. Pulses diminished but palpable, No edema. Normal capillary refill. Other: RFA cath site without bruise, hematoma, bruit. Musculoskeletal: Present: No Fluid Collection, No Pain, Normal Range of Motion Back exam: Present: normal inspection. Absent: muscle spasm, vertebral tenderness Neurological exam: Present: awake, alert. Slight confusion at times, reorients quickly. Moves all extremities well without hemiparesis or paralysis. Grossly intact. No tremor. Psychiatric exam: Present: normal affect, normal mood. Patient is not anxious or depressed. Skin exam: Present: normal color, warm, dry, intact. Absent: cyanosis, diaphoretic, rash, urticaria, suspicious lesion. Result/EKG - Labs CBC & BMP: 07/31/17 04:25 07/31/17 04:25 Lab Results: I have reviewed the past 24 hour labs Labs: Laboratory Results - last 24 hr 07/30/17 07/30/17 07/31/17 10:46 18:23 04:25 WBC RBC Hgb Hct MCV MCH MCHC RDW Plt Count MPV Neut % (Auto) Lymph % (Auto) Reeves % (Auto) Eos % (Auto) Baso % (Auto) Neut # (Auto) Lymph # (Auto) Reeves # (Auto) Eos # (Auto) Baso # (Auto) Immature Gran % Nucleated RBC % Immature Gran # Nucleated RBCs # Sodium 138 Potassium 4.3 Chloride 104 Carbon Dioxide 25 Anion Gap 13.3 BUN 20 H Creatinine 1.10 H GFR Calculation 50 BUN/Creatinine Ratio 18.00 Glucose 87 Calculated Osmolality 276.7 Calcium 9.3 Magnesium 2.2 Troponin I 0.670 H 0.792 H 07/31/17 07/31/17 04:25 04:25 WBC 11.5 RBC 5.12 Hgb 16.2 H Hct 48.9 H MCV 95.5 MCH 32 MCHC 33.1 RDW 13.2 Plt Count 188 D MPV 10.5 Neut % (Auto) 66.1 Lymph % (Auto) 24.2 Reeves % (Auto) 6.6 Eos % (Auto) 1.8 Baso % (Auto) 0.7 Neut # (Auto) 7.6 H Lymph # (Auto) 2.8 Reeves # (Auto) 0.8 Eos # (Auto) 0.2 Baso # (Auto) 0.1 Immature Gran % 0.6 Nucleated RBC % 0.0 Immature Gran # 0.07 Nucleated RBCs # 0.00 Sodium Potassium Chloride Carbon Dioxide Anion Gap BUN Creatinine GFR Calculation BUN/Creatinine Ratio Glucose Calculated Osmolality Calcium Magnesium Troponin I 0.677 H - EKG EKG results: interpreted by me, no acute changes EKG shows: atrial fibrillation Quality Measures - VTE Contraindication to Pharmacological VTE Prophylaxis: Already on Theraputic Agent , No Prophylaxis Needed Specialty Discharge - Follow Up or Referrals IDen Wesley, MD, personally performed the services described in this documentation, ascribed by Natividad Cardoza RN in my presence, and it is both accurate and complete 635 .
[2017-08-01] MEDS: URSODIOL 300 MG CAPSULE PO SCH ×2 (09:39→21:26)
[2017-08-01] MEDS: CARVEDILOL 6.25 MG TABLET PO SCH ×2 (09:39→21:27)
[2017-08-01] MEDS: FAMOTIDINE 20 MG TABLET PO SCH (09:39)
[2017-08-01] MEDS: CLOPIDOGREL 75 MG TABLET PO SCH (09:39)
[2017-08-01] MEDS: APIXABAN 5 MG TABLET PO SCH ×2 (09:39→21:26)
[2017-08-01] MEDS: ROSUVASTATIN 20 MG TABLET PO SCH (09:39)
--- NOTE | 2017-08-01 10:39 | Cardiology Progress Note ---
Assessment and Plan (1) Aortic stenosis Status: Acute Assessment and plan: SEE PLAN OF CARE LISTED BELOW. Current Visit: Yes (2) Chronic anticoagulation Status: Chronic Assessment and plan: SEE PLAN OF CARE LISTED BELOW. Current Visit: Yes (3) Coronary artery disease Status: Chronic Assessment and plan: SEE PLAN OF CARE LISTED BELOW. Current Visit: No (4) Dyslipidemia Status: Chronic Assessment and plan: SEE PLAN OF CARE LISTED BELOW. Current Visit: Yes (5) History of cerebrovascular accident (CVA) involving cerebellum Status: Chronic Assessment and plan: SEE PLAN OF CARE LISTED BELOW. Current Visit: No (6) Paroxysmal atrial fibrillation Status: Chronic Assessment and plan: SEE PLAN OF CARE LISTED BELOW. Current Visit: No (7) Dyspnea Status: Acute Assessment and plan: SEE PLAN OF CARE LISTED BELOW. Current Visit: Yes (8) Hypertension Status: Chronic Assessment and plan: SEE PLAN OF CARE LISTED BELOW. Current Visit: No Qualifiers: Hypertension type: essential hypertension Qualified Code(s): I10 - Essential (primary) hypertension Cardiology - PN: Subj Interval history: SUMMARY: 77-year-old WF, PMHx hypertension, dyslipidemia, and previous history of CAD including non-STEMI. She had an acute CVA in February 2017 with newly diagnosed atrial fibrillation. Now chronically anticoagulated with Eliquis. Multiple previous PCI with most recent in June 2014 with stent placement of RCA with patency of the previously placed stents. A recent echo prior to admission suggestive of moderate aortic stenosis. Admitted to telemetry unit on 07/23 with progressive exertional dyspnea over several weeks. Pulmonary embolus ruled out. Cardiac biomarkers have remained normal. No chest pain. Despite optimization include improvement of uncontrolled hypertension, she continued to feel poorly. Taken for elective left and right heart catheterization on 07/27 for definitive assessment. Cath findings revealed critical aortic stenosis with MENG 0.75 cm and mean gradient 21 mmHg with severe two-vessel CAD involving proximal LAD and distal RCA, preserved LV function with EF 75%, 2-3+ mitral insufficiency. Discussed with patient two vessel percutaneous coronary intervention vs surgery. Patient and family have elected for PCI at this time. Patient being optimized post contrast exposure for staged PCI which was scheduled for 07/29. However, the afternoon of 07/28, patient had a neurological event, and after diagnostic workup, is felt to be a TIA, and has resolved completely. 2016: Patient observed closely in CCU overnight. Status post PCI of mid left anterior descending artery and distal right coronary artery using drug-eluting stent 2 with good angiographic result, PTCA of diagonal branch. She is awake and alert, and she feels well this morning. Slight confusion but is pleasant and coherent. No dyspnea at rest. She has not been out of bed post cath. RFA cath site without bruise, hematoma, or femoral bruit. Distal pulses palpable bilaterally. No significant troponin elevation post PCI, peaking at 0.792. Atrial fib with controlled response per skip tracer. SBP 115-135 mmHg. Labs reviewed. Cell counts unremarkable. Electrolytes within acceptable range. Renal function stable post contrast exposure with creatinine 1.1. Overall, from a cardiac standpoint she is doing well. Would be okay for transfer back to telemetry today if bed becomes available. August 01, 2017: This patient is stable and doing well without complaints. She is ambulating without difficulty from bed to chair and can be transferred to the floor. I am going to resume her Eliquis. We are going to watch her for another 24 hours or so and see if we perhaps can get her home first part of the week. ASSESSMENT/PLAN: 1. EXERTIONAL DYSPNEA-stable currently. She has severe 2 vessel CAD and critical aortic stenosis, this is most likely etiology of symptoms. Will refer to Dr. Benitez at [facility] for TAVR after discharge home and recovery. 2. AORTIC STENOSIS-per [facility], critical with AV area 0.75 cm. Most certainly contributing factor of progressive dyspnea. Will be referred for transcatheter aortic valve replacement after discharge. 3. CAD-history of previous PCI. Severe two-vessel CAD. Now status post drug- eluting stent 2 to mid LAD and distal RCA. today. Change to low-dose ASA 81 mg PO daily. Plavix 75 mg PO daily starting today. 4. ATRIAL FIB-persistent. Dig toxic with slow ventricular response on admission now resolved. Ventricular response well controlled. Continue beta- francisco. Eliquis is on hold for further cardiac intervention. 5. HYPERTENSION-overall relatively well controlled with transient BP elevation 6. DYSLIPIDEMIA-statin continued 7. CHRONIC ANTICOAGULATION-Eliquis on hold. Lovenox discontinued post cath. 8. HISTORY OF CVA-stable. No neuro s/s. Residual blurred vision from previous CVA. 9. ACUTE TIA-no further neurological changes. MRI of the brain was negative for acute CVA. I have discussed in detail the particulars of this case and I have examined the patient and reviewed the patient's chart both current and old. I was directly involved in the patient's evaluation and management and I completely agree with Natividad Cardoza RN regarding this patient's evaluation and treatment plan. Exam (Progress Note) - Constitutional Vitals: Period Temp Pulse Resp BP Sys/Velazco Pulse Ox Last 24 Hr 97 F-98.1 F 63-99 12-25 94-160/56-87 94-98 Exam: General appearance: Pleasant, cooperative. No acute distress. No tachypnea. Normal weight. Head exam: Present: normal inspection, normocephalic, atraumatic. Absent: hematoma, laceration Eye exam: Present: EOMI. Absent: conjunctival injection, nystagmus, periorbital swelling, scleral icterus, laceration to eyelids Pupils: Present: PERRL. Absent: constricted, dilated, fixed, irregular, unequal ENT exam: Present: normal exam, normal external ear exam, mucous membranes moist. Neck exam: Present: Carotid bruit-bilaterally, normal inspection, midline trachea. Absent: Masses, lymphadenopathy, tenderness, thyromegaly Respiratory exam: Present: clear to auscultation bilaterally. Absent: accessory muscle use, chest wall tenderness, rales, rhonchi, wheezing. Cardiovascular exam: Present: Irregularly irregular rate and rhythm. Systolic murmur. Absent: gallop, JVD, rubs, bradycardia. GI/Abdominal exam: Present: normal bowel sounds, soft. Absent: distended, firm , hernia, mass, tenderness. Extremities exam: Present: Normal Gait, No Clubbing, No Cyanosis, Upper Extr. Pulses 2+, Lower Extr. Pulses diminished but palpable, No edema. Normal capillary refill. Other: RFA cath site without bruise, hematoma, bruit. Musculoskeletal: Present: No Fluid Collection, No Pain, Normal Range of Motion Back exam: Present: normal inspection. Absent: muscle spasm, vertebral tenderness Neurological exam: Present: awake, alert. Slight confusion at times, reorients quickly. Moves all extremities well without hemiparesis or paralysis. Grossly intact. No tremor. Psychiatric exam: Present: normal affect, normal mood. Patient is not anxious or depressed. Skin exam: Present: normal color, warm, dry, intact. Absent: cyanosis, diaphoretic, rash, urticaria, suspicious lesion. Result/EKG - Labs CBC & BMP: 07/31/17 04:25 07/31/17 04:25 Quality Measures - VTE Contraindication to Pharmacological VTE Prophylaxis: Already on Theraputic Agent , No Prophylaxis Needed Specialty Discharge - Follow Up or Referrals
[2017-08-01] MEDS: POLYETHYLENE GLYCOL POWDER 17 GM PACK PO SCH (11:47)
--- NOTE | 2017-08-01 12:16 | Hospitalist Progress Note ---
Assessment and Plan (1) Coronary artery disease Status: Chronic Assessment and plan: s/p stent to LAD and right coronary disease, cont plavix and Eliquis Current Visit: No (2) Aortic stenosis Status: Acute Assessment and plan: Dr Benitez in [place], transcatheter aortic valve replacement, 2+ mitral regurg as an outpatient Current Visit: Yes (3) Atrial fibrillation with slow ventricular response Status: Acute Assessment and plan: cont coreg, restarted Eliquis today Current Visit: Yes (4) History of CVA (cerebrovascular accident) Status: Chronic Assessment and plan: restart eliquis today Current Visit: No (5) Generalized weakness Status: Acute Assessment and plan: pt, ot consult [facility] patient does not want to go to [facility] or [facility] for rehab. She would like to return home with home health Current Visit: Yes Hospitalist: Subjective Interval history: She has had no problems overnight. She really does not want to go to [facility] or [facility] for rehab. We have restarted on her Eliquis held the aspirin today and continue the Plavix. Dr. Crenshaw and I would like to watch her another 24 hours if she is stable she possibly can be and go home tomorrow. Exam - Constitutional Vitals: Period Temp Pulse Resp BP Sys/Velazco Pulse Ox Last 24 Hr 97 F-98.1 F 63-99 12-25 94-160/56-87 94-97 Exam: Heart Rate-[IRR Lungs-[CTAB] GI-[+bs soft, NT] Ext-[no edema] Neuro alert and oriented 3. Motor 5 out of 5 but weak psych [normal mood and affect] General [no acute distress] Results - Labs CBC & BMP: 07/31/17 04:25 07/31/17 04:25 Lab Results: I have reviewed the past 24 hour labs Quality Measures - VTE Contraindication to Pharmacological VTE Prophylaxis: Already on Theraputic Agent , No Prophylaxis Needed Specialty Discharge - Follow Up or Referrals
[2017-08-01 13:33] LABS: Basophils # 0.1 10*3/uL (0.0-0.2); Basophils % 0.7 % (0.0-0.8); Eosinophils # 0.2 10*3/uL (0.0-0.87); Hematocrit 42.3 VOL% (35.7-47.0); Hemoglobin 14.2 GM/DL (12.0-16.0); Immature Granulocytes % 0.8 %; Immature Granulocytes Absolute 0.09 #; Lymphocytes # 2.5 10*3/uL (1.4-4.0); Lymphocytes % 21.9 % (21.3-54.2); Mean Corpuscular HGB Conc 33.6 GM/DL (32-36); Mean Corpuscular Hemoglobin 31 PG (27-34); Mean Corpuscular Volume 93.4 FL (87-102); Mean Platelet Volume 10.4 FL (9.6-12.0); Monocytes # 0.9 10*3/uL (0.11-0.8); Monocytes % 8.1 % (1.7-12.7); Neutrophils # 7.5 10*3/uL (1.4-7.4); Neutrophils % 66.5 % (38.7-73.9); Platelet Count 222 T/CUMM (130-400); Red Blood Count 4.53 MC/CUMM (3.8-5.5); Red Cell Distribution Width 13.2 % (9.3-17.3); White Blood Count 11.2 T/CUMM (4-12)
[2017-08-01] MEDS: ACETAMINOPHEN 325 MG TABLET PO PRN (21:27)
[2017-08-02 04:50] LABS: Basophils # 0.1 10*3/uL (0.0-0.2); Basophils % 0.8 % (0.0-0.8); Eosinophils # 0.3 10*3/uL (0.0-0.87); Eosinophils % 2.4 % (0.00-10.9); Hematocrit 40.2 VOL% (35.7-47.0); Hemoglobin 13.4 GM/DL (12.0-16.0); Immature Granulocytes % 0.9 %; Lymphocytes # 2.8 10*3/uL (1.4-4.0); Mean Corpuscular HGB Conc 33.3 GM/DL (32-36); Mean Corpuscular Hemoglobin 31 PG (27-34); Mean Corpuscular Volume 93.1 FL (87-102); Monocytes # 0.8 10*3/uL (0.11-0.8); Monocytes % 7.7 % (1.7-12.7); Neutrophils # 6.6 10*3/uL (1.4-7.4); Neutrophils % 62.2 % (38.7-73.9); Platelet Count 232 T/CUMM (130-400); Red Blood Count 4.32 MC/CUMM (3.8-5.5); Red Cell Distribution Width 13.2 % (9.3-17.3); White Blood Count 10.6 T/CUMM (4-12)
[2017-08-02] MEDS: CLOPIDOGREL 75 MG TABLET PO SCH (09:20)
[2017-08-02] MEDS: CARVEDILOL 6.25 MG TABLET PO SCH (09:20)
[2017-08-02] MEDS: FAMOTIDINE 20 MG TABLET PO SCH (09:20)
[2017-08-02] MEDS: URSODIOL 300 MG CAPSULE PO SCH (09:20)
[2017-08-02] MEDS: ROSUVASTATIN 20 MG TABLET PO SCH (09:20)
[2017-08-02] MEDS: APIXABAN 5 MG TABLET PO SCH (09:21)
[2017-08-02] MEDS: POLYETHYLENE GLYCOL POWDER 17 GM PACK PO SCH (09:21)
--- NOTE | 2017-08-02 10:43 | Cardiology Progress Note ---
Assessment and Plan (1) Aortic stenosis Status: Acute Assessment and plan: SEE PLAN OF CARE LISTED BELOW. Current Visit: Yes (2) Chronic anticoagulation Status: Chronic Assessment and plan: SEE PLAN OF CARE LISTED BELOW. Current Visit: Yes (3) Coronary artery disease Status: Chronic Assessment and plan: SEE PLAN OF CARE LISTED BELOW. Current Visit: No (4) Dyslipidemia Status: Chronic Assessment and plan: SEE PLAN OF CARE LISTED BELOW. Current Visit: Yes (5) History of cerebrovascular accident (CVA) involving cerebellum Status: Chronic Assessment and plan: SEE PLAN OF CARE LISTED BELOW. Current Visit: No (6) Paroxysmal atrial fibrillation Status: Chronic Assessment and plan: SEE PLAN OF CARE LISTED BELOW. Current Visit: No (7) Dyspnea Status: Acute Assessment and plan: SEE PLAN OF CARE LISTED BELOW. Current Visit: Yes (8) Hypertension Status: Chronic Assessment and plan: SEE PLAN OF CARE LISTED BELOW. Current Visit: No Qualifiers: Hypertension type: essential hypertension Qualified Code(s): I10 - Essential (primary) hypertension Cardiology - PN: Subj Interval history: 77-year-old WF, PMHx hypertension, dyslipidemia, and previous history of CAD including non-STEMI. She had an acute CVA in February 2017 with newly diagnosed atrial fibrillation. Now chronically anticoagulated with Eliquis. Multiple previous PCI with most recent in June 2014 with stent placement of RCA with patency of the previously placed stents. A recent echo prior to admission suggestive of moderate aortic stenosis. Admitted to telemetry unit on 07/23 with progressive exertional dyspnea over several weeks. Pulmonary embolus ruled out. Cardiac biomarkers have remained normal. No chest pain. Despite optimization include improvement of uncontrolled hypertension, she continued to feel poorly. Taken for elective left and right heart catheterization on 07/27 for definitive assessment. Cath findings revealed critical aortic stenosis with MENG 0.75 cm and mean gradient 21 mmHg with severe two-vessel CAD involving proximal LAD and distal RCA, preserved LV function with EF 75%, 2-3+ mitral insufficiency. Discussed with patient two vessel percutaneous coronary intervention vs surgery. Patient and family have elected for PCI at this time. Patient being optimized post contrast exposure for staged PCI which was scheduled for 07/29. However, the afternoon of 07/28, patient had a neurological event, and after diagnostic workup, is felt to be a TIA, and has resolved completely. 2016: Patient observed closely in CCU overnight. Status post PCI of mid left anterior descending artery and distal right coronary artery using drug-eluting stent 2 with good angiographic result, PTCA of diagonal branch. She is awake and alert, and she feels well this morning. Slight confusion but is pleasant and coherent. No dyspnea at rest. She has not been out of bed post cath. RFA cath site without bruise, hematoma, or femoral bruit. Distal pulses palpable bilaterally. No significant troponin elevation post PCI, peaking at 0.792. Atrial fib with controlled response per cardiac cath rn. SBP 115-135 mmHg. Labs reviewed. Cell counts unremarkable. Electrolytes within acceptable range. Renal function stable post contrast exposure with creatinine 1.1. Overall, from a cardiac standpoint she is doing well. Would be okay for transfer back to telemetry today if bed becomes available. August 01, 2017: This patient is stable and doing well without complaints. She is ambulating without difficulty from bed to chair and can be transferred to the floor. I am going to resume her Eliquis. We are going to watch her for another 24 hours or so and see if we perhaps can get her home first part of the week. August 02, 2017: Patient is stable and doing well. She is mentally alert and much less confused. She still dyspneic with exertion. I think she has reached maximal hospital benefit can be discharged at this time on her current medications. She should be scheduled to see Dr. Ronquillo in 2 weeks. ASSESSMENT/PLAN: 1. EXERTIONAL DYSPNEA-stable currently. She has severe 2 vessel CAD and critical aortic stenosis, this is most likely etiology of symptoms. Will refer to Dr. Benitez at [facility] for TAVR after discharge home and recovery. 2. AORTIC STENOSIS-per [facility], critical with AV area 0.75 cm. Most certainly contributing factor of progressive dyspnea. Will be referred for transcatheter aortic valve replacement after discharge. 3. CAD-history of previous PCI. Severe two-vessel CAD. Now status post drug- eluting stent 2 to mid LAD and distal RCA. today. Change to low-dose ASA 81 mg PO daily. Plavix 75 mg PO daily starting today. 4. ATRIAL FIB-persistent. Dig toxic with slow ventricular response on admission now resolved. Ventricular response well controlled. Continue beta- francisco. Eliquis is on hold for further cardiac intervention. 5. HYPERTENSION-overall relatively well controlled with transient BP elevation 6. DYSLIPIDEMIA-statin continued 7. CHRONIC ANTICOAGULATION-Eliquis on hold. Lovenox discontinued post cath. 8. HISTORY OF CVA-stable. No neuro s/s. Residual blurred vision from previous CVA. 9. ACUTE TIA-no further neurological changes. MRI of the brain was negative for acute CVA. I have discussed in detail the particulars of this case and I have examined the patient and reviewed the patient's chart both current and old. I was directly involved in the patient's evaluation and management and I completely agree with Natividad Cardoza RN regarding this patient's evaluation and treatment plan. Exam (Progress Note) - Constitutional Vitals: Period Temp Pulse Resp BP Sys/Velazco Pulse Ox Last 24 Hr 96.5 F-97.9 F 78-92 18-21 106-149/62-75 90-98 Exam: General appearance: Pleasant, cooperative. No acute distress. No tachypnea. Normal weight. Head exam: Present: normal inspection, normocephalic, atraumatic. Absent: hematoma, laceration Eye exam: Present: EOMI. Absent: conjunctival injection, nystagmus, periorbital swelling, scleral icterus, laceration to eyelids Pupils: Present: PERRL. Absent: constricted, dilated, fixed, irregular, unequal ENT exam: Present: normal exam, normal external ear exam, mucous membranes moist. Neck exam: Present: Carotid bruit-bilaterally, normal inspection, midline trachea. Absent: Masses, lymphadenopathy, tenderness, thyromegaly Respiratory exam: Present: clear to auscultation bilaterally. Absent: accessory muscle use, chest wall tenderness, rales, rhonchi, wheezing. Cardiovascular exam: Present: Irregularly irregular rate and rhythm. Grade 2 systolic murmur. Absent: gallop, JVD, rubs, bradycardia. GI/Abdominal exam: Present: normal bowel sounds, soft. Absent: distended, firm , hernia, mass, tenderness. Extremities exam: Present: Normal Gait, No Clubbing, No Cyanosis, Upper Extr. Pulses 2+, Lower Extr. Pulses diminished but palpable, No edema. Normal capillary refill. Other: RFA cath site without bruise, hematoma, bruit. Musculoskeletal: Present: No Fluid Collection, No Pain, Normal Range of Motion Back exam: Present: normal inspection. Absent: muscle spasm, vertebral tenderness Neurological exam: Present: awake, alert. Slight confusion at times, reorients quickly. Moves all extremities well without hemiparesis or paralysis. Grossly intact. No tremor. Psychiatric exam: Present: normal affect, normal mood. Patient is not anxious or depressed. Skin exam: Present: normal color, warm, dry, intact. Absent: cyanosis, diaphoretic, rash, urticaria, suspicious lesion. Result/EKG - Labs CBC & BMP: 08/02/17 04:39 07/31/17 04:25 Labs: Laboratory Results - last 24 hr 08/01/17 08/02/17 12:40 04:39 WBC 11.2 10.6 RBC 4.53 4.32 Hgb 14.2 D 13.4 Hct 42.3 40.2 MCV 93.4 93.1 MCH 31 31 MCHC 33.6 33.3 RDW 13.2 13.2 Plt Count 222 232 MPV 10.4 10.0 Neut % (Auto) 66.5 62.2 Lymph % (Auto) 21.9 26.0 [place] % (Auto) 8.1 7.7 Eos % (Auto) 2.0 2.4 Baso % (Auto) 0.7 0.8 Neut # (Auto) 7.5 H 6.6 Lymph # (Auto) 2.5 2.8 [place] # (Auto) 0.9 H 0.8 Eos # (Auto) 0.2 0.3 Baso # (Auto) 0.1 0.1 Immature Gran % 0.8 0.9 Nucleated RBC % 0.0 0.0 Immature Gran # 0.09 0.10 Nucleated RBCs # 0.00 0.00 Immature Plt Fraction 0.0 0.0 Quality Measures - VTE Contraindication to Pharmacological VTE Prophylaxis: Already on Theraputic Agent , No Prophylaxis Needed Specialty Discharge - Follow Up or Referrals
--- NOTE | 2017-08-02 11:04 | Discharge Summary ---
Hospital Course - Hospital Course Hospital Course: 77-year-old female with extensive history of coronary disease and previous stroke who is currently on Eliquis presents to the emergency room with some shortness of breath and chest discomfort. EKG shows atrial fib on admission for which he is already on Eliquis. She says that she has had 2 myocardial infarctions, with the more recent being about 3 or 4 years ago. Serial cardiac enzymes were mildly elevated and trending upwards. Dr. Crenshaw from cardiology was consulted. Dr. Ronquillo is her normal emergency medical tech. Echocardiogram showed an ejection fraction of 60% with LVH and severe aortic stenosis. Cardiac catheterization on July 27, 2017 showed severe two- vessel disease involving the proximal LAD and distal RCA. Patient was taken off her Eliquis in preparation for stenting. Patient had a TIA with evidence of left-sided weakness on July 29, 2017. MRI of her brain showed no acute stroke. Dr. Scott was consulted. Patient had a repeat heart catheterization on July 30, [address] Crenshaw placed 2 stents one in the distal RCA and one in the mid LAD and one in the diagonal. Patient was placed on Plavix and aspirin following the procedure. Her hemoglobin has been stable but we recommend her remaining on Protonix. Because she remains in atrial fib we have now changed her medications to Plavix and Eliquis. Patient was extremely weak after the procedures but has refuses rehab and wants to go home with home health. With respect to her severe aortic stenosis I have discussed her case with Dr. Crenshaw and he would like her to see Dr. Ronquillo in 2 weeks at which time she needs to undergo an evaluation in [place] for a transcatheter aortic valve replacement. He recommends for her to see Dr. Benitez in [place]. Patient will be discharged home today with home health, speech, PT and OT to follow with Dr. Jarrell her primary care doctor and Dr. Ronquillo her emergency medical tech. - Time spent with patient Time with patient DS: Greater than 30 minutes (50 min) Diagnosis - Discharge Diagnosis (1) Coronary artery disease Status: Chronic (2) Aortic stenosis Status: Acute (3) Atrial fibrillation with slow ventricular response Status: Acute (4) History of CVA (cerebrovascular accident) Status: Chronic (5) Generalized weakness Status: Acute Specialty Discharge - Follow Up or Referrals Discharge Plan - Discharge Data Disposition: Disch To Home/Self Care Condition at Discharge: Stable Discharge Diet: heart healthy Activity: resume usual activities as tolerated, as per physical therapy Hygiene: no restrictions Weight Bearing at Discharge: full weight bearing Driving: not until seen by doctor - Discharge Medications New Clopidogrel [Plavix] 75 mg PO DAILY #30 tablet hydrALAZINE TAB [Apresoline Tab] 25 mg PO TID #90 tablet Carvedilol [Coreg] 6.25 mg PO BID #60 tablet Continue Ondansetron HCl 4 mg PO Q4-6H PRN PRN Reason: Nausea Apixaban [Eliquis] 5 mg PO BID tablet Polyethylene Glycol Powder [Miralax] 17 gm PO QAM PRN PRN Reason: Constipation Rosuvastatin [Crestor] 20 mg PO DAILY Cholecalciferol (Vitamin D3) [Vitamin D3] 5,000 unit PO DAILY Pantoprazole Tab [Protonix Tab] 40 mg PO DAILY #30 tablet Famotidine Tab [Pepcid Tab] 20 mg PO QAM PRN PRN Reason: Indigestion Ursodiol [Actigall] 300 mg PO BID capsule Discontinued Carvedilol [Coreg] 25 mg PO BID Digoxin [Lanoxin] 250 mcg PO DAILY Megestrol Liquid [Megace Liquid] 400 mg PO BID #0 - Follow Up or Referral Follow Up: Jose Daniel Ronquillo MD [Physician] - 2 Weeks Emmanuel Jarrell DO [Primary Care Provider] - 2 Weeks - Forms/Instructions Instructions: Left Heart Catheterization (DC), Aortic Stenosis (GEN), Aortic Regurgitation (GEN), Heart Healthy Diet (GEN), Coronary Intravascular Stent Placement (DC) Exam - Constitutional Vitals: Period Temp Pulse Resp BP Sys/Velazco Pulse Ox Last 24 Hr 96.5 F-97.9 F 78-92 18-21 106-149/62-75 90-98 General appearance: no acute distress, under weight - Head Head exam: Present: normal inspection, normocephalic - Respiratory Respiratory exam: Present: clear to auscultation bilaterally - Cardiovascular Cardiovascular exam: Present: irregular rhythm. Absent: systolic murmur - GI/Abdominal GI/Abdominal exam: Present: normal bowel sounds, soft. Absent: tenderness - Neurological Exam Neurological exam: Present: alert, oriented X3 - Psychiatric Psychiatric exam: Present: normal affect, normal mood Discharge Results Labs on day of discharge: Labs from last 24 hours 08/02/17 08/01/17 04:39 12:40 WBC 10.6 11.2 RBC 4.32 4.53 Hgb 13.4 14.2 D Hct 40.2 42.3 MCV 93.1 93.4 MCH 31 31 MCHC 33.3 33.6 RDW 13.2 13.2 Plt Count 232 222 MPV 10.0 10.4 Neut % (Auto) 62.2 66.5 Lymph % (Auto) 26.0 21.9 [place] % (Auto) 7.7 8.1 Eos % (Auto) 2.4 2.0 Baso % (Auto) 0.8 0.7 Neut # (Auto) 6.6 7.5 H Lymph # (Auto) 2.8 2.5 [place] # (Auto) 0.8 0.9 H Eos # (Auto) 0.3 0.2 Baso # (Auto) 0.1 0.1 Immature Gran % 0.9 0.8 Nucleated RBC % 0.0 0.0 Immature Gran # 0.10 0.09 Nucleated RBCs # 0.00 0.00 Immature Plt Fraction 0.0 0.0 DS: Provider Date of admission: 07/23/17 15:03 Primary care physician: Emmanuel Jarrell DO Attending physician on admission: Sven Hatfield MD Consults: 07/23/17 16:22 Consult to Case Mgmt/Social Srvs [CONS] Routine Reason for Case Mgmt/Social Srvs: Discharge Planning Consult to Physical Therapy [CONS] Routine Reason for Physical Therapy: Evaluate and Treat 07/23/17 18:01 Consult to Pastoral Services [CONS] Routine Comment: Pastoral Screen: Request Student Life Dean Visit Pastoral Screen Source of Request: Patient 07/24/17 12:03 Consult to Physician [CONS] Routine Comment: Patient of yours with progressive shortness of lenny Consulting Provider: Consult to Specialist Group: Cardiology When should Consulting Provider be notified: Now 07/27/17 11:25 Consult to Cardiac Rehabilitation [CONS] Routine Reason for Cardiac Rehabilitation: Risk Factor Modification Other Consult Comment: Evaluate and recommend 07/28/17 14:09 Consult to Physician [CONS] Routine Comment: Consulting Provider: Sergio Scott When should Consulting Provider be notified: Now Person Notified: Charlene Date Notified: 07/28/17 Time Notified: 14:35 07/30/17 09:49 Consult to Cardiac Rehabilitation [CONS] Routine Reason for Cardiac Rehabilitation: Risk Factor Modification Other Consult Comment: Evaluate and recommend 07/31/17 09:31 Consult to Case Mgmt/Social Srvs [CONS] Routine Reason for Case Mgmt/Social Srvs: Rehab Consult to Occupational Therapy [CONS] Routine Reason for Occupational Therapy: Evaluate and Treat 08/02/17 10:34 Consult to Case Mgmt/Social Srvs [CONS] Routine Reason for Case Mgmt/Social Srvs: Home Health Consult Comment: needs nurse, aid, PT, OT, and Speech Therapy 08/02/17 10:58 Consult to Case Mgmt/Social Srvs [CONS] Routine Reason for Case Mgmt/Social Srvs: Home Health Consult Comment: nurse, aid, speech, pt, ot Discharging clinician: Kayla Ye MD
[2017-08-02 12:39] VITALS: BP 137/63
== END 2017-08-02 14:38 | disposition home health service (06) | DRG 247 ==
LOC: N.ED 12:45 → N.EDINP 15:03 → SUATTDRO 15:03 → N.TELEN 16:54 → N.CC 07-30 10:10 → N.TELES 08-01 12:49
PROVIDERS: ADMIT Internal Medicine Geriatric Medicine; ATTEND Internal Medicine

== ENCOUNTER 2017-08-17 14:16 | Observation (INO) ==
[2017-08-17] MEDS ORDERED: FUROSEMIDE 100 MG/10 ML VIAL IV STA (15:24)
--- NOTE | 2017-08-17 15:30 | Emergency Department Note ---
Arrival - Arrival Chief Complaint: Shortness of Breath Stated Complaint: High Bp, Irregular heart rate, sob ED Nursing Triage Note: Pt c/o SOB and high heart rate. Lower ext started swelling 3 days ago. Mode of Arrival: Wheelchair Limitations: No Limitations Source: Patient, Family, RN Notes Reviewed Time Seen by Provider: 08/17/17 14:56 - History of Present Illness HPI Narrative: Patient is a 77-year-old white female with a known history of atrial fib and coronary artery disease along with aortic stenosis who is seen today complaining of shortness of breath and fast heart rate. Patient was recently hospitalized and underwent stents to the LAD and RCA. Patient also had a TIA during the hospitalization. Patient was discharged home on Eliquis and Plavix. She did have digoxin discontinued at the time of discharge last month. Patient continues on Coreg. She denies any chest pain but has had shortness of breath with exertion and also some shortness of breath when supine. She has noticed some swelling in her legs. Patient does have chronic right upper extremity edema due to prior mastectomy. Onset (ago): day(s) (2) Consistency: constant Severity: moderate Allergies/Adverse Reactions: Allergies Allergy/AdvReac Type Severity Reaction Status Date / Time Sulfa (Sulfonamide Allergy RASH Verified 08/30/15 18:33 Antibiotics) codeine AdvReac Nausea Verified 08/30/15 18:33 Home Medications: Home Medications Medication Instructions Recorded Confirmed Type Ondansetron HCl 4 mg PO Q4-6H PRN 08/30/15 08/17/17 History Apixaban [Eliquis] 5 mg PO BID tablet 03/10/17 08/17/17 Rx Famotidine Tab [Pepcid Tab] 20 mg PO QAM PRN 03/24/17 08/17/17 History Ursodiol [Actigall] 300 mg PO BID capsule 03/24/17 08/17/17 Rx Cholecalciferol (Vitamin D3) 5,000 unit PO DAILY 07/23/17 08/17/17 History [Vitamin D3] Polyethylene Glycol Powder 17 gm PO QAM PRN 07/23/17 08/17/17 History [Miralax] Rosuvastatin [Crestor] 20 mg PO DAILY 07/23/17 08/17/17 History Carvedilol [Coreg] 6.25 mg PO BID #60 tablet 08/02/17 08/17/17 Rx Clopidogrel [Plavix] 75 mg PO DAILY #30 tablet 08/02/17 08/17/17 Rx Pantoprazole Tab [Protonix Tab] 40 mg PO DAILY #30 tablet 08/02/17 08/17/17 Rx hydrALAZINE TAB [Apresoline Tab] 25 mg PO TID #90 tablet 08/02/17 08/17/17 Rx Review of System - Review of System 12 point system: reviewed and no additional remarkable complaints except as stated - Review of System Constitutional: Absent: chills, fever Respiratory: Absent: cough Cardiovascular: Present: dyspnea on exertion, orthopnea, edema. Absent: chest pain Gastrointestinal: Absent: abdominal pain, nausea, vomiting Medical,Surgical,& Family Hx - Medical History Cardio: History of: Cardiac Dysrhythmia (RECENTALLY DX WITH AFIB FEBRUARY 2017), CAD, Hypertension, [place] ([place] X 2,), Valvular Heart Disease (Mild to moderate aortic stenosis, senescent) Neurology: History of: Cerebrovascular Accident, TIA No history of: Seizures HEENT: History of: Eye Problem (BLURRED VISION R/T STROKE FEBRUARY 2017) Endocrine: History of: Dyslipidemia Gastrointestinal: History of: Diverticulitis/ Diverticulosis, GERD, Polyps, GI Problems (HAS GALLSTONES) Musculoskeletal: History of: Back/Neck Problems (LOWER PART OF BACK) Reproductive: History of: Breast Cancer (1979 RIGHT MASECTOMY-LYMPH NODES REMOVED) - Surgical History Cardiac Surgeries: Sugical HX of: Cardiac Catheterization (3 HEART CATHS 4 STENTS, most recent 2013) Abdominal Surgeries: Surgical HX of: Abdominal Surgery, Appendectomy Reproductive Surgeries: Surgical HX of;: Breast Surgery (For breast cancer), Hysterectomy - Family History Family History: Reports;: Family Cancer (Father), Family Heart Disease (Sister) , Family Hypertension (Mother), Family Stroke (MOTHER AND FATHER) - Social History Smoking Status: Former smoker Exam Vital Signs: Vital Signs Temperature 97.7 F 08/17/17 14:59 Pulse Rate 102 H 08/17/17 14:59 Respiratory Rate 20 08/17/17 14:59 Blood Pressure 145/107 08/17/17 14:59 O2 Sat by Pulse Oximetry 100 08/17/17 14:20 GENERAL: This is a well-nourished well-developed female in no apparent distress. VITAL SIGNS: Reviewed HEENT: Head is atraumatic and normocephalic. Pupils are equal round react to light. Extraocular movements are intact. Oropharynx is benign with moist mucous membranes. NECK: Neck is soft and supple without tenderness. There are no masses. There is no lymphadenopathy. LUNGS: Lungs are clear to auscultation. Chest rises symmetrically. There is no chest wall tenderness. CV: Heart is irregularly irregular with 2/6 systolic ejection murmur loudest at the left sternal border. ABDOMEN: Abdomen is soft, nontender to palpation. There are no abdominal abnormal masses palpated. There is no organomegaly. Bowel sounds are present and active. SKIN: Skin is warm and dry. No rash. EXTREMITIES: Patient has full range of motion without tenderness. There is 1-2 + pitting pedal edema. NEUROLOGIC: Awake alert and oriented 4. Cranial nerves II through XII are grossly intact. Motor is 5 over 5 in all extremities bilaterally. Course - Consultations Consultation #1: Discussed with Dr. Dias. Patient will be seen in the emergency department. Time: 16:05 Results - Labs CBC & BMP: 08/17/17 15:05 Lab Results: I have reviewed the patients labs - EKG EKG results: interpreted by ERMD - Impressions EKG: Atrial fib with a rate of 99, nonspecific ST-T wave changes, normal axis - Diagnostic Findings Procedure: Chest x-ray: image reviewed by me Disposition Clinical Impression: Congestive heart failure, Atrial fibrillation, Chronic anticoagulation, Coronary artery disease, Severe aortic stenosis Case discussed with: patient, patient's family Condition: Stable
[2017-08-17] MEDS ORDERED: FUROSEMIDE 40 MG/4 ML VIAL ONE (15:37)
[2017-08-17 15:40] LABS: Apearance,Urine CLEAR (Clear); Bilirubin,Urine Negative (Negative); Blood, Urine Negative (Negative); Glucose,Urine (UA) Negative (Negative); Ketones,Urine Negative (Negative); Nitrite,Urine Negative (Negative); Protein,Urine Negative; Squamous Epithelial Cell,Urine Occasional /HPF (0-10); Urine Color Yellow (Yellow); Urine Specific Gravity 1.004 (1.001-1.035); Urine Urobilinogen < 2.0 EU/DL (0.2-1.0); WBC,Urine <1 /HPF (0-6)
--- NOTE | 2017-08-17 15:47 | XRay Report ---
History: Shortness of breath Date: 08/17/2017 Study: Chest x-ray AP portable Comparison exam: July 27, 2017 There is stable cardiomegaly. The mediastinal contour is unchanged. The pulmonary vasculature is not engorged. The lungs and pleural spaces are clear. Surgical clips overlie the right axilla in this patient status post prior right mastectomy. There is osteopenia and mild thoracic spondylosis is performed Impression: No acute cardiopulmonary process. No significant interval change. Stable cardiomegaly. Prior right mastectomy PROCEDURE INTERPRETED AT [facility] DEPARTMENT OF RADIOLOGY Final Report Signed by: Dr. Cheri Dupree
[2017-08-17 15:53] LABS: INR 1.1; PT Patient Result 11.5 SECS; Partial Thromboplastin Time 28.6 SECS (0-40)
[2017-08-17 16:00] LABS: Albumin 3.3 G/DL (3.4-5.0); Bilirubin,Total 0.5 MG/DL (0.2-1.0); Calcium 8.9 MG/DL (8.5-10.1); Osmolality,Calculated 280.4 MOS/KG (273-304); Potassium 4.1 MMOL/L (3.5-5.1); Total Protein 6.5 G/DL (6.4-8.3); Troponin I Only 0.027 NG/ML (0.00-0.045)
[2017-08-17 16:31] LABS: Basophils # 0.1 10*3/uL (0.0-0.2); Basophils % 0.9 % (0.0-0.8); Eosinophils # 0.3 10*3/uL (0.0-0.87); Eosinophils % 2.6 % (0.00-10.9); Hematocrit 35.7 VOL% (35.7-47.0); Hemoglobin 11.7 GM/DL (12.0-16.0); Immature Granulocytes % 0.4 %; Immature Granulocytes Absolute 0.05 #; Lymphocytes # 2.5 10*3/uL (1.4-4.0); Lymphocytes % 22.2 % (21.3-54.2); Mean Corpuscular HGB Conc 32.8 GM/DL (32-36); Mean Corpuscular Hemoglobin 32 PG (27-34); Mean Corpuscular Volume 96.2 FL (87-102); Mean Platelet Volume 10.5 FL (9.6-12.0); Monocytes # 0.7 10*3/uL (0.11-0.8); Monocytes % 6.5 % (1.7-12.7); Neutrophils # 7.5 10*3/uL (1.4-7.4); Neutrophils % 67.4 % (38.7-73.9); Platelet Count 257 T/CUMM (130-400); Red Blood Count 3.71 MC/CUMM (3.8-5.5); Red Cell Distribution Width 13.7 % (9.3-17.3); White Blood Count 11.2 T/CUMM (4-12)
[2017-08-17] MEDS ORDERED: POLYETHYLENE GLYCOL POWDER 17 GM PACK PO PRN (17:19)
[2017-08-17] MEDS ORDERED: ONDANSETRON 4 MG TABLET PO PRN (17:19)
--- NOTE | 2017-08-17 17:52 | Cardiology History & Physical ---
Royer Downey Lesley, CARMINE, am scribing for, and in the presence of, Hunter Jacinto MD 17:52. Assessment and Plan - Time spent with patient Time spent with patient: Greater than 30 minutes (Record review, assessment, and documentation) (1) Atrial fibrillation Status: Chronic Assessment and plan: SEE PLAN LISTED BELOW Current Visit: No (2) Hypertension Status: Chronic Assessment and plan: SEE PLAN LISTED BELOW Current Visit: No Qualifiers: Hypertension type: essential hypertension Qualified Code(s): I10 - Essential (primary) hypertension (3) Aortic stenosis Status: Chronic Assessment and plan: SEE PLAN LISTED BELOW Current Visit: No (4) Dyspnea Status: Acute Assessment and plan: SEE PLAN LISTED BELOW Current Visit: No (5) Coronary artery disease Status: Chronic Assessment and plan: SEE PLAN LISTED BELOW Current Visit: No History of Present Illness Chief complaint: Dyspnea, AFIB History of present illness: CONVENTIONS ASSISTANT: Dr. Ronquillo Ms. Caraballo is a 77 year old WF, known to Dr. Ronquillo with a past medical history of coronary artery disease, hypertension, dyslipidemia, diverticulosis, gallstones, aortic stenosis, GERD, breast cancer, CVA, chronic anticoagulation and history of breast cancer. She was most recently hospitalized in June 2017 , with dyspnea and underwent cardiac catheterization receiving a stent to RCA and LAD. PTCA to the diagonal ostium. 07/02 cath findings revealed critical aortic stenosis with MENG 0.75 cm and mean gradient 21 mmHg with severe two- vessel CAD involving proximal LAD and distal RCA, preserved LV function with EF 75%, 2-3+ mitral insufficiency. In February 2017, she was diagnosed with an acute CVA and new onset atrial fibrillation.Chronic anticoagulation was initiated with Eliquis. She has had 3 heart catheterizations in the past with stent placement 4 and PTCA. 08/27/2012 she received stent to the first diagonal and PTCA to the side branch of the first diagonal. 03/17/14 she had an NSTEMI and had placement of drug-eluting stents to a mid LAD 95% stenosis and mid RCA 90% stenosis with patent first diagonal stent. 06/16/2014 she had stent placement to the distal RCA with 95% stenosis was noted to have mild in-stent restenosis in the diagonal branch which was not flow-limiting. Her other stents were patent and she was noted to have an ejection fraction of 45-50%. Past surgical history includes cardiac catheterization, appendectomy, hysterectomy, mastectomy for breast cancer. The patient is a former smoker who quit over 45 years ago. Family history positive for heart disease (sister), hypertension and stroke (mother), stroke and cancer (father). The patient presents with dyspnea and Afib with RVR. She reports that her home health nurse has been monitoring her heart rate and encouraged her to come to the ER. She is a fair historian. Her son is at the bedside. The patient was seen in ER #[id number] Jacinto and myself. Patient does appear to have some dyspnea with conversation. clinical research monitor shows A fib with a rate in the low 100s. Labs reviewed, creatinine 1.3 which is near her baseline. Urinalysis negative, electrolytes unremarkable, troponin negative. Chest x-ray reveals no acute cardiopulmonary process, stable cardiomegaly with prior right mastectomy noted. The patient states she was scheduled to see Dr. Ronquillo in clinic in 2 days to discuss a possible referral to [facility] for her aortic valve stenosis. Our plan is to admit the patient observation, we will continue continuous telemetry monitoring, and adjust medications. IMPRESSION AND PLAN: 1. AF - Increase Coreg. Stop hydralazine. Recommend to avoid vasodilators, severe 2. DYSPNEA - chronic related to AFIB and Aortic stenosis. 3. CAD - troponins negative, will continue to monitor, continue Plavix and Eliquis, increased beta francisco. 4. SEVERE AORTIC STENOSIS - referral for TAVR/minimal invasive AVR planned. High risk, had TIA after [facility] ?cholesterol embolism 5. HYPERTENSION - now well controlled Home Medications Medication Instructions Recorded Confirmed Type RX: Ondansetron HCl 4 mg PO Q4-6H PRN 08/30/15 08/17/17 History RX: Apixaban [Eliquis] 5 mg PO BID tablet 03/10/17 08/17/17 Rx RX: Famotidine Tab [Pepcid Tab] 20 mg PO QAM PRN 03/24/17 08/17/17 History RX: Ursodiol [Actigall] 300 mg PO BID capsule 03/24/17 08/17/17 Rx RX: Cholecalciferol (Vitamin D3) 5,000 unit PO DAILY 07/23/17 08/17/17 History [Vitamin D3] RX: Polyethylene Glycol Powder 17 gm PO QAM PRN 07/23/17 08/17/17 History [Miralax] RX: Rosuvastatin [Crestor] 20 mg PO DAILY 07/23/17 08/17/17 History RX: Carvedilol [Coreg] 6.25 mg PO BID #60 tablet 08/02/17 08/17/17 Rx RX: Clopidogrel [Plavix] 75 mg PO DAILY #30 tablet 08/02/17 08/17/17 Rx RX: Pantoprazole Tab [Protonix Tab] 40 mg PO DAILY #30 tablet 08/02/17 08/17/17 Rx RX: hydrALAZINE TAB [Apresoline 25 mg PO TID #90 tablet 08/02/17 08/17/17 Rx Tab] Allergies Allergy/AdvReac Type Severity Reaction Status Date / Time Sulfa (Sulfonamide Allergy RASH Verified 08/30/15 18:33 Antibiotics) codeine AdvReac Nausea Verified 08/30/15 18:33 - Constitutional Constitutional: Absent: anorexia, chills, daytime sleepiness, lethargy, malaise - EENT Nose, mouth and throat: Absent: dysphagia, headache(s) - Cardiovascular Cardiovascular: Present: dyspnea, dyspnea on exertion, edema. Absent: chest pain at rest, chest pain with activity, radiating jaw, neck or arm pain, palpitations - Respiratory Respiratory: Present: cough, dyspnea, dyspnea on exertion. Absent: hemoptysis, wheezing - Gastrointestinal Gastrointestinal: Absent: abdominal pain, change in bowel habits, coffee ground emesis, constipation, dyspepsia, dysphagia, hematemesis, hematochezia, nausea, vomiting - Genitourinary Genitourinary: Absent: abnormal vaginal bleeding, difficulty urinating - Neurological Neurological: Absent: abnormal gait, abnormal speech, behavioral changes, frequent falls Medical,Surgical,& Family Hx - Medical History Cardio: History of: Cardiac Dysrhythmia (RECENTALLY DX WITH AFIB FEBRUARY 2017), CAD, Hypertension, [place] ([place] X 2,), Valvular Heart Disease (Mild to moderate aortic stenosis, senescent) Neurology: History of: Cerebrovascular Accident, TIA No history of: Seizures HEENT: History of: Eye Problem (BLURRED VISION R/T STROKE FEBRUARY 2017) Endocrine: History of: Dyslipidemia Gastrointestinal: History of: Diverticulitis/ Diverticulosis, GERD, Polyps, GI Problems (HAS GALLSTONES) Musculoskeletal: History of: Back/Neck Problems (LOWER PART OF BACK) Reproductive: History of: Breast Cancer (1979 RIGHT MASECTOMY-LYMPH NODES REMOVED) - Surgical History Cardiac Surgeries: Sugical HX of: Cardiac Catheterization (3 HEART CATHS 4 STENTS, most recent 2013) Abdominal Surgeries: Surgical HX of: Abdominal Surgery, Appendectomy Reproductive Surgeries: Surgical HX of;: Breast Surgery (For breast cancer), Hysterectomy - Family History Family History: Reports;: Family Cancer (Father), Family Heart Disease (Sister) , Family Hypertension (Mother), Family Stroke (MOTHER AND FATHER) - Social History Smoking Status: Former smoker Cardiology Physical Exam - Constitutional Vitals: Vital Signs Temp Pulse Resp BP Pulse Ox 97.7 F 102 H 20 145/107 100 08/17/17 14:59 08/17/17 14:59 08/17/17 14:59 08/17/17 14:59 08/17/17 14:20 Intake and Output 08/17/17 08/17/17 08/17/17 07:59 15:59 23:59 Other: Weight 145 lb Patient Weight 08/17/17 23:59 Weight 145 lb Exam: General: Appears well with no apparent distress. Pleasant and cooperative. Appears comfortable. HEENT: PERRL, normocephalic, atraumatic. Mucous membranes moist. No jaundice noted. Conjunctiva moist and clear, sclerae anicteric. Neck: No JVD, no thyromegaly or lymphadenopathy noted. No carotid bruit appreciated. Cardiac: Irregularly irregular rate and rhythm. No murmur rub or gallop. PMI is nondisplaced. Lungs: Clear to auscultation with slight accessory muscle use to assist the respiratory pattern. Oxygen in use via nasal cannula. Abdomen: Soft, bowel sounds normoactive. Nontender and nondistended. No abdominal bruit or thrill noted. No masses noted. Musculoskeletal: No fluid collection. Decreased range of motion is noted. Extremities: No clubbing, cyanosis noted. 2+ edema to bilateral lower extremities. Upper extremity pulses 2+. Lower extremity pulses 2+. Capillary refill less than 3 seconds. Skin: Warm and dry. No unusual lesions or rashes. No skin breakdown appreciated. Neuro: Awake, alert and oriented 3. Moves all extremities well without hemiparesis or paralysis. No essential tremor is appreciated. Result/EKG - Labs CBC & BMP: 08/17/17 15:05 08/17/17 15:05 Lab Results: I have reviewed the past 24 hour labs Labs: Laboratory Results - last 24 hr 08/17/17 08/17/17 08/17/17 15:05 15:05 15:05 WBC 11.2 RBC 3.71 L Hgb 11.7 L Hct 35.7 MCV 96.2 MCH 32 MCHC 32.8 RDW 13.7 Plt Count 257 MPV 10.5 Neut % (Auto) 67.4 Lymph % (Auto) 22.2 [place] % (Auto) 6.5 Eos % (Auto) 2.6 Baso % (Auto) 0.9 H Neut # (Auto) 7.5 H Lymph # (Auto) 2.5 [place] # (Auto) 0.7 Eos # (Auto) 0.3 Baso # (Auto) 0.1 Immature Gran % 0.4 Nucleated RBC % 0.0 Immature Gran # 0.05 Nucleated RBCs # 0.00 Immature Plt Fraction 0.0 INR 1.1 PT Patient/Control Mix 11.5 Circ Anticoag PTT 28.6 Sodium 140 Potassium 4.1 Chloride 105 Carbon Dioxide 29 Anion Gap 10.1 BUN 16 Creatinine 1.30 H GFR Calculation 40 BUN/Creatinine Ratio 12.00 Glucose 108 H Calculated Osmolality 280.4 Calcium 8.9 Magnesium 2.0 Total Bilirubin 0.50 AST 16 ALT 18 Alkaline Phosphatase 64 Troponin I 0.027 Total Protein 6.5 Albumin 3.3 L Globulin 3.2 Albumin/Globulin Ratio 1.0 L Urine Color Urine Appearance Urine pH Ur Specific [place] Urine Protein Urine Glucose (UA) Urine Ketones Urine Blood Urine Nitrate Urine Bilirubin Urine Urobilinogen Urine Leukocytes Urine WBC Ur Squamous Epith Cells Ur Culture Indicated? 08/17/17 15:05 WBC RBC Hgb Hct MCV MCH MCHC RDW Plt Count MPV Neut % (Auto) Lymph % (Auto) [place] % (Auto) Eos % (Auto) Baso % (Auto) Neut # (Auto) Lymph # (Auto) [place] # (Auto) Eos # (Auto) Baso # (Auto) Immature Gran % Nucleated RBC % Immature Gran # Nucleated RBCs # Immature Plt Fraction INR PT Patient/Control Mix Circ Anticoag PTT Sodium Potassium Chloride Carbon Dioxide Anion Gap BUN Creatinine GFR Calculation BUN/Creatinine Ratio Glucose Calculated Osmolality Calcium Magnesium Total Bilirubin AST ALT Alkaline Phosphatase Troponin I Total Protein Albumin Globulin Albumin/Globulin Ratio Urine Color Yellow Urine Appearance Clear Urine pH 6.0 Ur Specific [place] 1.004 Urine Protein Negative Urine Glucose (UA) Negative Urine Ketones Negative Urine Blood Negative Urine Nitrate Negative Urine Bilirubin Negative Urine Urobilinogen < 2.0 H Urine Leukocytes Negative Urine WBC <1 Ur Squamous Epith Cells Occasional Ur Culture Indicated? Not indicated - Diagnostic Findings Procedure: Chest x-ray: report reviewed by me - EKG EKG results: interpreted by me EKG shows: atrial fibrillation Ophelia Downey Attila, MD, personally performed the services described in this documentation, ascribed by Alba Linton NP in my presence, and it is both accurate and complete [id number] .
[2017-08-17] MEDS ORDERED: ONDANSETRON 4 MG/2 ML VIAL IV PRN (17:54)
[2017-08-17] MEDS ORDERED: MAGNESIUM SULF RIDER 4 GM in PREMIX 1 EACH IV PRN (17:54)
[2017-08-17] MEDS ORDERED: DOCUSATE SODIUM 100 MG CAPSULE PO PRN (17:54)
[2017-08-17] MEDS ORDERED: MAGNESIUM SULF RIDER 2 GM in PREMIX 1 EACH IV PRN (17:54)
[2017-08-17] MEDS ORDERED: ZALEPLON 5 MG CAPSULE PO PRN (17:54)
[2017-08-17] MEDS: CARVEDILOL 6.25 MG TABLET PO SCH (21:31)
[2017-08-17] MEDS: URSODIOL 300 MG CAPSULE PO SCH (21:31)
[2017-08-17] MEDS: APIXABAN 5 MG TABLET PO SCH (21:31)
[2017-08-18 06:18] LABS: Basophils # 0.1 10*3/uL (0.0-0.2); Eosinophils # 0.3 10*3/uL (0.0-0.87); Hematocrit 35.5 VOL% (35.7-47.0); Hemoglobin 11.7 GM/DL (12.0-16.0); Immature Granulocytes % 0.5 %; Immature Granulocytes Absolute 0.05 #; Lymphocytes # 2.6 10*3/uL (1.4-4.0); Lymphocytes % 25.4 % (21.3-54.2); Mean Corpuscular Hemoglobin 31 PG (27-34); Mean Corpuscular Volume 94.4 FL (87-102); Monocytes # 0.8 10*3/uL (0.11-0.8); Monocytes % 7.4 % (1.7-12.7); Neutrophils # 6.5 10*3/uL (1.4-7.4); Neutrophils % 62.7 % (38.7-73.9); Platelet Count 239 T/CUMM (130-400); Red Blood Count 3.76 MC/CUMM (3.8-5.5); Red Cell Distribution Width 13.5 % (9.3-17.3); White Blood Count 10.3 T/CUMM (4-12)
[2017-08-18 06:50] LABS: Calcium 9.4 MG/DL (8.5-10.1); Magnesium 2.2 MG/DL (1.8-2.4); Osmolality,Calculated 283.3 MOS/KG (273-304); Potassium 3.7 MMOL/L (3.5-5.1)
[2017-08-18 06:54] LABS: Calcium 9.1 MG/DL (8.5-10.1); Osmolality,Calculated 282.3 MOS/KG (273-304); Potassium 3.7 MMOL/L (3.5-5.1)
--- NOTE | 2017-08-18 07:30 | DUMMY REPORT TO COMPLETE ORDER ---
See report scanned to EMR
[2017-08-18] MEDS ORDERED: CLOPIDOGREL 75 MG TABLET PO SCH (09:00)
[2017-08-18] MEDS ORDERED: PANTOPRAZOLE 40 MG TABLET PO SCH (09:00)
[2017-08-18] MEDS ORDERED: CHOLECALCIFEROL 1,000 UNIT TABLET PO SCH (09:00)
[2017-08-18] MEDS ORDERED: ROSUVASTATIN 20 MG TABLET PO SCH (09:00)
[2017-08-18] MEDS: URSODIOL 300 MG CAPSULE PO SCH (09:31)
[2017-08-18] MEDS: CARVEDILOL 6.25 MG TABLET PO SCH (09:32)
[2017-08-18] MEDS: APIXABAN 5 MG TABLET PO SCH (09:34)
--- NOTE | 2017-08-18 12:05 | DUMMY REPORT TO COMPLETE ORDER ---
See report scanned to EMR
[2017-08-18 12:15] VITALS: BP 133/62
[2017-08-18] MEDS ORDERED: FUROSEMIDE 20 MG TABLET PO SCH (12:30)
--- NOTE | 2017-08-18 17:00 | Discharge Summary ---
Royer Downey Lesley, CARMINE, am scribing for, and in the presence of, Hunter Jacinto MD 17:00. Hospital Course - Hospital Course Hospital Course: Ms. Caraballo is a 77-year-old female known to Dr. Ronquillo with past medical history of CAD, hypertension, A atrial fibrillation dyslipidemia, severe aortic stenosis, CVA, chronic anticoagulation. She reports she came into the emergency room for evaluation upon the recommendation of her home health nurse due to Afib with RVR. She reports she has had some dyspnea and that her home health nurse has been monitoring her heart rate as well as she monitors it herself. BNP was 475, creatinine 1.3, other labs unremarkable. On a recent admission (06/2017) the patient underwent cardiac catheterization and received a stent to the RCA and LAD. The cath also revealed a critical aortic stenosis for which she has an upcoming appointment with Dr. Ronquillo to discuss options. personnel monitor as well as EKG did reveal atrial fibrillation with a rate in the low 100s. The patient was diuresed with Lasix and medication changes were made. The patient was stable overnight, she feels her dyspnea has improved and she has ambulated on the telemetry floor today. The patient will be discharged home today and will keep her appointment with Dr. Ronquillo scheduled for 2016. We stopped the hydralazine and increased the carvedilol. Discharge medications: Eliquis 5 mg p.o. twice daily Carvedilol 12.5 mg p.o. twice daily Cholecalciferol 5000 units p.o. daily q. 7 days Clopidogrel 75 mg p.o. daily Furosemide 20 mg p.o. daily Rosuvastatin 20 mg p.o. nightly Ursodiol 300 mg p.o. twice daily - Time spent with patient Time with patient DS: Greater than 30 minutes (Record review, assessment, documentation) Diagnosis - Discharge Diagnosis (1) Atrial fibrillation Status: Chronic (2) Hypertension Status: Chronic (3) Aortic stenosis Status: Chronic (4) Dyspnea Status: Chronic (5) Coronary artery disease Status: Chronic Specialty Discharge - Follow Up or Referrals Follow up with: Jose Daniel Ronquillo MD [Physician] - (Pt. has an appointment 08/19/17) Discharge Plan - Discharge Data Disposition: Disch To Home/Self Care Condition at Discharge: Stable Discharge Diet: heart healthy Activity: resume usual activities as tolerated Hygiene: no restrictions Weight Bearing at Discharge: full weight bearing Driving: no restrictions Contact your physician if you experience:: fever over 101, Difficulty voiding, Redness or swelling, Nausea/Vomiting, Shortness of breath, Bleeding - Discharge Medications New Carvedilol [Coreg] 12.5 mg PO BID #60 tablet Furosemide Tab [Lasix Tab] 20 mg PO DAILY #30 tablet Continue Ondansetron HCl 4 mg PO Q4-6H PRN PRN Reason: Nausea Apixaban [Eliquis] 5 mg PO BID tablet Polyethylene Glycol Powder [Miralax] 17 gm PO QAM PRN PRN Reason: Constipation Rosuvastatin [Crestor] 20 mg PO DAILY Cholecalciferol (Vitamin D3) [Vitamin D3] 5,000 unit PO DAILY Clopidogrel [Plavix] 75 mg PO DAILY #30 tablet Pantoprazole Tab [Protonix Tab] 40 mg PO DAILY #30 tablet Famotidine Tab [Pepcid Tab] 20 mg PO QAM PRN PRN Reason: Indigestion Ursodiol [Actigall] 300 mg PO BID capsule Discontinued hydrALAZINE TAB [Apresoline Tab] 25 mg PO TID #90 tablet Carvedilol [Coreg] 6.25 mg PO BID #60 tablet - Follow Up or Referral Follow Up: Jose Daniel Ronquillo MD [Physician] - (Pt. has an appointment 08/19/17) - Forms/Instructions Instructions: Atrial Fibrillation (DC), Heart Healthy Diet (DC), Dyspnea (GEN) Exam - Constitutional Vitals: Period Temp Pulse Resp BP Sys/Velazco Pulse Ox Last 24 Hr 97.6 F-98.2 F 78-106 16-20 126-165/67-107 97-100 Exam: General: Appears well with no apparent distress. Pleasant and cooperative. Appears comfortable. HEENT: PERRL, normocephalic, atraumatic. Mucous membranes moist. No jaundice noted. Conjunctiva moist and clear, sclerae anicteric. Neck: No JVD, no thyromegaly or lymphadenopathy noted. No carotid bruit appreciated. Cardiac: Irregularly irregular rate and rhythm. Murmur present rub or gallop. PMI is nondisplaced. Lungs: Clear to auscultation without accessory muscle use to assist the respiratory pattern. Oxygen in use via nasal cannula. Slightly dyspneic with conversation. Abdomen: Soft, bowel sounds normoactive. Nontender and nondistended. No abdominal bruit or thrill noted. No masses noted. Musculoskeletal: No fluid collection. Decreased range of motion is noted. Extremities: No clubbing, cyanosis noted. Trace bilateral edema noted. Upper extremity pulses 2+. Lower extremity pulses 2+. Capillary refill less than 3 seconds. Skin: Warm and dry. No unusual lesions or rashes. No skin breakdown appreciated. Neuro: Awake, alert and oriented 3. Moves all extremities well without hemiparesis or paralysis. No essential tremor is appreciated. Discharge Results Labs on day of discharge: Labs from last 24 hours 08/18/17 08/18/17 08/18/17 06:04 06:04 06:04 WBC 10.3 RBC 3.76 L Hgb 11.7 L Hct 35.5 L MCV 94.4 MCH 31 MCHC 33.0 RDW 13.5 Plt Count 239 MPV 10.0 Neut % (Auto) 62.7 Lymph % (Auto) 25.4 [place] % (Auto) 7.4 Eos % (Auto) 3.0 Baso % (Auto) 1.0 H Neut # (Auto) 6.5 Lymph # (Auto) 2.6 [place] # (Auto) 0.8 Eos # (Auto) 0.3 Baso # (Auto) 0.1 Immature Gran % 0.5 Nucleated RBC % 0.0 Immature Gran # 0.05 Nucleated RBCs # 0.00 Immature Plt Fraction 0.0 INR PT Patient/Control Mix Circ Anticoag PTT Sodium 141 141 Potassium 3.7 3.7 Chloride 104 103 Carbon Dioxide 30 28 Anion Gap 10.7 13.7 BUN 19 H 20 H Creatinine 1.40 H 1.50 H GFR Calculation 38 35 BUN/Creatinine Ratio 13.00 13.00 Glucose 101 103 Calculated Osmolality 282.3 283.3 Calcium 9.1 9.4 Magnesium 2.2 Total Bilirubin AST ALT Alkaline Phosphatase Troponin I B-Natriuretic Peptide Total Protein Albumin Globulin Albumin/Globulin Ratio Urine Color Urine Appearance Urine pH Ur Specific [place] Urine Protein Urine Glucose (UA) Urine Ketones Urine Blood Urine Nitrate Urine Bilirubin Urine Urobilinogen Urine Leukocytes Urine WBC Ur Squamous Epith Cells Ur Culture Indicated? 08/17/17 08/17/17 08/17/17 15:05 15:05 15:05 WBC RBC Hgb Hct MCV MCH MCHC RDW Plt Count MPV Neut % (Auto) Lymph % (Auto) [place] % (Auto) Eos % (Auto) Baso % (Auto) Neut # (Auto) Lymph # (Auto) [place] # (Auto) Eos # (Auto) Baso # (Auto) Immature Gran % Nucleated RBC % Immature Gran # Nucleated RBCs # Immature Plt Fraction INR PT Patient/Control Mix Circ Anticoag PTT Sodium 140 Potassium 4.1 Chloride 105 Carbon Dioxide 29 Anion Gap 10.1 BUN 16 Creatinine 1.30 H GFR Calculation 40 BUN/Creatinine Ratio 12.00 Glucose 108 H Calculated Osmolality 280.4 Calcium 8.9 Magnesium 2.0 Total Bilirubin 0.50 AST 16 ALT 18 Alkaline Phosphatase 64 Troponin I 0.027 B-Natriuretic Peptide 475 H Total Protein 6.5 Albumin 3.3 L Globulin 3.2 Albumin/Globulin Ratio 1.0 L Urine Color Yellow Urine Appearance Clear Urine pH 6.0 Ur Specific [place] 1.004 Urine Protein Negative Urine Glucose (UA) Negative Urine Ketones Negative Urine Blood Negative Urine Nitrate Negative Urine Bilirubin Negative Urine Urobilinogen < 2.0 H Urine Leukocytes Negative Urine WBC <1 Ur Squamous Epith Cells Occasional Ur Culture Indicated? Not indicated 08/17/17 08/17/17 15:05 15:05 WBC 11.2 RBC 3.71 L Hgb 11.7 L Hct 35.7 MCV 96.2 MCH 32 MCHC 32.8 RDW 13.7 Plt Count 257 MPV 10.5 Neut % (Auto) 67.4 Lymph % (Auto) 22.2 [place] % (Auto) 6.5 Eos % (Auto) 2.6 Baso % (Auto) 0.9 H Neut # (Auto) 7.5 H Lymph # (Auto) 2.5 [place] # (Auto) 0.7 Eos # (Auto) 0.3 Baso # (Auto) 0.1 Immature Gran % 0.4 Nucleated RBC % 0.0 Immature Gran # 0.05 Nucleated RBCs # 0.00 Immature Plt Fraction 0.0 INR 1.1 PT Patient/Control Mix 11.5 Circ Anticoag PTT 28.6 Sodium Potassium Chloride Carbon Dioxide Anion Gap BUN Creatinine GFR Calculation BUN/Creatinine Ratio Glucose Calculated Osmolality Calcium Magnesium Total Bilirubin AST ALT Alkaline Phosphatase Troponin I B-Natriuretic Peptide Total Protein Albumin Globulin Albumin/Globulin Ratio Urine Color Urine Appearance Urine pH Ur Specific [place] Urine Protein Urine Glucose (UA) Urine Ketones Urine Blood Urine Nitrate Urine Bilirubin Urine Urobilinogen Urine Leukocytes Urine WBC Ur Squamous Epith Cells Ur Culture Indicated? DS: Provider Expected date of discharge: 08/18/17 Ophelia Downey Attila, MD, personally performed the services described in this documentation, ascribed by Alba Linton NP in my presence, and it is both accurate and complete [id number] .
== END 2017-08-18 15:10 | disposition home or self-care (01) ==
LOC: N.EDINP 14:16 → N.ED 14:16 → N.TELES 18:20
PROVIDERS: ADMIT Internal Medicine Clinical Cardiac Electrophysiology; ATTEND Internal Medicine Clinical Cardiac Electrophysiology

== ENCOUNTER 2018-07-10 10:18 | Inpatient (IN) ==
[2018-07-10 11:02] LABS: Basophils # 0.1 10*3/uL (0.0-0.2); Basophils % 0.7 % (0.0-0.8); Eosinophils # 0.4 10*3/uL (0.0-0.87); Eosinophils % 2.5 % (0.00-10.9); Hematocrit 42.7 VOL% (35.7-47.0); Hemoglobin 14.4 GM/DL (12.0-16.0); Immature Granulocytes % 0.3 %; Immature Granulocytes Absolute 0.05 #; Lymphocytes # 2.6 10*3/uL (1.4-4.0); Lymphocytes % 17.2 % (21.3-54.2); Mean Corpuscular HGB Conc 33.7 GM/DL (32-36); Mean Corpuscular Hemoglobin 31 PG (27-34); Mean Corpuscular Volume 92.8 FL (87-102); Mean Platelet Volume 10.7 FL (9.6-12.0); Monocytes # 0.8 10*3/uL (0.11-0.8); Monocytes % 5.2 % (1.7-12.7); Neutrophils # 11.2 10*3/uL (1.4-7.4); Neutrophils % 74.1 % (38.7-73.9); Platelet Count 209 T/CUMM (130-400); Red Cell Distribution Width 13.2 % (9.3-17.3); White Blood Count 15.1 T/CUMM (4-12)
[2018-07-10 11:28] LABS: Partial Thromboplastin Time 27.3 SECS (0-40)
[2018-07-10 11:29] LABS: Albumin 3.9 G/DL (3.4-5.0); Bilirubin,Total 0.8 MG/DL (0.2-1.0); Calcium 10.5 MG/DL (8.5-10.1); Osmolality,Calculated 286.4 MOS/KG (273-304); Total Protein 8.2 G/DL (6.4-8.3)
[2018-07-10 11:33] LABS: PT Patient Result 10.7 SECS
[2018-07-10 12:08] LABS: Apearance,Urine CLEAR (Clear); Bilirubin,Urine Negative (Negative); Blood, Urine Moderate mg/dL (Negative); Glucose,Urine (UA) Negative (Negative); Ketones,Urine Negative (Negative); Nitrite,Urine Negative (Negative); Protein,Urine Negative; RBC,Urine 4 /HPF (0-4); Urine Color Yellow (Yellow); Urine Specific Gravity 1.013 (1.001-1.035); Urine Urobilinogen < 2.0 EU/DL (0.2-1.0)
[2018-07-10 17:15] LABS: Risk Ratio 1.73; VLDL CHOLESTEROL 12.8 MG/DL
[2018-07-11 04:20] LABS: Basophils # 0.1 10*3/uL (0.0-0.2); Basophils % 0.9 % (0.0-0.8); Eosinophils # 0.3 10*3/uL (0.0-0.87); Eosinophils % 3.7 % (0.00-10.9); Hematocrit 36.6 VOL% (35.7-47.0); Hemoglobin 11.9 GM/DL (12.0-16.0); Immature Granulocytes % 0.4 %; Immature Granulocytes Absolute 0.03 #; Lymphocytes # 1.8 10*3/uL (1.4-4.0); Lymphocytes % 23.8 % (21.3-54.2); Mean Corpuscular HGB Conc 32.5 GM/DL (32-36); Mean Corpuscular Hemoglobin 31 PG (27-34); Mean Corpuscular Volume 96.1 FL (87-102); Mean Platelet Volume 10.8 FL (9.6-12.0); Monocytes # 0.5 10*3/uL (0.11-0.8); Neutrophils # 4.9 10*3/uL (1.4-7.4); Neutrophils % 64.2 % (38.7-73.9); Platelet Count 153 T/CUMM (130-400); Red Blood Count 3.81 MC/CUMM (3.8-5.5); Red Cell Distribution Width 13.2 % (9.3-17.3); White Blood Count 7.6 T/CUMM (4-12)
[2018-07-11 04:52] LABS: Calcium 8.5 MG/DL (8.5-10.1); Osmolality,Calculated 284.3 MOS/KG (273-304); Potassium 3.9 MMOL/L (3.5-5.1); Thyroid Stimulating Hormone 1.32 uIU/ml (0.358-3.74)
[2018-07-12 04:22] LABS: Basophils # 0.1 10*3/uL (0.0-0.2); Basophils % 1.3 % (0.0-0.8); Eosinophils # 0.4 10*3/uL (0.0-0.87); Eosinophils % 5.5 % (0.00-10.9); Hematocrit 36.6 VOL% (35.7-47.0); Hemoglobin 11.6 GM/DL (12.0-16.0); Immature Granulocytes % 0.3 %; Immature Granulocytes Absolute 0.02 #; Lymphocytes # 2.3 10*3/uL (1.4-4.0); Mean Corpuscular HGB Conc 31.7 GM/DL (32-36); Mean Corpuscular Hemoglobin 31 PG (27-34); Mean Corpuscular Volume 97.1 FL (87-102); Mean Platelet Volume 10.7 FL (9.6-12.0); Monocytes # 0.5 10*3/uL (0.11-0.8); Monocytes % 7.8 % (1.7-12.7); Neutrophils # 3.1 10*3/uL (1.4-7.4); Neutrophils % 49.1 % (38.7-73.9); Platelet Count 148 T/CUMM (130-400); Red Blood Count 3.77 MC/CUMM (3.8-5.5); White Blood Count 6.3 T/CUMM (4-12)
[2018-07-12 04:42] LABS: Osmolality,Calculated 284.1 MOS/KG (273-304); Potassium 3.7 MMOL/L (3.5-5.1)
[2018-07-13 06:01] LABS: Basophils # 0.1 10*3/uL (0.0-0.2); Basophils % 0.9 % (0.0-0.8); Eosinophils # 0.3 10*3/uL (0.0-0.87); Eosinophils % 4.2 % (0.00-10.9); Hematocrit 36.9 VOL% (35.7-47.0); Hemoglobin 11.9 GM/DL (12.0-16.0); Immature Granulocytes % 0.3 %; Immature Granulocytes Absolute 0.02 #; Lymphocytes # 2.3 10*3/uL (1.4-4.0); Lymphocytes % 33.5 % (21.3-54.2); Mean Corpuscular HGB Conc 32.2 GM/DL (32-36); Mean Corpuscular Hemoglobin 31 PG (27-34); Mean Corpuscular Volume 96.3 FL (87-102); Mean Platelet Volume 10.9 FL (9.6-12.0); Monocytes # 0.6 10*3/uL (0.11-0.8); Monocytes % 8.4 % (1.7-12.7); Neutrophils # 3.6 10*3/uL (1.4-7.4); Neutrophils % 52.7 % (38.7-73.9); Platelet Count 148 T/CUMM (130-400); Red Blood Count 3.83 MC/CUMM (3.8-5.5); Red Cell Distribution Width 12.9 % (9.3-17.3); White Blood Count 6.9 T/CUMM (4-12)
[2018-07-13 08:11] LABS: Calcium 9.2 MG/DL (8.5-10.1); Osmolality,Calculated 281.3 MOS/KG (273-304); Potassium 3.8 MMOL/L (3.5-5.1)
[2018-07-13 11:34] VITALS: BP 161/67
== END 2018-07-13 13:43 | disposition home or self-care (01) | DRG 446 ==
LOC: N.ED 10:18 → N.EDINP 15:52 → SUATTDRO 15:52 → N.3E 16:46
PROVIDERS: ADMIT Hospitalist; ATTEND Internal Medicine

== ENCOUNTER 2018-07-20 07:34 | Inpatient (IN) ==
[2018-07-20] MEDS ORDERED: LACTATED RINGERS 1,000 ML IV SCH (08:00)
[2018-07-20] MEDS ORDERED: ROCURONIUM 100 MG/10 ML VIAL IV ONE (09:00)
[2018-07-20] MEDS ORDERED: LIDOCAINE 100 MG/5 ML SYRINGE ONE (09:00)
[2018-07-20] MEDS ORDERED: PROPOFOL 200 MG/20 ML VIAL IV ONE (09:00)
[2018-07-20] MEDS ORDERED: INDOMETHACIN SUPP 50 MG SUPP RECTAL ONE (09:27)
[2018-07-20] MEDS ORDERED: fentaNYL 100 MCG/2 ML VIAL ONE (10:01)
[2018-07-20] MEDS ORDERED: ePHEDrine 50 MG/ML AMP ONE (10:03)
[2018-07-20 10:45] LABS: Calcium 9.6 MG/DL (8.5-10.1); Osmolality,Calculated 281.3 MOS/KG (273-304); Potassium 4.2 MMOL/L (3.5-5.1)
[2018-07-20 10:46] LABS: INR 1.1; PT Patient Result 11.5 SECS
[2018-07-20] MEDS ORDERED: SUGAMMADEX 200 MG/2 ML VIAL IV ONE (11:16)
[2018-07-20] MEDS ORDERED: SEVOFLURANE 1 UNIT/15 MINUTE INH ONE (11:17)
[2018-07-20] MEDS ORDERED: ONDANSETRON 4 MG/2 ML VIAL IV PRN (11:41)
[2018-07-20] MEDS ORDERED: ONDANSETRON 4 MG/2 ML VIAL ONE (11:42)
[2018-07-20 11:54] LABS: Basophils # 0.1 10*3/uL (0.0-0.2); Basophils % 0.8 % (0.0-0.8); Eosinophils # 0.3 10*3/uL (0.0-0.87); Eosinophils % 3.3 % (0.00-10.9); Hematocrit 40.5 VOL% (35.7-47.0); Hemoglobin 12.6 GM/DL (12.0-16.0); Immature Granulocytes % 0.2 %; Immature Granulocytes Absolute 0.02 #; Lymphocytes % 23.4 % (21.3-54.2); Mean Corpuscular HGB Conc 31.1 GM/DL (32-36); Mean Corpuscular Hemoglobin 32 PG (27-34); Mean Corpuscular Volume 103.1 FL (87-102); Mean Platelet Volume 11.1 FL (9.6-12.0); Monocytes # 0.6 10*3/uL (0.11-0.8); Monocytes % 6.9 % (1.7-12.7); Neutrophils # 5.7 10*3/uL (1.4-7.4); Neutrophils % 65.4 % (38.7-73.9); Platelet Count 151 T/CUMM (130-400); Red Blood Count 3.93 MC/CUMM (3.8-5.5); Red Cell Distribution Width 13.2 % (9.3-17.3); White Blood Count 8.7 T/CUMM (4-12)
[2018-07-20] MEDS ORDERED: PROMETHAZINE INJ 12.5 MG in SODIUM CHLORIDE 0.9% 50 ML IV ONE (12:34)
[2018-07-20] MEDS ORDERED: ACETAMINOPHEN 325 MG TABLET PO ONE (13:24)
[2018-07-20] MEDS ORDERED: POLYETHYLENE GLYCOL POWDER 17 GM PACK PO PRN (14:58)
[2018-07-20] MEDS ORDERED: PROMETHAZINE 25 MG/1 ML VIAL IM PRN (14:58)
[2018-07-20] MEDS ORDERED: MEGESTROL 400 MG/10 ML UDCUP PO PRN (14:58)
[2018-07-20] MEDS ORDERED: ACETAMINOPHEN 325 MG TABLET PO PRN (14:58)
[2018-07-20] MEDS: HYDROmorphone 2 MG/1 ML VIAL IV PRN (15:13)
[2018-07-20] MEDS: LACTATED RINGERS 1,000 ML IV SCH ×2 (15:16→23:46)
[2018-07-20] MEDS: cloNIDine 0.1 MG TABLET PO PRN (16:40)
[2018-07-20] MEDS: DICYCLOMINE 20 MG TABLET PO SCH ×2 (17:15→21:39)
[2018-07-20] MEDS: CARVEDILOL 12.5 MG TABLET PO SCH (21:39)
[2018-07-21 04:17] LABS: Basophils # 0.1 10*3/uL (0.0-0.2); Basophils % 0.3 % (0.0-0.8); Eosinophils % 0.1 % (0.00-10.9); Hematocrit 36.4 VOL% (35.7-47.0); Immature Granulocytes % 0.7 %; Immature Granulocytes Absolute 0.13 #; Lymphocytes # 0.8 10*3/uL (1.4-4.0); Lymphocytes % 4.5 % (21.3-54.2); Mean Corpuscular Hemoglobin 32 PG (27-34); Mean Corpuscular Volume 95.8 FL (87-102); Mean Platelet Volume 11.1 FL (9.6-12.0); Monocytes # 0.9 10*3/uL (0.11-0.8); Monocytes % 4.9 % (1.7-12.7); Neutrophils # 15.7 10*3/uL (1.4-7.4); Neutrophils % 89.5 % (38.7-73.9); Platelet Count 172 T/CUMM (130-400); Red Cell Distribution Width 13.2 % (9.3-17.3); White Blood Count 17.5 T/CUMM (4-12)
[2018-07-21 04:31] LABS: Albumin 2.9 G/DL (3.4-5.0); Bilirubin,Total 2.4 MG/DL (0.2-1.0); Calcium 9.3 MG/DL (8.5-10.1); Osmolality,Calculated 278.5 MOS/KG (273-304); Total Protein 6.4 G/DL (6.4-8.3)
[2018-07-21 05:00] LABS: Band Neutrophils 19 % (0-10); Hypochromasia 1+; Lymphocytes 5 % (20-55); Ovalocytes Slight; Platelet Estimate Adequate; Segmented Neutrophils 73 % (50-85); Total Cells Counted 100
[2018-07-21] MEDS ORDERED: cefOXitin 2,000 MG in SYRINGE 1 EACH IV ONE (06:00)
[2018-07-21] MEDS: ONDANSETRON 4 MG/2 ML VIAL IV PRN ×2 (08:14→11:23)
[2018-07-21] MEDS: CARVEDILOL 12.5 MG TABLET PO SCH ×2 (08:14→20:55)
[2018-07-21] MEDS: cloNIDine 0.1 MG TABLET PO PRN (08:14)
[2018-07-21] MEDS: CHOLECALCIFEROL 1,000 UNIT TABLET PO SCH (08:20)
[2018-07-21] MEDS: DICYCLOMINE 20 MG TABLET PO SCH ×3 (08:20→20:56)
[2018-07-21] MEDS: ROSUVASTATIN 20 MG TABLET PO SCH (08:20)
[2018-07-21] MEDS: PANTOPRAZOLE 40 MG TABLET PO SCH (08:20)
[2018-07-21] MEDS: ASPIRIN EC 81 MG TABLET PO SCH (08:20)
[2018-07-21] MEDS ORDERED: LIDOCAINE 1%/EPI INJ 20 ML VIAL ONE (09:01)
[2018-07-21] MEDS ORDERED: TISSUE ADHESIVE 1 EACH APPLICATOR TOP ONE (09:01)
[2018-07-21] MEDS ORDERED: SCOPOLAMINE 1.5 MG PATCH TRANSDERM ONE (09:36)
[2018-07-21] MEDS: LACTATED RINGERS 1,000 ML IV SCH ×3 (10:28→23:29)
[2018-07-21] MEDS ORDERED: SEVOFLURANE 1 UNIT/15 MINUTE INH ONE (11:00)
[2018-07-21] MEDS ORDERED: PROPOFOL 200 MG/20 ML VIAL IV ONE (11:00)
[2018-07-21] MEDS ORDERED: DEXAMETHASONE 10 MG/1 ML VIAL ONE (11:01)
[2018-07-21] MEDS ORDERED: fentaNYL 100 MCG/2 ML VIAL ONE (11:01)
[2018-07-21] MEDS ORDERED: ACETAMINOPHEN 1,000 MG/100 ML VIAL IV ONE (11:01)
[2018-07-21] MEDS ORDERED: NEOSTIGMINE 10 MG/10 ML VIAL ONE (11:01)
[2018-07-21] MEDS ORDERED: ONDANSETRON 4 MG/2 ML VIAL ONE ×2 (11:01→11:22)
[2018-07-21] MEDS ORDERED: GLYCOPYRROLATE 0.4 MG/2 ML VIAL ONE (11:01)
[2018-07-21] MEDS ORDERED: ROCURONIUM 100 MG/10 ML VIAL IV ONE (11:02)
[2018-07-21] MEDS ORDERED: SUCCINYLCHOLINE 200 MG/10 ML VIAL ONE (11:02)
[2018-07-21] MEDS ORDERED: HYDROmorphone 2 MG/1 ML VIAL IV PRN (11:36)
[2018-07-21] MEDS ORDERED: HYDROmorphone 2 MG/1 ML VIAL ONE (11:36)
[2018-07-21] MEDS: ENOXAPARIN 40 MG/0.4 ML SYRINGE SUBCUT SCH (20:55)
[2018-07-21] MEDS: HYDROmorphone 2 MG/1 ML VIAL IV PRN (21:27)
[2018-07-22 06:33] LABS: Basophils % 0.1 % (0.0-0.8); Hemoglobin 11.7 GM/DL (12.0-16.0); Immature Granulocytes % 1.5 %; Immature Granulocytes Absolute 0.26 #; Lymphocytes # 1.2 10*3/uL (1.4-4.0); Lymphocytes % 6.6 % (21.3-54.2); Mean Corpuscular HGB Conc 32.5 GM/DL (32-36); Mean Corpuscular Hemoglobin 31 PG (27-34); Mean Corpuscular Volume 95.5 FL (87-102); Mean Platelet Volume 10.9 FL (9.6-12.0); Monocytes # 0.8 10*3/uL (0.11-0.8); Monocytes % 4.4 % (1.7-12.7); Neutrophils # 15.4 10*3/uL (1.4-7.4); Neutrophils % 87.4 % (38.7-73.9); Platelet Count 147 T/CUMM (130-400); Red Blood Count 3.77 MC/CUMM (3.8-5.5); Red Cell Distribution Width 13.2 % (9.3-17.3); White Blood Count 17.7 T/CUMM (4-12)
[2018-07-22 07:09] LABS: Albumin 2.9 G/DL (3.4-5.0); Bilirubin,Total 1.2 MG/DL (0.2-1.0); Calcium 8.9 MG/DL (8.5-10.1); Potassium 4.5 MMOL/L (3.5-5.1); Total Protein 6.8 G/DL (6.4-8.3)
[2018-07-22] MEDS: LACTATED RINGERS 1,000 ML IV SCH (09:18)
[2018-07-22] MEDS: CHOLECALCIFEROL 1,000 UNIT TABLET PO SCH (09:19)
[2018-07-22] MEDS: PANTOPRAZOLE 40 MG TABLET PO SCH (09:20)
[2018-07-22] MEDS: DICYCLOMINE 20 MG TABLET PO SCH ×3 (09:20→21:49)
[2018-07-22] MEDS: ASPIRIN EC 81 MG TABLET PO SCH (09:20)
[2018-07-22] MEDS: CARVEDILOL 12.5 MG TABLET PO SCH ×2 (09:20→21:45)
[2018-07-22] MEDS: ROSUVASTATIN 20 MG TABLET PO SCH (09:20)
[2018-07-22] MEDS: cloNIDine 0.1 MG TABLET PO PRN (12:20)
[2018-07-22] MEDS ORDERED: ZALEPLON 5 MG CAPSULE PO PRN (21:25)
[2018-07-22] MEDS: ALUMINUM/MAGNES/SIMETH MAX STR 30 ML UDCUP PO PRN (21:44)
[2018-07-22] MEDS: ENOXAPARIN 40 MG/0.4 ML SYRINGE SUBCUT SCH (21:50)
[2018-07-23 05:29] LABS: Basophils % 0.2 % (0.0-0.8); Eosinophils % 0.2 % (0.00-10.9); Hemoglobin 11.1 GM/DL (12.0-16.0); Immature Granulocytes % 1.2 %; Immature Granulocytes Absolute 0.19 #; Lymphocytes # 1.2 10*3/uL (1.4-4.0); Lymphocytes % 7.7 % (21.3-54.2); Mean Corpuscular HGB Conc 33.6 GM/DL (32-36); Mean Corpuscular Hemoglobin 31 PG (27-34); Mean Corpuscular Volume 93.2 FL (87-102); Mean Platelet Volume 11.5 FL (9.6-12.0); Monocytes # 0.8 10*3/uL (0.11-0.8); Neutrophils % 85.7 % (38.7-73.9); Platelet Count 168 T/CUMM (130-400); Red Blood Count 3.54 MC/CUMM (3.8-5.5); Red Cell Distribution Width 13.1 % (9.3-17.3); White Blood Count 15.2 T/CUMM (4-12)
[2018-07-23 05:57] LABS: Albumin 2.9 G/DL (3.4-5.0); Bilirubin,Total 0.4 MG/DL (0.2-1.0); Calcium 9.2 MG/DL (8.5-10.1); Osmolality,Calculated 277.8 MOS/KG (273-304); Potassium 4.2 MMOL/L (3.5-5.1); Total Protein 6.4 G/DL (6.4-8.3)
[2018-07-23] MEDS: ASPIRIN EC 81 MG TABLET PO SCH (08:46)
[2018-07-23] MEDS: ALUMINUM/MAGNES/SIMETH MAX STR 30 ML UDCUP PO PRN (08:46)
[2018-07-23] MEDS: PANTOPRAZOLE 40 MG TABLET PO SCH (08:46)
[2018-07-23] MEDS: CHOLECALCIFEROL 1,000 UNIT TABLET PO SCH (08:46)
[2018-07-23] MEDS: ROSUVASTATIN 20 MG TABLET PO SCH (08:46)
[2018-07-23] MEDS: CARVEDILOL 12.5 MG TABLET PO SCH (08:46)
[2018-07-23] MEDS: DICYCLOMINE 20 MG TABLET PO SCH ×2 (08:46→14:57)
[2018-07-23] MEDS ORDERED: FUROSEMIDE 40 MG TABLET PO PRN (10:00)
[2018-07-23 11:46] VITALS: BP 122/86
[2018-07-23] MEDS ORDERED: BISACODYL 10 MG SUPP RECTAL ONE (13:30)
[2018-07-23] MEDS ORDERED: APIXABAN 2.5 MG TABLET PO SCH (21:00)
[2018-07-24] MEDS ORDERED: SPIRONOLACTONE 25 MG TABLET PO SCH (09:00)
== END 2018-07-23 15:52 | disposition home or self-care (01) | DRG 418 ==
LOC: N.GILAB 07:34 → N.SDSINP 07:44 → N.GILAB 07:45 → N.2E 16:31
PROVIDERS: ADMIT Surgery; ATTEND Surgery
PROC: ERCPWSP (ICD-10-PCS; 2018-07-20 06:05)
PROC: LAPCHOL (2018-07-21 09:38)

== ENCOUNTER 2018-07-24 09:21 | Inpatient (IN) ==
[2018-07-24] MEDS ORDERED: SODIUM CHLORIDE 0.9% 500 ML IV STA (09:55)
[2018-07-24 10:46] LABS: Basophils % 0.3 % (0.0-0.8); Eosinophils % 0.2 % (0.00-10.9); Hematocrit 36.2 VOL% (35.7-47.0); Hemoglobin 11.8 GM/DL (12.0-16.0); Immature Granulocytes % 1.4 %; Immature Granulocytes Absolute 0.13 #; Lymphocytes # 0.7 10*3/uL (1.4-4.0); Lymphocytes % 7.2 % (21.3-54.2); Mean Corpuscular HGB Conc 32.6 GM/DL (32-36); Mean Corpuscular Hemoglobin 31 PG (27-34); Mean Corpuscular Volume 96.3 FL (87-102); Mean Platelet Volume 11.1 FL (9.6-12.0); Monocytes # 0.3 10*3/uL (0.11-0.8); Monocytes % 2.7 % (1.7-12.7); NRBC # 0.02 10*3/uL; Neutrophils # 8.5 10*3/uL (1.4-7.4); Neutrophils % 88.2 % (38.7-73.9); Platelet Count 156 T/CUMM (130-400); Red Blood Count 3.76 MC/CUMM (3.8-5.5); Red Cell Distribution Width 13.1 % (9.3-17.3); White Blood Count 9.6 T/CUMM (4-12)
[2018-07-24 11:03] LABS: Apearance,Urine CLEAR (Clear); Bilirubin,Urine Negative (Negative); Blood, Urine Small mg/dL (Negative); Glucose,Urine (UA) Negative (Negative); Ketones,Urine Negative (Negative); Nitrite,Urine Negative (Negative); Protein,Urine 30 MG/DL; RBC,Urine 2 /HPF (0-4); Squamous Epithelial Cell,Urine Occasional /HPF (0-10); Urine Color Yellow (Yellow); Urine Urobilinogen < 2.0 EU/DL (0.2-1.0); WBC,Urine 2 /HPF (0-6)
[2018-07-24 11:04] LABS: Albumin 2.9 G/DL (3.4-5.0); Bilirubin,Total 1.1 MG/DL (0.2-1.0); Calcium 8.8 MG/DL (8.5-10.1); Osmolality,Calculated 275.8 MOS/KG (273-304); Potassium 4.4 MMOL/L (3.5-5.1); Total Protein 6.1 G/DL (6.4-8.3)
[2018-07-24 11:13] LABS: Band Neutrophils 6 % (0-10); Eosinophils 1 % (0-10); Hypochromasia Slight; Lymphocytes 9 % (20-55); Segmented Neutrophils 80 % (50-85); Total Cells Counted 100
[2018-07-24 11:14] LABS: Ovalocytes Slight
[2018-07-24 11:28] LABS: Lactic Acid 3.7 MMOL/L (0.4-2.0)
[2018-07-24] MEDS ORDERED: MEROPENEM 1,000 MG in SODIUM CHLORIDE 0.9% 100 ML IV STA (11:30)
[2018-07-24] MEDS ORDERED: SODIUM CHLORIDE 0.9% 250 ML IV STA (11:33)
[2018-07-24] MEDS ORDERED: MEROPENEM 1,000 MG VIAL IV ONE (11:36)
[2018-07-24] MEDS ORDERED: NOREPINEPHRINE 8 MG in SODIUM CHLORIDE 0.9% 242 ML IV PRN (11:43)
[2018-07-24] MEDS ORDERED: DOCUSATE SODIUM 100 MG CAPSULE PO PRN (11:55)
[2018-07-24] MEDS ORDERED: ALBUTEROL 2.5 MG/3 ML NEB RESP TX PRN (11:55)
[2018-07-24] MEDS ORDERED: BISACODYL 5 MG TABLET PO PRN (11:55)
[2018-07-24] MEDS ORDERED: ONDANSETRON 4 MG/2 ML VIAL IV PRN (11:55)
[2018-07-24] MEDS ORDERED: ACETAMINOPHEN 325 MG TABLET PO PRN (11:55)
[2018-07-24] MEDS ORDERED: NOREPINEPHRINE 8 MG in SODIUM CHLORIDE 0.9% 242 ML IV SCH (12:00)
[2018-07-24] MEDS: LACTATED RINGERS 1,000 ML IV SCH ×2 (12:17→21:49)
[2018-07-24] MEDS ORDERED: ENOXAPARIN 40 MG/0.4 ML SYRINGE SUBCUT SCH (21:00)
[2018-07-25] MEDS: MEROPENEM 1,000 MG in SODIUM CHLORIDE 0.9% 100 ML IV SCH ×2 (00:26→11:54)
[2018-07-25 04:05] LABS: Calcium 8.9 MG/DL (8.5-10.1); Osmolality,Calculated 278.7 MOS/KG (273-304); Potassium 4.5 MMOL/L (3.5-5.1)
[2018-07-25 04:18] LABS: Basophils # 0.1 10*3/uL (0.0-0.2); Basophils % 0.4 % (0.0-0.8); Eosinophils # 0.1 10*3/uL (0.0-0.87); Eosinophils % 0.3 % (0.00-10.9); Hemoglobin 11.7 GM/DL (12.0-16.0); Immature Granulocytes % 0.6 %; Immature Granulocytes Absolute 0.09 #; Lymphocytes # 2.2 10*3/uL (1.4-4.0); Lymphocytes % 14.4 % (21.3-54.2); Mean Corpuscular HGB Conc 32.5 GM/DL (32-36); Mean Corpuscular Hemoglobin 31 PG (27-34); Mean Corpuscular Volume 96.5 FL (87-102); Mean Platelet Volume 12.1 FL (9.6-12.0); Monocytes # 1.4 10*3/uL (0.11-0.8); Monocytes % 9.2 % (1.7-12.7); NRBC # 0.02 10*3/uL; Neutrophils # 11.5 10*3/uL (1.4-7.4); Neutrophils % 75.1 % (38.7-73.9); Platelet Count 130 T/CUMM (130-400); Red Blood Count 3.73 MC/CUMM (3.8-5.5); Red Cell Distribution Width 13.4 % (9.3-17.3); White Blood Count 15.3 T/CUMM (4-12)
[2018-07-25] MEDS ORDERED: FUROSEMIDE 20 MG/2 ML VIAL IV ONE (08:26)
[2018-07-25] MEDS: PANTOPRAZOLE 40 MG TABLET PO SCH ×2 (09:09→11:03)
[2018-07-25] MEDS ORDERED: ONDANSETRON ODT 4 MG TABLET PO PRN (10:41)
[2018-07-25] MEDS ORDERED: ALUMINUM/MAGNES/SIMETH MAX STR 30 ML UDCUP PO PRN (10:41)
[2018-07-25] MEDS ORDERED: POLYETHYLENE GLYCOL POWDER 17 GM PACK PO PRN (10:41)
[2018-07-25] MEDS ORDERED: MEGESTROL 400 MG/10 ML UDCUP PO PRN (10:41)
[2018-07-25] MEDS: ROSUVASTATIN 20 MG TABLET PO SCH (11:03)
[2018-07-25] MEDS: SPIRONOLACTONE 25 MG TABLET PO SCH (11:03)
[2018-07-25] MEDS: ASPIRIN EC 81 MG TABLET PO SCH (11:03)
[2018-07-25] MEDS: CHOLECALCIFEROL 1,000 UNIT TABLET PO SCH (11:03)
[2018-07-25] MEDS: CARVEDILOL 12.5 MG TABLET PO SCH ×2 (11:03→21:34)
[2018-07-25] MEDS: APIXABAN 2.5 MG TABLET PO SCH ×2 (11:03→21:34)
[2018-07-25] MEDS: DICYCLOMINE 20 MG TABLET PO SCH ×3 (11:04→21:34)
[2018-07-25] MEDS ORDERED: hydrALAZINE 20 MG/1 ML VIAL IV PRN (13:56)
[2018-07-26] MEDS: MEROPENEM 1,000 MG in SODIUM CHLORIDE 0.9% 100 ML IV SCH ×2 (00:32→12:34)
[2018-07-26 04:04] LABS: Basophils # 0.1 10*3/uL (0.0-0.2); Basophils % 0.5 % (0.0-0.8); Eosinophils # 0.2 10*3/uL (0.0-0.87); Eosinophils % 1.5 % (0.00-10.9); Hematocrit 34.3 VOL% (35.7-47.0); Hemoglobin 10.9 GM/DL (12.0-16.0); Immature Granulocytes % 1.6 %; Immature Granulocytes Absolute 0.21 #; Lymphocytes # 2.3 10*3/uL (1.4-4.0); Lymphocytes % 17.3 % (21.3-54.2); Mean Corpuscular HGB Conc 31.8 GM/DL (32-36); Mean Corpuscular Hemoglobin 31 PG (27-34); Mean Corpuscular Volume 96.6 FL (87-102); Mean Platelet Volume 11.5 FL (9.6-12.0); Monocytes # 1.1 10*3/uL (0.11-0.8); Monocytes % 8.4 % (1.7-12.7); Neutrophils # 9.3 10*3/uL (1.4-7.4); Neutrophils % 70.7 % (38.7-73.9); Platelet Count 153 T/CUMM (130-400); Red Blood Count 3.55 MC/CUMM (3.8-5.5); Red Cell Distribution Width 13.2 % (9.3-17.3); White Blood Count 13.1 T/CUMM (4-12)
[2018-07-26 04:48] LABS: Calcium 8.4 MG/DL (8.5-10.1); Osmolality,Calculated 281.5 MOS/KG (273-304); Potassium 3.8 MMOL/L (3.5-5.1)
[2018-07-26] MEDS: CHOLECALCIFEROL 1,000 UNIT TABLET PO SCH (08:08)
[2018-07-26] MEDS: SPIRONOLACTONE 25 MG TABLET PO SCH (08:08)
[2018-07-26] MEDS: FUROSEMIDE 40 MG TABLET PO SCH (08:08)
[2018-07-26] MEDS: ROSUVASTATIN 20 MG TABLET PO SCH (08:08)
[2018-07-26] MEDS: CARVEDILOL 12.5 MG TABLET PO SCH ×2 (08:08→20:46)
[2018-07-26] MEDS: PANTOPRAZOLE 40 MG TABLET PO SCH ×2 (08:08→08:10)
[2018-07-26] MEDS: DICYCLOMINE 20 MG TABLET PO SCH ×3 (08:09→20:46)
[2018-07-26] MEDS: APIXABAN 2.5 MG TABLET PO SCH ×2 (08:10→20:46)
[2018-07-26] MEDS: ASPIRIN EC 81 MG TABLET PO SCH (08:10)
[2018-07-27 05:40] LABS: Osmolality,Calculated 282.4 MOS/KG (273-304); Potassium 4.1 MMOL/L (3.5-5.1)
[2018-07-27 05:51] LABS: Calcium 9.1 MG/DL (8.5-10.1); Osmolality,Calculated 282.4 MOS/KG (273-304); Potassium 4.1 MMOL/L (3.5-5.1)
[2018-07-27 07:10] LABS: Basophils # 0.1 10*3/uL (0.0-0.2); Basophils % 0.5 % (0.0-0.8); Eosinophils # 0.2 10*3/uL (0.0-0.87); Eosinophils % 2.1 % (0.00-10.9); Hemoglobin 11.4 GM/DL (12.0-16.0); Immature Granulocytes % 1.4 %; Immature Granulocytes Absolute 0.13 #; Lymphocytes # 2.5 10*3/uL (1.4-4.0); Lymphocytes % 26.9 % (21.3-54.2); Mean Corpuscular HGB Conc 32.6 GM/DL (32-36); Mean Corpuscular Hemoglobin 31 PG (27-34); Mean Corpuscular Volume 94.6 FL (87-102); Mean Platelet Volume 11.5 FL (9.6-12.0); Monocytes # 0.8 10*3/uL (0.11-0.8); Monocytes % 8.9 % (1.7-12.7); Neutrophils # 5.7 10*3/uL (1.4-7.4); Neutrophils % 60.2 % (38.7-73.9); Platelet Count 174 T/CUMM (130-400); Red Cell Distribution Width 13.2 % (9.3-17.3); White Blood Count 9.4 T/CUMM (4-12)
[2018-07-27 07:38] LABS: Band Neutrophils 1 % (0-10); Eosinophils 5 % (0-10); Lymphocytes 29 % (20-55); Microcytosis Slight; Ovalocytes Slight; Platelet Estimate Adequate; Segmented Neutrophils 56 % (50-85); Total Cells Counted 100
[2018-07-27] MEDS: ROSUVASTATIN 20 MG TABLET PO SCH (09:32)
[2018-07-27] MEDS: APIXABAN 2.5 MG TABLET PO SCH (09:32)
[2018-07-27] MEDS: CARVEDILOL 12.5 MG TABLET PO SCH (09:32)
[2018-07-27] MEDS: DICYCLOMINE 20 MG TABLET PO SCH (09:32)
[2018-07-27] MEDS: FUROSEMIDE 40 MG TABLET PO SCH (09:32)
[2018-07-27] MEDS: CHOLECALCIFEROL 1,000 UNIT TABLET PO SCH (09:32)
[2018-07-27] MEDS: PANTOPRAZOLE 40 MG TABLET PO SCH ×2 (09:32→09:33)
[2018-07-27] MEDS: ASPIRIN EC 81 MG TABLET PO SCH (09:32)
[2018-07-27] MEDS: SPIRONOLACTONE 25 MG TABLET PO SCH (09:32)
[2018-07-27 12:59] VITALS: BP 133/65
== END 2018-07-27 13:10 | disposition home or self-care (01) | DRG 684 ==
LOC: N.ED 09:21 → N.EDINP 11:54 → N.CC 13:11 → N.5E 07-26 17:07
PROVIDERS: ADMIT Internal Medicine; ATTEND Internal Medicine

== ENCOUNTER 2018-10-02 15:09 | Inpatient (IN) ==
[2018-10-02] MEDS ORDERED: PANTOPRAZOLE 40 MG VIAL IV STA (15:59)
[2018-10-02] MEDS ORDERED: METOCLOPRAMIDE 10 MG/2 ML VIAL IV STA (15:59)
[2018-10-02] MEDS ORDERED: ONDANSETRON 4 MG/2 ML VIAL IV STA (15:59)
[2018-10-02] MEDS ORDERED: SODIUM CHLORIDE 0.9% 1,000 ML IV STA (15:59)
[2018-10-02 16:52] LABS: Basophils # 0.1 10*3/uL (0.0-0.2); Basophils % 0.3 % (0.0-0.8); Eosinophils # 0.1 10*3/uL (0.0-0.87); Eosinophils % 0.6 % (0.00-10.9); Hematocrit 42.1 VOL% (35.7-47.0); Hemoglobin 13.7 GM/DL (12.0-16.0); Immature Granulocytes % 0.5 %; Lymphocytes # 1.6 10*3/uL (1.4-4.0); Mean Corpuscular HGB Conc 32.5 GM/DL (32-36); Mean Corpuscular Hemoglobin 31 PG (27-34); Mean Corpuscular Volume 94.2 FL (87-102); Mean Platelet Volume 10.2 FL (9.6-12.0); Monocytes # 0.9 10*3/uL (0.11-0.8); Monocytes % 4.6 % (1.7-12.7); Neutrophils # 17.3 10*3/uL (1.4-7.4); Platelet Count 191 T/CUMM (130-400); Red Blood Count 4.47 MC/CUMM (3.8-5.5); Red Cell Distribution Width 13.2 % (9.3-17.3); White Blood Count 20.1 T/CUMM (4-12)
[2018-10-02] MEDS: DICYCLOMINE 20 MG/2 ML AMP IM SCH ×2 (16:53→21:05)
[2018-10-02 16:59] LABS: Apearance,Urine CLEAR (Clear); Bacteria,Urine Occasional /HPF (Few); Bilirubin,Urine Negative (Negative); Blood, Urine Small mg/dL (Negative); Glucose,Urine (UA) Negative (Negative); Ketones,Urine 5 mg/dL (Negative); Mucus,Urine Occasional /LPF (Occasional); Nitrite,Urine Negative (Negative); Protein,Urine Negative; RBC,Urine 2 /HPF (0-4); Squamous Epithelial Cell,Urine Occasional /HPF (0-10); Urine Color Yellow (Yellow); Urine Specific Gravity 1.011 (1.001-1.035); Urine Urobilinogen < 2.0 EU/DL (0.2-1.0); WBC,Urine 4 /HPF (0-6)
[2018-10-02 17:12] LABS: Albumin 3.7 G/DL (3.4-5.0); Bilirubin,Total 1.2 MG/DL (0.2-1.0); Calcium 9.8 MG/DL (8.5-10.1); Osmolality,Calculated 270.1 MOS/KG (273-304); Potassium 4.1 MMOL/L (3.5-5.1); Total Protein 7.9 G/DL (6.4-8.3)
[2018-10-02 17:13] LABS: Lactic Acid 1.1 MMOL/L (0.4-2.0); Troponin I < 0.015 NG/ML (0.00-0.045)
[2018-10-02 17:17] LABS: Band Neutrophils 1 % (0-10); Eosinophils 1 % (0-10); Lymphocytes 15 % (20-55); Platelet Estimate Normal; Segmented Neutrophils 80 % (50-85); Total Cells Counted 100
[2018-10-02] MEDS ORDERED: metroNIDAZOLE INJ 500 MG in PREMIX 1 EACH IV STA (17:39)
[2018-10-02] MEDS ORDERED: CIPROFLOXACIN INJ 400 MG in PREMIX 1 EACH IV STA (17:40)
[2018-10-02] MEDS ORDERED: MAGNESIUM SULF RIDER 4 GM in PREMIX 1 EACH IV PRN (18:17)
[2018-10-02] MEDS ORDERED: MAGNESIUM SULF RIDER 2 GM in PREMIX 1 EACH IV PRN (18:17)
[2018-10-02] MEDS ORDERED: metroNIDAZOLE INJ 500 MG in PREMIX 1 EACH IV SCH (18:30)
[2018-10-02] MEDS ORDERED: LEVOFLOXACIN INJ 750 MG in PREMIX 1 EACH IV SCH (18:30)
[2018-10-02] MEDS: HYDROmorphone 2 MG/1 ML VIAL IV PRN (20:00)
[2018-10-02] MEDS ORDERED: POLYETHYLENE GLYCOL POWDER 17 GM PACK PO PRN (20:19)
[2018-10-02] MEDS ORDERED: cloNIDine 0.1 MG TABLET PO PRN (20:19)
[2018-10-02] MEDS ORDERED: ALUMINUM/MAGNES/SIMETH MAX STR 30 ML UDCUP PO PRN (20:19)
[2018-10-02] MEDS ORDERED: FUROSEMIDE 40 MG TABLET PO PRN (20:19)
[2018-10-02] MEDS ORDERED: MEGESTROL 400 MG/10 ML UDCUP PO PRN (20:19)
[2018-10-02] MEDS: ONDANSETRON 4 MG/2 ML VIAL IV PRN (20:48)
[2018-10-02] MEDS: APIXABAN 2.5 MG TABLET PO SCH (20:49)
[2018-10-02] MEDS: CARVEDILOL 12.5 MG TABLET PO SCH (20:50)
[2018-10-02] MEDS: DICYCLOMINE 20 MG TABLET PO SCH (20:50)
[2018-10-02] MEDS: SODIUM CHLORIDE 0.9% 1,000 ML IV SCH (23:45)
[2018-10-02] MEDS: metroNIDAZOLE INJ 500 MG in PREMIX 1 EACH IV SCH (23:45)
[2018-10-03] MEDS: DICYCLOMINE 20 MG/2 ML AMP IM SCH ×4 (03:36→21:12)
[2018-10-03 05:33] LABS: Basophils % 0.4 % (0.0-0.8); Eosinophils # 0.1 10*3/uL (0.0-0.87); Eosinophils % 0.8 % (0.00-10.9); Hematocrit 35.8 VOL% (35.7-47.0); Hemoglobin 11.2 GM/DL (12.0-16.0); Immature Granulocytes % 0.3 %; Immature Granulocytes Absolute 0.03 #; Lymphocytes # 1.6 10*3/uL (1.4-4.0); Lymphocytes % 13.8 % (21.3-54.2); Mean Corpuscular HGB Conc 31.3 GM/DL (32-36); Mean Corpuscular Hemoglobin 30 PG (27-34); Mean Platelet Volume 10.9 FL (9.6-12.0); Monocytes # 0.6 10*3/uL (0.11-0.8); Neutrophils # 9.1 10*3/uL (1.4-7.4); Neutrophils % 79.7 % (38.7-73.9); Platelet Count 166 T/CUMM (130-400); Red Blood Count 3.73 MC/CUMM (3.8-5.5); Red Cell Distribution Width 13.3 % (9.3-17.3); White Blood Count 11.4 T/CUMM (4-12)
[2018-10-03 06:07] LABS: Calcium 8.4 MG/DL (8.5-10.1); Osmolality,Calculated 272.8 MOS/KG (273-304); Potassium 4.2 MMOL/L (3.5-5.1); Risk Ratio 1.32; Thyroid Stimulating Hormone 1.15 uIU/ml (0.358-3.74)
[2018-10-03] MEDS: metroNIDAZOLE INJ 500 MG in PREMIX 1 EACH IV SCH ×4 (06:10→23:25)
[2018-10-03] MEDS: ONDANSETRON 4 MG/2 ML VIAL IV PRN (06:27)
[2018-10-03] MEDS: HYDROmorphone 2 MG/1 ML VIAL IV PRN ×2 (06:31→20:36)
[2018-10-03] MEDS: SODIUM CHLORIDE 0.9% 1,000 ML IV SCH ×3 (07:22→23:01)
[2018-10-03] MEDS: ASPIRIN EC 81 MG TABLET PO SCH (09:24)
[2018-10-03] MEDS: ROSUVASTATIN 20 MG TABLET PO SCH (09:24)
[2018-10-03] MEDS: APIXABAN 2.5 MG TABLET PO SCH ×2 (09:25→20:39)
[2018-10-03] MEDS: PANTOPRAZOLE 40 MG TABLET PO SCH (09:25)
[2018-10-03] MEDS: DICYCLOMINE 20 MG TABLET PO SCH ×3 (09:25→20:39)
[2018-10-03] MEDS: CARVEDILOL 12.5 MG TABLET PO SCH ×2 (09:25→20:40)
[2018-10-03] MEDS: SPIRONOLACTONE 25 MG TABLET PO SCH (09:25)
[2018-10-03] MEDS: ZALEPLON 5 MG CAPSULE PO PRN (20:39)
[2018-10-03] MEDS: DOCUSATE SODIUM 100 MG CAPSULE PO SCH (20:40)
[2018-10-04] MEDS: SODIUM CHLORIDE 0.9% 1,000 ML IV SCH ×4 (05:27→20:52)
[2018-10-04] MEDS: DICYCLOMINE 20 MG/2 ML AMP IM SCH (05:28)
[2018-10-04] MEDS: metroNIDAZOLE INJ 500 MG in PREMIX 1 EACH IV SCH (05:30)
[2018-10-04 05:43] LABS: Basophils # 0.1 10*3/uL (0.0-0.2); Basophils % 0.5 % (0.0-0.8); Eosinophils # 0.2 10*3/uL (0.0-0.87); Eosinophils % 2.5 % (0.00-10.9); Hematocrit 35.1 VOL% (35.7-47.0); Hemoglobin 11.1 GM/DL (12.0-16.0); Immature Granulocytes % 0.3 %; Immature Granulocytes Absolute 0.03 #; Lymphocytes # 1.9 10*3/uL (1.4-4.0); Lymphocytes % 19.7 % (21.3-54.2); Mean Corpuscular HGB Conc 31.6 GM/DL (32-36); Mean Corpuscular Hemoglobin 31 PG (27-34); Mean Corpuscular Volume 96.7 FL (87-102); Mean Platelet Volume 10.2 FL (9.6-12.0); Monocytes # 0.8 10*3/uL (0.11-0.8); Monocytes % 7.9 % (1.7-12.7); Neutrophils # 6.6 10*3/uL (1.4-7.4); Neutrophils % 69.1 % (38.7-73.9); Platelet Count 152 T/CUMM (130-400); Red Blood Count 3.63 MC/CUMM (3.8-5.5); Red Cell Distribution Width 13.2 % (9.3-17.3); White Blood Count 9.6 T/CUMM (4-12)
[2018-10-04 06:02] LABS: Calcium 8.6 MG/DL (8.5-10.1); Osmolality,Calculated 275.7 MOS/KG (273-304)
[2018-10-04] MEDS: DOCUSATE SODIUM 100 MG CAPSULE PO SCH ×2 (09:35→20:51)
[2018-10-04] MEDS: APIXABAN 2.5 MG TABLET PO SCH ×2 (09:40→20:53)
[2018-10-04] MEDS: ASPIRIN EC 81 MG TABLET PO SCH (09:40)
[2018-10-04] MEDS: SPIRONOLACTONE 25 MG TABLET PO SCH (09:40)
[2018-10-04] MEDS: ROSUVASTATIN 20 MG TABLET PO SCH (09:40)
[2018-10-04] MEDS: CARVEDILOL 12.5 MG TABLET PO SCH ×2 (09:40→20:50)
[2018-10-04] MEDS: PANTOPRAZOLE 40 MG TABLET PO SCH (09:40)
[2018-10-04] MEDS: DICYCLOMINE 20 MG TABLET PO SCH ×3 (09:41→20:52)
[2018-10-04] MEDS: POLYETHYLENE GLYCOL POWDER 17 GM PACK PO SCH ×2 (11:51→20:55)
[2018-10-04] MEDS: metroNIDAZOLE 500 MG TABLET PO SCH ×3 (13:50→20:53)
[2018-10-04] MEDS: ZALEPLON 5 MG CAPSULE PO PRN (20:50)
[2018-10-04] MEDS ORDERED: SENNA 8.6 MG TABLET PO SCH (21:00)
[2018-10-04] MEDS ORDERED: LEVOFLOXACIN 750 MG TABLET PO SCH (21:00)
[2018-10-04] MEDS ORDERED: LEVOFLOXACIN INJ 750 MG in PREMIX 1 EACH IV SCH (21:00)
[2018-10-05 05:17] LABS: Basophils % 0.5 % (0.0-0.8); Eosinophils # 0.2 10*3/uL (0.0-0.87); Eosinophils % 2.5 % (0.00-10.9); Hematocrit 34.5 VOL% (35.7-47.0); Hemoglobin 10.9 GM/DL (12.0-16.0); Immature Granulocytes % 0.5 %; Immature Granulocytes Absolute 0.04 #; Lymphocytes # 1.9 10*3/uL (1.4-4.0); Lymphocytes % 23.3 % (21.3-54.2); Mean Corpuscular HGB Conc 31.6 GM/DL (32-36); Mean Corpuscular Hemoglobin 30 PG (27-34); Mean Corpuscular Volume 95.6 FL (87-102); Mean Platelet Volume 10.9 FL (9.6-12.0); Monocytes # 0.7 10*3/uL (0.11-0.8); Monocytes % 8.1 % (1.7-12.7); Neutrophils # 5.3 10*3/uL (1.4-7.4); Neutrophils % 65.1 % (38.7-73.9); Platelet Count 139 T/CUMM (130-400); Red Blood Count 3.61 MC/CUMM (3.8-5.5); Red Cell Distribution Width 13.3 % (9.3-17.3); White Blood Count 8.1 T/CUMM (4-12)
[2018-10-05 05:42] LABS: Calcium 8.7 MG/DL (8.5-10.1); Osmolality,Calculated 279.3 MOS/KG (273-304); Potassium 3.9 MMOL/L (3.5-5.1)
[2018-10-05] MEDS: SODIUM CHLORIDE 0.9% 1,000 ML IV SCH (06:15)
[2018-10-05] MEDS: POLYETHYLENE GLYCOL POWDER 17 GM PACK PO SCH (09:48)
[2018-10-05] MEDS: DOCUSATE SODIUM 100 MG CAPSULE PO SCH (09:49)
[2018-10-05] MEDS: ROSUVASTATIN 20 MG TABLET PO SCH (09:49)
[2018-10-05] MEDS: DICYCLOMINE 20 MG TABLET PO SCH (09:49)
[2018-10-05] MEDS: ASPIRIN EC 81 MG TABLET PO SCH (09:49)
[2018-10-05] MEDS: SPIRONOLACTONE 25 MG TABLET PO SCH (09:52)
[2018-10-05] MEDS: PANTOPRAZOLE 40 MG TABLET PO SCH (09:52)
[2018-10-05] MEDS: CARVEDILOL 12.5 MG TABLET PO SCH (09:52)
[2018-10-05] MEDS: APIXABAN 2.5 MG TABLET PO SCH (09:52)
[2018-10-05] MEDS: metroNIDAZOLE 500 MG TABLET PO SCH (09:52)
[2018-10-05 11:27] VITALS: BP 161/83
== END 2018-10-05 11:41 | disposition home health service (06) | DRG 392 ==
LOC: N.ED 15:09 → N.EDINP 18:17 → N.2E 19:43
PROVIDERS: ADMIT Hospitalist; ATTEND Hospitalist

== ENCOUNTER 2019-01-16 10:12 | Inpatient (IN) ==
[2019-01-16 11:28] LABS: Apearance,Urine Slightly Hazy (Clear); Bacteria,Urine Occasional /HPF (Few); Bilirubin,Urine Negative (Negative); Blood, Urine Moderate mg/dL (Negative); Glucose,Urine (UA) Negative (Negative); Ketones,Urine Negative (Negative); Mucus,Urine Occasional /LPF (Occasional); Nitrite,Urine Negative (Negative); Protein,Urine Negative; RBC,Urine 3 /HPF (0-4); Squamous Epithelial Cell,Urine Occasional /HPF (0-10); Urine Color Yellow (Yellow); Urine Specific Gravity 1.006 (1.001-1.035); Urine Urobilinogen < 2.0 EU/DL (0.2-1.0); WBC,Urine 35 /HPF (0-6)
[2019-01-16] MEDS ORDERED: ONDANSETRON 4 MG/2 ML VIAL IV ONE (11:34)
[2019-01-16 11:48] LABS: Basophils # 0.1 10*3/uL (0.0-0.2); Basophils % 0.6 % (0.0-0.8); Eosinophils # 0.4 10*3/uL (0.0-0.87); Eosinophils % 3.2 % (0.00-10.9); Hematocrit 44.6 VOL% (35.7-47.0); Hemoglobin 14.2 GM/DL (12.0-16.0); Immature Granulocytes % 0.5 %; Immature Granulocytes Absolute 0.06 #; Lymphocytes # 2.6 10*3/uL (1.4-4.0); Lymphocytes % 19.8 % (21.3-54.2); Mean Corpuscular HGB Conc 31.8 GM/DL (32-36); Mean Corpuscular Hemoglobin 31 PG (27-34); Mean Corpuscular Volume 96.5 FL (87-102); Mean Platelet Volume 10.5 FL (9.6-12.0); Monocytes % 7.6 % (1.7-12.7); Neutrophils # 8.8 10*3/uL (1.4-7.4); Neutrophils % 68.3 % (38.7-73.9); Platelet Count 192 T/CUMM (130-400); Red Blood Count 4.62 MC/CUMM (3.8-5.5); Red Cell Distribution Width 12.7 % (9.3-17.3); White Blood Count 12.9 T/CUMM (4-12)
[2019-01-16 12:20] LABS: Albumin 3.9 G/DL (3.4-5.0); Bilirubin,Total 0.6 MG/DL (0.2-1.0); Calcium 9.7 MG/DL (8.5-10.1); Osmolality,Calculated 271.1 MOS/KG (273-304); Potassium 4.7 MMOL/L (3.5-5.1); Total Protein 7.6 G/DL (6.4-8.3)
[2019-01-16] MEDS ORDERED: ONDANSETRON 4 MG/2 ML VIAL ONE (15:53)
[2019-01-16] MEDS ORDERED: MAGNESIUM SULF RIDER 2 GM in PREMIX 1 EACH IV PRN (15:57)
[2019-01-16] MEDS ORDERED: MAGNESIUM SULF RIDER 4 GM in PREMIX 1 EACH IV PRN (15:57)
[2019-01-16] MEDS ORDERED: CIPROFLOXACIN INJ 400 MG in PREMIX 1 EACH IV SCH (16:00)
[2019-01-16] MEDS ORDERED: CIPROFLOXACIN 400 MG/200 ML PREMIX IV ONE (17:10)
[2019-01-16] MEDS ORDERED: DOCUSATE SODIUM 100 MG CAPSULE PO PRN (18:21)
[2019-01-16] MEDS ORDERED: LEVOFLOXACIN INJ 500 MG in PREMIX 1 EACH IV ONE ×2 (18:30→23:00)
[2019-01-16] MEDS: SODIUM CHLORIDE 0.9% 1,000 ML IV SCH (19:15)
[2019-01-16] MEDS: MORPHINE 4 MG/1 ML VIAL IV PRN (19:16)
[2019-01-16] MEDS: PANTOPRAZOLE 40 MG VIAL IV SCH (19:29)
[2019-01-16] MEDS: metroNIDAZOLE INJ 500 MG in PREMIX 1 EACH IV SCH (19:30)
[2019-01-16] MEDS: DICYCLOMINE 20 MG TABLET PO SCH (20:08)
[2019-01-16] MEDS: APIXABAN 2.5 MG TABLET PO SCH (20:08)
[2019-01-16] MEDS: CARVEDILOL 12.5 MG TABLET PO SCH (20:08)
[2019-01-17] MEDS: MORPHINE 4 MG/1 ML VIAL IV PRN (00:11)
[2019-01-17] MEDS: ONDANSETRON 4 MG/2 ML VIAL IV PRN ×3 (00:57→20:13)
[2019-01-17] MEDS: metroNIDAZOLE INJ 500 MG in PREMIX 1 EACH IV SCH ×4 (02:42→20:09)
[2019-01-17 05:53] LABS: Basophils # 0.1 10*3/uL (0.0-0.2); Basophils % 0.6 % (0.0-0.8); Eosinophils # 0.4 10*3/uL (0.0-0.87); Hematocrit 37.5 VOL% (35.7-47.0); Immature Granulocytes % 0.9 %; Immature Granulocytes Absolute 0.08 #; Lymphocytes # 1.5 10*3/uL (1.4-4.0); Mean Corpuscular Hemoglobin 31 PG (27-34); Mean Corpuscular Volume 95.9 FL (87-102); Mean Platelet Volume 10.4 FL (9.6-12.0); Monocytes # 0.7 10*3/uL (0.11-0.8); Neutrophils # 6.2 10*3/uL (1.4-7.4); Neutrophils % 69.5 % (38.7-73.9); Platelet Count 162 T/CUMM (130-400); Red Blood Count 3.91 MC/CUMM (3.8-5.5); Red Cell Distribution Width 12.7 % (9.3-17.3)
[2019-01-17 06:09] LABS: Calcium 8.8 MG/DL (8.5-10.1); Osmolality,Calculated 266.4 MOS/KG (273-304); Potassium 4.3 MMOL/L (3.5-5.1); Risk Ratio 1.79; VLDL CHOLESTEROL 12.8 MG/DL
[2019-01-17] MEDS: CHOLECALCIFEROL 1,000 UNIT TABLET PO SCH (09:07)
[2019-01-17] MEDS: SPIRONOLACTONE 25 MG TABLET PO SCH (09:07)
[2019-01-17] MEDS: CARVEDILOL 12.5 MG TABLET PO SCH ×2 (09:08→16:56)
[2019-01-17] MEDS: DICYCLOMINE 20 MG TABLET PO SCH ×3 (09:08→20:10)
[2019-01-17] MEDS: PANTOPRAZOLE 40 MG VIAL IV SCH (09:08)
[2019-01-17] MEDS: APIXABAN 2.5 MG TABLET PO SCH ×2 (09:08→20:09)
[2019-01-17] MEDS: SODIUM CHLORIDE 0.9% 1,000 ML IV SCH ×3 (14:40→22:06)
[2019-01-17] MEDS: LEVOFLOXACIN INJ 250 MG in PREMIX 1 EACH IV SCH (18:24)
[2019-01-18] MEDS: metroNIDAZOLE INJ 500 MG in PREMIX 1 EACH IV SCH ×4 (02:38→20:21)
[2019-01-18 05:01] LABS: Basophils # 0.1 10*3/uL (0.0-0.2); Basophils % 0.6 % (0.0-0.8); Eosinophils # 0.3 10*3/uL (0.0-0.87); Eosinophils % 3.6 % (0.00-10.9); Hematocrit 35.9 VOL% (35.7-47.0); Hemoglobin 11.4 GM/DL (12.0-16.0); Immature Granulocytes % 0.3 %; Immature Granulocytes Absolute 0.03 #; Lymphocytes % 22.1 % (21.3-54.2); Mean Corpuscular HGB Conc 31.8 GM/DL (32-36); Mean Corpuscular Hemoglobin 30 PG (27-34); Mean Corpuscular Volume 95.7 FL (87-102); Mean Platelet Volume 10.7 FL (9.6-12.0); Monocytes # 0.8 10*3/uL (0.11-0.8); Monocytes % 8.7 % (1.7-12.7); Neutrophils # 5.8 10*3/uL (1.4-7.4); Neutrophils % 64.7 % (38.7-73.9); Platelet Count 159 T/CUMM (130-400); Red Blood Count 3.75 MC/CUMM (3.8-5.5); Red Cell Distribution Width 12.7 % (9.3-17.3)
[2019-01-18 05:26] LABS: Calcium 8.7 MG/DL (8.5-10.1); Osmolality,Calculated 276.5 MOS/KG (273-304)
[2019-01-18] MEDS: APIXABAN 2.5 MG TABLET PO SCH ×2 (09:36→20:22)
[2019-01-18] MEDS: CARVEDILOL 12.5 MG TABLET PO SCH ×2 (09:36→16:34)
[2019-01-18] MEDS: DICYCLOMINE 20 MG TABLET PO SCH ×3 (09:36→20:23)
[2019-01-18] MEDS: CHOLECALCIFEROL 1,000 UNIT TABLET PO SCH (09:36)
[2019-01-18] MEDS: SPIRONOLACTONE 25 MG TABLET PO SCH (09:36)
[2019-01-18] MEDS: PANTOPRAZOLE 40 MG VIAL IV SCH (09:39)
[2019-01-18] MEDS: SODIUM CHLORIDE 0.9% 1,000 ML IV SCH (09:59)
[2019-01-18] MEDS: LEVOFLOXACIN INJ 250 MG in PREMIX 1 EACH IV SCH (18:16)
[2019-01-18] MEDS: ACETAMINOPHEN 325 MG TABLET PO PRN (20:22)
[2019-01-19] MEDS: SODIUM CHLORIDE 0.9% 1,000 ML IV SCH ×3 (01:12→12:00)
[2019-01-19] MEDS: metroNIDAZOLE INJ 500 MG in PREMIX 1 EACH IV SCH ×3 (01:13→16:38)
[2019-01-19 05:50] LABS: Basophils # 0.1 10*3/uL (0.0-0.2); Basophils % 0.9 % (0.0-0.8); Eosinophils # 0.3 10*3/uL (0.0-0.87); Eosinophils % 3.9 % (0.00-10.9); Hematocrit 38.5 VOL% (35.7-47.0); Hemoglobin 11.6 GM/DL (12.0-16.0); Immature Granulocytes % 0.5 %; Immature Granulocytes Absolute 0.04 #; Lymphocytes # 2.1 10*3/uL (1.4-4.0); Mean Corpuscular HGB Conc 30.1 GM/DL (32-36); Mean Corpuscular Hemoglobin 31 PG (27-34); Mean Corpuscular Volume 103.2 FL (87-102); Mean Platelet Volume 11.8 FL (9.6-12.0); Monocytes # 0.7 10*3/uL (0.11-0.8); Monocytes % 8.8 % (1.7-12.7); Neutrophils # 4.8 10*3/uL (1.4-7.4); Neutrophils % 59.9 % (38.7-73.9); Platelet Count 153 T/CUMM (130-400); Red Blood Count 3.73 MC/CUMM (3.8-5.5); Red Cell Distribution Width 12.8 % (9.3-17.3)
[2019-01-19 06:12] LABS: Calcium 8.8 MG/DL (8.5-10.1); Osmolality,Calculated 273.7 MOS/KG (273-304); Potassium 3.9 MMOL/L (3.5-5.1)
[2019-01-19] MEDS: CARVEDILOL 12.5 MG TABLET PO SCH ×2 (09:00→16:38)
[2019-01-19] MEDS: PANTOPRAZOLE 40 MG VIAL IV SCH (09:02)
[2019-01-19] MEDS: DICYCLOMINE 20 MG TABLET PO SCH ×3 (09:02→19:45)
[2019-01-19] MEDS: APIXABAN 2.5 MG TABLET PO SCH ×2 (09:02→20:16)
[2019-01-19] MEDS: SPIRONOLACTONE 25 MG TABLET PO SCH (09:02)
[2019-01-19] MEDS: CHOLECALCIFEROL 1,000 UNIT TABLET PO SCH (09:03)
[2019-01-19] MEDS ORDERED: metroNIDAZOLE 500 MG TABLET PO SCH (13:00)
[2019-01-19] MEDS ORDERED: LEVOFLOXACIN 250 MG TABLET PO SCH (13:00)
[2019-01-19] MEDS: LEVOFLOXACIN INJ 250 MG in PREMIX 1 EACH IV SCH (16:38)
[2019-01-19] MEDS: ONDANSETRON 4 MG/2 ML VIAL IV PRN (19:45)
[2019-01-19] MEDS: ACETAMINOPHEN 325 MG TABLET PO PRN (19:45)
[2019-01-20] MEDS: metroNIDAZOLE INJ 500 MG in PREMIX 1 EACH IV SCH ×3 (00:16→16:45)
[2019-01-20] MEDS: SODIUM CHLORIDE 0.9% 1,000 ML IV SCH ×2 (04:09→16:48)
[2019-01-20] MEDS: CARVEDILOL 12.5 MG TABLET PO SCH ×2 (07:40→16:47)
[2019-01-20] MEDS: CHOLECALCIFEROL 1,000 UNIT TABLET PO SCH (08:51)
[2019-01-20] MEDS: DICYCLOMINE 20 MG TABLET PO SCH ×3 (08:51→20:14)
[2019-01-20] MEDS: APIXABAN 2.5 MG TABLET PO SCH ×2 (08:51→20:14)
[2019-01-20] MEDS: PANTOPRAZOLE 40 MG TABLET PO SCH (08:52)
[2019-01-20] MEDS: SPIRONOLACTONE 25 MG TABLET PO SCH (08:52)
[2019-01-20] MEDS: POLYETHYLENE GLYCOL POWDER 17 GM PACK PO PRN (15:21)
[2019-01-20] MEDS: LEVOFLOXACIN INJ 250 MG in PREMIX 1 EACH IV SCH (16:00)
[2019-01-20] MEDS: ONDANSETRON 4 MG/2 ML VIAL IV PRN (19:20)
[2019-01-21] MEDS: metroNIDAZOLE INJ 500 MG in PREMIX 1 EACH IV SCH ×4 (00:48→23:08)
[2019-01-21] MEDS: SODIUM CHLORIDE 0.9% 1,000 ML IV SCH ×4 (00:49→22:38)
[2019-01-21] MEDS: ONDANSETRON 4 MG/2 ML VIAL IV PRN ×2 (05:19→19:10)
[2019-01-21] MEDS: MORPHINE 4 MG/1 ML VIAL IV PRN ×2 (06:25→10:24)
[2019-01-21] MEDS: CARVEDILOL 12.5 MG TABLET PO SCH ×2 (09:11→16:19)
[2019-01-21] MEDS: ROSUVASTATIN 20 MG TABLET PO SCH (09:11)
[2019-01-21] MEDS: CHOLECALCIFEROL 1,000 UNIT TABLET PO SCH (09:11)
[2019-01-21] MEDS: SPIRONOLACTONE 25 MG TABLET PO SCH (09:11)
[2019-01-21] MEDS: PANTOPRAZOLE 40 MG TABLET PO SCH (09:11)
[2019-01-21] MEDS: DICYCLOMINE 20 MG TABLET PO SCH (09:13)
[2019-01-21] MEDS: POLYETHYLENE GLYCOL POWDER 17 GM PACK PO SCH (09:13)
[2019-01-21] MEDS: APIXABAN 2.5 MG TABLET PO SCH ×2 (09:13→20:36)
[2019-01-21] MEDS: cloNIDine 0.1 MG TABLET PO PRN (11:56)
[2019-01-21] MEDS ORDERED: GENTAMICIN INJ 80 MG in PREMIX 1 EACH IV ONE (12:00)
[2019-01-21] MEDS ORDERED: HYOSCYAMINE 0.125 MG TABLET PO SCH (13:30)
[2019-01-21] MEDS: LEVOFLOXACIN INJ 250 MG in PREMIX 1 EACH IV SCH (14:47)
[2019-01-21] MEDS: HYOSCYAMINE 0.125 MG TABLET PO SCH ×2 (17:47→23:07)
[2019-01-21] MEDS: ACETAMINOPHEN 325 MG TABLET PO PRN (19:13)
[2019-01-22] MEDS: SODIUM CHLORIDE 0.9% 1,000 ML IV SCH ×3 (04:26→17:18)
[2019-01-22] MEDS: HYOSCYAMINE 0.125 MG TABLET PO SCH ×4 (05:26→23:12)
[2019-01-22] MEDS: metroNIDAZOLE INJ 500 MG in PREMIX 1 EACH IV SCH ×3 (09:05→23:13)
[2019-01-22] MEDS: SPIRONOLACTONE 25 MG TABLET PO SCH (09:06)
[2019-01-22] MEDS: POLYETHYLENE GLYCOL POWDER 17 GM PACK PO SCH (09:06)
[2019-01-22] MEDS: CHOLECALCIFEROL 1,000 UNIT TABLET PO SCH (09:06)
[2019-01-22] MEDS: ROSUVASTATIN 20 MG TABLET PO SCH (09:06)
[2019-01-22] MEDS: APIXABAN 2.5 MG TABLET PO SCH ×2 (09:06→21:13)
[2019-01-22] MEDS: CARVEDILOL 12.5 MG TABLET PO SCH ×2 (09:07→17:48)
[2019-01-22] MEDS: PANTOPRAZOLE 40 MG TABLET PO SCH (09:07)
[2019-01-22] MEDS: MORPHINE 4 MG/1 ML VIAL IV PRN (11:52)
[2019-01-22] MEDS ORDERED: GENTAMICIN INJ 80 MG in PREMIX 1 EACH IV ONE (12:00)
[2019-01-22] MEDS: LEVOFLOXACIN INJ 250 MG in PREMIX 1 EACH IV SCH (15:25)
[2019-01-22] MEDS: ONDANSETRON 4 MG/2 ML VIAL IV PRN (15:32)
[2019-01-22] MEDS: ACETAMINOPHEN 325 MG TABLET PO PRN (19:10)
[2019-01-23] MEDS: HYOSCYAMINE 0.125 MG TABLET PO SCH ×4 (05:31→23:12)
[2019-01-23] MEDS: POLYETHYLENE GLYCOL POWDER 17 GM PACK PO PRN (05:40)
[2019-01-23] MEDS: SODIUM CHLORIDE 0.9% 1,000 ML IV SCH ×4 (05:40→23:11)
[2019-01-23] MEDS: metroNIDAZOLE INJ 500 MG in PREMIX 1 EACH IV SCH ×3 (09:15→23:12)
[2019-01-23] MEDS: CHOLECALCIFEROL 1,000 UNIT TABLET PO SCH (09:16)
[2019-01-23] MEDS: APIXABAN 2.5 MG TABLET PO SCH ×2 (09:16→21:29)
[2019-01-23] MEDS: CARVEDILOL 12.5 MG TABLET PO SCH ×2 (09:16→16:51)
[2019-01-23] MEDS: POLYETHYLENE GLYCOL POWDER 17 GM PACK PO SCH ×2 (09:16→14:18)
[2019-01-23] MEDS: PANTOPRAZOLE 40 MG TABLET PO SCH (09:16)
[2019-01-23] MEDS: ROSUVASTATIN 20 MG TABLET PO SCH (09:16)
[2019-01-23] MEDS: SPIRONOLACTONE 25 MG TABLET PO SCH (09:16)
[2019-01-23] MEDS: LEVOFLOXACIN INJ 250 MG in PREMIX 1 EACH IV SCH (16:46)
[2019-01-23] MEDS: ONDANSETRON 4 MG/2 ML VIAL IV PRN (16:51)
[2019-01-23] MEDS: ACETAMINOPHEN 325 MG TABLET PO PRN (16:52)
[2019-01-24] MEDS: HYOSCYAMINE 0.125 MG TABLET PO SCH ×3 (05:58→19:00)
[2019-01-24] MEDS: metroNIDAZOLE INJ 500 MG in PREMIX 1 EACH IV SCH ×2 (08:34→16:18)
[2019-01-24] MEDS: POLYETHYLENE GLYCOL POWDER 17 GM PACK PO SCH (08:35)
[2019-01-24] MEDS: PANTOPRAZOLE 40 MG TABLET PO SCH (08:35)
[2019-01-24] MEDS: ROSUVASTATIN 20 MG TABLET PO SCH (08:35)
[2019-01-24] MEDS: CHOLECALCIFEROL 1,000 UNIT TABLET PO SCH (08:35)
[2019-01-24] MEDS: APIXABAN 2.5 MG TABLET PO SCH ×2 (08:36→21:06)
[2019-01-24] MEDS: CARVEDILOL 12.5 MG TABLET PO SCH ×2 (08:36→16:19)
[2019-01-24] MEDS: SPIRONOLACTONE 25 MG TABLET PO SCH (08:36)
[2019-01-24] MEDS: SODIUM CHLORIDE 0.9% 1,000 ML IV SCH (12:23)
[2019-01-24] MEDS: LEVOFLOXACIN INJ 250 MG in PREMIX 1 EACH IV SCH (16:00)
[2019-01-24] MEDS: cloNIDine 0.1 MG TABLET PO PRN (21:06)
[2019-01-24] MEDS: ONDANSETRON 4 MG/2 ML VIAL IV PRN (21:07)
[2019-01-25] MEDS: metroNIDAZOLE INJ 500 MG in PREMIX 1 EACH IV SCH ×2 (00:10→08:18)
[2019-01-25] MEDS: HYOSCYAMINE 0.125 MG TABLET PO SCH ×2 (00:14→05:41)
[2019-01-25 04:40] LABS: Basophils # 0.1 10*3/uL (0.0-0.2); Basophils % 0.6 % (0.0-0.8); Eosinophils # 0.2 10*3/uL (0.0-0.87); Eosinophils % 1.8 % (0.00-10.9); Hemoglobin 11.2 GM/DL (12.0-16.0); Immature Granulocytes % 0.5 %; Immature Granulocytes Absolute 0.05 #; Lymphocytes # 1.7 10*3/uL (1.4-4.0); Lymphocytes % 16.7 % (21.3-54.2); Mean Corpuscular Hemoglobin 31 PG (27-34); Mean Corpuscular Volume 95.6 FL (87-102); Mean Platelet Volume 10.6 FL (9.6-12.0); Monocytes # 0.9 10*3/uL (0.11-0.8); Monocytes % 9.3 % (1.7-12.7); Neutrophils # 7.1 10*3/uL (1.4-7.4); Neutrophils % 71.1 % (38.7-73.9); Platelet Count 173 T/CUMM (130-400); Red Blood Count 3.66 MC/CUMM (3.8-5.5); Red Cell Distribution Width 13.1 % (9.3-17.3); White Blood Count 9.9 T/CUMM (4-12)
[2019-01-25] MEDS: SODIUM CHLORIDE 0.9% 1,000 ML IV SCH ×2 (05:05→06:05)
[2019-01-25 05:14] LABS: Osmolality,Calculated 279.3 MOS/KG (273-304); Potassium 3.5 MMOL/L (3.5-5.1)
[2019-01-25] MEDS: CARVEDILOL 12.5 MG TABLET PO SCH (08:19)
[2019-01-25] MEDS: ROSUVASTATIN 20 MG TABLET PO SCH (09:21)
[2019-01-25] MEDS: APIXABAN 2.5 MG TABLET PO SCH (09:21)
[2019-01-25] MEDS: POLYETHYLENE GLYCOL POWDER 17 GM PACK PO SCH (09:21)
[2019-01-25] MEDS: SPIRONOLACTONE 25 MG TABLET PO SCH (09:21)
[2019-01-25] MEDS: PANTOPRAZOLE 40 MG TABLET PO SCH (09:22)
[2019-01-25] MEDS: CHOLECALCIFEROL 1,000 UNIT TABLET PO SCH (09:22)
[2019-01-25 11:04] VITALS: BP 171/92
== END 2019-01-25 13:30 | disposition home or self-care (01) | DRG 392 ==
LOC: N.ED 10:12 → N.EDINP 15:48 → SUATTDRO 15:48 → N.EDINP 17:33 → N.3E 17:39
PROVIDERS: ADMIT Internal Medicine; ATTEND Hospitalist

== ENCOUNTER 2020-12-23 01:34 | Inpatient (IN) ==
[2020-12-23] MEDS ORDERED: MORPHINE 4 MG/1 ML VIAL IV STA ×2 (02:11→03:11)
[2020-12-23] MEDS ORDERED: ONDANSETRON 4 MG/2 ML VIAL IV STA (02:11)
[2020-12-23 02:25] LABS: Basophils # 0.1 10*3/uL (0.0-0.2); Basophils % 1.1 % (0.0-0.8); Eosinophils # 0.4 10*3/uL (0.0-0.87); Eosinophils % 3.2 % (0.00-10.9); Hematocrit 38.3 VOL% (35.7-47.0); Immature Granulocytes % 0.3 %; Immature Granulocytes Absolute 0.03 #; Lymphocytes # 2.2 10*3/uL (1.4-4.0); Lymphocytes % 20.6 % (21.3-54.2); Mean Corpuscular HGB Conc 31.3 GM/DL (32-36); Mean Platelet Volume 10.4 FL (9.6-12.0); Monocytes % 8.6 % (1.7-12.7); Neutrophils % 66.2 % (38.7-73.9); Platelet Count 209 T/CUMM (130-400); Red Blood Count 3.91 MC/CUMM (3.8-5.5); White Blood Count 10.8 T/CUMM (4-12)
[2020-12-23 02:35] LABS: INR 1.2; PT Patient Result 12.3 SECS (9.8-11.9)
[2020-12-23 02:42] LABS: Albumin 3.7 G/DL (3.4-5.0); Bilirubin,Total 0.7 MG/DL (0.2-1.0); Calcium 9.5 MG/DL (8.5-10.1); Osmolality,Calculated 275.7 MOS/KG (273-304); Potassium 4.2 MMOL/L (3.5-5.1); Total Protein 7.9 G/DL (6.4-8.3)
[2020-12-23] MEDS ORDERED: hydrALAZINE 20 MG/1 ML VIAL IV PRN (03:37)
[2020-12-23] MEDS ORDERED: diphenhydrAMINE CAP 25 MG CAPSULE PO PRN (03:37)
[2020-12-23] MEDS ORDERED: NICOTINE 21 MG/24 HR PATCH TRANSDERM PRN (03:37)
[2020-12-23] MEDS ORDERED: CALCIUM CARBONATE CHEW 500 MG TABLET PO PRN (03:37)
[2020-12-23] MEDS ORDERED: guaiFENesin/DM ER 600-30 MG TABLET PO PRN (03:37)
[2020-12-23] MEDS ORDERED: DEXTROSE 50% 25 GM/50 ML VIAL IV PRN (03:37)
[2020-12-23] MEDS ORDERED: MORPHINE 4 MG/1 ML VIAL IV PRN (03:37)
[2020-12-23] MEDS ORDERED: GLUCAGON 1 MG VIAL IM PRN (03:37)
[2020-12-23] MEDS: ONDANSETRON 4 MG/2 ML VIAL IV PRN (04:37)
[2020-12-23 06:56] LABS: Risk Ratio 1.65; Thyroid Stimulating Hormone 1.88 uIU/ml (0.358-3.74); VLDL CHOLESTEROL 9.4 MG/DL
[2020-12-23] MEDS ORDERED: ENOXAPARIN 60 MG/0.6 ML SYRINGE SUBCUT ONE (07:15)
[2020-12-23] MEDS: carvediloL 12.5 MG TABLET PO SCH ×2 (07:28→17:08)
[2020-12-23] MEDS: NITROGLYCERIN 2% OINT 1 INCH/GM PACK TOP SCH ×3 (07:28→17:09)
[2020-12-23] MEDS: APIXABAN 2.5 MG TABLET PO SCH ×2 (09:33→23:22)
[2020-12-23] MEDS: ASPIRIN EC 81 MG TABLET PO SCH (09:34)
[2020-12-23] MEDS ORDERED: POTASSIUM CHLORIDE RIDER 10 MEQ in PREMIX 1 EACH IV PRN (10:23)
[2020-12-23] MEDS ORDERED: diphenhydrAMINE CAP 25 MG CAPSULE PO ONE (10:23)
[2020-12-23] MEDS ORDERED: MAGNESIUM SULF RIDER 2 GM in PREMIX 1 EACH IV PRN (10:23)
[2020-12-23] MEDS ORDERED: DIAZEPAM 5 MG TABLET PO ONE (10:23)
[2020-12-23] MEDS ORDERED: LIDOCAINE 1% 20 ML VIAL ONE (10:51)
[2020-12-23] MEDS ORDERED: HEPARIN/NACL 0.9% 2 UNITS/ML 1,000 ML IV ONE (10:51)
[2020-12-23] MEDS ORDERED: NITROGLYCERIN DRIP 50 MG/250 ML BOTTLE IV ONE (11:30)
[2020-12-23] MEDS ORDERED: HYDROmorphone 2 MG/1 ML VIAL ONE (11:30)
[2020-12-23] MEDS ORDERED: VERAPAMIL 5 MG/2 ML VIAL ONE (11:30)
[2020-12-23] MEDS ORDERED: MIDAZOLAM 2 MG/2 ML VIAL ONE (11:30)
[2020-12-23] MEDS ORDERED: NITROGLYCERIN 2% OINT 1 INCH/GM PACK TOP SCH (12:00)
[2020-12-23] MEDS ORDERED: TICAGRELOR 90 MG TABLET ONE (12:06)
[2020-12-23] MEDS ORDERED: SODIUM CHLORIDE 0.9% 1,000 ML IV SCH (13:00)
[2020-12-23] MEDS: ACETAMINOPHEN 325 MG TABLET PO PRN (15:13)
[2020-12-23] MEDS: TICAGRELOR 90 MG TABLET PO SCH (23:22)
[2020-12-24] MEDS: NITROGLYCERIN 2% OINT 1 INCH/GM PACK TOP SCH ×4 (01:07→17:27)
[2020-12-24 06:28] LABS: Basophils # 0.1 10*3/uL (0.0-0.2); Basophils % 0.7 % (0.0-0.8); Eosinophils # 0.2 10*3/uL (0.0-0.87); Eosinophils % 2.6 % (0.00-10.9); Hematocrit 34.4 VOL% (35.7-47.0); Hemoglobin 11.2 GM/DL (12.0-16.0); Immature Granulocytes % 0.6 %; Immature Granulocytes Absolute 0.05 #; Lymphocytes # 1.4 10*3/uL (1.4-4.0); Mean Corpuscular HGB Conc 32.6 GM/DL (32-36); Mean Platelet Volume 10.5 FL (9.6-12.0); Monocytes % 9.1 % (1.7-12.7); Platelet Count 179 T/CUMM (130-400); Red Blood Count 3.62 MC/CUMM (3.8-5.5)
[2020-12-24 06:48] LABS: CKMB % 7.2 %; Osmolality,Calculated 272.8 MOS/KG (273-304); Potassium 3.9 MMOL/L (3.5-5.1)
[2020-12-24 06:51] LABS: Troponin I 10.6 NG/ML (0.00-0.045)
[2020-12-24] MEDS: ASPIRIN EC 81 MG TABLET PO SCH (09:11)
[2020-12-24] MEDS: carvediloL 12.5 MG TABLET PO SCH ×2 (09:12→17:27)
[2020-12-24] MEDS: TICAGRELOR 90 MG TABLET PO SCH ×2 (09:12→20:34)
[2020-12-24] MEDS: APIXABAN 2.5 MG TABLET PO SCH (09:13)
[2020-12-24] MEDS: ACETAMINOPHEN 325 MG TABLET PO PRN (11:48)
[2020-12-24] MEDS: ONDANSETRON 4 MG/2 ML VIAL IV PRN (15:25)
[2020-12-24] MEDS ORDERED: TEMAZEPAM 7.5 MG CAPSULE PO PRN (19:16)
[2020-12-24] MEDS ORDERED: ROSUVASTATIN 20 MG TABLET PO SCH (21:00)
[2020-12-25] MEDS: NITROGLYCERIN 2% OINT 1 INCH/GM PACK TOP SCH ×3 (00:34→11:52)
[2020-12-25 06:20] LABS: Basophils # 0.1 10*3/uL (0.0-0.2); Basophils % 0.7 % (0.0-0.8); Eosinophils # 0.3 10*3/uL (0.0-0.87); Eosinophils % 3.2 % (0.00-10.9); Hematocrit 37.5 VOL% (35.7-47.0); Hemoglobin 11.8 GM/DL (12.0-16.0); Immature Granulocytes % 0.5 %; Immature Granulocytes Absolute 0.04 #; Lymphocytes # 1.4 10*3/uL (1.4-4.0); Lymphocytes % 16.6 % (21.3-54.2); Mean Corpuscular HGB Conc 31.5 GM/DL (32-36); Mean Corpuscular Volume 96.9 FL (87-102); Mean Platelet Volume 10.7 FL (9.6-12.0); Monocytes % 10.6 % (1.7-12.7); Neutrophils % 68.4 % (38.7-73.9); Platelet Count 178 T/CUMM (130-400); Red Blood Count 3.87 MC/CUMM (3.8-5.5); Red Cell Distribution Width 14.8 % (9.3-17.3); White Blood Count 8.7 T/CUMM (4-12)
[2020-12-25 06:35] LABS: Calcium 9.9 MG/DL (8.5-10.1); Osmolality,Calculated 273.8 MOS/KG (273-304); Potassium 3.9 MMOL/L (3.5-5.1)
[2020-12-25 06:39] LABS: Calcium 9.5 MG/DL (8.5-10.1); Osmolality,Calculated 273.8 MOS/KG (273-304); Potassium 3.7 MMOL/L (3.5-5.1)
[2020-12-25] MEDS: ASPIRIN EC 81 MG TABLET PO SCH (08:47)
[2020-12-25] MEDS: carvediloL 12.5 MG TABLET PO SCH (08:47)
[2020-12-25] MEDS ORDERED: CLOPIDOGREL 75 MG TABLET PO SCH (09:00)
[2020-12-25] MEDS ORDERED: POLYETHYLENE GLYCOL POWDER 17 GM PACK PO SCH (09:00)
[2020-12-25 12:39] VITALS: BP 135/80
== END 2020-12-25 14:26 | disposition home health service (06) | DRG 247 ==
LOC: N.EDINP 01:34 → N.ED 01:34 → SUATTDRO 03:37 → N.TELES 04:26
PROVIDERS: ADMIT Internal Medicine Geriatric Medicine; ATTEND Family Medicine

== ENCOUNTER 2021-08-04 21:33 | Observation (INO) ==
[2021-08-04] MEDS ORDERED: ONDANSETRON 4 MG/2 ML VIAL IV ONE (22:07)
[2021-08-04] MEDS ORDERED: fentaNYL 100 MCG/2 ML VIAL IV STA (22:07)
[2021-08-04 22:17] LABS: Basophils # 0.1 10*3/uL (0.0-0.2); Eosinophils # 0.4 10*3/uL (0.0-0.87); Eosinophils % 4.2 % (0.00-10.9); Hematocrit 36.7 VOL% (35.7-47.0); Hemoglobin 11.5 GM/DL (12.0-16.0); Immature Granulocytes % 0.4 %; Immature Granulocytes Absolute 0.04 #; Lymphocytes # 1.9 10*3/uL (1.4-4.0); Mean Corpuscular HGB Conc 31.3 GM/DL (32-36); Mean Corpuscular Volume 94.1 FL (87-102); Mean Platelet Volume 10.5 FL (9.6-12.0); Monocytes % 8.3 % (1.7-12.7); Neutrophils % 67.1 % (38.7-73.9); Platelet Count 173 T/CUMM (130-400); Red Cell Distribution Width 15.1 % (9.3-17.3)
[2021-08-04 22:41] LABS: Albumin 3.2 G/DL (3.4-5.0); Bilirubin,Total 0.5 MG/DL (0.20-1.00); Calcium 8.9 MG/DL (8.5-10.1); Osmolality,Calculated 279.4 MOS/KG (273-304); Potassium 4.2 MMOL/L (3.5-5.1); Total Protein 6.5 G/DL (6.4-8.2)
[2021-08-04] MEDS ORDERED: hydrALAZINE 20 MG/1 ML VIAL IV PRN (23:54)
[2021-08-04] MEDS ORDERED: ONDANSETRON 4 MG/2 ML VIAL IV PRN (23:54)
[2021-08-04] MEDS ORDERED: DEXTROSE 50% 25 GM/50 ML VIAL IV PRN (23:54)
[2021-08-04] MEDS ORDERED: GLUCAGON 1 MG VIAL IM PRN (23:54)
[2021-08-04] MEDS ORDERED: ACETAMINOPHEN 325 MG TABLET PO PRN (23:54)
[2021-08-04] MEDS ORDERED: FUROSEMIDE 40 MG/4 ML VIAL IV ONE (23:54)
[2021-08-05] MEDS: MORPHINE 2 MG/1 ML SYRINGE IV PRN ×2 (00:19→03:48)
[2021-08-05] MEDS ORDERED: NITROGLYCERIN SL 0.4 MG TABLET SL PRN (00:23)
[2021-08-05 05:06] LABS: Basophils # 0.1 10*3/uL (0.0-0.2); Basophils % 0.5 % (0.0-0.8); Eosinophils # 0.3 10*3/uL (0.0-0.87); Hematocrit 35.9 VOL% (35.7-47.0); Hemoglobin 11.4 GM/DL (12.0-16.0); Immature Granulocytes % 0.6 %; Immature Granulocytes Absolute 0.07 #; Lymphocytes # 1.4 10*3/uL (1.4-4.0); Lymphocytes % 12.4 % (21.3-54.2); Mean Corpuscular HGB Conc 31.8 GM/DL (32-36); Mean Corpuscular Volume 92.8 FL (87-102); Mean Platelet Volume 10.6 FL (9.6-12.0); Monocytes % 7.3 % (1.7-12.7); Neutrophils % 76.2 % (38.7-73.9); Platelet Count 173 T/CUMM (130-400); Red Blood Count 3.87 MC/CUMM (3.8-5.5); Red Cell Distribution Width 15.2 % (9.3-17.3); White Blood Count 10.9 T/CUMM (4-12)
[2021-08-05 05:37] LABS: Calcium 9.5 MG/DL (8.5-10.1); Osmolality,Calculated 274.8 MOS/KG (273-304); Potassium 3.5 MMOL/L (3.5-5.1); Risk Ratio 1.62; Thyroid Stimulating Hormone 4.91 uIU/ml (0.358-3.74); VLDL Cholesterol 8.8 MG/DL
[2021-08-05] MEDS ORDERED: carvediloL 12.5 MG TABLET PO SCH (08:00)
[2021-08-05] MEDS: DICYCLOMINE 10 MG CAPSULE PO SCH ×2 (08:31→12:21)
[2021-08-05] MEDS ORDERED: CLOPIDOGREL 75 MG TABLET PO SCH (09:00)
[2021-08-05] MEDS ORDERED: PANTOPRAZOLE 40 MG TABLET PO SCH (09:00)
[2021-08-05] MEDS ORDERED: APIXABAN 2.5 MG TABLET PO SCH (09:00)
[2021-08-05] MEDS ORDERED: SPIRONOLACTONE 25 MG TABLET PO SCH (09:00)
[2021-08-05] MEDS ORDERED: OXYBUTYNIN XL 10 MG TABLET PO SCH (09:00)
[2021-08-05] MEDS ORDERED: ROSUVASTATIN 20 MG TABLET PO SCH (09:00)
[2021-08-05 12:06] VITALS: BP 104/59
== END 2021-08-05 13:10 | disposition home or self-care (01) ==
LOC: N.ED 21:33 → N.EDINP 21:33 → N.TELEN 08-05 00:51
PROVIDERS: ADMIT Internal Medicine; ATTEND Internal Medicine

== ENCOUNTER 2021-08-26 06:11 | Inpatient (IN) ==
[~2021-08-26 06:11] MED LIST: ASPIRIN 325 MG TABLET PO ONE; DIAZEPAM 5 MG TABLET PO ONE; MAGNESIUM SULF RIDER 2 GM/50 ML PREMIX IV PRN; POTASSIUM CHLORIDE RIDER 10 MEQ/100 ML PREMIX IV PRN; diphenhydrAMINE CAP 50 MG CAPSULE PO ONE
[2021-08-26 08:40] LABS: Basophils # 0.1 10*3/uL (0.0-0.2); Eosinophils # 0.3 10*3/uL (0.0-0.87); Eosinophils % 4.1 % (0.00-10.9); Hematocrit 36.9 VOL% (35.7-47.0); Hemoglobin 11.5 GM/DL (12.0-16.0); Immature Granulocytes % 0.4 %; Immature Granulocytes Absolute 0.03 #; Lymphocytes # 1.4 10*3/uL (1.4-4.0); Lymphocytes % 17.5 % (21.3-54.2); Mean Corpuscular HGB Conc 31.2 GM/DL (32-36); Mean Corpuscular Volume 93.9 FL (87-102); Mean Platelet Volume 10.8 FL (9.6-12.0); Monocytes % 7.9 % (1.7-12.7); Neutrophils % 69.1 % (38.7-73.9); Platelet Count 159 T/CUMM (130-400); Red Blood Count 3.93 MC/CUMM (3.8-5.5); Red Cell Distribution Width 15.2 % (9.3-17.3); White Blood Count 7.9 T/CUMM (4-12)
[2021-08-26 08:48] LABS: INR 1.2; PT Patient Result 13.3 SECS (10.5-12.0)
[2021-08-26] MEDS: SODIUM CHLORIDE 0.9% 1,000 ML IV SCH (08:57)
[2021-08-26 09:00] LABS: Calcium 10.2 MG/DL (8.5-10.1); Osmolality,Calculated 279.5 MOS/KG (273-304); Potassium 3.9 MMOL/L (3.5-5.1)
[2021-08-26] MEDS ORDERED: DIAZEPAM 5 MG TABLET ONE (09:11)
[2021-08-26] MEDS ORDERED: ASPIRIN 325 MG TABLET ONE (09:11)
[2021-08-26] MEDS ORDERED: diphenhydrAMINE CAP 50 MG CAPSULE ONE (09:11)
[2021-08-26] MEDS ORDERED: HEPARIN/NACL 0.9% 2 UNITS/ML 2,000 UNIT/1,000 ML BAG IV ONE (10:05)
[2021-08-26] MEDS ORDERED: LIDOCAINE 1% 20 ML VIAL ONE ×2 (10:05→10:45)
[2021-08-26] MEDS ORDERED: MIDAZOLAM 2 MG/2 ML VIAL ONE (10:19)
[2021-08-26] MEDS ORDERED: LABETALOL 20 MG/4 ML SYRINGE IV ONE (10:36)
[2021-08-26] MEDS ORDERED: fentaNYL 100 MCG/2 ML VIAL ONE (10:40)
[2021-08-26] MEDS ORDERED: HEPARIN/NACL 0.9% 2 UNITS/ML 1,000 UNIT/500 ML BAG IV ONE (10:57)
[2021-08-26] MEDS ORDERED: SODIUM CHLORIDE 0.9% 1,000 ML IV PRN (11:13)
[2021-08-26] MEDS ORDERED: fentaNYL 100 MCG/2 ML VIAL IV ONE (15:59)
[2021-08-26] MEDS ORDERED: NITROGLYCERIN SL 0.4 MG TABLET SL PRN (16:56)
[2021-08-26] MEDS ORDERED: INFLUENZA VIRUS VACCINE 0.5 ML SYRINGE IM ONE (17:00)
[2021-08-26 17:53] LABS: Basophils # 0.1 10*3/uL (0.0-0.2); Basophils % 0.7 % (0.0-0.8); Eosinophils # 0.2 10*3/uL (0.0-0.87); Eosinophils % 1.8 % (0.00-10.9); Hemoglobin 11.3 GM/DL (12.0-16.0); Immature Granulocytes % 0.4 %; Immature Granulocytes Absolute 0.05 #; Lymphocytes # 1.6 10*3/uL (1.4-4.0); Lymphocytes % 13.3 % (21.3-54.2); Mean Corpuscular HGB Conc 31.4 GM/DL (32-36); Mean Platelet Volume 10.7 FL (9.6-12.0); Monocytes % 8.5 % (1.7-12.7); Neutrophils % 75.3 % (38.7-73.9); Platelet Count 177 T/CUMM (130-400); Red Blood Count 3.87 MC/CUMM (3.8-5.5); Red Cell Distribution Width 15.9 % (9.3-17.3); White Blood Count 12.2 T/CUMM (4-12)
[2021-08-26] MEDS: carvediloL 12.5 MG TABLET PO SCH (17:54)
[2021-08-26] MEDS: DICYCLOMINE 10 MG CAPSULE PO SCH ×2 (17:54→20:35)
[2021-08-26] MEDS: PANTOPRAZOLE 40 MG TABLET PO SCH (20:35)
[2021-08-26] MEDS: ESCITALOPRAM 10 MG TABLET PO SCH (20:35)
[2021-08-26] MEDS: OXYBUTYNIN XL 10 MG TABLET PO SCH (20:35)
[2021-08-26] MEDS: ACETAMINOPHEN 500 MG TABLET PO PRN (20:35)
[2021-08-26 21:24] LABS: Bacteria,Urine Occasional /HPF (Few); Bilirubin,Urine Negative (Negative); Blood, Urine Moderate mg/dL (Negative); Glucose,Urine (UA) Negative (Negative); Ketones,Urine Negative (Negative); Mucus,Urine Occasional /LPF (Occasional); Nitrite,Urine Negative (Negative); Protein,Urine Negative; RBC,Urine 16 /HPF (0-4); Urine Appearance CLEAR (Clear); Urine Color Yellow (Yellow); Urine Specific Gravity 1.039 (1.001-1.035)
[2021-08-26] MEDS ORDERED: SODIUM CHLORIDE 0.9% 1,000 ML IV ONE (23:00)
[2021-08-26 23:19] LABS: Basophils # 0.1 10*3/uL (0.0-0.2); Basophils % 0.9 % (0.0-0.8); Eosinophils # 0.3 10*3/uL (0.0-0.87); Eosinophils % 2.8 % (0.00-10.9); Hemoglobin 9.8 GM/DL (12.0-16.0); Immature Granulocytes % 0.5 %; Immature Granulocytes Absolute 0.05 #; Lymphocytes # 1.3 10*3/uL (1.4-4.0); Mean Corpuscular HGB Conc 31.6 GM/DL (32-36); Mean Corpuscular Volume 93.7 FL (87-102); Mean Platelet Volume 10.7 FL (9.6-12.0); Monocytes % 9.4 % (1.7-12.7); Neutrophils % 73.4 % (38.7-73.9); Platelet Count 141 T/CUMM (130-400); Red Blood Count 3.31 MC/CUMM (3.8-5.5); Red Cell Distribution Width 15.8 % (9.3-17.3); White Blood Count 10.2 T/CUMM (4-12)
[2021-08-26] MEDS ORDERED: traMADol 50 MG TABLET PO ONE (23:44)
[2021-08-27 01:48] LABS: Hematocrit 29.4 VOL% (35.7-47.0); Hemoglobin 9.2 GM/DL (12.0-16.0)
[2021-08-27 03:53] LABS: Basophils # 0.1 10*3/uL (0.0-0.2); Basophils % 0.9 % (0.0-0.8); Eosinophils # 0.3 10*3/uL (0.0-0.87); Eosinophils % 2.8 % (0.00-10.9); Hematocrit 29.4 VOL% (35.7-47.0); Hemoglobin 9.1 GM/DL (12.0-16.0); Immature Granulocytes % 0.3 %; Immature Granulocytes Absolute 0.03 #; Lymphocytes # 1.2 10*3/uL (1.4-4.0); Lymphocytes % 13.7 % (21.3-54.2); Mean Corpuscular Volume 95.1 FL (87-102); Mean Platelet Volume 10.6 FL (9.6-12.0); Monocytes % 9.6 % (1.7-12.7); Neutrophils % 72.7 % (38.7-73.9); Platelet Count 115 T/CUMM (130-400); Red Blood Count 3.09 MC/CUMM (3.8-5.5); Red Cell Distribution Width 15.9 % (9.3-17.3); White Blood Count 8.8 T/CUMM (4-12)
[2021-08-27 04:04] LABS: Calcium 8.3 MG/DL (8.5-10.1); Osmolality,Calculated 276.7 MOS/KG (273-304); Potassium 3.8 MMOL/L (3.5-5.1)
[2021-08-27 04:14] LABS: Hypochromasia 1+
[2021-08-27 04:15] LABS: Microcytosis 1+; Ovalocytes Slight
[2021-08-27 06:18] LABS: Hematocrit 28.9 VOL% (35.7-47.0)
[2021-08-27] MEDS: SPIRONOLACTONE 25 MG TABLET PO SCH (08:02)
[2021-08-27] MEDS: CHOLECALCIFEROL 1,000 UNIT TABLET PO SCH (08:34)
[2021-08-27] MEDS: carvediloL 12.5 MG TABLET PO SCH ×2 (08:35→17:34)
[2021-08-27] MEDS: DICYCLOMINE 10 MG CAPSULE PO SCH ×4 (08:35→20:53)
[2021-08-27] MEDS: PANTOPRAZOLE 40 MG TABLET PO SCH ×2 (08:35→20:54)
[2021-08-27] MEDS: ASPIRIN EC 81 MG TABLET PO SCH (08:35)
[2021-08-27 08:55] LABS: Hematocrit 31.1 VOL% (35.7-47.0); Hemoglobin 9.7 GM/DL (12.0-16.0)
[2021-08-27] MEDS: SODIUM CHLORIDE 0.9% 1,000 ML IV SCH (11:20)
[2021-08-27] MEDS: ACETAMINOPHEN 500 MG TABLET PO PRN (13:40)
[2021-08-27 16:04] LABS: Hematocrit 28.9 VOL% (35.7-47.0); Hemoglobin 9.1 GM/DL (12.0-16.0)
[2021-08-27] MEDS: MORPHINE 2 MG/1 ML SYRINGE IV PRN (17:35)
[2021-08-27] MEDS: ROSUVASTATIN 20 MG TABLET PO SCH (20:53)
[2021-08-27] MEDS: DOCUSATE SODIUM 100 MG CAPSULE PO SCH (20:53)
[2021-08-27] MEDS: OXYBUTYNIN XL 10 MG TABLET PO SCH (20:54)
[2021-08-27] MEDS: ESCITALOPRAM 10 MG TABLET PO SCH (20:54)
[2021-08-28] MEDS: MORPHINE 2 MG/1 ML SYRINGE IV PRN ×3 (00:44→20:26)
[2021-08-28 04:56] LABS: Basophils # 0.1 10*3/uL (0.0-0.2); Basophils % 0.8 % (0.0-0.8); Eosinophils # 0.3 10*3/uL (0.0-0.87); Eosinophils % 2.9 % (0.00-10.9); Hematocrit 27.6 VOL% (35.7-47.0); Hemoglobin 8.6 GM/DL (12.0-16.0); Immature Granulocytes % 0.5 %; Immature Granulocytes Absolute 0.05 #; Lymphocytes # 1.3 10*3/uL (1.4-4.0); Lymphocytes % 11.9 % (21.3-54.2); Mean Corpuscular HGB Conc 31.2 GM/DL (32-36); Mean Corpuscular Volume 95.5 FL (87-102); Mean Platelet Volume 10.5 FL (9.6-12.0); Monocytes % 10.2 % (1.7-12.7); Neutrophils % 73.7 % (38.7-73.9); Platelet Count 132 T/CUMM (130-400); Red Blood Count 2.89 MC/CUMM (3.8-5.5); Red Cell Distribution Width 15.6 % (9.3-17.3); White Blood Count 10.7 T/CUMM (4-12)
[2021-08-28 05:07] LABS: Calcium 8.5 MG/DL (8.5-10.1); Osmolality,Calculated 272.1 MOS/KG (273-304)
[2021-08-28 05:13] LABS: Hypochromasia 1+; Microcytosis 1+
[2021-08-28] MEDS: POLYETHYLENE GLYCOL POWDER 17 GM PACK PO SCH ×2 (08:57→09:04)
[2021-08-28] MEDS: CHOLECALCIFEROL 1,000 UNIT TABLET PO SCH (08:57)
[2021-08-28] MEDS: ASPIRIN EC 81 MG TABLET PO SCH (08:57)
[2021-08-28] MEDS: SPIRONOLACTONE 25 MG TABLET PO SCH (08:57)
[2021-08-28] MEDS: carvediloL 12.5 MG TABLET PO SCH ×2 (08:57→17:17)
[2021-08-28] MEDS: DICYCLOMINE 10 MG CAPSULE PO SCH ×4 (08:57→20:26)
[2021-08-28] MEDS: DOCUSATE SODIUM 100 MG CAPSULE PO SCH ×2 (08:57→20:26)
[2021-08-28] MEDS: MAGNESIUM HYDROXIDE SUSP 30 ML UDCUP PO SCH ×2 (08:57→09:03)
[2021-08-28] MEDS: PANTOPRAZOLE 40 MG TABLET PO SCH ×2 (08:57→20:26)
[2021-08-28] MEDS: SODIUM CHLORIDE 0.9% 1,000 ML IV SCH (14:14)
[2021-08-28] MEDS: ESCITALOPRAM 10 MG TABLET PO SCH (20:26)
[2021-08-28] MEDS: OXYBUTYNIN XL 10 MG TABLET PO SCH (20:26)
[2021-08-28] MEDS: ROSUVASTATIN 20 MG TABLET PO SCH (20:26)
[2021-08-29 06:39] LABS: Basophils # 0.1 10*3/uL (0.0-0.2); Basophils % 0.5 % (0.0-0.8); Eosinophils # 0.2 10*3/uL (0.0-0.87); Eosinophils % 1.7 % (0.00-10.9); Hemoglobin 8.8 GM/DL (12.0-16.0); Immature Granulocytes % 0.6 %; Immature Granulocytes Absolute 0.06 #; Lymphocytes # 1.2 10*3/uL (1.4-4.0); Lymphocytes % 11.2 % (21.3-54.2); Mean Corpuscular HGB Conc 31.4 GM/DL (32-36); Mean Platelet Volume 10.7 FL (9.6-12.0); Monocytes % 8.9 % (1.7-12.7); Neutrophils % 77.1 % (38.7-73.9); Platelet Count 138 T/CUMM (130-400); Red Blood Count 2.98 MC/CUMM (3.8-5.5); Red Cell Distribution Width 15.7 % (9.3-17.3); White Blood Count 10.6 T/CUMM (4-12)
[2021-08-29 06:52] LABS: Calcium 8.9 MG/DL (8.5-10.1); Osmolality,Calculated 264.7 MOS/KG (273-304); Potassium 4.1 MMOL/L (3.5-5.1)
[2021-08-29 07:05] LABS: Acanthocytes Few; Burr Cells Few; Platelet Estimate Adequate
[2021-08-29] MEDS: DICYCLOMINE 10 MG CAPSULE PO SCH ×4 (08:51→20:54)
[2021-08-29] MEDS: PANTOPRAZOLE 40 MG TABLET PO SCH ×2 (08:51→20:54)
[2021-08-29] MEDS: POLYETHYLENE GLYCOL POWDER 17 GM PACK PO SCH (08:51)
[2021-08-29] MEDS: ASPIRIN EC 81 MG TABLET PO SCH (08:51)
[2021-08-29] MEDS: CHOLECALCIFEROL 1,000 UNIT TABLET PO SCH (08:51)
[2021-08-29] MEDS: carvediloL 12.5 MG TABLET PO SCH ×2 (08:51→17:21)
[2021-08-29] MEDS: SPIRONOLACTONE 25 MG TABLET PO SCH (08:52)
[2021-08-29] MEDS: MAGNESIUM HYDROXIDE SUSP 30 ML UDCUP PO SCH ×2 (08:52→09:51)
[2021-08-29] MEDS: DOCUSATE SODIUM 100 MG CAPSULE PO SCH ×2 (08:52→20:54)
[2021-08-29] MEDS: MORPHINE 2 MG/1 ML SYRINGE IV PRN ×2 (11:23→20:55)
[2021-08-29] MEDS: ONDANSETRON 4 MG/2 ML VIAL IV PRN ×2 (11:58→22:38)
[2021-08-29] MEDS: ACETAMINOPHEN 500 MG TABLET PO PRN (16:08)
[2021-08-29] MEDS: SODIUM CHLORIDE 0.9% 1,000 ML IV SCH (18:39)
[2021-08-29] MEDS: ESCITALOPRAM 10 MG TABLET PO SCH (20:53)
[2021-08-29] MEDS: ROSUVASTATIN 20 MG TABLET PO SCH (20:54)
[2021-08-29] MEDS: OXYBUTYNIN XL 10 MG TABLET PO SCH (20:54)
[2021-08-30] MEDS: ONDANSETRON 4 MG/2 ML VIAL IV PRN (04:08)
[2021-08-30 06:59] LABS: Basophils # 0.1 10*3/uL (0.0-0.2); Basophils % 0.5 % (0.0-0.8); Eosinophils # 0.1 10*3/uL (0.0-0.87); Eosinophils % 0.4 % (0.00-10.9); Hematocrit 31.9 VOL% (35.7-47.0); Hemoglobin 9.8 GM/DL (12.0-16.0); Immature Granulocytes % 0.4 %; Immature Granulocytes Absolute 0.06 #; Lymphocytes # 1.1 10*3/uL (1.4-4.0); Lymphocytes % 7.6 % (21.3-54.2); Mean Corpuscular HGB Conc 30.7 GM/DL (32-36); Mean Corpuscular Volume 95.8 FL (87-102); Mean Platelet Volume 11.3 FL (9.6-12.0); Monocytes % 9.3 % (1.7-12.7); Neutrophils % 81.8 % (38.7-73.9); Platelet Count 168 T/CUMM (130-400); Red Blood Count 3.33 MC/CUMM (3.8-5.5); Red Cell Distribution Width 15.8 % (9.3-17.3); White Blood Count 14.8 T/CUMM (4-12)
[2021-08-30 07:14] LABS: Calcium 9.4 MG/DL (8.5-10.1); Osmolality,Calculated 265.8 MOS/KG (273-304)
[2021-08-30] MEDS: SPIRONOLACTONE 25 MG TABLET PO SCH (10:32)
[2021-08-30] MEDS: ASPIRIN EC 81 MG TABLET PO SCH (10:32)
[2021-08-30] MEDS: DICYCLOMINE 10 MG CAPSULE PO SCH ×4 (10:32→21:33)
[2021-08-30] MEDS: carvediloL 12.5 MG TABLET PO SCH ×2 (10:33→18:31)
[2021-08-30] MEDS: PANTOPRAZOLE 40 MG TABLET PO SCH ×2 (10:33→21:34)
[2021-08-30] MEDS: DOCUSATE SODIUM 100 MG CAPSULE PO SCH ×2 (10:34→21:33)
[2021-08-30] MEDS: MAGNESIUM HYDROXIDE SUSP 30 ML UDCUP PO SCH (10:34)
[2021-08-30] MEDS: POLYETHYLENE GLYCOL POWDER 17 GM PACK PO SCH (10:34)
[2021-08-30] MEDS: CHOLECALCIFEROL 1,000 UNIT TABLET PO SCH (10:34)
[2021-08-30] MEDS: FUROSEMIDE 40 MG TABLET PO SCH (15:34)
[2021-08-30] MEDS: ROSUVASTATIN 20 MG TABLET PO SCH (21:33)
[2021-08-30] MEDS: OXYBUTYNIN XL 10 MG TABLET PO SCH (21:34)
[2021-08-30] MEDS: ESCITALOPRAM 10 MG TABLET PO SCH (21:34)
[2021-08-30] MEDS: MORPHINE 2 MG/1 ML SYRINGE IV PRN (21:38)
[2021-08-31] MEDS: SODIUM CHLORIDE 0.9% 1,000 ML IV SCH ×2 (01:43→16:31)
[2021-08-31] MEDS: MORPHINE 2 MG/1 ML SYRINGE IV PRN (06:02)
[2021-08-31 06:28] LABS: Basophils # 0.1 10*3/uL (0.0-0.2); Basophils % 0.5 % (0.0-0.8); Eosinophils # 0.1 10*3/uL (0.0-0.87); Eosinophils % 0.6 % (0.00-10.9); Hematocrit 30.8 VOL% (35.7-47.0); Hemoglobin 9.7 GM/DL (12.0-16.0); Immature Granulocytes % 0.5 %; Immature Granulocytes Absolute 0.07 #; Lymphocytes # 1.7 10*3/uL (1.4-4.0); Lymphocytes % 11.3 % (21.3-54.2); Mean Corpuscular HGB Conc 31.5 GM/DL (32-36); Mean Corpuscular Volume 94.2 FL (87-102); Mean Platelet Volume 10.4 FL (9.6-12.0); Monocytes % 9.4 % (1.7-12.7); NRBC # 0.02 10*3/uL; Neutrophils % 77.7 % (38.7-73.9); Platelet Count 208 T/CUMM (130-400); Red Blood Count 3.27 MC/CUMM (3.8-5.5); Red Cell Distribution Width 15.9 % (9.3-17.3); White Blood Count 14.6 T/CUMM (4-12)
[2021-08-31 06:51] LABS: Osmolality,Calculated 262.2 MOS/KG (273-304); Potassium 4.6 MMOL/L (3.5-5.1)
[2021-08-31] MEDS: DICYCLOMINE 10 MG CAPSULE PO SCH ×4 (09:46→21:21)
[2021-08-31] MEDS: SPIRONOLACTONE 25 MG TABLET PO SCH (09:47)
[2021-08-31] MEDS: DOCUSATE SODIUM 100 MG CAPSULE PO SCH ×2 (09:47→21:21)
[2021-08-31] MEDS: FUROSEMIDE 40 MG TABLET PO SCH (09:47)
[2021-08-31] MEDS: carvediloL 12.5 MG TABLET PO SCH ×2 (09:47→16:31)
[2021-08-31] MEDS: ASPIRIN EC 81 MG TABLET PO SCH (09:47)
[2021-08-31] MEDS: PANTOPRAZOLE 40 MG TABLET PO SCH ×2 (09:48→21:21)
[2021-08-31] MEDS: POLYETHYLENE GLYCOL POWDER 17 GM PACK PO SCH (10:05)
[2021-08-31] MEDS: CHOLECALCIFEROL 1,000 UNIT TABLET PO SCH (10:05)
[2021-08-31] MEDS: MAGNESIUM HYDROXIDE SUSP 30 ML UDCUP PO SCH (10:05)
[2021-08-31] MEDS: ROSUVASTATIN 20 MG TABLET PO SCH (21:21)
[2021-08-31] MEDS: OXYBUTYNIN XL 10 MG TABLET PO SCH (21:21)
[2021-08-31] MEDS: CLORAZEPATE 3.75 MG TABLET PO PRN (21:21)
[2021-08-31] MEDS: ESCITALOPRAM 10 MG TABLET PO SCH (21:22)
[2021-09-01 05:46] LABS: Basophils # 0.1 10*3/uL (0.0-0.2); Basophils % 0.4 % (0.0-0.8); Eosinophils # 0.2 10*3/uL (0.0-0.87); Eosinophils % 1.2 % (0.00-10.9); Hemoglobin 9.6 GM/DL (12.0-16.0); Immature Granulocytes % 0.7 %; Immature Granulocytes Absolute 0.08 #; Lymphocytes # 1.2 10*3/uL (1.4-4.0); Lymphocytes % 10.1 % (21.3-54.2); Mean Corpuscular Volume 93.8 FL (87-102); Mean Platelet Volume 10.2 FL (9.6-12.0); Monocytes % 12.1 % (1.7-12.7); NRBC # 0.02 10*3/uL; Neutrophils % 75.5 % (38.7-73.9); Platelet Count 209 T/CUMM (130-400); Red Cell Distribution Width 15.9 % (9.3-17.3); White Blood Count 12.1 T/CUMM (4-12)
[2021-09-01 06:05] LABS: Calcium 8.9 MG/DL (8.5-10.1); Osmolality,Calculated 270.7 MOS/KG (273-304)
[2021-09-01] MEDS: CHOLECALCIFEROL 1,000 UNIT TABLET PO SCH (08:37)
[2021-09-01] MEDS: CLOPIDOGREL 75 MG TABLET PO SCH (08:38)
[2021-09-01] MEDS: PANTOPRAZOLE 40 MG TABLET PO SCH ×2 (08:38→21:37)
[2021-09-01] MEDS: carvediloL 12.5 MG TABLET PO SCH ×2 (08:38→17:38)
[2021-09-01] MEDS: ASPIRIN EC 81 MG TABLET PO SCH (08:38)
[2021-09-01] MEDS: SPIRONOLACTONE 25 MG TABLET PO SCH (08:38)
[2021-09-01] MEDS: DOCUSATE SODIUM 100 MG CAPSULE PO SCH ×2 (08:39→21:37)
[2021-09-01] MEDS: DICYCLOMINE 10 MG CAPSULE PO SCH ×4 (08:39→21:38)
[2021-09-01] MEDS: MAGNESIUM HYDROXIDE SUSP 30 ML UDCUP PO SCH (08:40)
[2021-09-01] MEDS: POLYETHYLENE GLYCOL POWDER 17 GM PACK PO SCH (08:51)
[2021-09-01] MEDS: CLORAZEPATE 3.75 MG TABLET PO PRN (10:48)
[2021-09-01] MEDS: SODIUM CHLORIDE 0.9% 1,000 ML IV SCH (17:38)
[2021-09-01] MEDS: ROSUVASTATIN 20 MG TABLET PO SCH (21:35)
[2021-09-01] MEDS: OXYBUTYNIN XL 10 MG TABLET PO SCH (21:36)
[2021-09-01] MEDS: ESCITALOPRAM 10 MG TABLET PO SCH (21:38)
[2021-09-02 06:12] LABS: Basophils % 0.3 % (0.0-0.8); Eosinophils # 0.1 10*3/uL (0.0-0.87); Eosinophils % 0.8 % (0.00-10.9); Hemoglobin 9.1 GM/DL (12.0-16.0); Immature Granulocytes % 0.6 %; Immature Granulocytes Absolute 0.08 #; Lymphocytes # 1.2 10*3/uL (1.4-4.0); Mean Corpuscular HGB Conc 31.4 GM/DL (32-36); Mean Corpuscular Volume 94.5 FL (87-102); Mean Platelet Volume 10.1 FL (9.6-12.0); Monocytes % 10.6 % (1.7-12.7); NRBC # 0.02 10*3/uL; Neutrophils % 78.7 % (38.7-73.9); Platelet Count 218 T/CUMM (130-400); Red Blood Count 3.07 MC/CUMM (3.8-5.5); Red Cell Distribution Width 15.9 % (9.3-17.3); White Blood Count 13.2 T/CUMM (4-12)
[2021-09-02 06:33] LABS: Calcium 9.2 MG/DL (8.5-10.1); Osmolality,Calculated 271.4 MOS/KG (273-304); Potassium 3.8 MMOL/L (3.5-5.1)
[2021-09-02] MEDS: carvediloL 12.5 MG TABLET PO SCH ×2 (11:59→16:42)
[2021-09-02] MEDS: SPIRONOLACTONE 25 MG TABLET PO SCH (11:59)
[2021-09-02] MEDS: ASPIRIN EC 81 MG TABLET PO SCH (12:01)
[2021-09-02] MEDS: DICYCLOMINE 10 MG CAPSULE PO SCH ×4 (12:02→21:44)
[2021-09-02] MEDS: DOCUSATE SODIUM 100 MG CAPSULE PO SCH ×2 (12:03→21:44)
[2021-09-02] MEDS: MAGNESIUM HYDROXIDE SUSP 30 ML UDCUP PO SCH (12:04)
[2021-09-02] MEDS: CLOPIDOGREL 75 MG TABLET PO SCH (12:05)
[2021-09-02] MEDS: POLYETHYLENE GLYCOL POWDER 17 GM PACK PO SCH (12:05)
[2021-09-02] MEDS: PANTOPRAZOLE 40 MG TABLET PO SCH ×2 (12:06→21:45)
[2021-09-02] MEDS: CHOLECALCIFEROL 1,000 UNIT TABLET PO SCH (12:07)
[2021-09-02 14:10] LABS: Bacteria,Urine Occasional /HPF (Few); Bilirubin,Urine Negative (Negative); Blood, Urine Small mg/dL (Negative); Glucose,Urine (UA) Negative (Negative); Ketones,Urine Negative (Negative); Nitrite,Urine Positive (Negative); Protein,Urine Negative; RBC,Urine 3 /HPF (0-4); Squamous Epithelial Cell,Urine Occasional /HPF (0-10); Urine Appearance CLEAR (Clear); Urine Color Yellow (Yellow); Urine Specific Gravity 1.011 (1.001-1.035)
[2021-09-02] MEDS: SODIUM CHLORIDE 0.9% 1,000 ML IV SCH (19:28)
[2021-09-02] MEDS: ROSUVASTATIN 20 MG TABLET PO SCH (21:43)
[2021-09-02] MEDS: APIXABAN 2.5 MG TABLET PO SCH (21:44)
[2021-09-02] MEDS: OXYBUTYNIN XL 10 MG TABLET PO SCH (21:44)
[2021-09-02] MEDS: ESCITALOPRAM 10 MG TABLET PO SCH (21:44)
[2021-09-03 05:51] LABS: Basophils # 0.1 10*3/uL (0.0-0.2); Basophils % 0.5 % (0.0-0.8); Eosinophils # 0.2 10*3/uL (0.0-0.87); Eosinophils % 1.7 % (0.00-10.9); Hematocrit 28.6 VOL% (35.7-47.0); Immature Granulocytes % 0.7 %; Immature Granulocytes Absolute 0.08 #; Lymphocytes # 1.3 10*3/uL (1.4-4.0); Lymphocytes % 12.1 % (21.3-54.2); Mean Corpuscular HGB Conc 31.5 GM/DL (32-36); Mean Corpuscular Volume 94.1 FL (87-102); Mean Platelet Volume 10.1 FL (9.6-12.0); Monocytes % 10.6 % (1.7-12.7); NRBC # 0.02 10*3/uL; Neutrophils % 74.4 % (38.7-73.9); Platelet Count 210 T/CUMM (130-400); Red Blood Count 3.04 MC/CUMM (3.8-5.5); Red Cell Distribution Width 16.1 % (9.3-17.3); White Blood Count 11.1 T/CUMM (4-12)
[2021-09-03 06:29] LABS: Calcium 9.2 MG/DL (8.5-10.1); Osmolality,Calculated 267.5 MOS/KG (273-304); Potassium 3.7 MMOL/L (3.5-5.1)
[2021-09-03] MEDS: POLYETHYLENE GLYCOL POWDER 17 GM PACK PO SCH (08:46)
[2021-09-03] MEDS: PANTOPRAZOLE 40 MG TABLET PO SCH (08:46)
[2021-09-03] MEDS: CHOLECALCIFEROL 1,000 UNIT TABLET PO SCH (08:46)
[2021-09-03] MEDS: APIXABAN 2.5 MG TABLET PO SCH (08:46)
[2021-09-03] MEDS: carvediloL 12.5 MG TABLET PO SCH (08:46)
[2021-09-03] MEDS: DOCUSATE SODIUM 100 MG CAPSULE PO SCH (08:46)
[2021-09-03] MEDS: SPIRONOLACTONE 25 MG TABLET PO SCH (08:46)
[2021-09-03] MEDS: DICYCLOMINE 10 MG CAPSULE PO SCH ×2 (08:47→12:23)
[2021-09-03] MEDS: MAGNESIUM HYDROXIDE SUSP 30 ML UDCUP PO SCH (08:47)
[2021-09-03] MEDS: ASPIRIN EC 81 MG TABLET PO SCH (08:47)
[2021-09-03] MEDS ORDERED: NITROFURANTOIN MACRO/MONO 100 MG CAPSULE PO SCH (09:00)
[2021-09-03 14:23] VITALS: BP 122/81
== END 2021-09-03 14:11 | DRG 908 ==
LOC: N.CL 06:11 → N.CC 16:41 → N.TELES 08-29 15:22
PROVIDERS: ADMIT Internal Medicine Cardiovascular Disease; ATTEND Internal Medicine Cardiovascular Disease

== ENCOUNTER 2021-09-30 11:13 | Observation (INO) ==
[2021-09-30] MEDS ORDERED: SODIUM CHLORIDE 0.9% 1,000 ML IV STA (11:55)
[2021-09-30 12:37] LABS: Basophils # 0.1 10*3/uL (0.0-0.2); Basophils % 0.8 % (0.0-0.8); Eosinophils # 0.2 10*3/uL (0.0-0.87); Eosinophils % 1.8 % (0.00-10.9); Hematocrit 38.6 VOL% (35.7-47.0); Hemoglobin 11.6 GM/DL (12.0-16.0); Immature Granulocytes % 1.2 %; Lymphocytes # 1.3 10*3/uL (1.4-4.0); Mean Corpuscular HGB Conc 30.1 GM/DL (32-36); Mean Corpuscular Volume 96.5 FL (87-102); Mean Platelet Volume 9.6 FL (9.6-12.0); Neutrophils % 69.2 % (38.7-73.9); Platelet Count 176 T/CUMM (130-400); Red Cell Distribution Width 17.6 % (9.3-17.3); White Blood Count 8.4 T/CUMM (4-12)
[2021-09-30 12:44] LABS: INR 1.2; PT Patient Result 13.5 SECS (10.5-12.0); Partial Thromboplastin Time 23.5 SECS (23.8-32.1)
[2021-09-30 13:05] LABS: Alanine Aminotransferase 21 U/L (13-56); Albumin 2.9 G/DL (3.4-5.0); Alkaline Phosphatase 93 U/L (45-117); Aspartate Amino Transferase 16 U/L (0-37); Blood Urea Nitrogen 16 MG/DL (7-18); Calcium 9.2 MG/DL (8.5-10.1); Carbon Dioxide 29 MMOL/L (21-32); Estimated Glom Filtration Rate 49 ML/MIN; Glucose 120 MG/DL (74-106); Osmolality,Calculated 267.4 MOS/KG (273-304); Potassium 3.9 MMOL/L (3.5-5.1); Sodium 133 MMOL/L (136-145); Total Protein 6.8 G/DL (6.4-8.2)
[2021-09-30 13:28] LABS: Bacteria,Urine Occasional /HPF (Few); Bilirubin,Urine Negative (Negative); Blood, Urine Moderate mg/dL (Negative); Glucose,Urine (UA) Negative (Negative); Hyaline Casts,Urine 1 /LPF (0-3); Ketones,Urine Negative (Negative); Mucus,Urine Occasional /LPF (Occasional); Nitrite,Urine Negative (Negative); Protein,Urine 30 MG/DL; RBC,Urine 10 /HPF (0-4); Urine Appearance CLEAR (Clear); Urine Color Yellow (Yellow); Urine Specific Gravity 1.015 (1.001-1.035)
[2021-09-30 13:51] LABS: Barbiturates Screen,Urine Negative (Negative); Benzodiazepines Screen,Urine Negative (Negative); Cannabinoid Screen,Urine Negative (Negative); Opiate Screen,Urine Negative (Negative); Phencyclidine Screen,Urine Negative (Negative)
[2021-09-30] MEDS ORDERED: DEXTROSE 50% 25 GM/50 ML VIAL IV PRN (14:48)
[2021-09-30] MEDS ORDERED: ACETAMINOPHEN 325 MG TABLET PO PRN (14:50)
[2021-09-30] MEDS ORDERED: ONDANSETRON 4 MG/2 ML VIAL IV PRN (14:50)
[2021-09-30] MEDS ORDERED: NITROGLYCERIN SL 0.4 MG TABLET SL PRN (14:52)
[2021-09-30] MEDS ORDERED: BISACODYL 10 MG SUPP RECTAL PRN (14:52)
[2021-09-30] MEDS: LACTULOSE 20 GM/30 ML UDCUP PO SCH ×2 (15:26→21:14)
[2021-09-30] MEDS: SODIUM CHLORIDE 0.9% 1,000 ML IV SCH (15:40)
[2021-09-30] MEDS: carvediloL 12.5 MG TABLET PO SCH (19:11)
[2021-09-30] MEDS ORDERED: ROSUVASTATIN 20 MG TABLET PO SCH (21:00)
[2021-09-30] MEDS ORDERED: OXYBUTYNIN XL 10 MG TABLET PO SCH (21:00)
[2021-09-30] MEDS ORDERED: DOCUSATE SODIUM 100 MG CAPSULE PO SCH (21:00)
[2021-09-30] MEDS ORDERED: ESCITALOPRAM 10 MG TABLET PO SCH (21:00)
[2021-09-30] MEDS: DOCUSATE SODIUM 100 MG CAPSULE PO SCH (21:13)
[2021-09-30] MEDS: APIXABAN 2.5 MG TABLET PO SCH (21:13)
[2021-09-30] MEDS: PANTOPRAZOLE 40 MG TABLET PO SCH (21:13)
[2021-10-01] MEDS: SODIUM CHLORIDE 0.9% 1,000 ML IV SCH (04:25)
[2021-10-01] MEDS ORDERED: LEVOTHYROXINE 50 MCG TABLET PO SCH (06:30)
[2021-10-01 06:53] LABS: Basophils # 0.1 10*3/uL (0.0-0.2); Basophils % 0.9 % (0.0-0.8); Eosinophils # 0.2 10*3/uL (0.0-0.87); Eosinophils % 1.6 % (0.00-10.9); Hematocrit 36.5 VOL% (35.7-47.0); Immature Granulocytes % 0.3 %; Immature Granulocytes Absolute 0.03 #; Lymphocytes # 1.3 10*3/uL (1.4-4.0); Lymphocytes % 13.8 % (21.3-54.2); Mean Corpuscular HGB Conc 30.1 GM/DL (32-36); Mean Corpuscular Volume 96.6 FL (87-102); Mean Platelet Volume 9.9 FL (9.6-12.0); Monocytes % 9.8 % (1.7-12.7); Neutrophils % 73.6 % (38.7-73.9); Platelet Count 170 T/CUMM (130-400); Red Blood Count 3.78 MC/CUMM (3.8-5.5); Red Cell Distribution Width 17.4 % (9.3-17.3); White Blood Count 9.5 T/CUMM (4-12)
[2021-10-01 07:21] LABS: Albumin 2.8 G/DL (3.4-5.0); Bilirubin,Total 1.4 MG/DL (0.20-1.00); Osmolality,Calculated 271.8 MOS/KG (273-304); Total Protein 6.5 G/DL (6.4-8.2)
[2021-10-01] MEDS: LACTULOSE 20 GM/30 ML UDCUP PO SCH (08:49)
[2021-10-01] MEDS: APIXABAN 2.5 MG TABLET PO SCH (08:49)
[2021-10-01] MEDS: carvediloL 12.5 MG TABLET PO SCH (08:49)
[2021-10-01] MEDS: PANTOPRAZOLE 40 MG TABLET PO SCH (08:49)
[2021-10-01] MEDS: DOCUSATE SODIUM 100 MG CAPSULE PO SCH (08:57)
[2021-10-01] MEDS ORDERED: POLYETHYLENE GLYCOL POWDER 17 GM PACK PO SCH (09:00)
[2021-10-01] MEDS ORDERED: ASPIRIN EC 81 MG TABLET PO SCH (09:00)
[2021-10-01] MEDS ORDERED: CHOLECALCIFEROL 1,000 UNIT TABLET PO SCH (09:00)
[2021-10-01 12:14] VITALS: BP 127/89
== END 2021-10-01 15:44 | disposition home health service (06) ==
LOC: EDUNIT# → EDBD → N.ED 11:13 → N.EDINP 11:13 → N.TELEN 17:40
PROVIDERS: ADMIT Internal Medicine; ATTEND Internal Medicine

== ENCOUNTER 2021-10-04 15:55 | Inpatient (IN) ==
[2021-10-04] MEDS ORDERED: ONDANSETRON 4 MG/2 ML VIAL IV STA (16:31)
[2021-10-04] MEDS ORDERED: METOCLOPRAMIDE 10 MG/2 ML VIAL IV STA (16:31)
[2021-10-04] MEDS ORDERED: PANTOPRAZOLE 40 MG VIAL IV STA (16:31)
[2021-10-04] MEDS ORDERED: SODIUM CHLORIDE 0.9% 1,000 ML IV STA (16:32)
[2021-10-04 17:42] LABS: Basophils # 0.1 10*3/uL (0.0-0.2); Eosinophils % 0.3 % (0.00-10.9); Hematocrit 39.9 VOL% (35.7-47.0); Immature Granulocytes % 0.3 %; Immature Granulocytes Absolute 0.03 #; Lymphocytes # 1.4 10*3/uL (1.4-4.0); Lymphocytes % 15.2 % (21.3-54.2); Mean Corpuscular HGB Conc 30.1 GM/DL (32-36); Mean Corpuscular Volume 97.1 FL (87-102); Mean Platelet Volume 10.2 FL (9.6-12.0); Monocytes % 9.8 % (1.7-12.7); Neutrophils % 73.4 % (38.7-73.9); Platelet Count 203 T/CUMM (130-400); Red Blood Count 4.11 MC/CUMM (3.8-5.5); Red Cell Distribution Width 17.1 % (9.3-17.3)
[2021-10-04 18:03] LABS: Albumin 3.2 G/DL (3.4-5.0); Bilirubin,Total 1.1 MG/DL (0.20-1.00); Osmolality,Calculated 270.4 MOS/KG (273-304); Potassium 5.4 MMOL/L (3.5-5.1); Total Protein 6.4 G/DL (6.4-8.2)
[2021-10-04] MEDS ORDERED: GLUCAGON 1 MG VIAL IM PRN (20:04)
[2021-10-04] MEDS ORDERED: DEXTROSE 50% 25 GM/50 ML SYRINGE IV PRN (20:10)
[2021-10-04] MEDS ORDERED: cefTRIAXone 1,000 MG in SODIUM CHLORIDE 0.9% 100 ML IV SCH (20:30)
[2021-10-04] MEDS ORDERED: SODIUM POLYSTYRENE SULFATE 15 GM/60 ML BOTTLE PO ONE (20:44)
[2021-10-04 20:46] LABS: Bacteria,Urine Occasional /HPF (Few); Bilirubin,Urine Small mg/dL (Negative); Blood, Urine Large mg/dL (Negative); Glucose,Urine (UA) Negative (Negative); Hyaline Casts,Urine 181 /LPF (0-3); Ketones,Urine Negative (Negative); Mucus,Urine Few /LPF (Occasional); Nitrite,Urine Negative (Negative); Protein,Urine 100 MG/DL; RBC,Urine 12 /HPF (0-4); Squamous Epithelial Cell,Urine Occasional /HPF (0-10); Urine Appearance Slightly Hazy (Clear); Urine Color Amber (Yellow); Urine Specific Gravity 1.019 (1.001-1.035)
[2021-10-04] MEDS ORDERED: AZITHROMYCIN INJ 500 MG in SODIUM CHLORIDE 0.9% 250 ML IV SCH (21:00)
[2021-10-04] MEDS ORDERED: FUROSEMIDE 40 MG/4 ML VIAL IV ONE (21:00)
[2021-10-04] MEDS: APIXABAN 2.5 MG TABLET PO SCH (23:43)
[2021-10-04] MEDS: DICYCLOMINE 10 MG CAPSULE PO SCH (23:43)
[2021-10-04] MEDS: DOCUSATE SODIUM 100 MG CAPSULE PO SCH (23:43)
[2021-10-04] MEDS: PANTOPRAZOLE 40 MG TABLET PO SCH (23:43)
[2021-10-04] MEDS: LACTULOSE 20 GM/30 ML UDCUP PO SCH (23:44)
[2021-10-04] MEDS: AMITRIPTYLINE 25 MG TABLET PO SCH (23:58)
[2021-10-05] MEDS ORDERED: INFLUENZA VIRUS VACCINE 0.5 ML SYRINGE IM ONE (00:47)
[2021-10-05 05:22] LABS: Basophils # 0.1 10*3/uL (0.0-0.2); Basophils % 0.7 % (0.0-0.8); Eosinophils % 0.2 % (0.00-10.9); Hematocrit 38.3 VOL% (35.7-47.0); Immature Granulocytes % 0.5 %; Immature Granulocytes Absolute 0.04 #; Lymphocytes # 1.1 10*3/uL (1.4-4.0); Lymphocytes % 12.8 % (21.3-54.2); Mean Corpuscular HGB Conc 29.2 GM/DL (32-36); Mean Corpuscular Volume 98.2 FL (87-102); Mean Platelet Volume 10.1 FL (9.6-12.0); Neutrophils % 73.8 % (38.7-73.9); Platelet Count 176 T/CUMM (130-400); Red Cell Distribution Width 17.1 % (9.3-17.3); White Blood Count 8.3 T/CUMM (4-12)
[2021-10-05 05:34] LABS: Hemoglobin 11.2 GM/DL (12.0-16.0)
[2021-10-05 06:09] LABS: Albumin 2.8 G/DL (3.4-5.0); Bilirubin,Total 1.3 MG/DL (0.20-1.00); Calcium 9.1 MG/DL (8.5-10.1); Osmolality,Calculated 267.7 MOS/KG (273-304); Potassium 4.5 MMOL/L (3.5-5.1); Total Protein 6.3 G/DL (6.4-8.2)
[2021-10-05] MEDS: LEVOTHYROXINE 50 MCG TABLET PO SCH (06:15)
[2021-10-05] MEDS: LACTULOSE 20 GM/30 ML UDCUP PO SCH ×3 (06:16→17:26)
[2021-10-05] MEDS: APIXABAN 2.5 MG TABLET PO SCH ×2 (09:18→20:45)
[2021-10-05] MEDS: MEGESTROL 400 MG/10 ML UDCUP PO SCH (09:18)
[2021-10-05] MEDS: DICYCLOMINE 10 MG CAPSULE PO SCH ×3 (09:18→13:18)
[2021-10-05] MEDS: carvediloL 12.5 MG TABLET PO SCH ×2 (09:18→17:07)
[2021-10-05] MEDS: DOCUSATE SODIUM 100 MG CAPSULE PO SCH ×2 (09:18→20:46)
[2021-10-05] MEDS: PANTOPRAZOLE 40 MG TABLET PO SCH ×2 (09:18→20:45)
[2021-10-05] MEDS: ASPIRIN EC 81 MG TABLET PO SCH (09:18)
[2021-10-05] MEDS ORDERED: FUROSEMIDE 40 MG/4 ML VIAL IV SCH (09:30)
[2021-10-05] MEDS: FUROSEMIDE 40 MG/4 ML VIAL IV SCH (16:36)
[2021-10-05] MEDS: ROSUVASTATIN 20 MG TABLET PO SCH (20:45)
[2021-10-05] MEDS: OXYBUTYNIN XL 10 MG TABLET PO SCH (20:45)
[2021-10-05] MEDS: ESCITALOPRAM 10 MG TABLET PO SCH (20:46)
[2021-10-05] MEDS: AMITRIPTYLINE 25 MG TABLET PO SCH (20:46)
[2021-10-06] MEDS: LACTULOSE 20 GM/30 ML UDCUP PO SCH ×4 (00:51→17:10)
[2021-10-06] MEDS: LEVOTHYROXINE 50 MCG TABLET PO SCH (05:54)
[2021-10-06 08:31] LABS: Calcium 8.7 MG/DL (8.5-10.1); Potassium 3.8 MMOL/L (3.5-5.1)
[2021-10-06] MEDS: MEGESTROL 400 MG/10 ML UDCUP PO SCH (08:43)
[2021-10-06] MEDS: DOCUSATE SODIUM 100 MG CAPSULE PO SCH ×2 (08:43→21:18)
[2021-10-06] MEDS: APIXABAN 2.5 MG TABLET PO SCH ×2 (08:43→21:18)
[2021-10-06] MEDS: PANTOPRAZOLE 40 MG TABLET PO SCH ×2 (08:43→21:18)
[2021-10-06] MEDS: ASPIRIN EC 81 MG TABLET PO SCH (08:44)
[2021-10-06] MEDS: carvediloL 12.5 MG TABLET PO SCH ×2 (08:45→17:10)
[2021-10-06] MEDS: FUROSEMIDE 40 MG/4 ML VIAL IV SCH (10:44)
[2021-10-06] MEDS: OXYBUTYNIN XL 10 MG TABLET PO SCH (21:18)
[2021-10-06] MEDS: ROSUVASTATIN 20 MG TABLET PO SCH (21:18)
[2021-10-06] MEDS: AMITRIPTYLINE 25 MG TABLET PO SCH (21:18)
[2021-10-06] MEDS: ESCITALOPRAM 10 MG TABLET PO SCH (21:18)
[2021-10-07] MEDS: LACTULOSE 20 GM/30 ML UDCUP PO SCH ×4 (00:15→17:10)
[2021-10-07 05:29] LABS: Basophils # 0.1 10*3/uL (0.0-0.2); Basophils % 0.6 % (0.0-0.8); Eosinophils # 0.1 10*3/uL (0.0-0.87); Eosinophils % 1.5 % (0.00-10.9); Hematocrit 36.1 VOL% (35.7-47.0); Hemoglobin 10.7 GM/DL (12.0-16.0); Immature Granulocytes % 0.2 %; Immature Granulocytes Absolute 0.02 #; Lymphocytes # 1.3 10*3/uL (1.4-4.0); Lymphocytes % 16.1 % (21.3-54.2); Mean Corpuscular HGB Conc 29.6 GM/DL (32-36); Mean Corpuscular Volume 96.8 FL (87-102); Mean Platelet Volume 9.9 FL (9.6-12.0); Neutrophils % 70.6 % (38.7-73.9); Platelet Count 173 T/CUMM (130-400); Red Blood Count 3.73 MC/CUMM (3.8-5.5); Red Cell Distribution Width 16.9 % (9.3-17.3)
[2021-10-07] MEDS: LEVOTHYROXINE 50 MCG TABLET PO SCH (05:40)
[2021-10-07 05:52] LABS: Calcium 8.9 MG/DL (8.5-10.1); Osmolality,Calculated 277.7 MOS/KG (273-304); Potassium 3.5 MMOL/L (3.5-5.1)
[2021-10-07] MEDS ORDERED: MAGNESIUM SULF RIDER 4 GM/100 ML PREMIX IV PRN (07:57)
[2021-10-07] MEDS ORDERED: MAGNESIUM SULF RIDER 2 GM/50 ML PREMIX IV PRN (07:57)
[2021-10-07 10:02] LABS: Basophils # 0.1 10*3/uL (0.0-0.2); Basophils % 0.8 % (0.0-0.8); Eosinophils # 0.1 10*3/uL (0.0-0.87); Eosinophils % 1.5 % (0.00-10.9); Hematocrit 36.1 VOL% (35.7-47.0); Hemoglobin 10.9 GM/DL (12.0-16.0); Immature Granulocytes % 0.3 %; Immature Granulocytes Absolute 0.03 #; Lymphocytes # 1.3 10*3/uL (1.4-4.0); Lymphocytes % 14.5 % (21.3-54.2); Mean Corpuscular HGB Conc 30.2 GM/DL (32-36); Mean Corpuscular Volume 97.3 FL (87-102); Mean Platelet Volume 9.7 FL (9.6-12.0); Monocytes % 10.3 % (1.7-12.7); Neutrophils % 72.6 % (38.7-73.9); Platelet Count 179 T/CUMM (130-400); Red Blood Count 3.71 MC/CUMM (3.8-5.5); Red Cell Distribution Width 16.8 % (9.3-17.3); White Blood Count 8.8 T/CUMM (4-12)
[2021-10-07 10:24] LABS: Free T4 (Free Thyroxine) 1.18 NG/DL (0.76-1.46)
[2021-10-07] MEDS: MEGESTROL 400 MG/10 ML UDCUP PO SCH (10:39)
[2021-10-07] MEDS: APIXABAN 2.5 MG TABLET PO SCH ×2 (10:40→22:45)
[2021-10-07] MEDS: PANTOPRAZOLE 40 MG TABLET PO SCH ×2 (10:40→22:45)
[2021-10-07] MEDS: DOCUSATE SODIUM 100 MG CAPSULE PO SCH ×2 (10:40→22:45)
[2021-10-07] MEDS: ASPIRIN EC 81 MG TABLET PO SCH (10:41)
[2021-10-07] MEDS: FUROSEMIDE 40 MG/4 ML VIAL IV SCH (10:41)
[2021-10-07] MEDS: carvediloL 12.5 MG TABLET PO SCH ×2 (10:41→17:10)
[2021-10-07] MEDS: ESCITALOPRAM 10 MG TABLET PO SCH (22:45)
[2021-10-07] MEDS: AMITRIPTYLINE 25 MG TABLET PO SCH (22:45)
[2021-10-07] MEDS: ROSUVASTATIN 20 MG TABLET PO SCH (22:46)
[2021-10-07] MEDS: OXYBUTYNIN XL 10 MG TABLET PO SCH (22:46)
[2021-10-08] MEDS: LACTULOSE 20 GM/30 ML UDCUP PO SCH ×4 (00:47→17:15)
[2021-10-08 05:59] LABS: Calcium 8.9 MG/DL (8.5-10.1); Osmolality,Calculated 275.7 MOS/KG (273-304); Potassium 3.3 MMOL/L (3.5-5.1)
[2021-10-08] MEDS: LEVOTHYROXINE 50 MCG TABLET PO SCH ×2 (07:38→09:52)
[2021-10-08] MEDS ORDERED: POTASSIUM CHLORIDE 20 MEQ TABLET PO ONE (07:50)
[2021-10-08] MEDS ORDERED: MAGNESIUM SULF RIDER 2 GM/50 ML PREMIX IV ONE (07:52)
[2021-10-08] MEDS: APIXABAN 2.5 MG TABLET PO SCH ×2 (09:51→20:23)
[2021-10-08] MEDS: carvediloL 12.5 MG TABLET PO SCH ×2 (09:52→17:15)
[2021-10-08] MEDS: DOCUSATE SODIUM 100 MG CAPSULE PO SCH ×2 (09:52→20:23)
[2021-10-08] MEDS: FUROSEMIDE 40 MG/4 ML VIAL IV SCH (09:52)
[2021-10-08] MEDS: ASPIRIN EC 81 MG TABLET PO SCH (09:52)
[2021-10-08] MEDS: MEGESTROL 400 MG/10 ML UDCUP PO SCH (09:52)
[2021-10-08] MEDS: PANTOPRAZOLE 40 MG TABLET PO SCH ×2 (09:53→20:23)
[2021-10-08] MEDS: ESCITALOPRAM 10 MG TABLET PO SCH (20:23)
[2021-10-08] MEDS: ROSUVASTATIN 20 MG TABLET PO SCH (20:23)
[2021-10-08] MEDS: AMITRIPTYLINE 25 MG TABLET PO SCH (20:23)
[2021-10-08] MEDS: OXYBUTYNIN XL 10 MG TABLET PO SCH (20:23)
[2021-10-09] MEDS: LACTULOSE 20 GM/30 ML UDCUP PO SCH ×3 (00:11→13:15)
[2021-10-09 06:02] LABS: Basophils # 0.1 10*3/uL (0.0-0.2); Basophils % 0.7 % (0.0-0.8); Eosinophils # 0.3 10*3/uL (0.0-0.87); Eosinophils % 2.9 % (0.00-10.9); Hematocrit 38.5 VOL% (35.7-47.0); Hemoglobin 11.6 GM/DL (12.0-16.0); Immature Granulocytes % 0.5 %; Immature Granulocytes Absolute 0.05 #; Lymphocytes # 1.7 10*3/uL (1.4-4.0); Lymphocytes % 17.3 % (21.3-54.2); Mean Corpuscular HGB Conc 30.1 GM/DL (32-36); Mean Corpuscular Volume 95.5 FL (87-102); Mean Platelet Volume 9.7 FL (9.6-12.0); Monocytes % 10.7 % (1.7-12.7); Neutrophils % 67.9 % (38.7-73.9); Platelet Count 176 T/CUMM (130-400); Red Blood Count 4.03 MC/CUMM (3.8-5.5); Red Cell Distribution Width 16.6 % (9.3-17.3); White Blood Count 9.8 T/CUMM (4-12)
[2021-10-09 06:17] LABS: Calcium 9.3 MG/DL (8.5-10.1); Osmolality,Calculated 272.8 MOS/KG (273-304); Potassium 3.7 MMOL/L (3.5-5.1)
[2021-10-09] MEDS: LEVOTHYROXINE 50 MCG TABLET PO SCH (06:21)
[2021-10-09] MEDS ORDERED: LEVOTHYROXINE 75 MCG TABLET PO SCH (06:30)
[2021-10-09] MEDS ORDERED: SPIRONOLACTONE 25 MG TABLET PO SCH (09:00)
[2021-10-09] MEDS ORDERED: MAGNESIUM SULF RIDER 2 GM/50 ML PREMIX IV ONE (09:04)
[2021-10-09] MEDS: FUROSEMIDE 40 MG/4 ML VIAL IV SCH (09:08)
[2021-10-09] MEDS: ASPIRIN EC 81 MG TABLET PO SCH (09:10)
[2021-10-09] MEDS: DOCUSATE SODIUM 100 MG CAPSULE PO SCH (09:10)
[2021-10-09] MEDS: APIXABAN 2.5 MG TABLET PO SCH (09:10)
[2021-10-09] MEDS: PANTOPRAZOLE 40 MG TABLET PO SCH (09:10)
[2021-10-09] MEDS: MEGESTROL 400 MG/10 ML UDCUP PO SCH (09:10)
[2021-10-09] MEDS: carvediloL 12.5 MG TABLET PO SCH (09:11)
[2021-10-09] MEDS ORDERED: LOSARTAN 25 MG TABLET PO SCH (09:30)
[2021-10-09] MEDS ORDERED: ACETAMINOPHEN 325 MG TABLET PO PRN (11:39)
[2021-10-09 16:29] VITALS: BP 84/57
== END 2021-10-09 16:20 | disposition swing bed (61) | DRG 291 ==
LOC: N.ED 15:55 → SUATTDRO 20:14 → N.EDINP 20:14 → N.TELEN 23:08
PROVIDERS: ADMIT Internal Medicine; ATTEND Emergency Medicine

== ENCOUNTER 2022-07-20 14:43 | Inpatient (IN) ==
[2022-07-20 22:33] LABS: Glucose,Urine (UA) Negative (Negative); Hyaline Casts,Urine 1 /LPF (0-3); Ketones,Urine Negative (Negative); Protein,Urine Negative (Negative); RBC,Urine <1 /HPF (0-4); Urine Appearance Clear (Clear); Urine Color Yellow (Yellow)
[2022-07-20 22:34] LABS: Bilirubin,Urine Negative (Negative); Blood, Urine Negative (Negative); Nitrite,Urine Negative (Negative); Urine Urobilinogen 0.2 eU/dL (<2.0)
[2022-07-20 22:46] LABS: Basophils # 0.1 10*3/uL (0.0-0.2); Basophils % 0.5 % (0.0-0.8); Eosinophils # 0.3 10*3/uL (0.0-0.87); Eosinophils % 2.5 % (0.00-10.9); Hematocrit 39.5 VOL% (35.7-47.0); Immature Granulocytes % 2.5 %; Immature Granulocytes Absolute 0.33 #; Lymphocytes # 2.4 10*3/uL (1.4-4.0); Lymphocytes % 18.4 % (21.3-54.2); Mean Corpuscular HGB Conc 32.9 GM/DL (32-36); Mean Platelet Volume 9.5 FL (9.6-12.0); Monocytes # 0.9 10*3/uL (0.11-0.8); Monocytes % 6.5 % (1.7-12.7); Neutrophils % 69.6 % (38.7-73.9); Platelet Count 237 T/CUMM (130-400); Red Cell Distribution Width 13.9 % (9.3-17.3); White Blood Count 13.1 T/CUMM (4-12)
[2022-07-20] MEDS ORDERED: SODIUM CHLORIDE 0.9% 1,000 ML IV STA (22:49)
[2022-07-20 23:10] LABS: Alanine Aminotransferase 36 U/L (13-56); Albumin 3.2 G/DL (3.4-5.0); Alkaline Phosphatase 93 U/L (45-117); Aspartate Amino Transferase 34 U/L (0-37); Bilirubin,Total < 0.39 MG/DL (0.20-1.00); Blood Urea Nitrogen 21 MG/DL (7-18); Calcium 9.7 MG/DL (8.5-10.1); Carbon Dioxide 26 MMOL/L (21-32); Chloride 102 MMOL/L (98-107); Glucose 120 MG/DL (74-106); Potassium 3.3 MMOL/L (3.5-5.1); Sodium 136 MMOL/L (136-145); Total Protein 7.5 G/DL (6.4-8.2)
[2022-07-20] MEDS ORDERED: ACETAMINOPHEN 325 MG TABLET ONE (23:24)
[2022-07-20] MEDS ORDERED: ACETAMINOPHEN 325 MG TABLET PO ONE (23:24)
[2022-07-21] MEDS ORDERED: ONDANSETRON 4 MG/2 ML VIAL IV STA (01:23)
[2022-07-21] MEDS ORDERED: metroNIDAZOLE INJ 500 MG/100 ML PREMIX IV STA (01:23)
[2022-07-21] MEDS ORDERED: CIPROFLOXACIN INJ 400 MG/200 ML PREMIX IV STA (01:23)
[2022-07-21] MEDS ORDERED: ACETAMINOPHEN 325 MG TABLET PO PRN (01:54)
[2022-07-21] MEDS ORDERED: ONDANSETRON 4 MG/2 ML VIAL IV PRN (01:54)
[2022-07-21] MEDS ORDERED: DICYCLOMINE 20 MG TABLET PO PRN (01:58)
[2022-07-21] MEDS ORDERED: ALUMINUM/MAGNES/SIMETH MAX STR 30 ML UDCUP PO PRN (01:58)
[2022-07-21] MEDS ORDERED: hydrALAZINE 20 MG/1 ML VIAL IV PRN (02:02)
[2022-07-21] MEDS: cefTRIAXone 2,000 MG in SODIUM CHLORIDE 0.9% 100 ML IV SCH (02:32)
[2022-07-21] MEDS: APIXABAN 2.5 MG TABLET PO SCH ×3 (02:32→20:27)
[2022-07-21 06:40] LABS: Basophils # 0.1 10*3/uL (0.0-0.2); Basophils % 0.5 % (0.0-0.8); Eosinophils # 0.3 10*3/uL (0.0-0.87); Eosinophils % 2.2 % (0.00-10.9); Hematocrit 35.7 VOL% (35.7-47.0); Hemoglobin 11.5 GM/DL (12.0-16.0); Immature Granulocytes % 3.1 %; Immature Granulocytes Absolute 0.36 #; Lymphocytes # 2.2 10*3/uL (1.4-4.0); Lymphocytes % 19.2 % (21.3-54.2); Mean Corpuscular HGB Conc 32.2 GM/DL (32-36); Mean Corpuscular Volume 95.2 FL (87-102); Mean Platelet Volume 9.8 FL (9.6-12.0); Monocytes # 0.9 10*3/uL (0.11-0.8); Monocytes % 7.7 % (1.7-12.7); Neutrophils % 67.3 % (38.7-73.9); Red Blood Count 3.75 MC/CUMM (3.8-5.5); Red Cell Distribution Width 13.7 % (9.3-17.3); White Blood Count 11.6 T/CUMM (4-12)
[2022-07-21 06:48] LABS: Platelet Count 179 T/CUMM (130-400)
[2022-07-21 06:54] LABS: Albumin 2.6 G/DL (3.4-5.0); Bilirubin,Total 0.4 MG/DL (0.20-1.00); Calcium 8.7 MG/DL (8.5-10.1); Osmolality,Calculated 279.5 MOS/KG (273-304); Potassium 2.9 MMOL/L (3.5-5.1)
[2022-07-21] MEDS ORDERED: FUROSEMIDE 40 MG TABLET PO SCH (09:00)
[2022-07-21] MEDS ORDERED: SPIRONOLACTONE 25 MG TABLET PO SCH (09:00)
[2022-07-21] MEDS ORDERED: LOSARTAN 25 MG TABLET PO SCH (09:00)
[2022-07-21] MEDS: PANTOPRAZOLE 40 MG TABLET PO SCH (09:06)
[2022-07-21] MEDS: metroNIDAZOLE INJ 500 MG/100 ML PREMIX IV SCH ×2 (09:06→17:00)
[2022-07-21] MEDS: MEGESTROL 400 MG/10 ML UDCUP PO SCH (09:06)
[2022-07-21] MEDS: DICYCLOMINE 10 MG CAPSULE PO SCH ×4 (09:06→20:27)
[2022-07-21] MEDS: CHOLECALCIFEROL 1,000 UNIT TABLET PO SCH (09:06)
[2022-07-21] MEDS: MAGNESIUM CHLORIDE 64 MG TABLET PO SCH (09:06)
[2022-07-21] MEDS ORDERED: POTASSIUM CHLORIDE 20 MEQ TABLET PO ONE (09:23)
[2022-07-21] MEDS: carvediloL 12.5 MG TABLET PO SCH ×2 (10:13→16:20)
[2022-07-21] MEDS ORDERED: MAGNESIUM SULF RIDER 2 GM/50 ML PREMIX IV ONE (10:51)
[2022-07-21] MEDS: SODIUM CHLORIDE 0.9% 1,000 ML IV SCH (11:45)
[2022-07-21] MEDS ORDERED: SODIUM CHLORIDE 0.9% 500 ML IV ONE (15:22)
[2022-07-21] MEDS: ESCITALOPRAM 10 MG TABLET PO SCH (20:27)
[2022-07-21] MEDS: ROSUVASTATIN 20 MG TABLET PO SCH (21:00)
[2022-07-22] MEDS: metroNIDAZOLE INJ 500 MG/100 ML PREMIX IV SCH ×3 (02:04→17:00)
[2022-07-22] MEDS: SODIUM CHLORIDE 0.9% 1,000 ML IV SCH (03:06)
[2022-07-22] MEDS: cefTRIAXone 2,000 MG in SODIUM CHLORIDE 0.9% 100 ML IV SCH (03:12)
[2022-07-22] MEDS: LEVOTHYROXINE 112 MCG TABLET PO SCH (06:10)
[2022-07-22] MEDS: APIXABAN 2.5 MG TABLET PO SCH ×2 (08:35→21:00)
[2022-07-22] MEDS: DICYCLOMINE 10 MG CAPSULE PO SCH ×4 (08:35→21:00)
[2022-07-22] MEDS: PANTOPRAZOLE 40 MG TABLET PO SCH (08:35)
[2022-07-22] MEDS: carvediloL 12.5 MG TABLET PO SCH ×2 (08:35→16:02)
[2022-07-22] MEDS: CHOLECALCIFEROL 1,000 UNIT TABLET PO SCH (08:35)
[2022-07-22] MEDS: MAGNESIUM CHLORIDE 64 MG TABLET PO SCH (08:35)
[2022-07-22] MEDS: MEGESTROL 400 MG/10 ML UDCUP PO SCH (08:35)
[2022-07-22 13:18] LABS: Calcium 9.2 MG/DL (8.5-10.1); Osmolality,Calculated 281.4 MOS/KG (273-304); Potassium 3.8 MMOL/L (3.5-5.1)
[2022-07-22] MEDS: BACILLUS COAGULANS CAPLET PO SCH (21:00)
[2022-07-22] MEDS: ROSUVASTATIN 20 MG TABLET PO SCH (21:00)
[2022-07-22] MEDS: ESCITALOPRAM 10 MG TABLET PO SCH (21:00)
[2022-07-23] MEDS: SODIUM CHLORIDE 0.9% 1,000 ML IV SCH ×2 (01:03→04:04)
[2022-07-23] MEDS: metroNIDAZOLE INJ 500 MG/100 ML PREMIX IV SCH ×3 (01:04→17:06)
[2022-07-23] MEDS: cefTRIAXone 2,000 MG in SODIUM CHLORIDE 0.9% 100 ML IV SCH (02:14)
[2022-07-23] MEDS: LEVOTHYROXINE 112 MCG TABLET PO SCH (05:26)
[2022-07-23 06:59] LABS: Basophils # 0.1 10*3/uL (0.0-0.2); Basophils % 0.4 % (0.0-0.8); Eosinophils # 0.2 10*3/uL (0.0-0.87); Eosinophils % 1.5 % (0.00-10.9); Hematocrit 31.9 VOL% (35.7-47.0); Hemoglobin 10.5 GM/DL (12.0-16.0); Immature Granulocytes % 1.1 %; Immature Granulocytes Absolute 0.14 #; Lymphocytes % 16.4 % (21.3-54.2); Mean Corpuscular HGB Conc 32.9 GM/DL (32-36); Mean Corpuscular Volume 95.8 FL (87-102); Mean Platelet Volume 9.7 FL (9.6-12.0); Monocytes # 0.7 10*3/uL (0.11-0.8); Monocytes % 5.4 % (1.7-12.7); Neutrophils % 75.2 % (38.7-73.9); Platelet Count 164 T/CUMM (130-400); Red Blood Count 3.33 MC/CUMM (3.8-5.5); White Blood Count 12.3 T/CUMM (4-12)
[2022-07-23 07:19] LABS: Alanine Aminotransferase 30 U/L (13-56); Albumin 2.4 G/DL (3.4-5.0); Alkaline Phosphatase 80 U/L (45-117); Aspartate Amino Transferase 23 U/L (0-37); Bilirubin,Total < 0.39 MG/DL (0.20-1.00); Blood Urea Nitrogen 17 MG/DL (7-18); Calcium 9.2 MG/DL (8.5-10.1); Carbon Dioxide 19 MMOL/L (21-32); Chloride 112 MMOL/L (98-107); Glucose 106 MG/DL (74-106); Osmolality,Calculated 278.5 MOS/KG (273-304); Potassium 3.9 MMOL/L (3.5-5.1); Sodium 139 MMOL/L (136-145); Total Protein 5.9 G/DL (6.4-8.2)
[2022-07-23] MEDS: CHOLECALCIFEROL 1,000 UNIT TABLET PO SCH (09:10)
[2022-07-23] MEDS: BACILLUS COAGULANS CAPLET PO SCH ×2 (09:10→20:47)
[2022-07-23] MEDS: MAGNESIUM CHLORIDE 64 MG TABLET PO SCH (09:10)
[2022-07-23] MEDS: DICYCLOMINE 10 MG CAPSULE PO SCH ×4 (09:10→20:48)
[2022-07-23] MEDS: MEGESTROL 400 MG/10 ML UDCUP PO SCH (09:11)
[2022-07-23] MEDS: carvediloL 12.5 MG TABLET PO SCH ×2 (09:11→17:06)
[2022-07-23] MEDS: PANTOPRAZOLE 40 MG TABLET PO SCH (09:11)
[2022-07-23] MEDS: APIXABAN 2.5 MG TABLET PO SCH ×2 (09:11→20:48)
[2022-07-23] MEDS: SODIUM BICARB INJ 50 MEQ in SODIUM CHLORIDE 0.45% 1,000 ML IV SCH ×2 (12:00→21:09)
[2022-07-23] MEDS: ESCITALOPRAM 10 MG TABLET PO SCH (20:47)
[2022-07-23] MEDS: ROSUVASTATIN 20 MG TABLET PO SCH (20:48)
[2022-07-23] MEDS: CHOLESTYRAMINE 4 GM PACK PO SCH (22:41)
[2022-07-24] MEDS: cefTRIAXone 2,000 MG in SODIUM CHLORIDE 0.9% 100 ML IV SCH (01:05)
[2022-07-24] MEDS: metroNIDAZOLE INJ 500 MG/100 ML PREMIX IV SCH ×3 (01:44→17:10)
[2022-07-24] MEDS: LEVOTHYROXINE 112 MCG TABLET PO SCH (06:17)
[2022-07-24 07:16] LABS: Basophils # 0.1 10*3/uL (0.0-0.2); Basophils % 0.4 % (0.0-0.8); Eosinophils # 0.2 10*3/uL (0.0-0.87); Eosinophils % 1.2 % (0.00-10.9); Hematocrit 31.6 VOL% (35.7-47.0); Hemoglobin 10.1 GM/DL (12.0-16.0); Immature Granulocytes % 0.6 %; Immature Granulocytes Absolute 0.08 #; Lymphocytes # 1.9 10*3/uL (1.4-4.0); Lymphocytes % 13.8 % (21.3-54.2); Mean Corpuscular Volume 97.2 FL (87-102); Mean Platelet Volume 10.3 FL (9.6-12.0); Monocytes # 0.9 10*3/uL (0.11-0.8); Monocytes % 6.7 % (1.7-12.7); Neutrophils % 77.3 % (38.7-73.9); Platelet Count 161 T/CUMM (130-400); Red Blood Count 3.25 MC/CUMM (3.8-5.5); White Blood Count 13.6 T/CUMM (4-12)
[2022-07-24 07:41] LABS: Risk Ratio 2.02; VLDL Cholesterol 11.4 MG/DL
[2022-07-24 07:44] LABS: Osmolality,Calculated 279.3 MOS/KG (273-304); Potassium 3.8 MMOL/L (3.5-5.1)
[2022-07-24] MEDS: DICYCLOMINE 10 MG CAPSULE PO SCH ×4 (08:54→20:43)
[2022-07-24] MEDS: MAGNESIUM CHLORIDE 64 MG TABLET PO SCH (08:54)
[2022-07-24] MEDS: carvediloL 12.5 MG TABLET PO SCH (08:54)
[2022-07-24] MEDS: CHOLECALCIFEROL 1,000 UNIT TABLET PO SCH (08:54)
[2022-07-24] MEDS: MEGESTROL 400 MG/10 ML UDCUP PO SCH (08:54)
[2022-07-24] MEDS: PANTOPRAZOLE 40 MG TABLET PO SCH (08:54)
[2022-07-24] MEDS: BACILLUS COAGULANS CAPLET PO SCH ×2 (08:54→20:43)
[2022-07-24] MEDS: APIXABAN 2.5 MG TABLET PO SCH ×2 (08:54→20:43)
[2022-07-24] MEDS: CHOLESTYRAMINE 4 GM PACK PO SCH ×2 (10:10→21:20)
[2022-07-24] MEDS: SODIUM BICARB INJ 50 MEQ in SODIUM CHLORIDE 0.45% 1,000 ML IV SCH (11:08)
[2022-07-24] MEDS: DOXYCYCLINE HYCLATE 100 MG CAPSULE PO SCH (17:10)
[2022-07-24] MEDS: carvediloL 25 MG TABLET PO SCH (17:10)
[2022-07-24] MEDS: ROSUVASTATIN 20 MG TABLET PO SCH (20:43)
[2022-07-24] MEDS: ESCITALOPRAM 10 MG TABLET PO SCH (20:43)
[2022-07-25] MEDS: metroNIDAZOLE INJ 500 MG/100 ML PREMIX IV SCH ×2 (01:01→10:52)
[2022-07-25] MEDS: cefTRIAXone 2,000 MG in SODIUM CHLORIDE 0.9% 100 ML IV SCH (02:00)
[2022-07-25] MEDS: LEVOTHYROXINE 112 MCG TABLET PO SCH (04:59)
[2022-07-25 05:30] LABS: Basophils # 0.1 10*3/uL (0.0-0.2); Basophils % 0.5 % (0.0-0.8); Eosinophils # 0.2 10*3/uL (0.0-0.87); Eosinophils % 1.6 % (0.00-10.9); Hemoglobin 9.8 GM/DL (12.0-16.0); Immature Granulocytes % 0.6 %; Immature Granulocytes Absolute 0.07 #; Lymphocytes # 1.7 10*3/uL (1.4-4.0); Lymphocytes % 15.5 % (21.3-54.2); Mean Corpuscular HGB Conc 31.6 GM/DL (32-36); Mean Corpuscular Volume 98.4 FL (87-102); Mean Platelet Volume 10.2 FL (9.6-12.0); Monocytes # 0.9 10*3/uL (0.11-0.8); Neutrophils % 73.8 % (38.7-73.9); Platelet Count 149 T/CUMM (130-400); Red Blood Count 3.15 MC/CUMM (3.8-5.5); Red Cell Distribution Width 14.2 % (9.3-17.3); White Blood Count 10.9 T/CUMM (4-12)
[2022-07-25 05:55] LABS: Calcium 9.2 MG/DL (8.5-10.1); Osmolality,Calculated 277.4 MOS/KG (273-304); Potassium 3.9 MMOL/L (3.5-5.1)
[2022-07-25] MEDS: BACILLUS COAGULANS CAPLET PO SCH (09:31)
[2022-07-25] MEDS: carvediloL 25 MG TABLET PO SCH (09:31)
[2022-07-25] MEDS: DICYCLOMINE 10 MG CAPSULE PO SCH ×2 (09:32→13:20)
[2022-07-25] MEDS: DOXYCYCLINE HYCLATE 100 MG CAPSULE PO SCH (09:32)
[2022-07-25] MEDS: MAGNESIUM CHLORIDE 64 MG TABLET PO SCH (09:33)
[2022-07-25] MEDS: PANTOPRAZOLE 40 MG TABLET PO SCH (09:33)
[2022-07-25] MEDS: APIXABAN 2.5 MG TABLET PO SCH (09:34)
[2022-07-25] MEDS: CHOLECALCIFEROL 1,000 UNIT TABLET PO SCH (09:34)
[2022-07-25] MEDS: MEGESTROL 400 MG/10 ML UDCUP PO SCH (09:40)
[2022-07-25 11:32] VITALS: BP 138/61
[2022-07-25] MEDS: CHOLESTYRAMINE 4 GM PACK PO SCH (11:52)
[2022-07-25 22:35] LABS: CDT Result Negative (Negative); CDT Specimen Source STOOL
== END 2022-07-25 15:05 | disposition swing bed (61) | DRG 391 ==
LOC: N.ED 14:43 → N.EDINP 07-21 02:17 → N.3E 07-21 02:21
PROVIDERS: ADMIT Internal Medicine; ATTEND Internal Medicine